=== PATIENT | female | born 2000 | race Caucasian/White ===

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

== ENCOUNTER 2018-02-02 14:30 | Outpatient (RCR) | payer OTHER, SELFPAY ==
--- NOTE | 2018-01-17 15:38 | HMH.PTOPEV ---
PT Outpatient Evaluation Rehab PT Outpatient Evaluation Start: 01/17/18 15:28 Freq: Status: Active Protocol: Document 01/17/18 15:28 SHERRISALVADOR (Rec: 01/17/18 15:37 LINDASUKUMAR [id number]) Electronically Signed By Yong Jung PT 01/17/18 15:28 Outpatient Therapy Subjective History Subjective History This is the initial Physical Therapy evaluation for Nathaly Plaza. Pt is a 17 y/o female referred to PT for c/o R side thoracic pain. Pt reports pain began on the . Pt reports she felt tightness in R side of spine that progressed into severe pain and muscle spasms which limited her ability to inspire . Pt reports severe pain with inspiration. PT reports pain has decreased but still has tightness and pain. Pt did report that she was at drill [employer] two days prior to muscle spasm Chief Complaint Pain Spasms Symptom Type Sharp Dull Symptoms Relieved By Rest/Positioning Symptoms Aggravated By Bending/Stooping Physical Activity Lifting Prior Functional Limitations None Current Functional Limitations Housework Recreation Activity Symptom Description Intermittent Level of pain today (0-10) 6 Pain scale - at its best (0-10) 0 Pain scale - at its worst (0-10) 10 Cervical Eval Palpation Cervical Muscles R Thoracic Paraspinals Lumbopelvic Eval Posture Thoracic Spine Posture Standing Position Neutral Palapation tenderness right thoracic spinal tenderness Yes lumbar spinal tenderness No paraspinal tenderness No buttock tenderness No Accessory Movement T-spine Vertebrae Accessory Movements Right P/A [place] that Elicit Symptoms T10 right Special Tests Anterior/Posterior Rib Compression Test Positive Right Rib Inspiration/Expiration Breathing Positive Test Forward Bending Test- Standing Positive Right Outpatient Therapy Assessment Impairments Problems/Impairmments Palpation Tenderness Impaired Range of Motion Impaired Lifting Im
== END 2018-02-02 14:31 | disposition home or self-care (01) ==
LOC: PT 14:30
PROVIDERS: Family Provider Nurse Practitioner Family; PCP Nurse Practitioner Family; Visit Provider Nurse Practitioner Family
DX: M62.830 Muscle spasm of back (principal)
CPT/HCPCS: 97010; 97014; 97110; 97140; 97163; G0283

== ENCOUNTER → 2018-02-02 15:56 | Outpatient (CLI) | payer OTHER, SELFPAY ==
--- NOTE | 2018-02-02 15:58 | XR_ITS ---
XR chest 2V HISTORY: ITS.REASON: pain with breathing and palpatations ORDERING PHYSICIAN: Trista Martinez PATIENT AGE: 17 years COMPARISON: None FINDINGS: The cardiomediastinal silhouette and pulmonary vascularity are within normal limits. The lungs are clear without infiltrates, suspicious nodules, or pleural effusions. No acute bony abnormalities. IMPRESSION: Negative chest, no acute finding
== END ==
PROVIDERS: PCP Nurse Practitioner Family; Visit Provider Nurse Practitioner Family
DX: R07.1 Chest pain on breathing (principal)
CPT/HCPCS: 71046

== ENCOUNTER → 2018-03-14 12:55 | Outpatient (CLI) | payer OTHER, SELFPAY ==
--- NOTE | 2018-03-14 12:56 | US_ITS ---
US transvaginal HISTORY: Pelvic cramping, dysfunctional uterine bleeding ITS.REASON: US T/V- Left Ovarian Cyst ORDERING PHYSICIAN: Ivone Martinez MD PATIENT AGE: 17 years Comparison: 08/21/2015 FINDINGS: The uterus is normal in size and shows normal echogenicity. The endometrial echo appears normal. The right ovary is normal size and appears normal. The left ovary is normal size and shows a dominant cyst measuring 2.3 x 1.7 x 1.9 cm. There is a [id number] amount of cul-de-sac fluid slightly more than physiologic. Ostomy there is been a recent partial rupture of the left ovarian cyst. Impression: Probable functional cyst left ovary, small to moderate amount of cul-de-sac fluid
== END ==
PROVIDERS: Family Provider Nurse Practitioner Family; PCP Nurse Practitioner Family; Visit Provider Obstetrics & Gynecology
DX: N83.202 Unspecified ovarian cyst, left side (principal)
CPT/HCPCS: 76830

== ENCOUNTER 2018-06-22 12:13 | Observation (INO) ==
[2018-06-22 13:49] LABS: Basophils % 0.1 % (0.1-2.0); Eosinophils % 0.2 % (0.1-12.0); Hematocrit 40.3 % (37.0-47.0); Hemoglobin 13.2 g/dL (12.2-16.2); Lymphocytes # 1.2 K/mm3 (0.7-4.5); Lymphocytes % 15.1 K/mm3 (10-50); Mean Corpuscular HGB Conc 32.8 g/dL (31.8-35.4); Mean Corpuscular Hemoglobin 29.3 pg (27.0-31.2); Mean Corpuscular Volume 89.3 fl (81-99); Mean Platelet Volume 6.6 fl (7.4-10.4); Monocytes # 0.2 K/mm3 (0.1-1.0); Neutrophils # 6.7 K/mm3 (1.8-7.8); Neutrophils % 82.5 % (37.0-80.0); Platelet Count 299 K/mm3 (142-424); Red Blood Count 4.52 M/mm3 (4.20-5.40); Red Cell Distribution Width 12.7 % (11.5-17.5); White Blood Count 8.1 K/mm3 (4.5-13.0)
[2018-06-22 14:00] LABS: Albumin Level 3.8 gm/dL (3.4-5.0); Albumin/Globulin Ratio 0.9 (1.1-1.8); Bilirubin,Total 0.3 mg/dL (0.2-1.0); Calcium 9.4 mg/dL (8.5-10.1); Globulin 4.1 gm/dl (1.3-3.2); Total Protein,Serum 7.9 gm/dL (6.4-8.2)
--- NOTE | 2018-06-22 15:24 | Pharmacy Consult Notes ---
[facility] Pharmacy VTE Monitoring - Patient Demographics Admission date: 06/22/18 Report Date: 06/22/18 Time: 15:24 Allergies/Adverse Reactions: Patient Allergies No Known Allergies Allergy (Verified 06/22/18 11:30) Height: 1.55 m Weight: 55.338 kg - VTE Risk Labs: VTE Related Lab Results Hgb 13.2 g/dL (12.2-16.2) 06/22/18 13:25 Hct 40.3 % (37.0-47.0) 06/22/18 13:25 Plt Count 299 K/mm3 (142-424) 06/22/18 13:25 BUN 13 mg/dL (7-18) 06/22/18 13:25 Creatinine 0.94 mg/dL (0.55-1.02) 06/22/18 13:25 Estimated Creat Clear 84 mL/min (0-300) 06/22/18 13:25 Was VTE Risk Assessment Performed: Yes VTE Score: 0 VTE Risk Level: Very Low Risk - Prophylaxis VTE Prophylaxis Ordered?: Yes Types of VTE Prophylaxis: TEDS Knee High Location of Applied Device: Bilateral Lower Extremeties - VTE Diagnosis Confirmed Treatment or plan recommended: Continue Current Treatment
[2018-06-23 07:14] LABS: Basophils % 0.3 % (0.1-2.0); Eosinophils % 0.5 % (0.1-12.0); Hematocrit 37.1 % (37.0-47.0); Hemoglobin 12.1 g/dL (12.2-16.2); Lymphocytes # 3.5 K/mm3 (0.7-4.5); Lymphocytes % 41.2 K/mm3 (10-50); Mean Corpuscular HGB Conc 32.7 g/dL (31.8-35.4); Mean Corpuscular Hemoglobin 29.5 pg (27.0-31.2); Mean Corpuscular Volume 90.3 fl (81-99); Monocytes # 0.5 K/mm3 (0.1-1.0); Monocytes % 5.6 % (1.7-9.3); Neutrophils # 4.4 K/mm3 (1.8-7.8); Neutrophils % 52.4 % (37.0-80.0); Platelet Count 289 K/mm3 (142-424); Red Blood Count 4.11 M/mm3 (4.20-5.40); Red Cell Distribution Width 12.7 % (11.5-17.5); White Blood Count 8.4 K/mm3 (4.5-13.0)
[2018-06-23 07:22] LABS: Anion Gap 10.8 mEq/L (5-15); Calcium 8.7 mg/dL (8.5-10.1); Potassium 3.8 mmoL/L (3.5-5.1)
--- NOTE | 2018-06-23 07:45 | H&P/Discharge Summary ---
General - General Admission date:: 06/22/18 Discharge date: 06/23/18 *Admission Date: 06/22/18 *Chief complaint: Nausea/vomiting *History of present illness: 17-year-old white female with recent history of staph epi urinary tract infection that was not treated, who presented to primary nurse practitioner's office with feelings of nausea, low blood pressure and generalized weakness and malaise. Found to have abdominal pain, and orthostatic changes on office vital signs, admitted to hospital for overnight observation for IV fluids and further diagnostic testing as needed and antibiotic therapy. [facility] History I have reviewed the patient's past medical history: Yes Medical History: Reports:: Anxiety Denies:: Cancer, Diabetes Mellitus Type 1, Diabetes Mellitus Type 2, MRSA, Seizures Laterality Cases: Bilateral: Tonsillectomy Other Surgeries: Yes: No Previous Surgery, Sinus Surgery, Other Amputation: No Fractures: No - *Social History Educational Level: Attended College Smoking Status: Never smoker Alcohol Intake: never Substance Use Type: denies use Occupational Status: employed Housing: house Household Members: family - Psychiatric History Expresses thoughts of harming self/others: None Suicide Plan Description: No Plan Pschychiatric History:: Reports:: Anxiety *Family Hx:: Cancer, Asthma, Hypertension, Hyperlipidemia Review of Systems - Review of Systems Review of systems:: pertinent systems reviewed and negative unless documented below - Constitutional Reports anorexia, Denies chills, Denies fever(s), Denies headache(s) - Eyes Denies blind spots, Denies blurry vision, Denies change in vision - ENT Denies abnormal hearing - *Cardiovascular Denies chest pain, Denies excessive sweating, Denies shortness of breath, Denies irregular heart rhythm - *Respiratory Denies change in phlegm color, Denies chest congestion, Denies cough - *Gastrointestinal Reports abdominal pain, Reports heartburn, Reports vomiting, Denies coffee ground vomit, Denies incontinent of stools, Denies vomiting blood, Denies bright, red blood in stools, Denies loose stools, Denies black, tarry stools - *Genitourinary Denies abnormal periods - *Musculoskeletal Denies abnormal walking, Denies joint pain - Integumentary/Breasts Denies acne - *Neurologic Denies abnormal walking, Denies abnormal hearing Exam Vital signs and Labs for Last 24 Hours: Temp Pulse Resp BP Pulse Ox 97.8 F 54 L 14 107/50 L 99 06/23/18 04:29 06/23/18 04:29 06/23/18 04:29 06/23/18 04:29 06/23/18 04:29 Laboratory Results - last 24 hr 06/22/18 13:25: WBC 8.1, RBC 4.52, Hgb 13.2, Hct 40.3, MCV 89.3, MCH 29.3, MCHC 32.8, RDW 12.7, Plt Count 299, MPV 6.6 L, Neut % (Auto) 82.5 H, Lymph % (Auto) 15.1, Leon % (Auto) 2.0, Eos % (Auto) 0.2, Baso % (Auto) 0.1, Neut # (Auto) 6.7, Lymph # (Auto) 1.2, Leon # (Auto) 0.2, Eos # (Auto) 0.0, Baso # (Auto) 0.0 06/22/18 13:25: Sodium 141, Potassium 4.0, Chloride 103, Carbon Dioxide 27, Anion Gap 15.0, BUN 13, Creatinine 0.94, Estimated Creat Clear 84, Estimated GFR 77, Est GFR ( Amer) 93, Glucose 91, Calcium 9.4, Total Bilirubin 0.3, AST 13 L, ALT 22, Alkaline Phosphatase 69, Total Protein 7.9, Albumin 3.8, Globulin 4.1 H, Albumin/Globulin Ratio 0.9 L 06/22/18 13:25: Serum HCG, Qual Negative 06/23/18 07:00: WBC 8.4, RBC 4.11 L, Hgb 12.1 L, Hct 37.1, MCV 90.3, MCH 29.5, MCHC 32.7, RDW 12.7, Plt Count 289, MPV 7.0 L, Neut % (Auto) 52.4, Lymph % (Auto) 41.2, Leon % (Auto) 5.6, Eos % (Auto) 0.5, Baso % (Auto) 0.3, Neut # (Auto) 4.4, Lymph # (Auto) 3.5, Leon # (Auto) 0.5, Eos # (Auto) 0.0, Baso # (Auto) 0.0 06/23/18 07:00: Sodium 141, Potassium 3.8, Chloride 107, Carbon Dioxide 27, Anion Gap 10.8, BUN 11, Creatinine 0.95, Estimated Creat Clear 83, Estimated GFR 76, Est GFR ( Amer) 92, Glucose 80, Calcium 8.7 I & O for Last 24 hours: Intake & Output 06/20/18 06/21/18 06/22/18 06/23/18 11:59 11:59 11:59 11:59 Intake Total 2495 / 2495 Output Total 1600 / 1600 Balance 895 / 895 Weight 122 lb Narrative: Patient is asleep, when awakened this morning she is alert. Mild nausea reported but otherwise feels better, has kept on clear liquids according to nursing documentation. Oropharynx clear. Lesions. No JVD. Lungs are clear in the anterior and posterior [place], heart rate regular without tachycardia or murmurs. Abdomen is soft, very minimal subjective tenderness in both lower quadrants but no rebound, guarding or masses. No CVA tenderness. No edema or clubbing. Normal skin turgor this morning. Hospital Course Hospital Course: Patient was admitted overnight. Blood cultures were obtained, negative at time of dictation. Urine culture reviewed from previous labs, showed staph epi. Sensitive to Levaquin. Therapy was started. Zofran was given overnight. This morning patient is keeping clear liquids down. Vital signs are normal. Patient can safely be discharged home. Discharged home with Levaquin and Zofran. Clear liquids advance to a low-fat diet. Follow-up with primary care nurse practitioner provider in the next 3 or 4 days. Results Labs on day of discharge: Labs from last 24 hours 06/23/18 06/23/18 06/22/18 07:00 07:00 13:25 WBC 8.4 RBC 4.11 L Hgb 12.1 L Hct 37.1 MCV 90.3 MCH 29.5 MCHC 32.7 RDW 12.7 Plt Count 289 MPV 7.0 L Neut % (Auto) 52.4 Lymph % (Auto) 41.2 Leon % (Auto) 5.6 Eos % (Auto) 0.5 Baso % (Auto) 0.3 Neut # (Auto) 4.4 Lymph # (Auto) 3.5 Leon # (Auto) 0.5 Eos # (Auto) 0.0 Baso # (Auto) 0.0 Sodium 141 Potassium 3.8 Chloride 107 Carbon Dioxide 27 Anion Gap 10.8 BUN 11 Creatinine 0.95 Estimated Creat Clear 83 Estimated GFR 76 Est GFR ( Amer) 92 Glucose 80 Calcium 8.7 Total Bilirubin AST ALT Alkaline Phosphatase Total Protein Albumin Globulin Albumin/Globulin Ratio Serum HCG, Qual Negative 06/22/18 06/22/18 13:25 13:25 WBC 8.1 RBC 4.52 Hgb 13.2 Hct 40.3 MCV 89.3 MCH 29.3 MCHC 32.8 RDW 12.7 Plt Count 299 MPV 6.6 L Neut % (Auto) 82.5 H Lymph % (Auto) 15.1 Leon % (Auto) 2.0 Eos % (Auto) 0.2 Baso % (Auto) 0.1 Neut # (Auto) 6.7 Lymph # (Auto) 1.2 Leon # (Auto) 0.2 Eos # (Auto) 0.0 Baso # (Auto) 0.0 Sodium 141 Potassium 4.0 Chloride 103 Carbon Dioxide 27 Anion Gap 15.0 BUN 13 Creatinine 0.94 Estimated Creat Clear 84 Estimated GFR 77 Est GFR ( Amer) 93 Glucose 91 Calcium 9.4 Total Bilirubin 0.3 AST 13 L ALT 22 Alkaline Phosphatase 69 Total Protein 7.9 Albumin 3.8 Globulin 4.1 H Albumin/Globulin Ratio 0.9 L Serum HCG, Qual DS: Diagnosis - Discharge Diagnosis (1) UTI (urinary tract infection) Status: Acute (2) Abdominal pain Status: Acute Discharge Medications - Medications for Discharge Home Medication List at Discharge: New levoFLOXacin [Levaquin 500mg tab] 500 mg PO DAILY #7 tab Continue Omeprazole [Omeprazole 20mg Capsule] 20 mg PO DAILY Norethindrone-E.estradiol-Iron [Lo Loestrin Fe 1-10 Tablet] 1 tab PO ONCE Sertraline HCl [Zoloft] 50 mg PO DAILY hydrOXYzine HCl [Hydroxyzine HCl] 25 mg PO BID PRN PRN Reason: Anxiety Changed Ondansetron HCl [Ondansetron 4mg Tablet] 4 mg PO QIDP PRN #24 tablet PRN Reason: Nausea Discontinued predniSONE [Deltasone 20mg tablet] 20 mg PO DAILY Amoxicillin [Amoxicillin 500mg Cap] 1 cap PO TID Ciprofloxacin HCl [Ciprofloxacin 500mg Tab] 500 mg PO BID
== END 2018-06-23 09:57 | disposition home or self-care (01) ==
LOC: 2ND
PROVIDERS: ADMIT Internal Medicine Adolescent Medicine; ATTEND Internal Medicine Adolescent Medicine
DX: N39.0 Urinary tract infection, site not specified

== ENCOUNTER 2018-06-26 20:09 | Observation (INO) ==
[2018-06-26 20:36] LABS: Microscopic, Urine URINE MICROSCOPIC (MICROSCOPIC)
[2018-06-26 20:49] LABS: Appearance,Urine CLEAR (Clear); Bilirubin,Urine Negative (Negative); Blood, Urine 1+ (Negative); Color,Urine YELLOW (Yellow); Glucose,Urine (UA) Negative (Negative); Ketones,Urine Negative (Negative); Leukocyte Esterase,Urine Negative (Negative); PH,Urine 7.5 (5.0-8.5); Protein,Urine Negative (Negative); Specific Gravity, Urine 1.015 (1.005-1.030); Urobilinogen,Urine 0.2 EU/dl (0.2)
[2018-06-26 20:51] LABS: Amorphous Sediment,Urine Trace /lpf
[2018-06-26 21:01] LABS: Basophils % 0.5 % (0.1-2.0); Eosinophils # 0.2 K/mm3 (0.0-0.4); Eosinophils % 2.1 % (0.1-12.0); Hematocrit 39.4 % (37.0-47.0); Hemoglobin 13.4 g/dL (12.2-16.2); Lymphocytes # 2.8 K/mm3 (0.7-4.5); Lymphocytes % 37.9 K/mm3 (10-50); Mean Corpuscular Hemoglobin 30.5 pg (27.0-31.2); Mean Corpuscular Volume 89.6 fl (81-99); Mean Platelet Volume 6.7 fl (7.4-10.4); Monocytes # 0.4 K/mm3 (0.1-1.0); Monocytes % 5.9 % (1.7-9.3); Neutrophils # 3.9 K/mm3 (1.8-7.8); Neutrophils % 53.6 % (37.0-80.0); Platelet Count 298 K/mm3 (142-424); Red Cell Distribution Width 12.8 % (11.5-17.5); White Blood Count 7.3 K/mm3 (4.5-13.0)
[2018-06-26 21:12] LABS: Albumin Level 3.9 gm/dL (3.4-5.0); Anion Gap 12.6 mEq/L (5-15); Bilirubin,Total 0.6 mg/dL (0.2-1.0); Calcium 9.4 mg/dL (8.5-10.1); Globulin 3.8 gm/dl (1.3-3.2); Potassium 3.6 mmoL/L (3.5-5.1); Total Protein,Serum 7.7 gm/dL (6.4-8.2)
--- NOTE | 2018-06-26 22:03 | Emergency Department Note ---
ED Disposition Clinical Impression: Weakness Fatigue Qualifiers: Fatigue type: unspecified Qualified Code(s): R53.83 - Other fatigue Disposition: Still a Patient Condition on Discharge: Fair Referrals: Trista Martinez APRN [Primary Care Provider] - - Critical Care Critical Care Time: No Attestation: On 06/26/18, the high probability of a clinically significant, sudden or life threatening deterioration of the following system(s) required my full and direct attention, intervention and personal management. The time I documented below is in addition to time spent performing reported procedures but includes the following listed in this critical care notation. Medical Decision Making - Deejay Inquiry Pt receiving controlled substance: No Vital Signs: 06/26/18 20:20 Temperature 98.8 F Temperature Source Oral Pulse Rate [Right] 80 Respiratory Rate 20 Blood Pressure [Right Arm] 124/78 Blood Pressure Mean [Right Arm] 93 02 Sat by Pulse Oximetry 100 Oxygen Delivery Method Room Air - Lab Data Lab Results 06/26/18 20:31: Urine Color Yellow, Urine Appearance Clear, Urine pH 7.5, Ur Specific [place] 1.015, Urine Protein Negative, Urine Glucose (UA) Negative, Ur ine Ketones Negative, Urine Blood 1+, Urine Nitrate Negative, Urine Bilirubin Negative, Urine Urobilinogen 0.2, Ur Leukocyte Esterase Negative, Urine RBC 5- 10, Urine WBC 3-5, Ur Squamous Epith Cells 5-10, Amorphous Sediment Trace 06/26/18 20:31: Urine HCG, Qual Negative 06/26/18 20:43: WBC 7.3, RBC 4.40, Hgb 13.4, Hct 39.4, MCV 89.6, MCH 30.5, MCHC 34.0, RDW 12.8, Plt Count 298, MPV 6.7 L, Neut % (Auto) 53.6, Lymph % (Auto) 37.9, King % (Auto) 5.9, Eos % (Auto) 2.1, Baso % (Auto) 0.5, Neut # (Auto) 3.9, Lymph # (Auto) 2.8, King # (Auto) 0.4, Eos # (Auto) 0.2, Baso # (Auto) 0.0 06/26/18 20:43: Sodium 142, Potassium 3.6, Chloride 105, Carbon Dioxide 28, Anion Gap 12.6, BUN 11, Creatinine 1.01, Estimated Creat Clear 68, Estimated GFR 71, Est GFR ( Amer) 85, Glucose 92, Calcium 9.4, Total Bilirubin 0.6, AST 15, ALT 21, Alkaline Phosphatase 72, Total Protein 7.7, Albumin 3.9, Globulin 3.8 H, Albumin/Globulin Ratio 1.0 L Result diagrams: 06/26/18 20:43 06/26/18 20:43 Orders (Tests/Meds): ED MEDICATIONS Discontinued Medications Generic Name Dose Route Start Last Admin Trade Name Freq PRN Reason Stop Dose Admin Sodium Chloride 1,000 mls @ 999 mls/hr 06/26/18 20:30 06/26/18 20:50 Sod Chlor 0.9% 1000ml Bag IV 06/26/18 21:30 999 mls/hr .Q1H1M RACHEL Administration Ketorolac Tromethamine 30 mg 06/26/18 20:30 06/26/18 20:50 Toradol 30mg/Ml Vial IV 06/26/18 20:31 30 mg ONCE ONE Administration Ondansetron HCl 4 mg 06/26/18 20:30 06/26/18 20:50 Zofran 4mg/2ml Vial IV 06/26/18 20:31 4 mg ONCE ONE Administration ORDERS Category Date Time Status EBV Acute Infection Antibodies Stat Lab 06/26/18 22:25 Ordered Upper Respiratory Panel, PCR Stat Lab 06/26/18 22:25 Ordered Urinalysis and Microscopic Stat Lab 06/26/18 20:31 Ordered - Physician Consults Physician Consulted: Jorge Hanson Time: 22:24 Reason -: Admission Comment/Response: Agrees to admit the patient to the hospital. We discussed the patient's clinical information, including history, exam, laboratory and ra diology results and ED course. Per hospital procedure, I will write temporary bridge inpatient orders on the patient. Specific orders requested by the admitting physician: IV fluids, upper respiratory panel, Paul-Ramirez virus IgG and IgM. General Adult HPI - General Chief complaint: Fever Stated complaint: Fever, Headache, Aching Time Seen by Provider: 06/26/18 22:03 Mode of Arrival: Ambulatory Limitations: No Limitations Description of Symptoms (Recalled from ER Triage Doc. by RN): Pt c/o fever, chil ls, N/V, and SANCHEZ. Pt was just d/c from this hospital on with a UTI and sent home with PO antibiotics. - History of Present Illness HPI narrative: States this is the th day of an illness. She says she has felt feverish, but does not take her temperature at home, does not have a thermometer. Has hot and sweaty episodes. Generalized malaise and weakness. Generalized body aches and headache. Slight rhinorrhea, but no sore throat or cough. She had diarrhea for couple days, but that resolved. No vomiting. No rash. Seen in this emergency department on 06/17/18. Seen in the primary care provider's office and admitted to this hospital on 06/22/18 through 06/23/18. Urine showed staph epidermidis, 20-30,000 colony count. Treated presumptively with Levaquin. States she is still taking this antibiotic, but is not getting any better. She says that she has a sense of doom, feels like she is going to . She says she does not even feel like she is in her own body. - Related Data Home Medications Medication Instructions Recorded Confirmed Norethindrone-E.estradiol-Iron [Lo 1 tab PO ONCE 06/22/18 06/22/18 Loestrin Fe 1-10 Tablet] Omeprazole [Omeprazole 20mg 20 mg PO DAILY 06/22/18 06/22/18 Capsule] Sertraline HCl [Zoloft] 50 mg PO DAILY 06/22/18 06/22/18 hydrOXYzine HCl [Hydroxyzine HCl] 25 mg PO BID PRN 06/22/18 06/22/18 Previous Rx's Medication Instructions Recorded Ondansetron HCl [Ondansetron 4mg 4 mg PO QIDP PRN #24 tablet 06/23/18 Tablet] levoFLOXacin [Levaquin 500mg 500 mg PO DAILY #7 tab 06/23/18 tab] Allergies Allergy/AdvReac Type Severity Reaction Status Date / Time No Known Allergies Allergy Verified 06/22/18 11:30 [facility] History I have reviewed the patient's past medical history: Yes Medical History: Reports:: Anxiety Denies:: Cancer, Diabetes Mellitus Type 1, Diabetes Mellitus Type 2, MRSA, Seizures Laterality Cases: Bilateral: Tonsillectomy Other Surgeries: Yes: No Previous Surgery, Sinus Surgery, Other Amputation: No Fractures: No Comment: EXPLORATORY ON STOMACH WHICH SHOWED IBS - Social History Smoking Status: Never smoker Alcohol Intake: never Substance Use Type: denies use Occupational Status: employed Housing: house Household Members: family - Psychiatric History Expresses thoughts of harming self/others: None Suicide Plan Description: No Plan Pschychiatric History:: Reports:: Anxiety Family Hx:: Cancer, Asthma, Hypertension, Hyperlipidemia ROS Obtained: Yes All systems reviewed & no additional complaints - Constitutional Constitutional: Reports excessive sweating, Reports fatigue, Reports fever(s) (Subjective), Reports malaise, Reports weakness - ENT Ears, Nose, Mouth, and Throat: Denies otalgia, Reports nasal discharge, Denies sore throat - Cardiovascular Cardiovascular: Denies chest pain - Respiratory Respiratory: No cough, No dyspnea - Gastrointestinal Gastrointestingal: Reports: diarrhea. Denies: abdominal pain, vomiting - Genitourinary Female Genitourinary: Denies dysuria, Denies urinary frequency - Neurologic Neurologic: Reports headache(s) Physical Exam - General General appearance: alert, in no apparent distress - Head Head exam: atraumatic, normocephalic, normal inspection - Eye Eye exam: Present: normal appearance, PERRL, EOMI - ENT ENT exam: Present: normal exam, normal oropharynx, mucous membranes moist, TM's normal bilaterally, normal external ear exam - Neck Neck exam: Present: normal inspection, full ROM, trachea midline. Absent: meningismus, lymphadenopathy - Chest Chest inspection: Present: normal inspection, symmetric chest wall rise. Absent: tenderness - Respiratory Respiratory exam: Present: normal lung sounds bilaterally. Absent: respiratory distress - Cardiovascular Cardiovascular exam: Present: regular rate, normal rhythm. Absent: JVD - Abdominal Exam Abdominal exam: Present: soft, normal bowel sounds. Absent: distention, tendern ess, guarding - Extremities Exam Extremities exam: Present: normal inspection, full ROM, normal capillary refill. Absent: calf tenderness - Back Exam Back exam: Present: normal inspection. Absent: tenderness, CVA tenderness (R), CVA tenderness (L) - Neurological Exam Neurological exam: Present: alert, oriented X3, CN II-XII intact. Absent: motor sensory deficit - Psychiatric Psychiatric exam: Present: normal affect, normal mood - Skin Skin exam: Present: warm, dry, intact, normal color. Absent: rash - Lymphatic Lymphatic Findings: no adenopathy
[2018-06-26 23:30] LABS: Coronavirus 229E Not Detected (NotDetected); Coronavirus NL63 Not Detected (NotDetected); Coronavirus OC43 Not Detected (NotDetected); Coronovirus HKU1,PCR Not Detected (NotDetected)
--- NOTE | 2018-06-27 07:21 | Pharmacy Consult Notes ---
[facility] Pharmacy VTE Monitoring - Patient Demographics Admission date: 06/26/18 Report Date: 06/27/18 Time: 07:21 Allergies/Adverse Reactions: Patient Allergies No Known Allergies Allergy (Verified 06/22/18 11:30) Height: 1.55 m Weight: 53.269 kg Patient Problems: Current Active Problems Weakness (Acute) Fatigue (Acute) - VTE Risk Labs: VTE Related Lab Results Hgb 13.4 g/dL (12.2-16.2) 06/26/18 20:43 Hct 39.4 % (37.0-47.0) 06/26/18 20:43 Plt Count 298 K/mm3 (142-424) 06/26/18 20:43 BUN 11 mg/dL (7-18) 06/26/18 20:43 Creatinine 1.01 mg/dL (0.55-1.02) 06/26/18 20:43 Estimated Creat Clear 68 mL/min (0-300) 06/26/18 20:43 Was VTE Risk Assessment Performed: Yes VTE Risk Level: Very Low Risk - Prophylaxis VTE Prophylaxis Ordered?: Yes Types of VTE Prophylaxis: TEDS Knee High Location of Applied Device: Bilateral Lower Extremeties - VTE Diagnosis Confirmed Treatment or plan recommended: Continue Current Treatment
[2018-06-27 11:20] LABS: Erythrocyte Sedimentation Rate 9 mm/hr (0-20)
--- NOTE | 2018-06-27 17:26 | H&P/Discharge Summary ---
General - General Admission date:: 06/26/18 Discharge date: 06/27/18 *Admission Date: 06/26/18 *Chief complaint: weakness *History of present illness: 17 yr old female presents to ed with c/o of weakness,nausea, body aches, fatigue, and chills for 14 days. Pt has been seen in ed at [facility] and [facility] ed x 2. Pt was admitted last week with similar c/o. Pt admitted for iv fluids, iv zofran, and testing. This am pt states she feels horrible and hurts all over, is able to walk to bath room without difficulty and was able to eat two chips before she became nauseous. [facility] History I have reviewed the patient's past medical history: Yes Medical History: Reports:: Anxiety Denies:: Cancer, Diabetes Mellitus Type 1, Diabetes Mellitus Type 2, MRSA, Seizures Laterality Cases: Bilateral: Tonsillectomy Other Surgeries: Yes: No Previous Surgery, Sinus Surgery, Other (ABD EXPLORATORY LAP) Amputation: No Fractures: No - *Social History Educational Level: Attended College Smoking Status: Never smoker Alcohol Intake: never Substance Use Type: denies use Occupational Status: employed Housing: house Household Members: family - Psychiatric History Expresses thoughts of harming self/others: None Suicide Plan Description: No Plan Pschychiatric History:: Reports:: Anxiety *Family Hx:: Cancer, Asthma, Hypertension, Hyperlipidemia Review of Systems - Review of Systems Review of systems:: pertinent systems reviewed and negative unless documented below - Constitutional Reports body ache(s), Reports chills, Reports fatigue, Reports lack of energy, Reports malaise, Reports weakness - Eyes Denies loss of vision - ENT Denies change in voice, Denies throat swelling - *Cardiovascular Denies chest pain with activity, Denies lightheadedness, Denies shortness of breath causing sudden awakening - *Respiratory Denies chest congestion - *Gastrointestinal Denies incontinent of stools, Denies vomiting - *Genitourinary Reports other, Denies abnormal vaginal bleeding - *Musculoskeletal Denies abnormal walking - Integumentary/Breasts Denies rash - *Neurologic Reports headache(s), Reports weakness, Denies unsteadiness, Denies localized weakness, Denies dizziness - Psychiatric Reports anxiety - Endocrine Denies excessive sweating - Hematologic/Lymphatic Denies enlarged lymph nodes - Allergic/Immunologic Denies lip swelling Exam Vital signs and Labs for Last 24 Hours: Temp Pulse Resp BP Pulse Ox 98.8 F 68 18 133/80 97 06/27/18 15:35 06/27/18 15:35 06/27/18 15:35 06/27/18 15:35 06/27/18 15:35 Laboratory Results - last 24 hr 06/26/18 20:31: Urine Color Yellow, Urine Appearance Clear, Urine pH 7.5, Ur Specific [place] 1.015, Urine Protein Negative, Urine Glucose (UA) Negative, Urine Ketones Negative, Urine Blood 1+, Urine Nitrate Negative, Urine Bilirubin Negative, Urine Urobilinogen 0.2, Ur Leukocyte Esterase Negative, Urine RBC 5- 10, Urine WBC 3-5, Ur Squamous Epith Cells 5-10, Amorphous Sediment Trace 06/26/18 20:31: Urine HCG, Qual Negative 06/26/18 20:43: WBC 7.3, RBC 4.40, Hgb 13.4, Hct 39.4, MCV 89.6, MCH 30.5, MCHC 34.0, RDW 12.8, Plt Count 298, MPV 6.7 L, Neut % (Auto) 53.6, Lymph % (Auto) 37.9, [place] % (Auto) 5.9, Eos % (Auto) 2.1, Baso % (Auto) 0.5, Neut # (Auto) 3.9, Lymph # (Auto) 2.8, [place] # (Auto) 0.4, Eos # (Auto) 0.2, Baso # (Auto) 0.0 06/26/18 20:43: Sodium 142, Potassium 3.6, Chloride 105, Carbon Dioxide 28, Anion Gap 12.6, BUN 11, Creatinine 1.01, Estimated Creat Clear 68, Estimated GFR 71, Est GFR ( Amer) 85, Glucose 92, Calcium 9.4, Total Bilirubin 0.6, AST 15, ALT 21, Alkaline Phosphatase 72, Total Protein 7.7, Albumin 3.9, Globulin 3.8 H, Albumin/Globulin Ratio 1.0 L 06/26/18 23:30: Chlamy pneumoniae PCR Not detected, Adenovirus (PCR) Not detected, B.parapertussis DNA PCR Not detected, Coronavirus OC43 (PCR) Not detected, Coronavirus HKU1 (PCR) Not detected, Coronavirus 229E (PCR) Not detected, Coronavirus NL63 (PCR) Not detected, Human Metapneumovir PCR Not detected, Influenza A (H1) PCR Not detected, Influ A (H1N1/09) PCR Not detected, Influenza A (H3) PCR Not detected, Influenza Type A (PCR) Not detected, Inf luenza Type B (PCR) Not detected, M. pneumoniae (PCR) Not detected, Parainfluenza 1 (PCR) Not detected, Parainfluenza 2 (PCR) Not detected, Parainfluenza 3 (PCR) Not detected, Parainfluenza 4 (PCR) Not detected, RSV (PCR) Not detected, Entero/Rhino (PCR) Not detected 06/27/18 10:10: ESR 9 06/27/18 10:10: C-Reactive Protein 0.2 06/27/18 10:10: Monoscreen Negative I & O for Last 24 hours: Intake & Output 06/25/18 06/26/18 06/27/18 06/28/18 11:59 11:59 11:59 11:59 Intake Total 828 / 828 Balance 828 / 828 Weight 117 lb 7 oz - Constitutional no acute distress - *Routine HEENT Exam Head: Present: normocephalic Eye: Present: PERRL ENT: Present: mucous membranes moist - *Routine Neck Exam Present: supple. Absent: lymphadenopathy - *Routine Respiratory Exam Present: CTA bilaterally - *Routine Cardiovascular Exam Present: RRR - *Routine Abdominal Exam Present: soft, normoactive bowel sounds, tenderness Comments: positive naranjo sign - *Routine Extremities Exam Absent: cyanosis, clubbing, edema - *Routine Skin Exam Present: warm. Absent: rash - *Routine Neurological Exam Present: alert, oriented X3, CN II-XII intact, moving all extremities, normal tone Hospital Course Hospital Course: gallbladder us: GALLBLADDER. No gallstone evident. Minimal sludge . Small 3 mm polyp near fundus. Upper normal gallbladder wall thickness But otherwise unremarkable RUQ ultrasound ct and and pelvis:IMPRESSION Appendix normal. No prominent acute findings abdomen. Minor observations: . Minimal fluid cul-de-sac most likely physiologic. The 2.8 cm left ovary is larger than right,. Suspect left ovary contains a 1.5 cm cyst Prominent increased stool sigmoid colon. Generous stool left colon. Possibly reflect minimal constipation Small 4 x 6 mm density at left lung base new since September 18, 2017 .. Doubt this is of significance in a 17-year-old. May reflect developing granuloma, minimal area scarring/atelectasis density,. Tiny focal inflammatory focus might also considered if respiratory symptoms. Iv fluids, testing, steroids-,labs, Results Labs on day of discharge: Labs from last 24 hours 06/27/18 06/27/18 06/27/18 10:10 10:10 10:10 WBC RBC Hgb Hct MCV MCH MCHC RDW Plt Count MPV Neut % (Auto) Lymph % (Auto) [place] % (Auto) Eos % (Auto) Baso % (Auto) Neut # (Auto) Lymph # (Auto) [place] # (Auto) Eos # (Auto) Baso # (Auto) ESR 9 Sodium Potassium Chloride Carbon Dioxide Anion Gap BUN Creatinine Estimated Creat Clear Estimated GFR Est GFR ( Amer) Glucose Calcium Total Bilirubin AST ALT Alkaline Phosphatase C-Reactive Protein 0.2 Total Protein Albumin Globulin Albumin/Globulin Ratio Urine Color Urine Appearance Urine pH Ur Specific [place] Urine Protein Urine Glucose (UA) Urine Ketones Urine Blood Urine Nitrate Urine Bilirubin Urine Urobilinogen Ur Leukocyte Esterase Urine RBC Urine WBC Ur Squamous Epith Cells Amorphous Sediment Urine HCG, Qual Chlamy pneumoniae PCR Adenovirus (PCR) B.parapertussis DNA PCR Coronavirus OC43 (PCR) Coronavirus HKU1 (PCR) Coronavirus 229E (PCR) Coronavirus NL63 (PCR) Monoscreen Negative Human Metapneumovir PCR Influenza A (H1) PCR Influ A (H1N1/09) PCR Influenza A (H3) PCR Influenza Type A (PCR) Influenza Type B (PCR) M. pneumoniae (PCR) Parainfluenza 1 (PCR) Parainfluenza 2 (PCR) Parainfluenza 3 (PCR) Parainfluenza 4 (PCR) RSV (PCR) Entero/Rhino (PCR) 06/26/18 06/26/18 06/26/18 23:30 20:43 20:43 WBC 7.3 RBC 4.40 Hgb 13.4 Hct 39.4 MCV 89.6 MCH 30.5 MCHC 34.0 RDW 12.8 Plt Count 298 MPV 6.7 L Neut % (Auto) 53.6 Lymph % (Auto) 37.9 [place] % (Auto) 5.9 Eos % (Auto) 2.1 Baso % (Auto) 0.5 Neut # (Auto) 3.9 Lymph # (Auto) 2.8 [place] # (Auto) 0.4 Eos # (Auto) 0.2 Baso # (Auto) 0.0 ESR Sodium 142 Potassium 3.6 Chloride 105 Carbon Dioxide 28 Anion Gap 12.6 BUN 11 Creatinine 1.01 Estimated Creat Clear 68 Estimated GFR 71 Est GFR ( Amer) 85 Glucose 92 Calcium 9.4 Total Bilirubin 0.6 AST 15 ALT 21 Alkaline Phosphatase 72 C-Reactive Protein Total Protein 7.7 Albumin 3.9 Globulin 3.8 H Albumin/Globulin Ratio 1.0 L Urine Color Urine Appearance Urine pH Ur Specific [place] Urine Protein Urine Glucose (UA) Urine Ketones Urine Blood Urine Nitrate Urine Bilirubin Urine Urobilinogen Ur Leukocyte Esterase Urine RBC Urine WBC Ur Squamous Epith Cells Amorphous Sediment Urine HCG, Qual Chlamy pneumoniae PCR Not detected Adenovirus (PCR) Not detected B.parapertussis DNA PCR Not detected Coronavirus OC43 (PCR) Not detected Coronavirus HKU1 (PCR) Not detected Coronavirus 229E (PCR) Not detected Coronavirus NL63 (PCR) Not detected Monoscreen Human Metapneumovir PCR Not detected Influenza A (H1) PCR Not detected Influ A (H1N1/09) PCR Not detected Influenza A (H3) PCR Not detected Influenza Type A (PCR) Not detected Influenza Type B (PCR) Not detected M. pneumoniae (PCR) Not detected Parainfluenza 1 (PCR) Not detected Parainfluenza 2 (PCR) Not detected Parainfluenza 3 (PCR) Not detected Parainfluenza 4 (PCR) Not detected RSV (PCR) Not detected Entero/Rhino (PCR) Not detected 06/26/18 06/26/18 20:31 20:31 WBC RBC Hgb Hct MCV MCH MCHC RDW Plt Count MPV Neut % (Auto) Lymph % (Auto) [place] % (Auto) Eos % (Auto) Baso % (Auto) Neut # (Auto) Lymph # (Auto) [place] # (Auto) Eos # (Auto) Baso # (Auto) ESR Sodium Potassium Chloride Carbon Dioxide Anion Gap BUN Creatinine Estimated Creat Clear Estimated GFR Est GFR ( Amer) Glucose Calcium Total Bilirubin AST ALT Alkaline Phosphatase C-Reactive Protein Total Protein Albumin Globulin Albumin/Globulin Ratio Urine Color Yellow Urine Appearance Clear Urine pH 7.5 Ur Specific [place] 1.015 Urine Protein Negative Urine Glucose (UA) Negative Urine Ketones Negative Urine Blood 1+ Urine Nitrate Negative Urine Bilirubin Negative Urine Urobilinogen 0.2 Ur Leukocyte Esterase Negative Urine RBC 5-10 Urine WBC 3-5 Ur Squamous Epith Cells 5-10 Amorphous Sediment Trace Urine HCG, Qual Negative Chlamy pneumoniae PCR Adenovirus (PCR) B.parapertussis DNA PCR Coronavirus OC43 (PCR) Coronavirus HKU1 (PCR) Coronavirus 229E (PCR) Coronavirus NL63 (PCR) Monoscreen Human Metapneumovir PCR Influenza A (H1) PCR Influ A (H1N1/09) PCR Influenza A (H3) PCR Influenza Type A (PCR) Influenza Type B (PCR) M. pneumoniae (PCR) Parainfluenza 1 (PCR) Parainfluenza 2 (PCR) Parainfluenza 3 (PCR) Parainfluenza 4 (PCR) RSV (PCR) Entero/Rhino (PCR) - Additional Comments abimael rounded earlier Discharge Medications - Medications for Discharge Home Medication List at Discharge: No Action Omeprazole [Omeprazole 20mg Capsule] 20 mg PO DAILY Norethindrone-E.estradiol-Iron [Lo Loestrin Fe 1-10 Tablet] 1 tab PO DAILY Ondansetron HCl [Ondansetron 4mg Tablet] 4 mg PO QIDP PRN #24 tablet PRN Reason: Nausea Sertraline HCl [Zoloft] 50 mg PO DAILY hydrOXYzine HCl [Hydroxyzine HCl] 25 mg PO BID PRN PRN Reason: Anxiety levoFLOXacin [Levaquin 500mg tab] 500 mg PO DAILY #7 tab Disposition Disposition: Home, Self-Care
[2018-06-28 07:16] LABS: Hepatitis B Core Antibody IgM Negative (Negative); Hepatitis B Surface Antigen Negative (Negative)
[2018-06-28 13:17] LABS: HIV Screen 4th Generation wRfx Non Reactive (Non Reactive); Hepatitis C Antibody <0.1 s/co ratio (0.0-0.9)
[2018-06-28 14:17] LABS: Epstein-Barr Virus Early Ag Ab 35.8 U/mL (0.0-8.9)
== END 2018-06-27 18:17 | disposition home or self-care (01) ==
LOC: ER 20:09 → 2ND 20:09
PROVIDERS: ADMIT Internal Medicine Adolescent Medicine; ATTEND Emergency Medicine
DX: R53.83 Other fatigue

== ENCOUNTER → 2018-07-13 10:13 | Outpatient (CLI) | payer OTHER, SELFPAY ==
--- NOTE | 2018-07-13 10:15 | NM_ITS ---
NM hepatobiliary wo pharm HISTORY: 88 and abdominal pain Quadrant tenderness, gallbladder polyp, abnormal ultrasound ITS.REASON: upper jonatan ORDERING PHYSICIAN: Trista Martinez PATIENT AGE: 17 years COMPARISON: None DOSE: 8.40 MCI TC Choletec Inj Into RT ANT Fatty Meal Ensure FINDINGS: Homogeneous activity is present within the hepatic parenchyma. Activity is present in the gallbladder by 10 minutes. Activity is present in the small bowel by mild limits. The gallbladder ejection fraction is calculated to be 86% The patient did not report pain or other symptoms during the fatty meal. IMPRESSION: Unremarkable hepatobiliary scan and gallbladder ejection fraction. No evidence of common or cystic duct obstruction with normal gallbladder ejection fraction
--- NOTE | 2018-07-13 10:59 | HMH.ITSHM ---
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 [] CONTROL RYAN HOFFMAN
== END ==
PROVIDERS: PCP Nurse Practitioner Family; Visit Provider Nurse Practitioner Family
DX: R11.2 Nausea with vomiting, unspecified (principal)
CPT/HCPCS: 78226; A9537

== ENCOUNTER → 2018-08-11 15:45 | Outpatient (CLI) | payer OTHER, SELFPAY ==
[2018-08-16 06:00] LABS: H. pylori Breath Test Negative (Negative)
== END ==
PROVIDERS: Visit Provider Nurse Practitioner Family
DX: R11.0 Nausea (principal)
CPT/HCPCS: 83013

== ENCOUNTER → 2018-08-11 15:54 | Outpatient (CLI) | payer OTHER, SELFPAY | PROVIDERS: Visit Provider Nurse Practitioner Family | DX: R11.0 Nausea (principal) | CPT/HCPCS: 87339 ==

== ENCOUNTER → 2018-09-02 19:42 | Outpatient (CLI) | payer OTHER, SELFPAY | PROVIDERS: Visit Provider Nurse Practitioner Family | DX: R31.9 Hematuria, unspecified (principal) | CPT/HCPCS: 87086 ==

== ENCOUNTER → 2018-12-16 13:58 | Outpatient (CLI) | payer OTHER, SELFPAY ==
--- NOTE | 2018-12-16 14:03 | XR_ITS ---
XR clavicle RT, XR shoulder RT 1V Ordering Physician: Alex Douglas MD Patient Age: 18 years: Female HISTORY: ITS.REASON: right clavicle pain TECHNIQUE: RIGHT CLAVICLE 2 view: AP and angled RIGHT SHOULDER. Single Axillary view HISTORY ITS.REASON: right clavicle pain right shoulder pain pain Patient states shoulder popped out a couple days ago. Implied dislocation COMPARISON: 12/13/2018 right shoulder 3 view RIGHT SHOULDER. Single Axillary view Normal glenohumeral relationships. RIGHT CLAVICLE 2 view: AP and angled of right clavicle show normal appearance of the clavicle. Also satisfactory appearance at the right AC joint as well as right sternoclavicular joint. Humeral head intact. Glenoid intact on the combination of views above. Apices the lungs are clear upper right ribs unremarkable Small rudimentary cervical ribs bilaterally at C7 measure less than 15 mm bilateral IMPRESSION......... Right shoulder intact. No fracture nor dislocation. Right clavicle intact , AC joint & glenohumeral joint intact
== END ==
PROVIDERS: PCP Nurse Practitioner Family; Visit Provider Orthopaedic Surgery
DX: M25.511 Pain in right shoulder (principal)
CPT/HCPCS: 73000; 73020

== ENCOUNTER → 2019-01-11 13:34 | Outpatient (CLI) | payer OTHER, SELFPAY ==
--- NOTE | 2019-01-11 13:36 | XR_ITS ---
XR clavicle RT HISTORY: Clavicle pain, prior injury ITS.REASON: zanca, serendipity, apical oblique ap views ORDERING PHYSICIAN: Alex Douglas MD PATIENT AGE: 18 years COMPARISON: 12/16/2018 FINDINGS: No fracture or dislocation is evident. There is a well-circumscribed defect within the inferior aspect of the clavicle medially measuring approximately 16 mm with a sclerotic margin. Etiology is indeterminate and CT of the sternoclavicular junction may be of further value. IMPRESSION: 1. Unremarkable distal clavicle. 2. Lucent lesion of the medial aspect of the right clavicle. Etiology indeterminate. Consider CT for further evaluation.
== END ==
PROVIDERS: PCP Nurse Practitioner Family; Visit Provider Orthopaedic Surgery
DX: M89.8X1 Other specified disorders of bone, shoulder (principal)
CPT/HCPCS: 73000

== ENCOUNTER → 2019-01-16 10:54 | Outpatient (CLI) | payer OTHER, SELFPAY ==
--- NOTE | 2019-01-16 10:55 | CT_ITS ---
CT chest wo con HISTORY: Evaluate defect within the medial aspect of the clavicle, not on the clavicle. Dislocated right shoulder, painful to touch ITS.REASON: evaluate medial end of right clavicle ORDERING PHYSICIAN: Alex Douglas MD PATIENT AGE: 18 years COMPARISON: 02/03/2018 Technique: Axial images obtained. Sagittal, and coronal reformatted images are also generated and reviewed. All CT scans at the facility use one or more dose reduction, viz: automated exposure control, ma/kV adjustment per patient size (including targeted exams where dose is matched to indication, i.e. head), or iterative reconstruction technique. FINDINGS: A BB is placed at the area of pain and tenderness. No masses or fluid collections evident deep to the placed BB. There is a well-circumscribed cortical defect involving the medial aspect of the right clavicle this measures approximately 12 mm. The status similar appearance on a chest CT of 02/03/2018 and is not significantly changed.. No overlying soft tissue abnormality evident at this region. No evidence of clavicle dislocation. No other bony abnormalities are evident. No mediastinal or hilar mass. Residual finding tissue is present within the anterior mediastinum. There is a 6 mm noncalcified nodule in the left lower lobe slightly smaller compared to the previous exam previously measuring 8 mm with some surrounding haziness which is no longer apparent on today's study. There are few scattered small nodes in the axilla. IMPRESSION: 1. No soft tissue mass apparent. 2. Well-circumscribed 12 mm cortical defect within the medial aspect of the right clavicle stable since 02/03/2018. This has a benign appearance. Would consider 6 month follow-up to confirm stability. 3. Noncalcified left lower lobe nodule which is slightly smaller.
== END ==
PROVIDERS: PCP Nurse Practitioner Family; Visit Provider Orthopaedic Surgery
DX: M25.511 Pain in right shoulder (principal)
CPT/HCPCS: 71250

== ENCOUNTER → 2019-07-21 16:19 | Outpatient (CLI) | payer OTHER, SELFPAY ==
--- NOTE | 2019-07-21 16:23 | XR_ITS ---
PROCEDURE: XR CHEST 2V CLINICAL HISTORY: chest congestion Cough and congestion COMPARISON: CXR2V XR chest 2V from 06/17/2018 CXR1VP XR chest portable from 10/30/2018 CXR2V XR chest 2V from 11/06/[address] chest wo con from 01/16/2019 FINDINGS: The cardiomediastinal silhouette and pulmonary vascularity are within normal limits. The lungs are clear without infiltrates, suspicious nodules, or pleural effusions. No acute bony abnormalities. IMPRESSION: No acute findings. Dictated by: Danial Padron MD 07/21/2019 16:41 Electronically signed by Danial Padron MD in [place] 07/21/2019 16:41
== END ==
PROVIDERS: PCP Nurse Practitioner Family; Visit Provider Nurse Practitioner Family
DX: R05 Cough (principal); R09.89 Other specified symptoms and signs involving the circulatory and respiratory systems
CPT/HCPCS: 71046

== ENCOUNTER 2020-02-13 17:37 | Emergency (ER) | payer OTHER, SELFPAY ==
[2020-02-13 17:37] VITALS: BP 110/65; PULSE 72; RESP 16; TEMP 37.3; O2SAT 98; BMI 23.6
--- NOTE | 2020-02-13 17:54 | HMH.EDGENADL ---
ED Disposition Clinical Impression: Syncope and collapse, Generalized weakness Disposition: Home, Self-Care Condition on Discharge: Good Instructions: DI for Syncope in Adults (Fainting) Additional Instructions: Holter monitor for 48 hours. Follow-up with primary care doctor in 2 to 3 days. Referrals: Trista Martinez APRN [Primary Care Provider] - - Critical Care Critical Care Time: No Attestation: On , the high probability of a clinically significant, sudden or life threatening deterioration of the following system(s) required my full and direct attention, intervention and personal management. The time I documented below is in addition to time spent performing reported procedures but includes the following listed in this critical care notation. Medical Decision Making - Medical Records Medical records reviewed: Yes: I reviewed the patient's medical records. - Deejay Inquiry Pt receiving controlled substance: No Vital Signs: 02/13/20 17:37 02/13/20 18:00 02/13/20 18:37 Temperature 99.1 F Temperature Source Oral Pulse Rate [Left Radial] 72 65 Pulse Rate [Orthostatic Lying] 77 Pulse Rate [Orthostatic Sitting] 80 Pulse Rate [Orthostatic Standing] 95 H Respiratory Rate 16 18 Blood Pressure [Orthostatic Lying Right Arm] 108/63 L Blood Pressure [Orthostatic Sitting] 111/66 Blood Pressure [Orthostatic Standing] 102/64 L Blood Pressure [Right Arm] 110/65 103/66 L Blood Pressure Mean [Right Arm] 80 78 Blood Pressure Position [Right Arm] Sitting 02 Sat by Pulse Oximetry 98 97 Oxygen Delivery Method Room Air Room Air 02/13/20 19:07 Temperature Temperature Source Pulse Rate [Left Radial] 74 Pulse Rate [Orthostatic Lying] Pulse Rate [Orthostatic Sitting] Pulse Rate [Orthostatic Standing] Respiratory Rate 18 Blood Pressure [Orthostatic Lying Right Arm] Blood Pressure [Orthostatic Sitting] Blood Pressure [Orthostatic Standing] Blood Pressure [Right Arm] 104/68 L Blood Pressure Mean [Right Arm] 80 Blood Pressure Position [Right Arm] 02 Sat by Pulse Oximetry 98 Oxygen Delivery Method Room Air - Lab Data Lab results reviewed: Yes: I reviewed the patient's lab results. Lab Results 02/13/20 17:55: WBC 12.8 H, RBC 4.27, Hgb 13.3, Hct 38.1, MCV 89.1, MCH 31.2, MCHC 35.0, RDW 13.0, Plt Count 350, MPV 7.5, Neut % (Auto) 68.5, Lymph % (Auto) 24.3, [place] % (Auto) 4.2, Eos % (Auto) 2.6, Baso % (Auto) 0.3, Neut # (Auto) 8.8 H, Lymph # (Auto) 3.1, [place] # (Auto) 0.5, Eos # (Auto) 0.3, Baso # (Auto) 0.0 02/13/20 17:55: Sodium 136, Potassium 4.2, Chloride 104, Carbon Dioxide 24, Anion Gap 12.2, BUN 11, Creatinine 0.80, Estimated Creat Clear 100, Estimated GFR 91, Est GFR ( Amer) 110, Glucose 88, Calcium 9.5, Total Bilirubin 0.4, AST 29, ALT 22, Alkaline Phosphatase 81, Total Protein 7.6, Albumin 4.4, Globulin 3.2, Albumin/Globulin Ratio 1.4 02/13/20 17:55: Urine Color Yellow, Urine Appearance Clear, Urine pH 7.0, Ur Specific [place] 1.025, Urine Protein Negative, Urine Glucose (UA) Negative, Urine Ketones Trace, Urine Blood Trace-l, Urine Nitrate Negative, Urine Bilirubin Negative, Urine Urobilinogen 0.2, Ur Leukocyte Esterase Trace, Urine WBC 3-5, Ur Squamous Epith Cells 5-10, Urine Bacteria Trace 02/13/20 17:55: Urine HCG, Qual Negative 02/13/20 17:55: Total Creatine Kinase 78, CK-MB (CK-2) 0.3, CK-MB (CK-2) Rel Index 0.4, Troponin I < 0.01 02/13/20 17:55: TSH 0.92, Free T4 Index 3.6 L, Thyroxine (T4) 14.4 H, T3 Uptake 25 02/13/20 17:55: Urine Opiates Screen Negative, Urine Methadone Screen Negative, Ur Barbituates Screen Negative, Ur Phencyclidine Scrn Negative, Ur Amphetamines Screen Negative, U Benzodiazepines Scrn Negative, Urine Cocaine Screen Negative, U Marijuana (THC) Screen Positive H 02/13/20 17:55: Monoscreen Negative Result diagrams: 02/13/20 17:55 02/13/20 17:55 Orders (Tests/Meds): ED MEDICATIONS Generic Name Dose Route Start Last Admin Trade Name Freq PRN Reason S
[2020-02-13 18:00] VITALS: BP 102/64; BP 108/63; BP 111/66; PULSE 77; PULSE 80; PULSE 95
--- NOTE | 2020-02-13 18:09 | ECG_ITS ---
APPROVED REPORT Exam: Resting ECG HR:64 bpm ECG Measurements Heart Rate 64 AXES IA 104 P 56 QRSd 84 QRS 86 QT 428 T 70 QTc 441 <Conclusion> Sinus rhythm with short IA Otherwise normal ECG Electronically signed by : Carlin Patel, 02/14/2020 17:09:02
[2020-02-13 18:10] LABS: Chloride 104 mmol/L (98-107)
[2020-02-13 18:11] LABS: Basophils % 0.3 % (0.1-2.0); Eosinophils # 0.3 K/mm3 (0.0-0.4); Eosinophils % 2.6 % (0.1-12.0); Hematocrit 38.1 % (37.0-47.0); Hemoglobin 13.3 g/dL (12.2-16.2); Lymphocytes # 3.1 K/mm3 (0.7-4.5); Lymphocytes % 24.3 % (10-50); Mean Corpuscular Hemoglobin 31.2 pg (27.0-31.2); Mean Corpuscular Volume 89.1 fl (81-99); Mean Platelet Volume 7.5 fl (7.4-10.4); Microscopic, Urine URINE MICROSCOPIC (MICROSCOPIC); Monocytes # 0.5 K/mm3 (0.1-1.0); Monocytes % 4.2 % (1.7-9.3); Neutrophils # 8.8 K/mm3 (1.8-7.8); Neutrophils % 68.5 % (37.0-80.0); Platelet Count 350 K/mm3 (142-424); Potassium 4.2 mmoL/L (3.5-5.1); Red Blood Count 4.27 M/mm3 (4.20-5.40); Sodium 136 mmol/L (136-145); White Blood Count 12.8 K/mm3 (4.8-10.8)
[2020-02-13 18:13] LABS: Alanine Aminotransferase 22 U/L (12-78); Alkaline Phosphatase 81 U/L (38-126); Aspartate Amino Transferase 29 U/L (14-36); Bilirubin,Total 0.4 mg/dl (0.2-1.3); Blood Urea Nitrogen 11 mg/dl (7-17); Creatinine Clearance Estimated 100 mL/min (50-200); Estimated Glomerular Filt Rate 91 ml/min (>60); GFR (African American) 110 ML/MIN (>60)
[2020-02-13 18:14] LABS: Albumin Level 4.4 g/dl (3.5-5.0); Albumin/Globulin Ratio 1.4 (1.1-1.8); Anion Gap 12.2 mEq/L (5-15); Calcium 9.5 mg/dl (8.4-10.2); Carbon Dioxide 24 mmol/L (22.0-30.0); Globulin 3.2 g/dL (1.3-3.2); Glucose 88 mg/dl (74-100); Total Protein,Serum 7.6 g/dl (6.3-8.2)
[2020-02-13 18:22] LABS: Creatine Kinase 78 U/L (30-135)
[2020-02-13 18:32] LABS: CKMB Relative Index 0.4 U/L (0-4.0); Creatine Kinase MB 0.3 ng/ml (0.0-2.03)
[2020-02-13 18:35] LABS: Appearance,Urine CLEAR (Clear); Bilirubin,Urine Negative (Negative); Blood, Urine TRACE-L (Negative); Color,Urine YELLOW (Yellow); Glucose,Urine (UA) Negative (Negative); Ketones,Urine TRACE (Negative); Leukocyte Esterase,Urine TRACE (Negative); Nitrate,Urine Negative (Negative); Protein,Urine Negative (Negative); Specific Gravity, Urine 1.025 (1.005-1.030); Urobilinogen,Urine 0.2 EU/dl (0.2)
[2020-02-13 18:37] VITALS: BP 103/66; PULSE 65; RESP 18; O2SAT 97
[2020-02-13 18:42] LABS: Monoscreen (Rapid) Negative (Negative); Urine Pregnancy, HCG Qual. Negative (Negative)
[2020-02-13 18:44] LABS: Troponin I < 0.01 ng/ml (0.00-0.034)
[2020-02-13 18:48] LABS: Barbiturates Screen,Urine Negative ng/ml (<200); Benzodiazepines Screen,Urine Negative ng/ml (<200)
[2020-02-13 18:49] LABS: Amphetamine/Metha Screen,Urine Negative ng/ml (<1000)
[2020-02-13 18:50] LABS: Cannabinoid Screen,Urine Positive ng/ml (<50); Cocaine Screen,Urine Negative ng/ml (<300)
[2020-02-13 18:51] LABS: Free Thyroxine Index 3.6 ug/dL (5.93-13.13); Methadone Screen,Urine Negative ng/ml (<300); Opiate Screen,Urine Negative ng/ml (<300); T4 (Thyroxine) 14.4 ug/dl (5.53-11.0); Triiodothryronine (T3) Uptake 25 % (23.5-40.5)
[2020-02-13 18:52] LABS: Phencyclidine Screen,Urine Negative ng/ml (<25)
[2020-02-13 18:54] LABS: Bacteria,Urine Trace /lpf
[2020-02-13 19:07] VITALS: BP 104/68; PULSE 74; RESP 18; O2SAT 98
[2020-02-13 19:09] LABS: Thyroid Stimulating Hormone 0.92 uIU/mL (0.465-4.68)
--- NOTE | 2020-02-13 19:20 | PC.NURSE ---
spoke with Will in respiratory to get a 48hr halter monitor placed on pt. Will stated that they didnt have any at the moment but they will hold one for her to pickle cutter in the morning when they have one returned. pt contact info given to resp. and pt also given resp. info to follow up in the morning.
[2020-02-13 19:28] VITALS: BP 114/69; PULSE 78; RESP 16; TEMP 37.2; O2SAT 98
== END 2020-02-13 19:30 | disposition home or self-care (01) ==
PROVIDERS: Emergency Provider Emergency Medicine; PCP Nurse Practitioner Family
DX: R55 Syncope and collapse (principal); R53.83 Other fatigue; F12.10 Cannabis abuse, uncomplicated; F41.9 Anxiety disorder, unspecified; Z79.899 Other long term (current) drug therapy
CPT/HCPCS: 80053; 80305; 81001; 81025; 82550; 82553; 84436; 84443; 84479; 84484; 85025; 86318; 93005; 96365; 99284

== ENCOUNTER → 2020-02-19 13:32 | Outpatient (CLI) | payer OTHER, SELFPAY | PROVIDERS: PCP Nurse Practitioner Family; Visit Provider Emergency Medicine | DX: R55 Syncope and collapse (principal); R51 Headache; R53.1 Weakness | CPT/HCPCS: 93225; 93226 ==

== ENCOUNTER → 2020-02-26 12:41 | Outpatient (CLI) | payer OTHER, SELFPAY ==
[2020-02-26 14:54] LABS: Coronavirus 19 IgG Antibody Negative (Negative); Coronavirus 19 IgM Antibody Negative (Negative)
== END ==
PROVIDERS: Visit Provider Nurse Practitioner Family
DX: Z03.818 Encounter for observation for suspected exposure to other biological agents ruled out (principal)
CPT/HCPCS: 36415; 86328

== ENCOUNTER 2020-03-07 19:31 | Emergency (ER) | payer OTHER, SELFPAY ==
--- NOTE | 2020-03-07 19:36 | XR_ITS ---
PROCEDURE: XR FOOT RT MIN 3V CLINICAL INDICATION: JUMPED OFF ROPE SWING Posttraumatic pain COMPARISON: FTL3 FOOT-LT-3 VIEWS from 03/01/2010 FTR3 FOOT-RT-3 VIEWS from 08/08/2012 FTR3 FOOT-RT-3 VIEWS from 02/09/2013 FINDINGS: No fracture or dislocation. No lytic or blastic change. There is normal mineralization. The joint spaces are well-preserved. No significant degenerative/arthritic changes. No erosive changes evident. Other findings:None. IMPRESSION: No acute findings. Dictated by: Danial Padron MD 03/08/2020 08:06 Electronically signed by Danial Padron MD in [place] 03/08/2020 08:06
--- NOTE | 2020-03-07 19:36 | XR_ITS ---
PROCEDURE: XR ANKLE RT MIN 3V CLINICAL INDICATION: JUMPED OFF ROPE SWING Posttraumatic pain COMPARISON: No exams were available for comparison FINDINGS: No fracture, dislocation, lytic change, or blastic change evident. No significant degenerative change IMPRESSION: No acute findings. Dictated by: Danial Padron MD 03/08/2020 08:05 Electronically signed by Danial Padron MD in [place] 03/08/2020 08:05
[2020-03-07 19:40] VITALS: BP 117/73; PULSE 73; RESP 20; TEMP 36.9; O2SAT 99; BMI 21.7
--- NOTE | 2020-03-07 20:10 | HMH.EDUTC ---
[facility] [place] Clinical Impression: Foot contusion Qualifiers: Encounter type: initial encounter Laterality: right Qualified Code(s): S90.31XA - Contusion of right foot, initial encounter Ankle sprain Qualifiers: Encounter type: initial encounter Involved ligament of ankle: unspecified ligament Laterality: right Qualified Code(s): S93.401A - Sprain of unspecified ligament of right ankle, initial encounter Disposition: Home, Self-Care Condition on Discharge: Good Instructions: DI for Ankle Sprain, DI for Foot Sprain Additional Instructions: Rest the extremity, apply ice for 15 minutes as tolerated three or four times per day, Elevate the extremity as tolerated while you are resting. Take ibuprofen for pain. I sent in a prescription to your pharmacy. Follow up with Dr. Mckinnon. I put in a referral but you need to call her office and schedule an appointment. Follow up with your regular doctor. GO TO THE ER FOR ANY WORSENING SYMPTOMS Prescriptions: Ibuprofen [Ibuprofen 400mg Tablet] 400 mg PO Q6HP PRN #30 tab PRN Reason: Moderate Pain Transmission Status: Received by [id number] Referrals: Trista Martinez APRN [Primary Care Provider] - Elo Mckinnon DPM [Staff Physician] - Time of Disposition: 20:30 Medical Decision Making - Medical Records Medical records reviewed: No: I reviewed the patient's medical records. - Deejay Inquiry Pt receiving controlled substance: No Vital Signs: 03/07/20 19:40 03/07/20 20:32 Temperature 98.4 F 98.4 F Temperature Source Oral Pulse Rate 73 Pulse Rate [Right Brachial] 73 Respiratory Rate 20 20 Blood Pressure 117/73 Blood Pressure [Right Arm] 117/73 Blood Pressure Mean [Right Arm] 87 Blood Pressure Source [Right Arm] Automatic Cuff Blood Pressure Position [Right Arm] Sitting 02 Sat by Pulse Oximetry 99 Oxygen Delivery Method Room Air Orders (Tests/Meds): ED MEDICATIONS Discontinued Medications Generic Name Dose Route Start Last Admin Trade Name Freq PRN Reason Stop Dose Admin Ibuprofen 400 mg 03/07/20 20:29 03/07/20 20:31 Motrin 400mg Tablet PO 03/07/20 20:30 400 mg ONCE ONE Administration ORDERS Category Date Time Status XR ankle RT min 3V Stat Exams 03/07/20 19:36 Taken XR foot RT min 3V Stat Exams 03/07/20 19:36 Taken - Radiology Data #1 Image(s): Foot/Toes Image Reviewed: Yes I reviewed the patient's radiology image Preliminary Findings: No Fracture Seen #2 Image(s): Ankle Image Reviewed: Yes I reviewed the patient's radiology image Preliminary Findings: No Fracture Seen [facility] [place]PI - General Stated complaint: ao [id number]@16 INJURED r FOOT Time Seen by Provider: 03/07/20 20:11 Mode of Arrival: Ambulatory Source of Information: Patient Limitations: No Limitations Description of Symptoms (Recalled from Triage Doc. by RN): PATIENT C/O PAIN AND SWELLING IN RIGHT FOOT AND ANKLE AFTER SHE INJURED IT BY JUMPING OFF OF A ROPE SWING INTO SHALLOW WATER HEENT Symptoms (Recalled from RN notes): No Resp Symptoms (Recalled from RN notes): No Skin Symptoms (Recalled from RN notes): No MS Symptoms (Recalled from RN notes): Yes Functional Status (Recalled from RN notes): WNL - History of Present Illness Provider Complaint: She swung off a rope and landed in shallow water. She states that she came down on her pointed right foot. She is having pain of the 2nd, 3rd, and 4th toe that radiates up her foot. She is also having right ankle pain that is worse with bearing weight and walking. - Related Data Previous Rx's Medication Instructions Recorded norethindrone 1 mg-ethinyl 1 tab PO DAILY #84 tab 03/14/19 estradiol 10 mcg (24)-iron 10 mcg(2) tablet Ibuprofen [Ibuprofen 600mg 600 mg PO Q6HP PRN #30 tab 07/03/19 Tablet] cephalexin 500 mg capsule 500 mg PO Q12H 10 Days #20 cap 11/17/19 fluticasone propionate 50 1 spray INTRANASAL QDAY #9.9 ml 11/17/19 mcg/actuation nasal spray,phylicia
[2020-03-07 20:32] VITALS: BP 117/73; PULSE 73; RESP 20; TEMP 36.9; O2SAT 99
== END 2020-03-07 20:37 | disposition home or self-care (01) ==
PROVIDERS: Emergency Provider Nurse Practitioner Family; PCP Nurse Practitioner Family
DX: S90.31XA Contusion of right foot, initial encounter (principal); S93.401A Sprain of unspecified ligament of right ankle, initial encounter; W17.89XA Other fall from one level to another, initial encounter; Y93.11 Activity, swimming; Y92.89 Other specified places as the place of occurrence of the external cause
CPT/HCPCS: 73610; 73630; 99201

== ENCOUNTER 2020-05-12 14:17 | Emergency (ER) | payer OTHER, SELFPAY ==
[2020-05-12 14:39] VITALS: BP 114/69; PULSE 88; RESP 20; TEMP 37.1; O2SAT 98; BMI 23.6
--- NOTE | 2020-05-12 14:45 | HMH.EDUTC ---
[facility] [place] Clinical Impression: Nausea Disposition: Home, Self-Care Condition on Discharge: Good Instructions: DI for Nausea -- Adult, DI for Headache, Preventing the Spread of Coronavirus Discharge Instructions Additional Instructions: ? Drink extra fluids with and between meals. If you have difficulty drinking, try very small amounts of water or suck on ice chips. ? Avoid fruit juices, as these do not replace minerals and can actually increase diarrhea. ? Children and adults can use sports drinks to replenish electrolytes. Younger children and infants should use products formulated for children, like oral rehydration solutions. ? Eat food in small amounts and let your stomach recover. ? Get lots of rest. You may feel tired or weak. ? No greasy or fried foods for the next 24-48 hours BRAT diet Bananas Rice Apples and [place] ? Make sure to drink plenty of liquids ? Return if needed ? Straight to ER if any life threatening symptoms ? Phenergan as prescribed ? Follow up with family doctor in the next 48-72 hours if no improvement or any worsening of symptoms You was tested for COVID19 and was given handout with instructions, make sure to call back to the [facility] in 48-72 hours to see if your test results are back and if they are negative You was given handout with instructions for self quarantine and self isolation make sure to follow instructions closely to help prevent the spread of COVID Prescriptions: Promethazine HCl [Phenergan 12.5mg tablet] 12.5 mg PO Q6H PRN #6 tab PRN Reason: Nausea Transmission Status: Received by [id number] Referrals: Trista Martinez APRN [Primary Care Provider] - As needed Time of Disposition: 15:21 Medical Decision Making - Deejay Inquiry Pt receiving controlled substance: No Deejay was queried for this patient: No Vital Signs: 05/12/20 14:39 Temperature 98.7 F Temperature Source Oral Pulse Rate [Right Brachial] 88 Respiratory Rate 20 Blood Pressure [Right Arm] 114/69 Blood Pressure Mean [Right Arm] 84 Blood Pressure Source [Right Arm] Automatic Cuff Blood Pressure Position [Right Arm] Sitting 02 Sat by Pulse Oximetry 98 Oxygen Delivery Method Room Air - Lab Data Lab results reviewed: Yes: I reviewed the patient's lab results. Lab Results 05/12/20 14:45: [facility] Clinic Negative 05/12/20 14:51: Urine Color Domenica, Urine Appearance Clear, Urine pH 5.5, Ur Specific [place] 1.020, Urine Protein Negative, Urine Glucose (UA) Negative, Urine Ketones Negative, Urine Blood 2+, Urine Nitrate Negative, Urine Bilirubin Negative, Urine Urobilinogen 0.2, Ur Leukocyte Esterase Trace 05/12/20 14:55: Influenza Type A Ag Negative, Influenza Type B Ag Negative Orders (Tests/Meds): ED MEDICATIONS Generic Name Dose Route Start Last Admin Trade Name Freq PRN Reason Stop Dose Admin Promethazine HCl 12.5 mg 05/12/20 15:06 05/12/20 15:14 Phenergan 12.5mg Tablet PO 06/11/20 15:05 12.5 mg Q4HP PRN Administration Nausea And Vomiting Discontinued Medications Generic Name Dose Route Start Last Admin Trade Name Freq PRN Reason Stop Dose Admin Ondansetron HCl 4 mg 05/12/20 15:00 05/12/20 15:16 Zofran 4mg Odt SL 05/12/20 15:01 Not Given ONCE ONE ORDERS Category Date Time Status Covid-19 Nasal PCR Sendout [facility] Routine Lab 05/12/20 14:47 Received Covid-19 Nasal PCR Sendout [facility] Stat Lab 05/12/20 14:35 Ordered [facility] [place] HPI - General Stated complaint: nausa,SANCHEZ Time Seen by Provider: 05/12/20 14:45 Mode of Arrival: Ambulatory Source of Information: Patient Limitations: No Limitations Description of Symptoms (Recalled from Triage Doc. by RN): PATIENT C/O HEADACHE, NAUSEA, AND INSOMINA X 3 DAYS HEENT Symptoms (Recalled from RN notes): Yes Resp Symptoms (Recalled from RN notes): No Skin Symptoms (Recalled from RN notes): No MS Symptoms (Recalled from RN notes): No Functional Status (Recalled from RN notes): WNL - History of Present Illness Pr
[2020-05-12 14:57] LABS: Apearance,Urine Clear (Clear); Color,Urine Amber (Yellow); PH,Urine 5.5 (5.0-8.5); Protein,Urine Negative (Negative)
[2020-05-12 14:58] LABS: Glucose,Urine (UA) Negative (Negative); Ketones,Urine Negative (Negative)
[2020-05-12 14:59] LABS: Bilirubin,Urine Negative (Negative); Blood, Urine 2+ (Negative); UTC Leukocyte Esterase,Urine Trace (Negative); UTC Nitrate,Urine Negative (Negative); Urobilinogen,Urine 0.2 EU/dl (0.2)
[2020-05-12 15:00] LABS: UTC Pregnancy Test, Urine Negative (Negative)
[2020-05-12 15:19] LABS: UTC Influenza A Antigen Negative (Negative); UTC Influenza B Antigen Negative (Negative)
[2020-05-12 15:25] LABS: UTC Strep Screen (Rapid) Negative (Negative)
[2020-05-12 15:30] VITALS: BP 114/69; PULSE 88; RESP 20; TEMP 37.1; O2SAT 98
[2020-05-14 16:10] LABS: Covid-19 Nasal PCR Sendout Lex Not Detected
== END 2020-05-12 15:32 | disposition home or self-care (01) ==
PROVIDERS: Emergency Provider Nurse Practitioner; PCP Nurse Practitioner Family
DX: R11.0 Nausea (principal); R51 Headache; G47.00 Insomnia, unspecified; F41.9 Anxiety disorder, unspecified; Z90.09 Acquired absence of other part of head and neck; Z03.818 Encounter for observation for suspected exposure to other biological agents ruled out
CPT/HCPCS: 81003; 81025; 87804; 87880; 99202; U0004

== ENCOUNTER → 2020-06-14 21:20 | Outpatient (CLI) | payer OTHER, SELFPAY ==
[2020-06-16 08:40] LABS: Covid-19 Nasal PCR Sendout UK Not Detected
== END ==
PROVIDERS: PCP Nurse Practitioner Family; Visit Provider Nurse Practitioner Family
DX: Z03.818 Encounter for observation for suspected exposure to other biological agents ruled out (principal)
CPT/HCPCS: U0003

== ENCOUNTER → 2020-10-08 12:14 | Outpatient (CLI) | payer OTHER, SELFPAY | PROVIDERS: PCP Nurse Practitioner Family; Visit Provider Nurse Practitioner Family | DX: Z20.822 Contact with and (suspected) exposure to COVID-19 (principal) | CPT/HCPCS: U0003 ==

== ENCOUNTER → 2020-12-19 15:29 | Outpatient (CLI) | payer OTHER, SELFPAY ==
--- NOTE | 2020-12-19 15:29 | US_ITS ---
PROCEDURE: US THYROID CLINICAL INDICATION: thyroid enlarged COMPARISON: No exams were available for comparison FINDINGS: There is homogeneous thyroid echogenicity with no nodules demonstrated. The right lobe is 3.8 x 1 x 1.4 cm and the left lobe is 3.1 x 0.8 x 1.3 cm. The isthmus is unremarkable. IMPRESSION: Normal thyroid ultrasound Dictated by: Danial Padron MD 12/19/2020 16:49 Danial Padron MD in [place] 12/19/2020 16:49
== END ==
PROVIDERS: PCP Nurse Practitioner Family; Visit Provider Nurse Practitioner Family
DX: E04.9 Nontoxic goiter, unspecified (principal)
CPT/HCPCS: 76536

== ENCOUNTER → 2021-01-30 12:43 | Outpatient (CLI) | payer OTHER, SELFPAY ==
[2021-01-30 12:45] LABS: Microscopic, Urine URINE MICROSCOPIC (MICROSCOPIC)
[2021-01-30 13:42] LABS: Appearance,Urine CLEAR (Clear); Bilirubin,Urine Negative (Negative); Blood, Urine 1+ (Negative); Color,Urine YELLOW (Yellow); Glucose,Urine (UA) Negative (Negative); Ketones,Urine Negative (Negative); Leukocyte Esterase,Urine Negative (Negative); Nitrate,Urine Negative (Negative); Protein,Urine Negative (Negative); Urobilinogen,Urine 0.2 EU/dl (0.2)
[2021-01-30 14:20] LABS: Bacteria,Urine 2+ /lpf; Mucus,Urine 3+ /lpf
[2021-01-31 19:57] LABS: Neisseria gonorrhoeae, NAA Negative (Negative)
== END ==
PROVIDERS: Visit Provider Nurse Practitioner Family
DX: Z20.2 Contact with and (suspected) exposure to infections with a predominantly sexual mode of transmission (principal)
CPT/HCPCS: 81001; 87086; 87491; 87591

== ENCOUNTER 2021-03-03 13:17 | Emergency (ER) | payer OTHER, SELFPAY ==
[2021-03-03 13:20] VITALS: BP 121/77; PULSE 73; RESP 19; TEMP 36.8; O2SAT 99; BMI 20.9
--- NOTE | 2021-03-03 14:19 | HMH.EDUTC ---
[facility] [place] Clinical Impression: Sinusitis Qualifiers: Sinusitis location: unspecified location Chronicity: unspecified Qualified Code(s): J32.9 - Chronic sinusitis, unspecified Disposition: Home, Self-Care Condition on Discharge: Good Instructions: Sinusitis, DI for Sinusitis Additional Instructions: *Monitor Temp, Over the counter Motrin or Tylenol as directed/as needed Tylenol every 4 hours and Motrin every 6 hours (as long as your family doctor has told you that you can take it) for fever or pain. and straight to ER if unable to lower temp less than 101.0 after medication given *Warm salt water gargles may help to soothe the throat *Throat Lozenges *Warm fluids like tea with honey may help to soothe the throat *Sleep elevated *Humidifier/Vaporizer You were tested for today for COVID19 your test result should be back in the next 24-48 hours, you may call to the [facility] to see if your test results are back in the next 48 hours [phone] [facility] hours are 9am-9pm You was given a handout with instructions for Self Quarantine and Self isolation for while you wait on test results and what to do if they are positive If you are positive the Health Dept will be contacting you also Follow up IMMEDIATELY for new or worsening symptoms or no Noticeable improvement over the next 48-72 hours. 911 for difficulty breathing or swallowing Prescriptions: methylPREDNISolone [Medrol 4mg tab] 4 mg PO DIRECTED #21 tab Transmission Status: Pending to [email or web address] Azithromycin [Z-Lyndon 250mg Tab] 250 mg PO DIRECTED #6 tab Transmission Status: [facility] Referrals: Trista Martinez APRN [Primary Care Provider] - As needed Forms: Work/School Release Time of Disposition: 14:26 Medical Decision Making - Deejay Inquiry Pt receiving controlled substance: No Deejay was queried for this patient: No Vital Signs: 03/03/21 13:20 Temperature 98.3 F Temperature Source Oral Pulse Rate [Right Brachial] 73 Respiratory Rate 19 Blood Pressure [Right Arm] 121/77 Blood Pressure Mean [Right Arm] 91 Blood Pressure Source [Right Arm] Automatic Cuff Blood Pressure Position [Right Arm] Sitting 02 Sat by Pulse Oximetry 99 Oxygen Delivery Method Room Air Orders (Tests/Meds): ORDERS Category Date Time Status Covid-19 Nasal PCR ([facility]) Routine Lab 03/03/21 13:30 Received [facility] [place] HPI - General Stated complaint: sinus congestion, no taste Time Seen by Provider: 03/03/21 14:19 Mode of Arrival: Ambulatory Source of Information: Patient Limitations: No Limitations Description of Symptoms (Recalled from Triage Doc. by RN): PATIENT C/O LOSS OF TASTE AND SMELL, REQUESTING COVID TEST HEENT Symptoms (Recalled from RN notes): Yes Resp Symptoms (Recalled from RN notes): No Skin Symptoms (Recalled from RN notes): No MS Symptoms (Recalled from RN notes): No Functional Status (Recalled from RN notes): WNL - History of Present Illness Provider Complaint: Patient states that she has been having sinus pain and pressure States that her throat has been scratchy and she has been having body aches and chills along with headache States that she hasnt been exposed to anyone with COVID that she is aware of State that she thinks she may have a sinus infection but wanted to get tested for COVID due to she is unable to taste or smell anything - Related Data Home Medications Medication Instructions Recorded Confirmed norethindrone-e.estradioL-iron 1 tab PO DAILY 03/03/21 03/03/21 [Eectfi-Nd-Ri 1-0.02(21)-75 Tab] Previous Rx's Medication Instructions Recorded hydroxyzine pamoate 25 mg capsule 25 mg PO QID PRN #120 cap 10/31/20 fluoxetine 40 mg capsule 80 mg PO DAILY #180 cap 01/02/21 Azithromycin [Z-Lyndon 250mg Tab] 250 mg PO DIRECTED #6 tab 03/03/21 methylPREDNISolone [Medrol 4mg 4 mg PO DIRECTED #21 tab 03/03/21 tab] Allergies Allergy/AdvReac Type Severity Reaction Status Date / Time No Known
[2021-03-03 14:26] VITALS: BP 121/77; PULSE 73; RESP 19; TEMP 36.8; O2SAT 99
--- NOTE | 2021-03-04 09:32 | PC.NURSE ---
ATTEMPTED TO CALL PATIENT ABOUT POSITIVE COVID TEST. NO ANSWER. VOICE MAIL LEFT FOR PATIENT TO RETURN PHONE CALL. WILL TRY CALLING AGAIN
--- NOTE | 2021-03-04 11:03 | PC.NURSE ---
PT NOTIFIED OF POSITIVE COVID TEST RESULT
== END 2021-03-03 14:30 | disposition home or self-care (01) ==
PROVIDERS: Emergency Provider Nurse Practitioner; PCP Nurse Practitioner Family
DX: U07.1 COVID-19 (principal); J32.9 Chronic sinusitis, unspecified; F41.9 Anxiety disorder, unspecified; Z79.899 Other long term (current) drug therapy
CPT/HCPCS: 99202; G0463; U0003

== ENCOUNTER 2021-03-24 15:25 | Emergency (ER) | payer OTHER, SELFPAY ==
[2021-03-24 15:27] VITALS: BP 118/70; PULSE 83; RESP 19; TEMP 36.8; O2SAT 97; BMI 24.5
--- NOTE | 2021-03-24 16:33 | XR_ITS ---
PROCEDURE: XR CHEST 2V CLINICAL HISTORY: cough, chest tightness, fever COMPARISON: CR CXR1VP XR chest portable from 10/30/2018 CR CXR2V XR chest 2V from 11/06/[address] chest wo con from 01/16/2019 CR XR CHEST 2V from 07/21/2019 FINDINGS: The cardiomediastinal silhouette and pulmonary vascularity are within normal limits. The lungs are clear without infiltrates, suspicious nodules, or pleural effusions. There is mild lower thoracic curvature convex left IMPRESSION: No acute findings. Dictated by: Danial Padron MD 03/24/2021 17:10 Danial Padron MD in [place] 03/24/2021 17:10
--- NOTE | 2021-03-24 16:34 | HMH.EDUTC ---
[facility] [place] Clinical Impression: Viral syndrome Pharyngitis Qualifiers: Pharyngitis/tonsillitis etiology: unspecified etiology Qualified Code(s): J02.9 - Acute pharyngitis, unspecified Disposition: Home, Self-Care Condition on Discharge: Good Instructions: DI for Pharyngitis/Tonsillopharyngitis -- Adult, DI for Viral Syndrome Additional Instructions: Drink plenty of fluids. Take tylenol or ibuprofen for pain or fever. Take the medications as directed. Follow up with your regular doctor. GO TO THE ER FOR ANY WORSENING SYMPTOMS The promethazine (phenergran) is for nausea. It will make you drowsy after you take it so don't drive or operate heavy machinery. Prescriptions: Brompheniramine/Pseudoephed/Dm [Bromfed Dm Cough Syrup] 5 ml PO Q6HP PRN #240 syrup PRN Reason: Cough Transmission Status: Received by [facility] Promethazine HCl [Phenergan 25mg tab] 25 mg PO Q6H PRN #12 tab PRN Reason: Nausea And Vomiting Transmission Status: Received by [facility] Azithromycin [Z-Lyndon 250mg Tab*] 250 mg PO UD DOSE PK #6 tab Transmission Status: Received by [facility] Referrals: Trista Martinez APRN [Primary Care Provider] - Time of Disposition: 17:44 Medical Decision Making - Medical Records Medical records reviewed: No: I reviewed the patient's medical records. - Deejay Inquiry Pt receiving controlled substance: No Vital Signs: 03/24/21 15:27 03/24/21 17:59 Temperature 98.2 F 98.2 F Temperature Source Oral Oral Pulse Rate 83 Pulse Rate [Left Radial] 83 Respiratory Rate 19 19 Blood Pressure 118/70 Blood Pressure [Right Arm] 118/70 Blood Pressure Mean [Right Arm] 86 Blood Pressure Source Automatic Cuff Blood Pressure Source [Right Arm] Automatic Cuff Blood Pressure Position Sitting Blood Pressure Position [Right Arm] Sitting 02 Sat by Pulse Oximetry 97 Oxygen Delivery Method Room Air Room Air - Lab Data Lab Results 03/24/21 16:30: Strep Scn Rapid Clinic Negative 03/24/21 17:24: Chlamy pneumoniae PCR Not detected, Adenovirus (PCR) Not detected, B. pertussis DNA (PCR) Not detected, Coronavirus OC43 (PCR) Not detected, Coronavirus HKU1 (PCR) Not detected, Coronavirus 229E (PCR) Not detected, SARS-CoV-2 (PCR) Not detected, Coronavirus NL63 (PCR) Not detected, Human Metapneumovir PCR Not detected, Influenza A (H1) PCR Not detected, Influ A (H1N1/09) PCR Not detected, Influenza A (H3) PCR Not detected, Influenza Type A (PCR) Not detected, Influenza Type B (PCR) Not detected, M. pneumoniae (PCR) Not detected, Parainfluenza 1 (PCR) Not detected, Parainfluenza 2 (PCR) Not detected, Parainfluenza 3 (PCR) Not detected, Parainfluenza 4 (PCR) Not detected, RSV (PCR) Not detected, Entero/Rhino (PCR) Not detected Orders (Tests/Meds): ORDERS Category Date Time Status Strep Screen Confirmation Stat Micro 03/24/21 16:30 Received [facility] [place] - General Stated complaint: cough,SOB,SANCHEZ,Diarrhea.Body Pains Abd Pain Time Seen by Provider: 03/24/21 15:55 Mode of Arrival: Ambulatory Source of Information: Patient Limitations: No Limitations Description of Symptoms (Recalled from Triage Doc. by RN): c/o diarrhea, cough, sneeze, body aches, no taste other than salty foods since Wednesday. Tested postive for covid on February 27 HEENT Symptoms (Recalled from RN notes): No Resp Symptoms (Recalled from RN notes): Yes (cough, sneeze) Skin Symptoms (Recalled from RN notes): No MS Symptoms (Recalled from RN notes): No Functional Status (Recalled from RN notes): wnl - History of Present Illness Provider Complaint: She states that for the past 4 days she has been having covid like symptoms. She has had body ache, fever, nausea, diarrhea, and decreased sense of smell and taste. She had covid-19 around February 27. She states that she didn't get very sick with it then and she has been completely better until her most recent symptoms. - Related Data Previous Rx's Medicat
[2021-03-24 17:59] VITALS: BP 118/70; PULSE 83; RESP 19; TEMP 36.8; O2SAT 97
[2021-03-24 18:07] LABS: Adenovirus,PCR Not Detected (NotDetected); Bordetella Pertussis Not Detected (NotDetected); Chlamydophila Pneumoniae, PCR Not Detected (NotDetected); Coronavirus 19, PCR Not Detected (NotDetected); Coronavirus 229E Not Detected (NotDetected); Coronavirus NL63 Not Detected (NotDetected); Coronavirus OC43 Not Detected (NotDetected); Coronovirus HKU1,PCR Not Detected (NotDetected); Human Metapneumovirus Not Detected (NotDetected); Influenza A, PCR Not Detected (NotDetected); Influenza AH1, 2009 Not Detected (NotDetected); Influenza AH1, PCR Not Detected (NotDetected); Influenza AH3,PCR Not Detected (NotDetected); Influenza B, PCR Not Detected (NotDetected); Mycoplasma Pneumoniae, PCR Not Detected (NotDetected); Parainfluenza 1, PCR Not Detected (NotDetected); Parainfluenza 2, PCR Not Detected (NotDetected); Parainfluenza 3, PCR Not Detected (NotDetected); Parainfluenza 4, PCR Not Detected (NotDetected); Respiratory Syncytial Virus Not Detected (NotDetected); Rhinovirus/Enterovirus Not Detected (NotDetected)
[2021-03-25 11:27] LABS: UTC Strep Screen (Rapid) Negative (Negative)
== END 2021-03-24 18:00 | disposition home or self-care (01) ==
PROVIDERS: Emergency Provider Nurse Practitioner Family; PCP Nurse Practitioner Family
DX: B34.9 Viral infection, unspecified (principal); J02.9 Acute pharyngitis, unspecified; Z86.16 Personal history of COVID-19; F41.9 Anxiety disorder, unspecified; Z79.899 Other long term (current) drug therapy
CPT/HCPCS: 71046; 87581; 87633; 87798; 87880; 99202; G0463

== ENCOUNTER 2021-05-04 18:11 | Emergency (ER) | payer OTHER, SELFPAY ==
--- NOTE | 2021-05-04 18:16 | XR_ITS ---
PROCEDURE INFORMATION: Exam: XR Chest Exam date and time: 05/04/2021 6:16 PM Age: 20 years old Clinical indication: Cough; Additional info: Cough, HX of pneumonia x 3 weeks TECHNIQUE: Imaging protocol: XR of the chest. Views: 2 views. COMPARISON: CR XR CHEST 2V 03/24/2021 4:49 PM FINDINGS: Lungs: Unremarkable. No consolidation. Pleural spaces: Unremarkable. No pleural effusion. No pneumothorax. Heart/Mediastinum: Unremarkable. No cardiomegaly. Bones/joints: Unremarkable. IMPRESSION: No acute findings.
[2021-05-04 18:21] VITALS: BP 124/74; PULSE 98; RESP 19; TEMP 36.7; O2SAT 98; BMI 20.9
--- NOTE | 2021-05-04 18:33 | HMH.EDUTC ---
[facility] [place] Dis[place] Clinical Impression: Bronchitis Disposition: Home, Self-Care Condition on Discharge: Good Instructions: Acute Bronchitis Additional Instructions: Start antibiotic today. Be sure to complete entire prescription even if feeling better Tylenol and ibuprofen as needed for pain or fever Humidifier/vaporizer/hot steamy shower Follow-up with primary care this week. Follow-up immediately in the ER of the [facility] for new or worsening symptoms or no noticeable improvement over the next 48-72 hours. Stop smoking Inhaler every 4-6 hours as needed. Should help open airways improved cough, wheezing, shortness of breath Start steroids today. Helps with inflammation therefore coughing and wheezing. Follow directions on package. Prescriptions: Amoxicillin [Amoxicillin 500mg Tab] 500 mg PO BID 10 Days #20 tab Transmission Status: Pending to [facility] predniSONE [Prednisone 20mg Tab] 20 mg PO BID #10 tab Transmission Status: Pending to [facility] Albuterol Sulfate [Proventil Hfa] 6.7 gm IH Q4-6H PRN 14 Days #1 each PRN Reason: Wheezing Transmission Status: Pending to [facility] Referrals: Trista Martinez APRN [Primary Care Provider] - Time of Disposition: 18:41 Medical Decision Making - Deejay Inquiry Pt receiving controlled substance: No Vital Signs: 05/04/21 18:21 Temperature 98.1 F Temperature Source Oral Pulse Rate [Right Brachial] 98 H Respiratory Rate 19 Blood Pressure [Right Arm] 124/74 Blood Pressure Mean [Right Arm] 90 Blood Pressure Source [Right Arm] Automatic Cuff Blood Pressure Position [Right Arm] Sitting 02 Sat by Pulse Oximetry 98 Orders (Tests/Meds): ORDERS Category Date Time Status CXR 2 view (NOT portable) [XR chest 2V] Stat Exams 05/04/21 18:16 Taken [facility] [place] HPI - General Chief complaint: Urgent [facility] Stated complaint: follow to pneumonia Time Seen by Provider: 05/04/21 18:34 Mode of Arrival: Ambulatory Source of Information: Patient Limitations: No Limitations Description of Symptoms (Recalled from Triage Doc. by RN): PT'S WAS D/O WITH PNEUMONIA 3 WEEKS AGO AND ISN'T FEELING ANY BETTER HEENT Symptoms (Recalled from RN notes): No Resp Symptoms (Recalled from RN notes): Yes Skin Symptoms (Recalled from RN notes): No MS Symptoms (Recalled from RN notes): No Functional Status (Recalled from RN notes): WNL - History of Present Illness Provider Complaint: 20 yr old female presents for pneumonia follow up. pt states she was dx 3 weeks ago with pneumonia and does not feel any better. still waking up at night with fever and coughing up thick sticky sputum - Related Data Previous Rx's Medication Instructions Recorded norethindrone 1 mg-ethinyl 1 tab PO DAILY #84 tab 03/24/21 estradiol 10 mcg (24)-iron 10 mcg(2) tablet atomoxetine 40 mg capsule 40 mg PO DAILY #30 cap 04/03/21 fluoxetine 40 mg capsule 80 mg PO DAILY #180 cap 04/03/21 hydroxyzine pamoate 25 mg capsule 25 mg PO QID PRN #120 cap 04/03/21 levofloxacin 500 mg tablet 500 mg PO DAILY 5 Days #5 tab 04/18/21 Albuterol Sulfate [Proventil Hfa] 6.7 gm IH Q4-6H PRN 14 Days #1 each 05/04/21 Amoxicillin [Amoxicillin 500mg Tab] 500 mg PO BID 10 Days #20 tab 05/04/21 predniSONE [Prednisone 20mg 20 mg PO BID #10 tab 05/04/21 Tab] Allergies Allergy/AdvReac Type Severity Reaction Status Date / Time No Known Allergies Allergy Verified 04/18/21 13:16 - Worker's Comp Is this a Worker's Comp case?: No [facility] History - Hepatitis A Screen Drug use history?: No High risk sexual behaviors?: No History of sexually transmitted infection?: No Currently employed?: No Childcare worker?: No Do you have indoor plumbing?: Yes Do you have electricity?: Yes Attestation statement:: This patient has been screened for Hepatitis A risk factors. I have reviewed the patient's past medical history: Yes Medical History: Reports:: Anxiety Denies:: Cancer, Diabetes Sirisha
[2021-05-04 18:34] VITALS: BP 124/74; PULSE 98; RESP 19; TEMP 36.7; O2SAT 98
== END 2021-05-04 18:47 | disposition home or self-care (01) ==
PROVIDERS: Emergency Provider Nurse Practitioner Family; PCP Nurse Practitioner Family
DX: J20.9 Acute bronchitis, unspecified (principal); F41.8 Other specified anxiety disorders
CPT/HCPCS: 71046; 99202; G0463

== ENCOUNTER 2021-06-16 16:57 | Emergency (ER) | payer OTHER, SELFPAY ==
[2021-06-16 16:57] VITALS: BP 124/80; PULSE 95; RESP 18; TEMP 36.8; O2SAT 98; BMI 22.6
--- NOTE | 2021-06-16 17:20 | XR_ITS ---
PROCEDURE INFORMATION: Exam: XR Right Hand Exam date and time: 06/16/2021 5:20 PM Age: 20 years old Clinical indication: Injury or trauma; Other: Punched a wall. ; Blunt trauma (contusions or hematomas); Injury details: Punched a wall, right hand pain. TECHNIQUE: Imaging protocol: XR Right hand. Views: 3 or more views. Total images: 3 COMPARISON: No relevant prior studies available. FINDINGS: Bones/joints: No fractures. No blastic or lytic lesions. No articular erosive changes. Soft tissues: No periostitis or osteolysis. No gross soft tissue abnormalities. No radiopaque foreign bodies. Other findings: Carpal relationships are normal. Distal radioulnar alignment is normal. IMPRESSION: No acute findings.
--- NOTE | 2021-06-16 17:21 | HMH.EDGENADL ---
ED Disposition Clinical Impression: Hand injury Qualifiers: Encounter type: initial encounter Laterality: right Qualified Code(s): S69.91XA - Unspecified injury of right wrist, hand and finger(s), initial encounter Disposition: Home, Self-Care Condition on Discharge: Good Additional Instructions: Up with your primary care physician in 3 to 5 days. If you are having continued pain recommend a repeat x-ray. Take acetaminophen and Motrin for pain. Referrals: Trista Martinez APRN [Primary Care Provider] - - Critical Care Critical Care Time: No Attestation: On 06/16/21, the high probability of a clinically significant, sudden or life threatening deterioration of the following system(s) required my full and direct attention, intervention and personal management. The time I documented below is in addition to time spent performing reported procedures but includes the following listed in this critical care notation. Medical Decision Making - Deejay Inquiry Pt receiving controlled substance: No Vital Signs: 06/16/21 16:57 06/16/21 20:22 Temperature 98.3 F 97.9 F Temperature Source Oral Oral Pulse Rate 78 Pulse Rate [Left Radial] 95 H Respiratory Rate 18 18 Blood Pressure 118/75 Blood Pressure [Left Arm] 124/80 Blood Pressure Mean [Left Arm] 94 Blood Pressure Source Automatic Cuff Blood Pressure Source [Left Arm] Automatic Cuff Blood Pressure Position Sitting Blood Pressure Position [Left Arm] Sitting 02 Sat by Pulse Oximetry 98 Oxygen Delivery Method Room Air Room Air Orders (Tests/Meds): ED MEDICATIONS Discontinued Medications Generic Name Dose Route Start Last Admin Trade Name Freq PRN Reason Stop Dose Admin Acetaminophen 650 mg 06/16/21 17:20 06/16/21 17:26 Acetaminophen 325mg Tab PO 06/16/21 17:21 650 mg ONCE ONE Administration Medical Decision Narrative: Patient is a 20-year-old female presenting to the emergency department with chief complaint of right anglican pain, right jaw pain and right hand pain after an acute episode of agitation where she punched a wall and punched her left forehead. Differential diagnosis in this patient includes metacarpal fracture, mandibular fracture, mandibular dislocation, concussion among others. Patient was low risk Reynolds CT criteria for any intracranial bleeding. Patient denied suicidal, homicidal intention as well as desire to harm herself, but rather stated that she had an acute agitated episode she has follow-up with a psychiatric nurse practitioner scheduled as they reached out to make contact after this event. On physical exam was able to break a tongue depressor at the patient's teeth, given this have suspicion for an acute jaw fracture, dislocation. X-ray was completed of the patient's right hand, patient was given acetaminophen for pain as well as ice for pain, XR showed no acute fracture, patient had range of motion intact sensation intact, given this patient was discharged in stable condition. General Adult HPI - General Chief complaint: PAIN Stated complaint: r hand injury, right head Time Seen by Provider: 06/16/21 17:05 Mode of Arrival: Ambulatory Limitations: No Limitations Description of Symptoms (Recalled from ER Triage Doc. by RN): Pt c/o rt wrist/hand and rt anglican pain after hitting herself in the head yesterday. Pt states that she just wants to ensure that she did not injure her head or hand/wrist. - History of Present Illness HPI narrative: Patient is a 20-year-old female who is presenting to the emergency department chief complaint of right hand pain, right anglican pain. Patient states that she has a past medical history of PTSD, and depression and had an episode got very upset and began hitting her right anglican with her right hand. She denies any loss of consciousness, any blood thinner use, has since been able to get in touch with the psychiatric nurse Ivone and will have follow-up. Denies any suicidal ideation, homic
[2021-06-16 20:22] VITALS: BP 118/75; PULSE 78; RESP 18; TEMP 36.6; O2SAT 99
== END 2021-06-16 20:26 | disposition home or self-care (01) ==
PROVIDERS: Emergency Provider Emergency Medicine; PCP Nurse Practitioner Family
DX: S69.91XA Unspecified injury of right wrist, hand and finger(s), initial encounter (principal); X83.8XXA Intentional self-harm by other specified means, initial encounter; R68.84 Jaw pain; R51.9 Headache, unspecified
CPT/HCPCS: 73130; 99282

== ENCOUNTER → 2021-07-02 17:29 | Outpatient (CLI) | payer OTHER, SELFPAY | PROVIDERS: Visit Provider Nurse Practitioner Family | DX: Z20.822 Contact with and (suspected) exposure to COVID-19 (principal); J02.9 Acute pharyngitis, unspecified | CPT/HCPCS: C9803; U0003; U0005 ==

== ENCOUNTER → 2023-05-25 11:46 | Outpatient (CLI) | payer OTHER, SELFPAY ==
--- NOTE | 2023-05-25 11:50 | US_ITS ---
PROCEDURE: US TRANSVAGINAL CLINICAL INDICATION: pelvic pain and abnormal uterine bleeding COMPARISON: No exams were available for comparison FINDINGS: Transvaginal and transabdominal sonographic images of the pelvis were obtained. UTERUS: 6.4 cm x 3.8 cmx 2.8 cm with a combined endometrial thickness of 4.5mm. Initially the uterus was retroverted and then switched to anteverted. There is debris within the cervix possibly consistent with blood clots. LEFT OVARY: 9.3 cmx6.1 cmx5.2 cm with a volume of . The left ovary is enlarged with a cyst. It measures 9.6 cm x 7.9 cm x 6.6 cm. On the wall of the cyst there is a multi-cystic structure that measures 5.7 cm x 4.1 cm. This multi-cystic structure has excrescences on some of the PACS views. No solid components. RIGHT OVARY: 3cmx [id number] with a volume of 4.9ml. There are multiple small follicles. The largest follicle measures 7.6 mm. Both ovaries are seen. Doppler flow to both ovaries are seen. There is trace fluid in the cul-de-sac. IMPRESSION: 1. Uterus initially retroverted then switched to anteverted. Normal in shape and size. 2. There is debris within the cervix possibly consistent with blood clot. 3. The right ovary has a polycystic appearance with multiple small follicles. 4. The left ovary is markedly enlarged with a 9.7 centimeter cyst. On the wall of this cyst there is a multi cystic area measuring 5.7 cm x 4.1 cm. 5. The left ovarian cyst is simple in appearance but the multi-cystic mass on the wall of this cyst is concerning for malignancy. 6. There is trace fluid in the cul-de-sac. Dictated by: Pipe Gonzalez MD 05/26/2023 15:50 Pipe Gonzalez MD in OV 05/26/2023 15:50
[2023-05-25 12:18] LABS: Basophils # 0.1 K/mm3 (0-0.2); Basophils % 0.6 % (0.1-2.0); Eosinophils # 0.1 K/mm3 (0.0-0.4); Eosinophils % 1.6 % (0.1-12.0); Hematocrit 45.2 % (37.0-47.0); Hemoglobin 14.5 g/dL (12.2-16.2); Lymphocytes # 2.9 K/mm3 (0.7-4.5); Lymphocytes % 32.9 % (10-50); Mean Corpuscular Hemoglobin 30.2 pg (27.0-31.2); Mean Corpuscular Volume 94.1 fl (81-99); Mean Platelet Volume 7.8 fl (7.4-10.4); Monocytes # 0.4 K/mm3 (0.1-1.0); Monocytes % 4.8 % (1.7-9.3); Neutrophils # 5.2 K/mm3 (1.8-7.8); Neutrophils % 60.1 % (37.0-80.0); Platelet Count 263 K/mm3 (142-424); Red Cell Distribution Width 12.5 % (11.5-17.5); White Blood Count 8.7 K/mm3 (4.8-10.8)
[2023-05-25 15:33] LABS: Lactate Dehydrogenase 141 U/L (313-618)
[2023-05-25 16:13] LABS: HCG,Quantitative < 2 mIU/ml (0-5.42)
[2023-05-27 08:35] LABS: AFP, Tumor Marker <1.8 ng/mL (0.0-4.7); Cancer Antigen (CA) 125 10.2 U/mL (0.0-38.1)
[2023-05-28 17:40] LABS: Inhibin B 69.4 pg/mL (.)
== END ==
PROVIDERS: PCP Nurse Practitioner Family; Visit Provider Obstetrics & Gynecology
DX: N93.9 Abnormal uterine and vaginal bleeding, unspecified (principal); R10.2 Pelvic and perineal pain; N83.8 Other noninflammatory disorders of ovary, fallopian tube and broad ligament
CPT/HCPCS: 36415; 76830; 82105; 83615; 84702; 85025; 86316; 87086

== ENCOUNTER 2023-05-29 21:43 | Observation (INO) | payer OTHER, SELFPAY ==
[2023-05-29 21:44] VITALS: BP 131/91; PULSE 86; RESP 18; TEMP 36.7; O2SAT 99; BMI 24.5
--- NOTE | 2023-05-29 22:19 | HMH.EDGENADL ---
Discharge Plan Disposition Patient Disposition: Home, Self-Care Chief Complaint: Abdominal Pain Prescriptions Prescriptions: No Action Lo Loestrin Fe 1 mg-10 mcg (24)/10 mcg (2) tablet 1 tab PO DAILY 90 Days Qty: 90 4RF bupropion HCl [Wellbutrin XL] 150 mg tablet extended release 24 hr 150 mg PO DAILY Qty: 30 1RF buspirone 10 mg tablet 20 mg PO BID Qty: 120 1RF Vraylar 3 mg capsule 3 mg PO DAILY Qty: 30 1RF trazodone 50 mg tablet 50 mg PO QHS PRN (Reason: sleep) Qty: 30 1RF ibuprofen 800 mg tablet 800 mg PO Q8H Qty: 90 2RF oxycodone 5 mg tablet 5 mg PO BID PRN (Reason: pain) Qty: 7 0RF albuterol sulfate 6.7 GM HFA aerosol inhaler 6.7 gm IH Q4-6H PRN (Reason: Wheezing) 14 Days Qty: 1 0RF Referrals Follow up/Referrals: Trista Martinez APRN [Primary Care Provider] - See instructions Clinical Impressions Clinical Impression: Hemoperitoneum, Ovarian cyst rupture Instructions Patient Instructions: DI for Acute Abdominal Pain Discharge ED Provider: Yfn Ivy General Adult HPI General Chief complaint: Abdominal Pain Stated complaint: low abd pain Time Seen by Provider: 05/29/23 21:44 Mode of Arrival: Ambulatory Source of Information: Patient Limitations: No Limitations Description of Symptoms (Recalled from ER Triage Doc. by RN): Pt was seen on Wednesday at OBGYN and dx with a ruptured ovarian cyst and a new ovarian cyst on left side. pt is here tonight for LLQ pain. office gave motrin and oxycodone scripts and patient states that is not cutting it. History of Present Illness HPI narrative: 22-year-old female with history of left-sided ovarian cysts diagnosed with ruptured ovarian cyst on 05/25 presenting with continued pain. Patient states that she was seen on 05/[address] Betts, labs unremarkable, patient received pelvic ultrasound demonstrating likely ruptured left ovarian cyst. Was sent home with Motrin and oxycodone. Patient states that pain has been constant, if not crescendo in nature. Character of the pain is the same. It is burning/stabbing/cramping, left lower quadrant, primarily, does not radiate, associated with decreased p.o. intake, severe abdominal tenderness, nausea without vomiting. Patient denies abnormal vaginal discharge or bleeding, dysuria hematuria, constipation or diarrhea, fevers or chills. Mother bedside states that patient has been unable to tolerate any p.o. intake over the last 2 and half to 3 days secondary to pain. Related Data Previous Rx's Medication Instructions Recorded albuterol sulfate 90 mcg/actuation 6.7 gm inhalation Q4-6H PRN 05/04/21 aerosol inhaler Wheezing 14 days #1 ea norethindrone 1 mg-ethinyl 1 tab PO DAILY 3 months #90 tabs 08/11/22 estradiol 10 mcg (24)-iron 10 mcg(2) tablet (Lo Loestrin Fe) bupropion HCl 150 mg 24 hr tablet, 150 mg PO DAILY #30 tabs 04/26/23 extended release (Wellbutrin XL) buspirone 10 mg tablet 20 mg PO BID #120 tabs 04/26/23 cariprazine 3 mg capsule (Vraylar) 3 mg PO DAILY #30 caps 04/26/23 trazodone 50 mg tablet 50 mg PO QHS PRN sleep #30 tabs 04/26/23 ibuprofen 800 mg tablet 800 mg PO Q8H #90 tabs 05/25/23 oxycodone 5 mg tablet 5 mg PO BID PRN pain #7 tabs 05/26/23 Allergies Allergy/AdvReac Type Severity Reaction Status Date / Time No Known Allergies Allergy Verified 05/25/23 10:51 [facility] Disclaimer: The information contained in this section may have been updated after the patient was seen, as this information can be updated by other users. Medical History (Updated 05/29/23 @ 22:47 by Yfn Ivy MD) Bipolar II disorder Generalized anxiety disorder Insomnia Surgical History (Updated 05/25/23 @ 10:51 by CLARIBEL Yates) History of colposcopy Family History Other No significant family history Social History Smoking Status: Never smoker
[2023-05-29 22:22] LABS: Basophils # 0.1 K/mm3 (0-0.2); Basophils % 0.8 % (0.1-2.0); Eosinophils # 0.2 K/mm3 (0.0-0.4); Eosinophils % 1.7 % (0.1-12.0); Hemoglobin 13.6 g/dL (12.2-16.2); Lymphocytes # 3.7 K/mm3 (0.7-4.5); Lymphocytes % 35.2 % (10-50); Mean Corpuscular HGB Conc 33.2 g/dL (31.8-35.4); Mean Corpuscular Hemoglobin 30.9 pg (27.0-31.2); Mean Corpuscular Volume 93.2 fl (81-99); Mean Platelet Volume 7.9 fl (7.4-10.4); Monocytes # 0.6 K/mm3 (0.1-1.0); Monocytes % 5.3 % (1.7-9.3); Neutrophils # 5.9 K/mm3 (1.8-7.8); Platelet Count 285 K/mm3 (142-424); Red Cell Distribution Width 12.7 % (11.5-17.5); White Blood Count 10.4 K/mm3 (4.8-10.8)
[2023-05-29 22:32] LABS: Chloride 107 mmol/L (98-107); Potassium 4.2 mmoL/L (3.5-5.1); Sodium 141 mmol/L (136-145)
[2023-05-29 22:34] LABS: Blood Urea Nitrogen 11 mg/dl (7-17); Creatinine Clearance Estimated 90 mL/min (50-200); Estimated Glomerular Filt Rate 77 ml/min (>60); GFR (African American) 93 ML/MIN (>60)
[2023-05-29 22:35] LABS: Alanine Aminotransferase 28 U/L (12-78); Albumin Level 4.3 g/dl (3.5-5.0); Albumin/Globulin Ratio 1.5 (1.1-1.8); Alkaline Phosphatase 44 U/L (38-126); Anion Gap 12.2 mEq/L (5-15); Aspartate Amino Transferase 34 U/L (14-36); Bilirubin,Total 0.6 mg/dl (0.2-1.3); Calcium 9.5 mg/dl (8.4-10.2); Carbon Dioxide 26 mmol/L (22.0-30.0); Globulin 2.8 g/dL (1.3-3.2); Glucose 111 mg/dl (74-100); Total Protein,Serum 7.1 g/dl (6.3-8.2)
--- NOTE | 2023-05-29 22:39 | PC.NURSE ---
on phone with dr ramírez
--- NOTE | 2023-05-29 22:44 | PC.NURSE ---
notified [facility] of admission
--- NOTE | 2023-05-29 22:45 | PC.NURSE ---
OBSERVATION ADMISSION TO 279 WITH INTRACTABLE PAIN, OVARIAN CYST TO SERVICE OF DR. CROWELL.
[2023-05-29 22:52] LABS: HCG,Quantitative < 2 mIU/ml (0-5.42)
--- NOTE | 2023-05-29 22:55 | PC.NURSE ---
report received from Derrick FERRERA RN
--- NOTE | 2023-05-29 22:55 | PC.NURSE ---
Called report to Daina CONNER on OB, all questions answered
[2023-05-29 22:56] VITALS: BP 113/74; PULSE 75; RESP 18; TEMP 36.7; O2SAT 99
--- NOTE | 2023-05-29 23:04 | PC.NURSE ---
Dr Gonzalez was called at this time and orders verified with , made aware patient is still having some pain which she rates a 6/10 on pain scale but pt states that it is manageable at this time, new orders received for dilaudid 1mg ivp q4h prn for severe pain, dilaudid 0.5mg ivp q2h prn for breakthru pain, toradol 30mg ivp q6h scheduled start at 0400, tylenol 650mg po q6h scheduled start at 0400, Lr at 50ml/hr and pt may have regular diet, phone order repeated and verified at this time
[2023-05-29 23:34] VITALS: BP 112/71; PULSE 69; RESP 18; TEMP 36.8; O2SAT 97; BMI 24.7
[2023-05-29 23:42] LABS: Microscopic, Urine URINE MICROSCOPIC (MICROSCOPIC)
[2023-05-29 23:43] LABS: Appearance,Urine CLEAR (Clear); Bilirubin,Urine Negative (Negative); Blood, Urine 1+ (Negative); Color,Urine YELLOW (Yellow); Glucose,Urine (UA) Negative (Negative); Ketones,Urine TRACE (Negative); Leukocyte Esterase,Urine Negative (Negative); Nitrate,Urine Negative (Negative); PH,Urine 6.5 (5.0-8.5); Protein,Urine Negative (Negative); Specific Gravity, Urine 1.015 (1.005-1.030); Urobilinogen,Urine 0.2 EU/dl (0.2)
[2023-05-29 23:57] LABS: Bacteria,Urine 1+ /lpf
[2023-05-30 04:56] VITALS: BP 106/73; PULSE 66; RESP 17; TEMP 36.8; O2SAT 98
--- NOTE | 2023-05-30 04:58 | PC.NURSE ---
pt has rested well since arrival to unit, no change from previous assessment, LLQ tenderness continues, pt states pain remains a 6/10 on pain scale, pt request only toradol and tylenol for pain management at this time, pt denies any vaginal bleeding, call light within reach, no needs at this time
--- NOTE | 2023-05-30 07:08 | PC.NURSE ---
report given to Jaquelin Soto RN
--- NOTE | 2023-05-30 08:27 | PC.NURSE ---
Pt given scheduled Miralax. Reports discomfort on left lower quad, johnathan need for any pain medication at this time. Pt's mother at bs attentive to her needs. VS stable. Lungs clear. (+) BS x4 quads. No edema. Abdomen painful and tender to touch on left side. Reports voiding well.
[2023-05-30 08:31] VITALS: O2SAT 100
[2023-05-30 08:34] VITALS: BP 121/75; PULSE 70; RESP 18; TEMP 36.9; O2SAT 100
--- NOTE | 2023-05-30 08:43 | HMH.PHAINT1 ---
Pharmacy Intervention Comments: MEDICATION RECONCILIATION COMPLETED ON PATIENT USING EXTERNAL FILL HISTORY FROM PHARMACY. -DIONE INGRAM, MELLOD
--- NOTE | 2023-05-30 09:04 | EXP.HP ---
History of Present Illness *Admission Date: 05/29/23 *Reason for visit:: Severe left lower quadrant pain. Ovarian cyst *History of present illness: 22-year-old G0, P0 female with history of left-sided ovarian cysts diagnosed with ruptured ovarian cyst on 05/25 presenting with continued pain. Patient states that she was seen on 05/[address] Betts, labs unremarkable, patient received pelvic ultrasound demonstrating a 10 cm left ovarian cyst. Was sent home with Motrin and oxycodone. Patient states that pain has been constant, if not crescendo in nature. Character of the pain is the same. It is burning/stabbing/cramping, left lower quadrant, primarily, does not radiate, associated with decreased p.o. intake, severe abdominal tenderness, nausea without vomiting. Patient denies abnormal vaginal discharge or bleeding, dysuria hematuria, constipation or diarrhea, fevers or chills. Mother bedside states that patient has been unable to tolerate any p.o. intake over the last 2 and half to 3 days secondary to pain. test is negative. Blood counts have been stable. She is afebrile. She has no white count. Ultrasound shows a 10 cm left ovarian cyst with multicystic areas on the wall of the cyst. There were what appeared to be excrescences as well on this cyst wall mass. It is multicystic. There was good flow to the ovary when she had her ultrasound. There was just trace fluid in the cul-de-sac. She continues to have constant achy pain on the left. [facility] Disclaimer: The information contained in this section may have been updated after the patient was seen, as this information can be updated by other users. Medical History Bipolar II disorder Generalized anxiety disorder Insomnia Surgical History History of colposcopy History of tonsillectomy Family History No significant family history Social History Smoking Status: Never smoker second hand exposure: Yes alcohol intake: never substance use type: marijuana current occupational status: employed Travel in the last 8 weeks: None household members: family housing: house lives independently: No marital status: single number of children: 0 education level: college service: No group home: No current occupation: [employer] current occupational exposures/hazards: No Review of Systems Review of Systems Review of systems:: pertinent systems reviewed and negative unless documented below Meds Home Medications and Allergies Home Medications Medication Instructions Recorded Confirmed Type norethindrone 1 mg-ethinyl 1 tab PO DAILY 3 months #90 tabs 08/11/22 05/30/23 Rx estradiol 10 mcg (24)-iron 10 mcg(2) tablet (Lo Loestrin Fe) bupropion HCl 150 mg 24 hr tablet, 150 mg PO DAILY #30 tabs 04/26/23 05/30/23 Rx extended release (Wellbutrin XL) buspirone 10 mg tablet 20 mg PO BID #120 tabs 04/26/23 05/30/23 Rx cariprazine 3 mg capsule (Vraylar) 3 mg PO DAILY #30 caps 04/26/23 05/30/23 Rx trazodone 50 mg tablet 50 mg PO QHS PRN sleep #30 tabs 04/26/23 05/30/23 Rx ibuprofen 800 mg tablet 800 mg PO Q8H #90 tabs 05/25/23 05/30/23 Rx oxycodone 5 mg tablet 5 mg PO BID PRN pain #7 tabs 05/26/23 05/30/23 Rx albuterol sulfate 90 mcg/actuation 1 puff inhalation Q4HP PRN 05/30/23 05/30/23 History aerosol inhaler (Ventolin HFA) Shortness Of Breath New Prescriptions to Start Prescriptions: Allergies Allergy/AdvReac Type Severity Reaction Status Date / Time No Known Allergies Allergy Verified 05/25/23 10:51 Exam Data for Last 24 hours Vital signs and Labs for Last 24 Hours: Temp Pulse Resp BP Pulse Ox O2 Del Method 98.5 F 70 18 121/75 100 Room Air 05/30/23 08:34 05/30/23 08:34 05/30/23
--- NOTE | 2023-05-30 14:00 | PC.NURSE ---
here to see pt and discuss POC.
[2023-05-30 16:21] VITALS: BP 117/78; PULSE 61; RESP 19; TEMP 36.4; O2SAT 100
[2023-05-30 16:22] VITALS: O2SAT 100
[2023-05-30 20:08] VITALS: BP 115/69; PULSE 69; RESP 17; TEMP 37.1; O2SAT 97
--- NOTE | 2023-05-30 20:12 | PC.NURSE ---
pt up to shower at this time, no needs voiced
[2023-05-31 04:04] VITALS: BP 125/69; PULSE 72; RESP 16; TEMP 36.9
--- NOTE | 2023-05-31 04:05 | PC.NURSE ---
pt has rested well throughout shift, medicated with scheduled pain regimen and one prn dose and pt states no pain at this time and states she was able to rest well, tenderness to LLQ continues with palpation, pt ambulating in room without difficulty, call light within reach
[2023-05-31 08:15] VITALS: O2SAT 98
[2023-05-31 08:20] VITALS: BP 108/71; PULSE 70; RESP 18; TEMP 36.9; O2SAT 98
--- NOTE | 2023-05-31 09:57 | EXP.DC.SUM ---
General Admission date:: 05/29/23 Discharge date: 07/01/23 HPI HPI HPI: 22-year-old G0, P0 female with history of left-sided ovarian cysts diagnosed with ruptured ovarian cyst on 05/25 presenting with continued pain. Patient states that she was seen on 05/[address] Betts, labs unremarkable, patient received pelvic ultrasound demonstrating a 10 cm left ovarian cyst. Was sent home with Motrin and oxycodone. Patient states that pain has been constant, if not crescendo in nature. Character of the pain is the same. It is burning/stabbing/cramping, left lower quadrant, primarily, does not radiate, associated with decreased p.o. intake, severe abdominal tenderness, nausea without vomiting. Patient denies abnormal vaginal discharge or bleeding, dysuria hematuria, constipation or diarrhea, fevers or chills. Mother bedside states that patient has been unable to tolerate any p.o. intake over the last 2 and half to 3 days secondary to pain. test is negative. Blood counts have been stable. She is afebrile. She has no white count. Ultrasound shows a 10 cm left ovarian cyst with multicystic areas on the wall of the cyst. There were what appeared to be excrescences as well on this cyst wall mass. It is multicystic. There was good flow to the ovary when she had her ultrasound. There was just trace fluid in the cul-de-sac. She continues to have constant achy pain on the left. Hospital Course Hospital Course Hospital Course: She was admitted for pain relief and we have able to control her pain reasonably well with Percocets and Toradol. We have scheduled her for surgery for tomorrow. As result of that we are going to discharge her home to follow-up with us tomorrow morning. Exam Data for Last 24 hours Vital signs and Labs for Last 24 Hours: Temp Pulse Resp BP Pulse Ox O2 Del Method 98.5 F 70 18 108/71 L 98 Room Air 05/31/23 08:20 05/31/23 08:20 05/31/23 08:20 05/31/23 08:20 05/31/23 08:20 05/31/23 08:20 I & O for Last 24 hours: Intake & Output 05/28/23 05/29/23 05/30/23 05/31/23 11:59 11:59 11:59 11:59 Intake Total 600 / 600 Output Total 0 / 0 0 / 0 Balance 0 / 0 600 / 600 Weight 131 lb Constitutional Constitutional: no acute distress *Routine HEENT Exam Head: Present normocephalic *Routine Respiratory Exam Respiratory: Present normal respiratory effort; Absent accessory muscle use DS: Diagnosis Discharge Diagnosis (1) Abdominal pain: Status: Acute Code(s): R10.9 - Unspecified abdominal pain Qualifiers: Abdominal location: lower abdomen, unspecified Qualified Code(s): R10.30 - Lower abdominal pain, unspecified (2) Left lower quadrant pain: Status: Acute Code(s): R10.32 - Left lower quadrant pain (3) Left ovarian cyst: Status: Acute Code(s): N83.202 - Unspecified ovarian cyst, left side (4) Pain in female pelvis: Status: Acute Code(s): R10.2 - Pelvic and perineal pain Meds Home Medications and Allergies Home Medications Medication Instructions Recorded Confirmed Type norethindrone 1 mg-ethinyl 1 tab PO DAILY 3 months #90 tabs 08/11/22 05/30/23 Rx estradiol 10 mcg (24)-iron 10 mcg(2) tablet (Lo Loestrin Fe) bupropion HCl 150 mg 24 hr tablet, 150 mg PO DAILY #30 tabs 04/26/23 05/30/23 Rx extended release (Wellbutrin XL) buspirone 10 mg tablet 20 mg PO BID #120 tabs 04/26/23 05/30/23 Rx cariprazine 3 mg capsule (Vraylar) 3 mg PO DAILY #30 caps 04/26/23 05/30/23 Rx trazodone 50 mg tablet 50 mg PO QHS PRN sleep #30 tabs 04/26/23 05/30/23 Rx oxycodone 5 mg tablet 5 mg PO BID PRN pain #7 tabs 05/26/23 05/30/23 Rx albuterol sulfate 90 mcg/actuation 1 puff inhalation Q4HP PRN 05/30/23 05/30/23 History aerosol inhaler (Ventolin HFA) Shortness Of Breath ketorolac 10 mg tablet 10 mg PO Q6H #20 tabs 05/31/23 Rx oxycodone-acetaminophen 5 mg-325 1 tab PO Q6H PRN pain #20 tabs 05/31/23 Rx mg tablet Ne
--- NOTE | 2023-05-31 10:00 | PC.NURSE ---
Dr. Gonzalez in room.
--- NOTE | 2023-05-31 10:07 | SW/DCPLANNER ---
I received a consult on this patient regarding: health questionnaire and THC use weekly. OB staff (Ramírez) will provide patient with [facility] Resource List and call me if patient has any further needs/questions.
--- NOTE | 2023-05-31 11:35 | PC.NURSE ---
Discharge education provided, questions encouraged and answered. Pt. v/u.
--- NOTE | 2023-05-31 11:45 | PC.NURSE ---
Pt. left unit via wheelchair, accompanied by family member and staff x1.
[2023-06-01 04:31] LABS: AFP, Tumor Marker <1.8 ng/mL (0.0-4.7)
== END 2023-05-31 11:45 | disposition home or self-care (01) ==
LOC: ER 22:02 → OB 22:47
PROVIDERS: Admitting Provider Nurse Practitioner Obstetrics & Gynecology; Emergency Provider Emergency Medicine; PCP Nurse Practitioner Family; Visit Provider Nurse Practitioner Obstetrics & Gynecology
DX: N83.202 Unspecified ovarian cyst, left side (principal); R10.32 Left lower quadrant pain; R10.2 Pelvic and perineal pain; F31.9 Bipolar disorder, unspecified; G47.00 Insomnia, unspecified
CPT/HCPCS: 80053; 81001; 82105; 84702; 85025; 99285; G0378; J0131; J2405

== ENCOUNTER 2023-06-01 06:02 | Day surgery (SDC) | payer OTHER, SELFPAY ==
[2023-06-01] VITALS (13 sets, daily range): BP systolic 110–130; BP diastolic 54–77; PULSE 71–108; RESP 13–18; TEMP 36.3–43; O2SAT 93–99; BMI 24.5
--- NOTE | 2023-06-01 07:02 | EXP.ANES.CKL ---
[facility] Disclaimer: The information contained in this section may have been updated after the patient was seen, as this information can be updated by other users. Medical History Bipolar II disorder Generalized anxiety disorder Insomnia Surgical History History of colposcopy History of tonsillectomy Family History Other No significant family history Social History Smoking Status: Never smoker second hand exposure: Yes alcohol intake: never substance use type: marijuana current occupational status: employed Travel in the last 8 weeks: None household members: family housing: house lives independently: No marital status: single number of children: 0 education level: college service: No assisted: No current occupation: [employer] current occupational exposures/hazards: No [facility] Anesthesia Checklist Patient Identification Patient Identification: Arm Band and Verbal (Name & ) Structural Data Admitted From: Inpatient Planned Operative Procedure/s: Laparoscopic ovarian cystectomy Consent for Planned Operative Procedure(s) Verified: Yes NPO Status Verified Time NPO: 00:00 Chart Verification Results Verified: CBC, BMP and HCG Additional verifications Anesthesia Reactions: No Hx Blood Transfusions: No Blood Transfusion Reaction: No Airway Assessment Mallampati Score:: Class I C-Spine Mobility Assessed: Yes TMJ Mobility Assessed: Yes Dentition: Good Dentition Neurological Assessment Level of Consciousness: Awake Hx Seizures: No Numbness or tingling in extremities: No Anesthesia Plan Anesthesia Risk discussed: Yes Anesthesia Plan: Verified ASA Class: I Anesthesia Type: General
--- NOTE | 2023-06-01 09:40 | P.PNANES_ITS ---
[facility] Anesthesia Record Part I Anesthesia Record I Intake, IV Amount: 1,300 Hydration: Adequate Estimated blood loss (mL): 10 Urine output (mL): 0 Blood Products used (#): none Blood Pressure: 129/58 SaO2: 93 Pulse Rate: 106 Airway Patency: Patent Respiratory Rate: 16 Temperature: 98.6 F Patient is:: Drowsy and Stable Stable to PACU at:: 09:35
--- NOTE | 2023-06-01 09:45 | EXP.OP.NOTE ---
Date of procedure: 06/01/23 Pre-op Diagnosis:: 1. 10 cm complex left ovarian cyst 2. Pelvic pain Post-op Diagnosis:: 1. 10 cm complex left ovarian cyst 2. Pelvic pain Procedure performed:: Left ovarian cystectomy Surgeon:: Sera Betts DO Sports Coordinator(s):: Pipe Gonzalez MD PROGRAM SUPPORT ASSISTANT:: Bienvenido Lind Anesthesia: GETA Estimated blood loss (mL): 25 Operative findings:: 1. Bimanual examination revealed an anteverted 6-week size uterus with a left adnexal mass palpated that was detected to be mobile. 2. Left ovarian cyst, appearing complex in nature with solid and cystic components. The fallopian tube is stretched out over the ovary and cyst. 3. Normal appearing right ovary. Normal-appearing uterus and liver. Operative note:: The patient is a 22-year-old G0 presenting with a diagnosis of complex left adnexal mass measuring about 10cm. The mass had been causing pain for approximately one week. All risks and benefits of laparoscopic ovarian cystectomy had been discussed with the patient in clinic. I personally reviewed the risk of possible oophorectomy and salpingectomy. I discussed the risk of bleeding, infection, and injury to the surrounding structures to include but not limited to the bowel, bladder, ureters, and neurovascular bundles. All her questions were answered. The patient was taken to the operating room in stable condition. General anesthesia was administered without difficulty for laparoscopic ovarian cystectomy. Abdomen and vagina were then prepped and draped in the usual sterile fashion and placed in the dorsal lithotomy position. A preoperative bimanual examination revealed findings as above. Right angle retractor and a Rosa retractor were used to visualize the cervix, single-tooth tenaculum applied to anterior lip cervix, and a acorn uterine manipulator placed. An in an out catheter was used to drain the bladder, draining approximately 300 mL. Attention was then turned to the abdomen where a total of 20mL of 1% lidocaine was used to inject the abdominal incisions. An 11mm incision was made infraumbilically, under direct visualization the trocar was inserted. Gas was turned on, and an opening pressure of 9 mmHg was noted. The abdomen was insufflated using approximately 4 liters of CO2 gas. No evidence of injury to the bowel, omentum or surrounding structures appreciated. Two addition 5mm trocars were placed in the left and right lower quadrants under direct laparoscopic visualization. Examination of the pelvis revealed findings as above. At this time, the bilateral ovaries were elevated out of the pelvis and attention was turn to the left ovarian cyst. Images were obtained. A needle aspirator was introduced and used to puncture the cystic area of the left ovary and suction the fluid off. This fluid was sent for cytology evaluation. There was some additional spillage of the cyst contents from the puncture area. An approximately 1cm incision was made along the ovary using the harmonic. At this point, it was dissected initially using blunt dissection and countertraction. This was carefully completed throughout the circumference of the cyst wall. The ovarian bed was then irrigated and dried. There was slight oozing noted near the edge of the ovary, obtained hemostasis using electrocautery. There was a solid component to the ovarian cyst that was pedunculated and transected from the normal ovarian tissue using the Harmonic. The fallopian tube was carefully dissected free and left in situ. The ovarian cyst wall was removed through the 11mm port easily and the solid component of the cyst wall was placed in an endocatch bag and removed. The pelvis was copiously irrigated and suctioned dry. Hemostasis was noted. Janna powder was applied prophylactically. At this time, all instruments were removed under visualization. The 10 mm umbilical incision was closed using a figure of eight 0-Vicryl stitch. The 4 laparoscopic incisions were closed using inter
--- NOTE | 2023-06-01 11:04 | PC.NURSE ---
attempted to decrease pain with repositioning pt to her right side and placed warm compress against abd. stated that felt better however still has pain at 8/10. Explained about gas pressure and radiating to right shoulder. Will proceed with medication management
--- NOTE | 2023-06-02 10:49 | EXP.ANES.II ---
[facility] Anesthesia Record Part II Anesthesia Record Part II Discharge Time: 10:37 Destination: Surgical Day Care (OP Surgery) PACU nurse assessment reviewed?: Yes Patient Condition:: Good Anesthesia Complications:: None Swallowing reflex intact?: Yes Airway Patency: Patent Cyanosis?: No Blood Pressure: 117/73 SaO2: 94 Respiratory Rate: 16 Pulse Rate: 88 Temperature: 98.6 F Mental Status: Alert & Oriented Pain level:: 6 Nausea and/or vomitting:: None Intake, IV Amount: 0 Hydration: Adequate
[2023-06-02 10:50] VITALS: BP 117/73; PULSE 88; RESP 16; TEMP 37; O2SAT 94
== END 2023-06-01 11:20 | disposition home or self-care (01) ==
PROVIDERS: PCP Nurse Practitioner Family; Visit Provider Obstetrics & Gynecology
PROC: 0TTB4ZZ Resection of Bladder, Percutaneous Endoscopic Approach (ICD-10-PCS; CPT 51999; principal; 2023-06-01 07:30)
DX: D27.1 Benign neoplasm of left ovary (principal); R10.2 Pelvic and perineal pain
CPT/HCPCS: 58662; J2405

== ENCOUNTER 2023-10-08 08:01 | Outpatient (CLI) | payer OTHER, SELFPAY ==
--- NOTE | 2023-10-08 08:02 | US_ITS ---
PROCEDURE: US TRANSVAGINAL CLINICAL INDICATION: ovarian cyst, and pelvic pain COMPARISON: US US TRANSVAGINAL from 05/25/2023 FINDINGS: Transvaginal sonographic images of the pelvis were obtained. UTERUS: 6.5 cm x 3.6 cmx 2.2cm anteverted with a combined endometrial thickness of 1.8mm. LEFT OVARY: 3.0cmx1.7 cmx1.9cm with a volume of 5ml. There are multiple small follicles in the left ovary. The largest measures 1.5 cm. The 8 cm septated cyst seen in April 2023 has completely resolved. RIGHT OVARY: 3.0cmx 2.5 cmx1.7 cm with a volume of 6.8ml. There are multiple small follicles within the right ovary. The largest measures 1.4 cm. Both ovaries are seen and appear normal. Doppler flow to both ovaries are seen. There is no fluid in the cul-de-sac. IMPRESSION: 1. Anteverted uterus normal in shape and size. The endometrium is thin. 2. Both ovaries are seen and appear normal. There are multiple small follicles on each ovary. 3. The previously described 8 cm septated cyst on the left ovary has resolved. 4. No fluid in the cul-de-sac. Dictated by: Pipe Gonzalez MD 10/09/2023 09:36 Pipe Gonzalez MD in [place] 10/09/2023 09:36
--- NOTE | 2023-10-08 08:02 | US_ITS ---
FINAL REPORT CLINICAL HISTORY: llq pain COMPARISON: None FINDINGS: Sonographic images of the abdomen were obtained. The liver has an unremarkable appearance with normal echogenicity. The gallbladder has an unremarkable appearance without evidence of gallstones. There is no evidence of biliary ductal dilatation. The common hepatic duct measures 2 mm, which is within normal limits. Limited images of the pancreas are unremarkable. The spleen size is normal. The right kidney measures 9.7 in length. The left kidney measures 9 in length. There is normal renal echogenicity. There is no evidence of hydronephrosis. The aorta has an unremarkable appearance. Limited images of the inferior vena cava are unremarkable. IMPRESSION: Unremarkable abdominal ultrasound with no acute abnormality identified. Reviewed, Interpreted and Dictated by Carlos Smalls III, MD Transcribed by Taya Diop Authenticated and [facility]
== END 2023-10-08 23:59 ==
LOC: RAD 08:02
PROVIDERS: PCP Nurse Practitioner Family; Visit Provider Obstetrics & Gynecology
DX: N83.202 Unspecified ovarian cyst, left side (principal); R10.31 Right lower quadrant pain
CPT/HCPCS: 76700; 76830

== ENCOUNTER 2024-04-13 15:18 | Outpatient (CLI) | payer OTHER, SELFPAY ==
--- NOTE | 2024-04-13 15:19 | US_ITS ---
PROCEDURE: US TRANSVAGINAL CLINICAL INDICATION: pelvic pain, amenorrhea, Left adnexal tenderness COMPARISON: US US TRANSVAGINAL from 05/25/2023 US US TRANSVAGINAL from 10/08/2023 FINDINGS: Transvaginal sonographic images of the pelvis were obtained. UTERUS: 6.8 cm x 3.3cmx 2.5 cm anteverted with a combined endometrial thickness of 2.8mm. There is a small amount of fluid in the cervical canal. LEFT OVARY: 2.2cmx3.1cmx3.1cm with a volume of 10.6ml. There is a follicle in left ovary measuring 2.7 cm x 1.7 cm x 1.9 cm. RIGHT OVARY: 3.2cmx 2.5cmx2.2cm with a volume of 9ml. There is a follicle measuring 1.8 cm x 1.7 cm x 1.5 cm There are several smaller peripheral follicles. Both ovaries are seen and appear normal. Doppler flow to both ovaries are seen. There is no fluid in the cul-de-sac. IMPRESSION: 1. Anteverted uterus normal in shape and size. The endometrium is thin. 2. Within the cervical canal there is fluid, possibly mucus. 3. Both left and right ovaries appear normal. The left ovary has a 2.7 cm follicle and the right ovary has a 1.8 cm follicle. There are multiple small peripheral follicles in each ovary. 4. No fluid in the cul-de-sac. Dictated by: Pipe Gonzalez MD 04/14/2024 09:51 Pipe Gonzalez MD in [place] 04/14/2024 09:51
== END 2024-04-13 23:59 | disposition home or self-care (01) ==
LOC: RAD 15:19
PROVIDERS: PCP Nurse Practitioner Family; Visit Provider Obstetrics & Gynecology
DX: R10.2 Pelvic and perineal pain (principal); N91.2 Amenorrhea, unspecified
CPT/HCPCS: 76830

== ENCOUNTER 2024-05-11 07:44 | Outpatient (CLI) | payer OTHER, SELFPAY ==
--- NOTE | 2024-05-11 07:44 | CT_ITS ---
FINAL REPORT TECHNIQUE: Axial CT images of the abdomen and pelvis were obtained before and after the administration of IV contrast. This study was performed with techniques to keep radiation doses as low as reasonably achievable (ALARA). Individualized dose reduction techniques using automated exposure control or adjustment of mA and/or kV according to the patient's size were employed. CLINICAL HISTORY: PELVIC PAIN AND LOWER LEFT QUAD PAIN COMPARISON: None FINDINGS: Abdomen: The lung bases are clear. The heart is normal in size. The liver has an unremarkable appearance, without evidence of mass or biliary duct dilatation. . The spleen is unremarkable. No adrenal masses present. The pancreas has an unremarkable appearance. The kidneys enhance normally. The aorta is normal in caliber. There is no free fluid or adenopathy. No mass or abnormal fluid collection is seen. Precontrast images demonstrate no evidence of nephrolithiasis. Pelvis: The appendix is not well visualized. The urinary bladder is unremarkable. There are multiple right lower quadrant mesenteric nodes noted, likely reactive. There is mild wall thickening of the colon at the level of the splenic flexure, that may represent mild colitis. There is a 23 mm left ovarian cyst, physiologic or reactive. A small umbilical hernia containing fat is present. There is no evidence of bowel obstruction. IMPRESSION: Mild wall thickening of the colon at the level of the splenic flexure, that may represent mild colitis. 23 mm left ovarian cyst, physiologic or reactive. Multiple right lower quadrant mesenteric lymph nodes, likely reactive. Reviewed, Interpreted and Dictated by Carlos Smalls III, MD Transcribed by Taya Diop [facility]
[2024-05-11] MEDS: IOPAMIDOL-370 (76%);100ML BOTTLE 75 ML IV (08:14)
[2024-05-11] MEDS: SODIUM CHLORIDE 0.9% 10ML SYR (RAD ONLY) 10 ML IV (08:14)
== END 2024-05-11 23:59 | disposition home or self-care (01) ==
LOC: RAD 07:44
PROVIDERS: PCP Nurse Practitioner Family; Visit Provider Obstetrics & Gynecology
DX: R10.32 Left lower quadrant pain (principal); R10.2 Pelvic and perineal pain
CPT/HCPCS: 74178; Q9967

== ENCOUNTER 2024-11-23 12:55 | Outpatient (CLI) | payer OTHER, SELFPAY ==
[2024-11-23 14:01] LABS: Free T4 (Free Thyroxine) 1.19 ng/dl (0.78-2.19)
[2024-11-23 14:15] LABS: Thyroid Stimulating Hormone 0.74 uIU/mL (0.465-4.68)
[2024-11-24 03:36] LABS: Thyroid Peroxidase Antibodies 18 IU/mL (0-34); Triiodothyronine (T3) Free 3.2 pg/mL (2.0-4.4)
== END 2024-11-23 23:59 | disposition home or self-care (01) ==
LOC: LAB 12:56
PROVIDERS: PCP Nurse Practitioner Family
DX: R79.89 Other specified abnormal findings of blood chemistry (principal)
CPT/HCPCS: 36415; 84439; 84443; 84481; 86376

== ENCOUNTER 2025-03-03 14:09 | Emergency (ER) | payer OTHER, SELFPAY ==
--- OUTSIDE RECORDS SUMMARY | 2025-03-03 14:15 | XMS_ITS | Continuity of Care Document ---
Author Organization [facility] Address [address] [place] [address] Care Team Providers Care [employer] Supervisor Name Role Phone MARILU MARTINEZ Primary Care Provider Assessment No assessment recorded. Plan of Treatment Reminders Order Date Submit Date Provider Last Modified By Organization Details Last Modified Time Details Appointments None recorded. Lab culture, urine 2024 025 [facility], [address], [facility], [place], [address], 14:07:35 urinalysis, dipstick 2024 025 [facility], [address] [place] [address], [phone], 18:37:00 Referral None recorded. Procedures None recorded. Surgeries None recorded. Imaging None recorded. Medication Orders cephalexin 500 mg capsule 2024 025 [facility], [address], [address], 13:53:10 Patient TargetsNo targets recorded. Patient InstructionsNo instructions recorded. Reason for Referral None Reported. Results Created Date Observation Date Name Description Value Unit Range Abnormal Flag Note LastModifiedBy Organization Detail LastModifiedTime 02/14/2002/13/2025 urina lysis , dipst ick Leukocytes Small Not Available [address], [address], 02/13/2025 18:33:49 02/14/20 25 02/13/2025 urina lysis , dipst ick Nitrite positi ve Not Available [address], [address], 02/13/2025 18:33:49 02/14/20 25 02/13/2025 urina lysis , dipst ick Urobilinogen .2 Not Available [facility] [address], [address], 02/13/2025 18:33:49 02/14/20 25 02/13/2025 urina lysis , dipst ick Protein 30 Not Available [address], [address], 02/13/2025 18:33:49 02/14/20 25 02/13/2025 urina lysis , dipst ick pH 6.0 Not Available [address], [address], 02/13/2025 18:33:49 02/14/20 25 02/13/2025 urina lysis , dipst ick Blood Large Not Available [address], [address], 02/13/2025 18:33:49 02/14/20 25 02/13/2025 urina lysis , dipst ick Specific Guild 1.030 Not Available [address], [address], 02/13/2025 18:33:49 02/14/20 25 02/13/2025 urina lysis , dipst ick Ketone Negati ve Not Available [address], [address], 02/13/2025 18:33:49 02/14/20 25 02/13/2025 urina lysis , dipst ick Bilirubin Negati ve Not Available [address], [address], 02/13/2025 18:33:49 02/14/20 25 02/13/2025 urina lysis , dipst ick Glucose Negati ve Not Available [address], [address], 02/13/2025 18:33:49 02/14/20 25 02/13/2025 urina lysis , dipst ick Appearance Clear Not Available [address], [address], 02/13/2025 18:33:49 02/14/20 25 02/13/2025 urina lysis , dipst ick Color Dark Yellow Not Available [address], [address], 02/13/2025 18:33:49 Result Notes None recorded. Problems Name Problem SNOMED Code Status Onset Date Resolution Date Notes Provider Name and Address Organization Details Recorded Time Anxiety 65047951 Active 023 Mahi Alcantaras null, [place] - [facility] 14:23:20 Depressive disorder 80319006 Active 023 Mahi Quintons null, [place] - [facility] 3 14:23:26 Problem Notes None recorded. Procedures Surgical History Date Name Laterality Status Provider Name and Address Organization Details Recorded Time 04/05/2020 Date of Last Pap Smear completed Ramona Langston [place] - [facility] 04/23/2022 14:06:58 Imaging Results None recorded. Procedure Notes None recorded. Medical Equipment None Reported. Allergies No known drug allergies Medications Name Sig Start Date Stop Date Status Note LastModified by Organization Details LastModified Time fluoxetine 40 mg capsule TAKE 2 CAPSULES BY MOUTH ONCE DAILY FOR DEPRESSIO N 04/23 completed Not Available Not Available Not Available amoxicillin 500 mg capsule TAKE 1 CAPSULE BY MOUTH THREE TIMES DAILY 04/03 completed Not Available Not Available Not Available doxycycline hyclate 100 mg capsule Take 1 capsule twice a day by oral route for 7 days. 11/30 completed Not Available Not Available Not Available trazodone 50 mg tablet TAKE 1 TABLET BY MOUTH EVERY DAY AT BEDTIME NEEDED FOR SLEEP active Not Available Not Available No t Available azithromyci n 250 mg tablet TAKE 2 TABLETS (500 MG) BY ORAL ROUTE ONCE DAILY FOR 1 DAY THEN 1 TABLET (250 MG) BY ORAL ROUTE ONCE DAILY FOR 4 DAYS 09/20 completed Not Available Not Available Not Available ibuprofen 800 mg tablet TAKE 1 TABLET BY MOUTH EVERY 8 HOURS 09/20 completed Not Available Not Available Not Available Lidocaine Viscous 2 % mucosal solution APPLY SOLUTION TO SORES IN MOUTH EVERY 4 HOURS NEEDED FOR PAIN 04/23 completed Not Available Not Available Not Available prazosin 1 mg capsule TAKE 1 CAPSULE BY MOUTH ONCE DAILY 04/03 completed Not Available Not Available Not Available metronidazo le 0.75 % (37.5 mg/5 gram) vaginal gel INSERT 1 APPLICATO RFUL VAGINALLY ONCE DAILY AT BEDTIME FOR 5 DAYS 04/23 completed Not Available Not Available Not Available Aplisol 5 tub. unit/0.1 mL intradermal injection solution Inject 0.1 mL by intraderm al route. 04/03 completed Not Available Not Available Not Available prednisone 20 mg tablet TAKE 1 TABLET BY MOUTH TWICE DAILY FOR 5 DAYS 12/10 completed Not Available Not Available Not Available ketorolac 10 mg tablet TAKE 1 TABLET BY MOUTH EVERY 6 HOURS 09/20 completed Not Available Not Available Not Available oxycodone-a cetaminophe n 5 mg-325 mg tablet TAKE 1 TABLET BY MOUTH EVERY 6 HOURS NEEDED FOR PAIN 09/20 completed Not Available Not Available Not Available cephalexin 500 mg capsule TAKE 1 CAPSULE BY MOUTH TWICE DAILY FOR 7 DAYS 02/23 completed Not Available Not Available Not Available buspirone 10 mg tablet TAKE 2 TABLETS BY MOUTH TWICE DAILY FOR ANXIETY active Not Available Not Available No t Available simethicone 125 mg chewable tablet TAKE ONE TABLET BY MOUTH EVERY DAY 09/20 completed Not Available Not Available Not Available levofloxaci n 500 mg tablet TAKE 1 TABLET BY MOUTH EVERY 24 HOURS FOR 5 DAYS active Not Available Not Available No t Available loratadine 10 mg tablet Take 1 tablet every day by oral route for 30 days. 09/20 completed Not Available Not Available Not Available Ventolin HFA 90 mcg/actuati on aerosol inhaler INHALE 1 PUFF BY MOUTH EVERY 4 TO 6 HOURS NEEDED FOR WHEEZING OR SHORTNESS OF BREATH 2022 active Not Available Not Available Not Avai lable oxycodone 5 mg tablet TAKE ONE TABLET BY MOUTH EVERY 8 HOURS NEEDED FOR PAIN MAY CAUSE DROWSINES S 09/20 completed Not Available Not Available Not Available hydroxyzine pamoate 25 mg capsule TAKE 1 CAPSULE BY MOUTH 4 TIMES DAILY NEEDED FOR INCREASED ANXIETY 04/23 completed Not Available Not Available Not Available atomoxetine 40 mg capsule TAKE 1 CAPSULE BY MOUTH ONCE DAILY 04/23 completed Not Available Not Available Not Available aripiprazol e 5 mg tablet TAKE 1 TABLET BY MOUTH EVERY DAY AT BEDTIME 04/23 completed Not Available Not Available Not Available bupropion HCl XL 300 mg 24 hr tablet, extended release TAKE 1 TABLET BY MOUTH ONCE DAILY 02/13 completed Not Available Not Available Not Available bupropion HCl XL 150 mg 24 hr tablet, extended release TAKE 1 TABLET BY MOUTH ONCE DAILY FOR ANXIETY 02/13 completed Not Available Not Available Not Available chlorhexidi ne gluconate 0.12 % mouthwash FOLLOW LABEL INSTRUCTI ONS 04/23 completed Not Available Not Available Not Available Symbicort 160 mcg-4.5 mcg/actuati on HFA aerosol inhaler INHALE 1 PUFF BY MOUTH TWICE DAILY active Not Available Not Available No t Available desvenlafax ine succinate ER 50 mg tablet,exte nded release 24 hr TAKE 1 TABLET BY MOUTH ONCE DAILY 02/13 completed Not Available Not Available Not Available desvenlafax ine succinate ER 100 mg tablet,exte nded release 24 hr TAKE 1 TABLET BY MOUTH ONCE DAILY active Not Available Not Available No t Available Lo Loestrin Fe 1 mg-10 mcg (24)/10 mcg (2) tablet TAKE 1 TABLET BY MOUTH ONCE DAILY active Not Available Not Available No t Available Vraylar 1.5 mg capsule TAKE 1 CAPSULE BY MOUTH ONCE DAILY 09/20 completed Not Available Not Available Not Available Vraylar 3 mg capsule TAKE 1 CAPSULE BY MOUTH ONCE DAILY FOR BI POLAR active Not Available Not Available No t Available Vitals Date Recorded Body height Body mass index (BMI) Body weight Heart rate Oxygen saturation Oxygen saturation in Arterial blood by Pulse oximetry Respiratory rate Systolic And Diastolic Provider Name and Address Organization Details Last Updated DateTime 5 154.94 cm 26.9 kg/m2 78174.8 2 g 98 /min 99 % 99 % 18 /min 110/60 mm[Hg] Ramona Ivis [place] - [facility] 5 18:31:11 Social History Question Answer Notes LastModified by Organizat ion Details LastModified Time Tobacco Smoking Status Never Smoker Armona Ivis null, [place] - [facility] 04/23/2022 14:08:19 Do You Have An Advance Directive? No Information not available 04/23/2022 Are You Blind Or Do You Have Difficulty Seeing? No Information not available 04/23/2022 What Is Your Level Of Caffeine Consumption? Occasional Information not available 11/30/2022 In The 14 Days Before Symptom Onset, Have You Had Close Contact With A Laboratory-confir med COVID-19 While That Case Was Ill? No Information not available 04/23/2022 In The 14 Days Before Symptom Onset, Have You Had Close Contact With A Person Who Is Under Investigation For COVID-19 While That Person Was Ill? No Information not available 04/23/2022 Have You Been To An Area Known To Be High Risk For COVID-19? No Information not available 04/23/2022 Are You Deaf Or Do You Have Serious Difficulty Hearing? No Information not available 04/23/2022 What Type Of Diet Are You Following? REGULAR Information not available 04/23/2022 Have You Processed Blood Or Body Fluids From An Ebola Virus Disease Patient Without Appropriate PPE? No Information not available 04/23/2022 Do You Reside In Or Have You Traveled To An Area Where Ebola Virus Transmission Is Active? No Information not available 04/23/2022 What Is The Highest Grade Or Level Of School You Have Completed Or The Highest Degree You Have Received? [id number] Information not available 04/23/2022 Have There Been Any Changes To Your Family Or Social Situation? No Information no t available 04/23/2022 What Is The Fluoride Status Of Your Home? Fluoridated Information not available 04/23/2022 Have You Recently Or Are You Planning To Travel To An Area With Zika Virus? No Information not available 04/23/2022 Do You Have A Medical Power Of Surgery Scheduling Coordinator? No Information not available 04/23/2022 What Was The Date Of Your Most Recent Tobacco Screening? 02/13/2025 Information not available 02/13/2025 How Many Children Do You Have? -1 Information not available 04/23/2022 Do You Use Protection During Sex? Always Information not available 04/23/2022 Do You Use Protection Against STDs? Usually Information not available 04/23/2022 What Is Your Relationship Status? Single Information not available 04/23/2022 Are You Sexually Active? Yes Information not available 04/23/2022 Do You Have Smoke And Carbon Monoxide Detectors In Your Home? Yes Information not available 04/23/2022 Are You Passively Exposed To Smoke? Yes Information no t available 04/23/2022 Has Tobacco Cessation Counseling Been Provided? No Information not available 11/30/2022 Do You Have Difficulty Walking Or Climbing Stairs? No Information not available 04/23/2022 What Contraceptive Method Was Reported At Start Of This Visit? Combined Oral Contraceptive Pills Information not available 04/23/2022 Do You Want To Talk About Contraception Or Prevention During Your Visit Today? No - I Am Already Using Contraception Information not available 04/23/2022 Do You Have Any Future Plans To Get ? No, I Don't Want To Become Information not available 04/23/2022 Which Type Of Protection Is Used? Condoms Information not available 04/23/2022 Sex: Female Functional Status Question Answer Note LastModified by Organizat ion Details LastModified Time How many times per week do you consume alcohol? 1-2 times per week Information not available 11/30/2022 Are you currently employed? Yes Information not available 04/23/2022 Do you have transportation difficulties? No Information not available 04/23/2022 Are you able to care for yourself? Yes Information n ot available 04/23/2022 Do you have difficulty dressing or bathing? No Information not available 04/23/2022 What is your exercise level? Moderate Information not available 04/23/2022 Do you use any illicit or recreational drugs? No Information not available 11/30/2022 Do you or have you ever used any other forms of tobacco or nicotine? No Information not available 11/30/2022 What is your level of alcohol consumption? Occasional Information not available 04/23/2022 What is your status? Not Information no t available 04/23/2022 Are you able to walk? YESWOREST Information not available 04/23/2022 Do you have difficulty doing errands alone? 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 [id number] Information not available 04/23/2022 Do you have difficulty concentrating, remembering or making decisions? No Information no t available 04/23/2022 Family History Relationship Description Onset Age of this Age Resolved Age Notes LastModified by Organization Details LastModified Time Father Hypertensive disorder [email or web address] Not available 2021 14:07:42 Medical History Condition Response Pancreatitis N Coronary Artery Disease N Other N Gout N Atrial Fibrillation N congenital heart disease N Blood Diseases N Kidney Stones N Hyperthyroidism N Blood Transfusion N Rheumatoid arthritis N Erectile Dysfunction N amputation N Colonoscopy N Skin Lesions N COPD N Depression N Pneumonia N Incontinence N Murmur N Edema N Alzheimer's Disease N Migraine Headaches N Tobacco Abuse N Anxiety Disorder N Hemorrhoids N Muscle, Joint, or Bone Problems N Obesity N Vision or Eye Problems N Arthritis N Restless Leg Syndrome N Polyps N Infertility N Mental Disorder N Carpal Tunnel N Acid Reflux (GERD) N Cancer N Varicosities N Stroke N Tendonitis N Crohn's Disease N Hypercholesterolemia N Skin Cancer N Headaches N Fibromyalgia N Anal Fissure N Irritable Bowel Syndrome N Kidney Disease N Heart Problems N Ear or Hearing Problems N Hospitalizations N Gallstones N Kidney or Bladder Problems N Goiter N Acne N Skin Problems N Eating Disorder N Rapp's Esophagus N Hypertriglyceridemia N MRSA exposure N Constipation N Embolism N Vitamin B12 Deficiency N Deviated Septum N Tuberculosis N AIDS/HIV N Myocardial Infarction N Asthma N Mitral Valve Disorders N Vertigo N Hepatitis N Thyroid Cancer N Neuropathy N Pulmonary Embolism N History of DVT N Herniated Disc N Chronic Ear Infections N Chicken Pox N Autism Spectrum Disorder (ASD) N Von Willebrands Disease N Thrombophilias N Breast Cancer N Hernia N Plantar Fasciitis N Hospital Admission Other Than N Lung Disease N Hypothyroidism N Defects or Inherited Disease N Developmental or Behavioral Disorders N Breast Problem N Difficulty Swallowing N Ovarian Cyst N Anesthesia Complications N Testosterone Deficiency N Meniere's disease N Head Injury/Concussion N Interstitial Cystitis N Congenital Anomalies N Hypoglycemia N Blood clot N Vitamin D Deficiency N Cellulitis N Endometriosis N Fracture N Bladder or Kidney Problems N Colorectal Cancer N Liver Disease N Panic Disorder N Schizophrenia N Concussion N Spina Bifida N Allergies/Hayfever N Osteoarthritis N Parkinson's Disease N Disc Protrusion N STI N Esophagitis N Angina N Thyroid Problems N GI Problems N ADD/ADHD N Anemia N Multiple Sclerosis N Abnormal PAP N Lumbago N Mental Illness N Psychiatric Illness N Diabetes N Ovarian Cancer N Bedwetting N Degenerative Disc Disease N Seizures/Epilepsy N Congestive Heart Failure (CHF) N Hyperlipidemia N Syncope N Insomnia N Eczema N Abuse/Domestic Violence N Attention Deficient Disorder N Diverticulitis N Dementia N Ulcerative colitis N Cerebrovascular Disease N Depression N Guillain-[place] N Sleep Apnea N Aneurysm N Bronchitis N Heart Disease N Suicidal Ideation N Pre-Eclampsia N Hypertension N Osteoporosis N Gynecological History Statement/Question Response Menses Monthly Y Abnormal Pap N Date of Last Pap Smear 04/05/2020 LMP Approximate Date of LMP 01/22/2025 Obstetrics History GPAL:G 0 P 0 0 0 0 Immunizations Vaccine Type Date Status Note Provider Nam e and Address Organization Details Recorded Time Hib-Hep B 0 completed Mahi Stears null, [place] - [facility] 11/30/2022 14:22:42 Hib-Hep B 9 completed Mahi Stears null, [place] - [facility] 11/30/2022 14:22:42 HPV9 7 completed Mahi Stears null, [place] - [facility] 11/30/2022 14:22:42 HPV9 6 completed Mahi Stears null, [place] - [facility] 11/30/2022 14:22:42 HPV9 6 completed Mahi Stears null, [facility] 11/30/2022 14:22:42 IPV 0 completed Mahi Stears null, [place] - [facility] 11/30/2022 14:22:42 IPV 9 completed Mahi Stears null, [facility] 11/30/2022 14:22:42 IPV 3 completed Mahi Stears null, [facility] 11/30/2022 14:22:42 IPV 9 completed Mahi Stears null, [facility] 11/30/2022 14:22:42 MMR 0 completed Mahi Stears null, [facility] 11/30/2022 14:22:42 MMR 3 completed Mahi Stears null, [facility] 11/30/2022 14:22:42 Tdap 0 completed Mahi Stears null, [facility] 11/30/2022 14:22:42 varicella 0 completed Mahi Stears null, [facility] 11/30/2022 14:22:42 Influenza, split virus, trivalent, PF 8 completed Mahi Stears null, [facility] 11/30/2022 14:22:42 Hep B, adolescent or pediatric 9 completed Mahi Stears null, [facility] 11/30/2022 14:22:42 Hep A, ped/adol, 2 dose 7 completed Mahi Stears null, [facility] 11/30/2022 14:22:42 Hep A, ped/adol, 2 dose 6 completed Mahi Stears null, [facility] 11/30/2022 14:22:42 Hib (PRP-OMP) 9 completed Mahi Stears null, [place] - [facility] 11/30/2022 14:22:42 meningococcal MCV4P 6 completed Mahi Stears null, [place] - [facility] 11/30/2022 14:22:42 DTaP, unspecified formulation 0 completed Mahi Stears [place], [place] - [facility] 11/30/2022 14:22:42 DTaP, unspecified formulation 9 completed Mahi Stears [place] [facility] 11/30/2022 14:22:42 DTaP, unspecified formulation 3 completed Mahi Stears [place], [place] [facility] 11/30/2022 14:22:42 DTaP, unspecified formulation 9 completed Mahi Stears [place] [facility] 11/30/2022 14:22:42 DTaP, unspecified formulation 9 completed Mahi Stears [place] [facility] 11/30/2022 14:22:42 meningococcal MCV4, unspecified formulation 0 completed Mahi Stears [place], [place] [facility] 11/30/2022 14:22:42 Influenza, split virus, quadrivalent, PF 0 completed Mahi Stears null, [place] - [facility] 11/30/2022 14:22:42 Past Encounters Encounter ID Performer Location Encounter Start Date Encounter Closed Date Diagnosis/Indication Diagnosis SNOMED-CT Code Diagnosis ICD10 Code Diagnosis Note [id number] Marilu Martinez APRN [address] [address] 02/13/2025 18:14:12 02/13/2025 18:34:46 Acute urinary tract infection 609729388 N39.0 Patient presents with symptoms of UTI. Results of dipstick were positive for UTI. Advised to drink clear fluids, reduce sexual activity, Tylenol for pain and take prescribed medication s as instructed . wear cotton under wear urinate after intercours e Patient encouraged to follow up within 1 week if not improving. Health Concerns Section Related Observation LastModified by Organization Detai ls LastModified Time None Recorded Concern Status LastModified by Organization Details LastModified Time None Recorded Payers Encounter Date Sequence Insurance Name Policy Number Policy Bolanos Covered Member ID Bolanos Member ID Guarantor Name 02/13/2025 1 [employer] [facility] (MEDICAID HMO) Nathaly Plaza [id number] Nathaly Plaza Notes Date Note Type Note Provider Name and Address Organization Details Recorded Time 02/13/2025 text/html 24 yr old female presents with a possible uti, burning,freq,urge ncy and discomfort started yesterday. Marilu Martinez, [employer] [address], [place], [address], [place] - [facility] 02/13/2025 18:34:35 OBGyn Episode No OBEpisode recorded.
--- OUTSIDE RECORDS SUMMARY | 2025-03-03 14:15 | XMS_ITS | Clinical Summary ---
Author Organization Healthcare Address [address] [place] [address] Care Team Providers Care Chief Station Engineer Name Role Phone Trista Martinez QUILTING MACHINE HELPER Primary Care Provider [phone] Social History Tobacco Use Types Packs/Day Years Used Date Smoking Tobacco: Never Comments Unknown Sex and Gender Information Value Date Recorded Sex Assigned at Not on file Legal Sex Female 8:32 PM EDT Gender Identity Not on file Sexual Orientation Not on file Last Filed Vital Signs Vital Sign Reading Time Taken Comments Blood Pressure 132/96 09/08/2018 11:31 AM EST Pulse 71 09/08/2018 11:31 AM EST Temperature 36.8 C (98.3 F) 09/08/2018 11:31 AM EST Respiratory Rate 16 09/08/2018 11:31 AM EST Oxygen Saturation - - Inhaled Oxygen Concentration - - Weight 56 kg (123 lb 7 oz) 09/08/2018 11:[address] Height 154.9 cm (5' 1 ) 09/08/2018 11:31 AM EST Body Mass Index 23.32 09/08/2018 11:31 AM EST Plan of Treatment Not on file Care Teams Chief Station Engineer Relationship Specialty Start Date End Date Trista Martinez APRN [address] [place] [address] PCP - General 01/10/21
--- OUTSIDE RECORDS SUMMARY | 2025-03-03 14:15 | XMS_ITS | Data Portability ---
Author Organization [facility] Address [address] [place] [address] Care Team Providers Care Awning Maker And Installer Name Role Phone MARILU MARTINEZ Primary Care Provider [phone] Assessment No assessment recorded. Plan of Treatment Reminders Order Date Submit Date Provider Last Modified By Organization Details Last Modified Time Details Appointments None recorded. Lab urinalysis, dipstick 2024 025 [facility], [address] [place] [address], [id number], 14:18:12 culture, urine 2024 025 [place] [facility], [address], [address], [place], [address], 5 04:06:16 culture, urine 2024 025 [place] [facility], [address], [address], [place], [address], 5 14:07:35 urinalysis, dipstick 2024 025 [facility], [address] [place] [address], [address], 5 18:37:00 urinalysis, dipstick 2023 024 [facility], [address] [place] [address], [address], 4 16:09:02 culture, urine 2023 024 [place] [facility], [address], [place], [address], 4 00:06:17 PPD (purified protein derivative) , skin test 2023 024 [place] [facility], [address] [place], [address], 4 09:16:[address] referral - change in color and shape of mole, medium priority 2024 025 [place] [address] Carmen Leger MD, [address] [facility], [address], [place], [address], 5 14:35:37 Procedures None recorded. Surgeries None recorded. Imaging None recorded. Medication Orders levofloxaci n 500 mg tablet 2024 025 [facility], [address] [place], [address], 5 14:21:12 cephalexin 500 mg capsule 2024 025 [facility], [address] [place] [address], [address], 5 13:53:10 cephalexin 500 mg capsule 2023 025 [facility], [address] [place] [address], [address], 5 13:45:45 Aplisol 5 tub. unit/0.1 mL intradermal injection solution 2023 024 [facility], [address] [place], [address], 4 15:42:57 Aplisol 5 tub. unit/0.1 mL intradermal injection solution 2023 024 [facility] Not available 15:42:57 Patient TargetsNo targets recorded. Patient InstructionsNo instructions recorded. Reason for Referral Clinical Trials Systems Administrator Referral for P igmented skin lesion change in color and shape of mole, medium priority Referring Physician: Marilu Martinez, Family Medicine, Encounter Date: 02/23/2025 Results Created Date Observation Date Name Description Value Unit Range Abnormal Flag Note LastModifiedBy Organization Detail LastModifiedTime 10/11/19 24 10/11/2023 PPD (dc fied prote in deriv ative ), skin test TB negati ve Not Available [address], [address], 10/07/2023 13:50:58 10/11/19 24 10/11/2023 PPD (dc fied prote in deriv ative ), skin test mm of induration 0 Not Available [facility] [address], [address], 10/07/2023 13:50:58 04/03/20 24 04/04/2024 URINE CULTU RE, ROUTI NE urine culture, routine Final report Not Available [facility] ([facility]) [address] [facility], [place], [address], 04/05/2024 00:06:16 04/03/20 24 04/04/2024 URINE CULTU RE, ROUTI NE result 1 No growth Not Available [facility] ([facility]) [address] [facility], [place], [address], 04/05/2024 00:06:16 04/03/20 24 04/03/2024 urina lysis , dipst ick Leukocytes Trace Not Available [address], [address], 04/03/2024 15:51:18 04/03/20 24 04/03/2024 urina lysis , dipst ick Nitrite negati ve Not Available [address], [address], 04/03/2024 15:51:18 04/03/20 24 04/03/2024 urina lysis , dipst ick Urobilinogen .2 Not Available [facility] [address], [address], 04/03/2024 15:51:18 04/03/20 24 04/03/2024 urina lysis , dipst ick Protein Trace Not Available [address], [address], 04/03/2024 15:51:18 04/03/20 24 04/03/2024 urina lysis , dipst ick pH 6.0 Not Available [address], [address], 04/03/2024 15:51:18 04/03/20 24 04/03/2024 urina lysis , dipst ick Blood Modera te Not Available [address], [address], 04/03/2024 15:51:18 04/03/20 24 04/03/2024 urina lysis , dipst ick Specific [place] 1.030 Not Available [address], [address], 04/03/2024 15:51:18 04/03/20 24 04/03/2024 urina lysis , dipst ick Ketone Negati ve Not Available [address], [address], 04/03/2024 15:51:18 04/03/20 24 04/03/2024 urina lysis , dipst ick Bilirubin Negati ve Not Available [address], [address], 04/03/2024 15:51:18 04/03/20 24 04/03/2024 urina lysis , dipst ick Glucose Negati ve Not Available [address], [address], 04/03/2024 15:51:18 04/03/20 24 04/03/2024 urina lysis , dipst ick Appearance Cloudy Not Available [address], [address], 04/03/2024 15:51:18 04/03/20 24 04/03/2024 urina lysis , dipst ick Color [place] Not Available [address], [address], 04/03/2024 15:51:18 02/14/20 25 02/17/2025 URINE CULTU RE, NAZANIN NE urine culture, routine Final report abnormal Not Available [facility] ([facility]) [address] [facility], [place], [address], 02/17/2025 14:07:35 02/14/20 25 02/17/2025 URINE CULTU RE, ROUTI NE result 1 Escher ichia coli abnormal Cefaz tierney with an ARBEN <=16 predi cts susce ptibi lity to the oral agent s cefac meka, cefdi breana, cefpo doxim e, cefpr ozil, cefur oxime , cepha lexin , and lorac arbef when used for thera py of uncom plica mihir urina ry tract infec tions due to E. coli, Klebs iella pneum oniae , and Prote us mirab ilis. Great er than 100,0 00 colon y formi ng units per mL Not Available [facility] ([facility]) [address] [facility], [place], [address], 02/17/2025 14:07:35 02/14/2002/17/2025 URINE CULTU RE, ROUTI NE antimicrobia l susceptibili ty Commen t S = Susce ptibl e; I = Inter media te; R = Resis tant P = Posit rick; N = Negat rick MICS are expre ssed in micro grams per mL Antib iotic RSLT# 1 RSLT# 2 RSLT# 3 RSLT# 4 Amoxi cilli n/Cla vulan ic Acid S Ampic illin I Cefaz tierney S Cefep terry S Cefox itin S Cefpo doxim e S Ceftr iaxon e S Cipro floxa ramy S Ertap enem S Genta micin S Levof loxac in S Merop enem S Nitro furan toin S Piper acill in/Ta zobac higginbotham S Tetra cycli ne S Tobra mycin S Trime thopr im/Mendoza lfa S Not Available [facility] ([facility]) [address] [facility], [place], [address], 02/17/2025 14:07:35 02/14/20 25 02/14/2025 PLEAS E NOTE please note Commen t The date and/o r time of colle ction was not indic ated on the requi sitio n as requi red by state and nat al law. The date of recei pt of the speci men was used as the colle ction date if not suppl ied. Not Available [facility] ([facility]) [address] [facility], [place], [address], 02/17/2025 14:07:36 02/14/20 25 02/13/2025 urina lysis , dipst ick Leukocytes Small Not Available [address], [address], 02/13/2025 18:33:49 02/14/20 25 02/13/2025 urina lysis , dipst ick Nitrite positi ve Not Available [address], [address], 02/13/2025 18:33:49 02/14/20 25 02/13/2025 urina lysis , dipst ick Urobilinogen .2 Not Available [facility] [address], [address], 02/13/2025 18:33:49 02/14/20 25 02/13/2025 urina lysis , dipst ick Protein 30 Not Available [address], [address], 02/13/2025 18:33:49 02/14/20 25 02/13/2025 urina lysis , dipst ick pH 6.0 Not Available [address], [address], 02/13/2025 18:33:49 02/14/20 25 02/13/2025 urina lysis , dipst ick Blood Large Not Available [address], [address], 02/13/2025 18:33:49 02/14/20 25 02/13/2025 urina lysis , dipst ick Specific [place] 1.030 Not Available [address], [address], 02/13/2025 18:33:49 02/14/20 25 02/13/2025 urina lysis , dipst ick Ketone Negati ve Not Available [address], [address], 02/13/2025 18:33:49 02/14/20 25 02/13/2025 urina lysis , dipst ick Bilirubin Negati ve Not Available [address], [address], 02/13/2025 18:33:49 02/14/20 25 02/13/2025 urina lysis , dipst ick Glucose Negati ve Not Available [address], [address], 02/13/2025 18:33:49 02/14/20 25 02/13/2025 urina lysis , dipst ick Appearance Clear Not Available [address], [address], 02/13/2025 18:33:49 02/14/20 25 02/13/2025 urina lysis , dipst ick Color Dark Yellow Not Available [address], [address], 02/13/2025 18:33:49 02/24/20 25 02/25/2025 URINE CULTU RENAZANIN NE urine culture, routine Final report Not Available [facility] ([facility]) [address] [place], [address], 02/25/2025 04:06:16 02/24/20 25 02/25/2025 URINE CULTU RENAZANIN NE result 1 No growth Not Available [facility] ([facility]) [address] [facility], [place], [address], 02/25/2025 04:06:16 02/24/20 25 02/23/2025 urina lysis , dipst ick Leukocytes Negati ve Not Available [address], [address], 02/23/2025 13:47:01 02/24/20 25 02/23/2025 urina lysis , dipst ick Nitrite negati ve Not Available [address], [address], 02/23/2025 13:47:01 02/24/20 25 02/23/2025 urina lysis , dipst ick Urobilinogen .2 Not Available [facility] [address], [address], 02/23/2025 13:47:01 02/24/20 25 02/23/2025 urina lysis , dipst ick Protein Negati ve Not Available [address], [address], 02/23/2025 13:47:01 02/24/20 25 02/23/2025 urina lysis , dipst ick pH 5.5 Not Available [address], [address], 02/23/2025 13:47:01 02/24/2002/23/2025 urina lysis , dipst ick Blood Modera te Not Available [address], [address], 02/23/2025 13:47:01 02/24/2002/23/2025 urina lysis , dipst ick Specific [place] 1.020 Not Available [address], [address], 02/23/2025 13:47:01 02/24/2002/23/2025 urina lysis , dipst ick Ketone Negati ve Not Available [address], [address], 02/23/2025 13:47:01 02/24/20 25 02/23/2025 urina lysis , dipst ick Bilirubin Negati ve Not Available [address], [address], 02/23/2025 13:47:01 02/24/20 25 02/23/2025 urina lysis , dipst ick Glucose Negati ve Not Available [address], [address], 02/23/2025 13:47:01 02/24/20 25 02/23/2025 urina lysis , dipst ick Appearance Clear Not Available [address], [address], 02/23/2025 13:47:01 02/24/20 25 02/23/2025 urina lysis , dipst ick Color Yellow Not Available [address], [address], 02/23/2025 13:47:01 10/08/19 24 10/08/2023 US, abdom en, compl ete No observ ation record ed. [address], [place], [address], 10/08/2023 11:47:54 10/09/19 24 10/08/2023 US, trans vagin al No observ ation record ed. [place] [address], [place], [address], 10/11/2023 09:20:25 05/11/20 24 05/11/2024 CT, angio gram, abdom en + pelvi s, w/wo contr ast No observ ation record ed. [place] [address], [place], [address], 05/11/2024 09:30:20 Result Notes None recorded. Problems Name Problem SNOMED Code Status Onset Date Resolution Date Notes Provider Name and Address Organization Details Recorded Time Anxiety 59983133 Active 023 Mahi Gary null, [place] - [facility] 3 14:23:20 Depressive disorder 19771564 Active 023 Mahi Gary null, [place] - [facility] 3 14:23:26 Problem Notes None recorded. Procedures Surgical History Date Name Laterality Status Provider Name and Address Organization Details Recorded Time 04/05/2020 Date of Last Pap Smear completed Ramona Langston [place] - [facility] 04/23/2022 14:06:58 Imaging Results None recorded. Procedure [...] height Body mass index (BMI) Body weight Body temperature Heart rate Oxygen saturation Oxygen saturation in Arterial blood by Pulse oximetry Respiratory rate Systolic And Diastolic Provider Name and Address Organization Details Last Updated DateTime 4 154.94 cm 25.3 kg/m2 11575.0 8 g 98.7 [degF] 91 /min 98 % 98 % 18 /min 110/60 mm[Hg] Ramona Langston [place] - [facility] 4 13:41:29 Date Recorded Body height Provider Name an d Address Organization Details Last Updated DateTime 10/07/2023 154.94 cm Ramona Langston [place] - [facility] 0 10/07/2023 13:51:03 Date Recorded Body height Body mass index (BMI) Body weight Heart rate Oxygen saturation Oxygen saturation in Arterial blood by Pulse oximetry Respiratory rate Systolic And Diastolic Provider Name and Address Organization Details Last Updated DateTime 5 154.94 cm 26.9 kg/m2 70856.8 2 g 98 /min 99 % 99 % 18 /min 110/60 mm[Hg] Ramona Langston [place] - [facility] 5 18:31:11 Date Recorded Body height Provider Name an d Address Organization Details Last Updated DateTime 02/23/2025 154.94 cm Ramnoa Langston [place] - [facility] 0 02/23/2025 13:38:42 Date Recorded Body height Body mass index (BMI) Body weight Heart rate Oxygen saturation Oxygen saturation in Arterial blood by Pulse oximetry Respiratory rate Body temperature Systolic And Diastolic Provider Name and Address Organization Details Last Updated DateTime 4 154.94 cm 26.6 kg/m2 32820.5 2 g 90 /min 98 % 98 % 18 /min 98.3 [degF] 122/72 mm[Hg] Mahi Gary [place] - [facility] 4 15:48:35 Social History Question Answer Notes LastModified by Organizat ion Details LastModified Time Tobacco Smoking Status Never Smoker Ramona [place] null, [place] - [facility] 04/23/2022 14:08:19 Do [...] Or The Highest Degree You Have Received? [id number] Information not available 04/23/2022 Have There Been Any Changes To Your Family Or Social Situation? No Information no t available 04/23/2022 What Is The Fluoride Status Of Your Home? Fluoridated Information not available 04/23/2022 Have You Recently Or Are You Planning To Travel To An Area With Zika Virus? No Information not available 04/23/2022 Do You Have A Medical Power Of Firefighting Equipment Specialist? 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 [id number] Information not available 04/23/2022 Do you have difficulty concentrating, remembering or making decisions? No Information no t available 04/23/2022 Family History Relationship Description Onset Age of this Age Resolved Age Notes LastModified by Organization Details LastModified Time Father Hypertensive disorder cbuckler Not available 2021 14:07:42 Medical History Condition Response Pancreatitis N Coronary Artery Disease N Gout N Other N Atrial Fibrillation N congenital heart disease N Kidney Stones N Blood Diseases N Hyperthyroidism N Blood Transfusion N Rheumatoid [...] colitis N Cerebrovascular Disease N Depression N Guillain-[place] N Sleep Apnea N Aneurysm N Bronchitis [...] 14:22:42 HPV9 7 completed Mahi Stears null, [place] - [facility] 11/30/2022 14:22:42 HPV9 6 completed Mahi Ste[place] - [facility] 11/30/2022 14:22:42 HPV9 6 completed Mahi Ste[place] [facility] 11/30/2022 14:22:42 IPV 0 completed Mahi Ste[place] [facility] 11/30/2022 14:22:42 IPV 9 completed Mahi Ste[place] [facility] 11/30/2022 14:22:42 IPV 3 completed Mahi Stears [place] - [facility] 11/30/2022 14:22:42 IPV 9 completed Mahi Stears [place] [facility] 11/30/2022 14:22:42 MMR 0 completed Mahi Stears null, [facility] 11/30/2022 14:22:42 MMR 3 completed Mahi Stears [place] - [facility] 11/30/2022 14:22:42 Tdap 0 completed Mahi Stears [place] - [facility] 11/30/2022 14:22:42 varicella 0 completed Mahi Stears [place] [facility] 11/30/2022 14:22:42 Influenza, split virus, trivalent, PF 8 completed Mahi Stears [place] - [facility] 11/30/2022 14:22:42 Hep B, adolescent or pediatric 9 completed Mahi Stears [place] [facility] 11/30/2022 14:22:42 Hep A, ped/adol, 2 dose 7 completed Mahi Stears null, [facility] 11/30/2022 14:22:42 Hep A, ped/adol, 2 dose 6 completed Mahi Stears null, [place] - [facility] 11/30/2022 14:22:42 Hib (PRP-OMP) 9 completed Mahi Stears null, [place] - [facility] 11/30/2022 14:22:42 meningococcal MCV4P 6 completed Mahi Stears null, [place] [facility] 11/30/2022 14:22:42 DTaP, unspecified formulation 0 completed Mahi Stears null[place] - [facility] 11/30/2022 14:22:42 DTaP, unspecified formulation 9 completed Mahi Stears [place] [facility] 11/30/2022 14:22:42 DTaP, unspecified formulation 3 completed Mahi Stears [place] [facility] 11/30/2022 14:22:42 DTaP, unspecified formulation 9 completed Mahi Stears [place] [facility] 11/30/2022 14:22:42 DTaP, unspecified formulation 9 completed Mahi Ste[place] [facility] 11/30/2022 14:22:42 meningococcal MCV4, unspecified formulation 0 completed Mahi Stears [place] [facility] 11/30/2022 14:22:42 Influenza, split virus, quadrivalent, PF 0 completed Mahi Stears null[place] [facility] 11/30/2022 14:22:42 Past Encounters Encounter ID Performer Location Encounter Start Date Encounter Closed Date Diagnosis/Indication Diagnosis SNOMED-CT Code Diagnosis ICD10 Code Diagnosis Note [id number] Marilu Martinez APRN [address] [address] 04/23/2022 13:46:31 04/23/2022 15:43:23 Venereal disease screening 711629793 Z11.3 [id number] Marilu Martinez APRN [address] [address] 11/30/2022 14:10:18 11/30/2022 15:12:04 Acute bronchitis 57106052 J20.9 [id number] Marilu Martinez APRN [address] [address] 12/10/2022 13:15:42 12/10/2022 14:23:59 Acute bronchitis 04770174 J20.9 Allergic rhinitis 705721 04 J30.9 [id number] Marilu Martinez[address] [place] [address] [address] 09/20/2023 13:30:04 09/20/2023 14:00:55 Tuberculosis screening 564747235 Z11.1 [id number] Marilu Martinez[address] [place] [address] [address] 10/07/2023 13:35:28 10/07/2023 14:38:25 Tuberculosis screening 126169167 Z11.1 [id number] [facility] [address] 04/03/2024 15:36:36 04/03/2024 16:07:26 Abdominal pain 73537044 R10.9 if symptoms worsen go to ed for eval Acute urin krupa tract infection 104390581 N39.0 Patient presents with symptoms of UTI. Results of dipstick were positive for UTI. Advised to drink clear fluids, reduce sexual activity, Tylenol for pain and take prescribed medication s as instructed . wear cotton under wear urinate after intercours e Patient encouraged to follow up within 1 week if not improving. [id number] [facility] [address] 02/13/2025 18:14:12 02/13/2025 18:34:46 Acute urinary tract infection 546967095 N39.0 Patient presents with symptoms of UTI. Results of dipstick were positive for UTI. Advised to drink clear fluids, reduce sexual activity, Tylenol for pain and take prescribed medication s as instructed . wear cotton under wear urinate after intercours e Patient encouraged to follow up within 1 week if not improving. [id number] [facility] [address] 02/23/2025 13:36:29 02/23/2025 14:26:18 Acute urinary tract infection 482380529 N39.0 Patient presents with symptoms of UTI.increa se fluidscran mijares juicewipe front to backvoid after intercours [place] not hold urineantib iotics as orderedcot ton underwearP atient encouraged to follow up within 1 week if not improving. Pigmented skin lesion 20 8980045 D22.9 derm referral Acute bronchitis 1741962 2 J20.9 antibiotic s and inhaler as needed Health Concerns Section Related Observation LastModified by Organization Detai ls LastModified Time None Recorded Concern Status LastModified by Organization Details LastModified Time None Recorded Advance Directives Directive N: Payers Insurance Date Sequence Insurance Name Policy Number Policy Bolanos Covered Member ID Bolanos Member ID Guarantor Name 02/13/2025 [place] [facility] [place] (MEDICAID) Nathaly Plaza [id number] Nathaly Plaza 02/22/2025 1 [facility] (MEDICAID [facility] Nathaly Plaza [id number] Nathaly Plaza Notes Date Note Type Note Provider Name and Address Organization Details Recorded Time 09/20/2023 text/html 22 yr old female presents for a TB skin test for [facility]. Marilu Martinez, SCAFFOLDER [address], [place], [address], [place] - [facility] 09/20/2023 14:02:31 10/07/2023 text/html 22 yr old female presents for her 2 step tb skin test. Ramona Langston [facility], [place] - [facility] 10/07/2023 14:51:12 04/03/2024 text/html Abdominal PainReported bypatient.Location :LLQ; LUQ; RLQ; RUQ; radiating Quality:cramping;a tonya Severity:pain level 7/10 Duration:constant; started: (1 week ago) Onset/Timing:sudde n Context:history of kidney stones; IBS (in high school) Modifying Factors:nothing gives relief Associated Symptoms:no fever; no chills; no blood in the urine; no heartburn; no shortness of breath; no nausea; no vomiting; normal appetite; no weight gain; no weight loss;diarrhea Other:denies possible ; uses control 23 year old female who presents to the office today with concerns ofabdominal pain x 1 week, with soft diarrhea Marilu Martinez APRN [address], [place], [address], [place] - [facility] 04/03/2024 16:09:53 02/13/2025 text/html 24 yr old female presents with a possible uti, burning,freq,urgen cy and discomfort started yesterday. Marilu Martinez APRN [address], [place], [address], [place] - [facility] 02/13/2025 18:34:35 02/23/2025 text/html 24 yr old female presents to follow up on uti- still feels like she may have it. She also feels like she may have bronchitis, cough and chest congestion.also has a mole to left shoulder that has gotten bigger and looks like it is changing Marilu Martinez APRN [address], [place], [address], [place] - [facility] 02/23/2025 14:22:00 OBGyn Episode No OBEpisode recorded.
--- OUTSIDE RECORDS SUMMARY | 2025-03-03 14:15 | XMS_ITS | Continuity of Care Document ---
[facility] Address [address] [place] [address] Care Team Providers Care Four Slide Operator Name Role Phone MARILU MARTINEZ Primary Care Provider Assessment No assessment recorded. Plan of Treatment Reminders Order Date Submit Date Provider Last Modified By Organization Details Last Modified Time Details Appointments None recorded. Lab urinalysis, dipstick 2024 025 [facility], [address] [place] [address], [id number], 5 14:18:12 culture, urine 2024 025 [place] [facility], [address], [facility], [place], [address], 5 04:06:[address] referral - change in color and shape of mole, medium priority 2024 025 [email or web address] Carmen Leger MD, [address] [facility], [address], [place], [address], 5 14:35:37 Procedures None recorded. Surgeries None recorded. Imaging None recorded. Medication Orders levofloxaci n 500 mg tablet 2024 025 [facility], [address] [place], [address], 5 14:21:12 Patient TargetsNo targets recorded. Patient InstructionsNo instructions recorded. 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 Referral for P igmented skin lesion change in color and shape of mole, medium priority Referring Physician: Marilu Martinez, Family Medicine, Encounter Date: 02/23/2025 Results Created Date Observation Date Name Description Value Unit Range Abnormal Flag Note LastModifiedBy Organization Detail LastModifiedTime 02/24/2002/23/2025 urina lysis , dipst ick Leukocytes Negati ve Not Available [address], [address], 02/23/2025 13:47:01 02/24/20 25 02/23/2025 urina lysis , dipst ick Nitrite negati ve Not Available [address], [address], 02/23/2025 13:47:01 02/24/20 25 02/23/2025 urina lysis , dipst ick Urobilinogen .2 Not Available [facility] [address], [address], 02/23/2025 13:47:01 02/24/20 25 02/23/2025 urina lysis , dipst ick Protein Negati ve Not Available [address], [address], 02/23/2025 13:47:01 02/24/20 25 02/23/2025 urina lysis , dipst ick pH 5.5 Not Available [address], [address], 02/23/2025 13:47:01 02/24/20 25 02/23/2025 urina lysis , dipst ick Blood Modera te Not Available [address], [address], 02/23/2025 13:47:01 02/24/20 25 02/23/2025 urina lysis , dipst ick Specific [place] 1.020 Not Available [address], [address], 02/23/2025 13:47:01 02/24/20 25 02/23/2025 urina lysis , dipst ick Ketone Negati ve Not Available [address], [address], 02/23/2025 13:47:01 02/24/20 25 02/23/2025 urina lysis , dipst ick Bilirubin Negati ve Not Available [address], [address], 02/23/2025 13:47:01 02/24/20 25 02/23/2025 urina lysis , dipst ick Glucose Negati ve Not Available [address], [address], 02/23/2025 13:47:01 02/24/20 25 02/23/2025 urina lysis , dipst ick Appearance Clear Not Available [address], [address], 02/23/2025 13:47:01 02/24/20 25 02/23/2025 urina lysis , dipst ick Color Yellow Not Available [address], [address], 02/23/2025 13:47:01 Result Notes None recorded. Problems Name Problem SNOMED Code Status Onset Date Resolution Date Notes Provider Name and Address Organization Details Recorded Time Anxiety 25436787 Active 023 [facility] - [facility] 14:23:20 Depressive disorder [id number] Active 023 Mahi Abdirahman null, [place] - [facility] 14:23:26 Problem Notes None recorded. Procedures Surgical History Date Name Laterality Status Provider Name and Address Organization Details Recorded Time 04/05/2020 Date of Last Pap Smear completed Ramona Langston [place] - [facility] 04/23/2022 14:06:58 Imaging Results None [...] t Available Vitals Date Recorded Body height Provider Name an d Address Organization Details Last Updated DateTime 02/23/2025 154.94 cm Ramona Langston [place] - [facility] 0 02/23/2025 13:38:42 Social History Question Answer Notes LastModified by [...] Or The Highest Degree You Have Received? [id number] Information not available 04/23/2022 Have There Been Any Changes To Your Family Or Social Situation? No Information no t available 04/23/2022 What Is The Fluoride Status Of Your Home? Fluoridated Information not available 04/23/2022 Have You Recently Or Are You Planning To Travel To An Area With Zika Virus? No Information not available 04/23/2022 Do You Have A Medical Power Of Director Government? 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 [id number] Information not available 04/23/2022 Do you have [...] Stones N Blood Diseases N Hyperthyroidism N Rheumatoid arthritis N Blood Transfusion N Erectile Dysfunction N amputation N Colonoscopy N Skin Lesions N Depression N COPD N Pneumonia N Incontinence N Murmur N Edema N Alzheimer's Disease N Migraine Headaches N Tobacco Abuse N Anxiety Disorder N Muscle, Joint, or Bone Problems N Hemorrhoids N Obesity N Vision or Eye Problems N Restless Leg Syndrome N Arthritis N Polyps N Infertility N Mental Disorder N Carpal Tunnel N Acid Reflux (GERD) N Cancer N Varicosities N Stroke N Tendonitis N Crohn's Disease N Hypercholesterolemia N Skin Cancer N Headaches N Fibromyalgia N Irritable Bowel Syndrome N Anal Fissure N Kidney Disease N Heart Problems N [...] Than N Lung Disease N Hypothyroidism N Developmental or Behavioral Disorders N Defects or Inherited Disease N Breast Problem N Difficulty Swallowing N Ovarian Cyst N Anesthesia Complications N Testosterone Deficiency N Meniere's disease N Head Injury/Concussion N Interstitial Cystitis N Congenital Anomalies N Hypoglycemia N Blood clot N Vitamin D Deficiency N Cellulitis N Endometriosis N Fracture N Bladder or Kidney Problems N Colorectal Cancer N Liver Disease N Schizophrenia N Panic Disorder N Concussion N Spina Bifida N Allergies/Hayfever N Osteoarthritis N Parkinson's Disease N Disc Protrusion N STI N Esophagitis N Angina N Thyroid Problems N GI Problems N ADD/ADHD N Anemia N Multiple Sclerosis N Abnormal PAP N Lumbago N Mental Illness N Psychiatric Illness N Ovarian Cancer N Diabetes N Bedwetting N Degenerative Disc Disease N Seizures/Epilepsy N Congestive Heart Failure (CHF) N Syncope N Insomnia N Hyperlipidemia N Eczema N Diverticulitis N Dementia N Attention Deficient Disorder N Abuse/Domestic Violence N Ulcerative colitis N Cerebrovascular Disease N Depression N Guillain-[place] N Sleep Apnea N Aneurysm N Heart Disease N Bronchitis N Suicidal Ideation N Pre-Eclampsia N Hypertension N Osteoporosis N Gynecological History Statement/Question Response Menses Monthly Y Abnormal Pap N Date of Last Pap Smear 04/05/2020 LMP Approximate Date of LMP 01/22/2025 Obstetrics History GPAL:G 0 P 0 0 0 0 Immunizations Vaccine Type Date Status Note Provider Nam e and Address Organization Details Recorded Time Hib-Hep B 0 completed Mahi Stears null, [place] - [facility] 11/30/2022 14:22:42 Hib-Hep B 9 completed Mah[place] [facility] 11/30/2022 14:22:42 HPV9 7 completed [place] - [facility] 11/30/2022 14:22:42 HPV9 6 completed Mahi Stears null, [facility] 11/30/2022 14:22:42 HPV9 6 completed Mahi Stears null, [facility] 11/30/2022 14:22:42 IPV 0 completed Mahi Stears null, [facility] 11/30/2022 14:22:42 IPV 9 completed Mahi Stears null, [facility] 11/30/2022 14:22:42 IPV 3 completed Mahi Stears null, [facility] 11/30/2022 14:22:42 IPV 9 completed Mahi Stears null, [facility] 11/30/2022 14:22:42 MMR 0 completed Mahi Stears null, [facility] 11/30/2022 14:22:42 MMR 3 completed Mahi Stears null, [facility] 11/30/2022 14:22:42 Tdap 0 completed Mahi Stears null, [facility] 11/30/2022 14:22:42 varicella 0 completed Mahi Stears null, [facility] 11/30/2022 14:22:42 Influenza, split virus, trivalent, PF 8 completed Mahi Stears null, [facility] 11/30/2022 14:22:42 Hep B, adolescent or pediatric 9 completed Mahi Stears null, [facility] 11/30/2022 14:22:42 Hep A, ped/adol, 2 dose 7 completed Mahi Stears null, [place] - [facility] 11/30/2022 14:22:42 Hep A, ped/adol, 2 dose 6 completed Mahi Stears null, [place] - [facility] 11/30/2022 14:22:42 Hib (PRP-OMP) 9 completed Mahi Stears null, [place] - [facility] 11/30/2022 14:22:42 meningococcal MCV4P 6 completed Mahi Stears null, [place] - [facility] 11/30/2022 14:22:42 DTaP, unspecified formulation 0 completed Mahi Stears null, [place] - [facility] 11/30/2022 14:22:42 DTaP, unspecified formulation 9 completed Mahi Ste[place] [facility] 11/30/2022 14:22:42 DTaP, unspecified formulation 3 completed Mahi Stears null, [place] - [facility] 11/30/2022 14:22:42 DTaP, unspecified formulation 9 completed Mahi Stears null, [place] - [facility] 11/30/2022 14:22:42 DTaP, unspecified formulation 9 completed Mahi Stears null, [place] - [facility] 11/30/2022 14:22:42 meningococcal MCV4, unspecified formulation 0 completed Mahi [place] [facility] 11/30/2022 14:22:42 Influenza, split virus, quadrivalent, PF 0 completed Mahi Stears null, [place] - [facility] 11/30/2022 14:22:42 Past Encounters Encounter ID Performer Location Encounter Start Date Encounter Closed Date Diagnosis/Indication Diagnosis SNOMED-CT Code Diagnosis ICD10 Code Diagnosis Note [id number] Marilu Martinez APRN [address] [address] 02/13/2025 18:14:12 02/13/2025 18:34:46 Acute urinary tract infection 348888126 N39.0 Patient presents with symptoms of UTI. Results of dipstick were positive for UTI. Advised to drink clear fluids, reduce sexual activity, Tylenol for pain and take prescribed medication s as instructed . wear cotton under wear urinate after intercours e Patient encouraged to follow up within 1 week if not improving. [id number] Marilu Martinez APRN [facility] [address] [place] [address] 02/23/2025 13:36:29 02/23/2025 14:26:18 Acute urinary tract infection 015636601 N39.0 Patient presents with symptoms of UTI.increa se fluidscran mijares juicewipe front to backvoid after intercours [place] not hold urineantib iotics as orderedcot ton underwearP atient encouraged to follow up within 1 week if not improving. Pigmented skin lesion 20 [id number] D22.9 derm referral Acute bronchitis 0568170 2 J20.9 antibiotic s and inhaler as needed Health Concerns Section Related Observation LastModified by Organization Detai ls LastModified Time None Recorded Concern Status LastModified by Organization Details LastModified Time None Recorded Payers Encounter Date Sequence Insurance Name Policy Number Policy Bolanos Covered Member ID Bolanos Member ID Guarantor Name 02/23/2025 1 [employer] [facility] (MEDICAID HMO) Nathaly Plaza [id number] Nathaly Plaza Notes Date Note Type Note Provider Name and Address Organization Details Recorded Time 02/23/2025 text/html 24 yr old female presents to follow up on uti- still feels like she may have it. She also feels like she may have bronchitis, cough and chest congestion.also has a mole to left shoulder that has gotten bigger and looks like it is changing Marilu Martinez APRN [address], [place], [address], [place] - [facility] 02/23/2025 14:22:00 OBGyn Episode No OBEpisode recorded.
--- NOTE | 2025-03-03 14:19 | XR_ITS ---
PROCEDURE INFORMATION: Exam: XR Chest Exam date and time: 03/03/2025 3:21 PM Age: 24 years old Clinical indication: Pain; Cough and shortness of breath; Chest pressure; Additional info: Cough 3 weeks TECHNIQUE: Imaging protocol: Radiologic exam of the chest. Views: 2 views. COMPARISON: CR XR CHEST 2V 05/04/2021 6:14 PM FINDINGS: Lungs: Unremarkable. No consolidation. Pleural spaces: Unremarkable. No pleural effusion. No pneumothorax. Heart/Mediastinum: Unremarkable. No cardiomegaly. Bones/joints: Unremarkable. IMPRESSION: Stable chest x-ray with no acute disease.
[2025-03-03 14:21] VITALS: BP 121/77; PULSE 97; RESP 18; TEMP 37.2; O2SAT 100; BMI 26.4
--- NOTE | 2025-03-03 14:22 | ED_ITS ---
Discharge Plan Disposition Patient Disposition: Home, Self-Care Prescriptions Prescriptions: No Action Vraylar 3 mg capsule 3 mg PO DAILY Qty: 90 1RF buspirone 10 mg tablet 20 mg PO BID 90 Days Qty: 360 0RF trazodone 50 mg tablet See Rx Instructions .ROUTE .COMPLEX Qty: 90 2RF Dose Instruction: TAKE 1 TABLET BY MOUTH EVERY DAY AT BEDTIME NEEDED FOR SLEEP Rx Instructions: TAKE 1 TABLET BY MOUTH EVERY DAY AT BEDTIME NEEDED FOR SLEEP desvenlafaxine succinate 100 mg tablet extended release 24 hr 100 mg PO DAILY Qty: 30 2RF Lo Loestrin Fe 1 mg-10 mcg (24)/10 mcg (2) tablet 1 tab PO DAILY Qty: 28 4RF albuterol sulfate [Ventolin HFA] 90 mcg/actuation HFA aerosol inhaler 1 puff INHALATION Q4HP PRN (Reason: Shortness Of Breath) Patient Comments: INHALE 1 PUFF BY MOUTH EVERY 4 TO 6 HOURS NEEDED FOR WHEEZING OR SHORTNESS OF BREATH Referrals Follow up/Referrals: Trista Martinez APRN [Primary Care Provider, Medical] - See instructions Activity Restrictions/Add. Instructions Additional Instructions/Restrictions: Increase fluids and rest. Take [id number] allergy meds. The steroid that we gave you here in the ER will be in your system for a few days. This should help with symptoms. If any further problems or concerns please return to the ED or follow-up with your PCP. Clinical Impressions Clinical Impression: Acute viral laryngitis, Cough Instructions Patient Instructions: Cough, DI for Laryngitis Print Language Print Language: [place] Discharge ED Provider: Jose Hancock HPI <Shruti Post (ED)ALEJANDRINA - Last Filed: 03/03/25 15:52> General Chief Complaint: Weakness Stated Complaint: cough, fever, body hurts all over, headache Time Seen by Provider: 03/03/25 14:16 History of Present Illness HPI narrative: 24-year-old female presents to the ED today for complaint of 3 weeks of coughing. She was diagnosed with pneumonia at her PCP office and has been given 2 rounds of antibiotics. She is unsure of what they are called. She has been coughing quite a bit but no productive sputum. She says she felt warm yesterday but no true temp because she did not use a thermometer. She has no nausea, no vomiting. She has had bodyaches and fatigue. She says she just feels terrible. She says she was going to go back on Wednesday but she just felt bad and wants to feel better. Related Data Home Medications ?Medication ?Instructions ?Recorded ?Confirmed albuterol sulfate 90 mcg/actuation 1 puff inhalation Q 4HP PRN 05/30/23 01/17/25 aerosol inhaler (Ventolin HFA) Shortness Of Breath Previous Rx's ?Medication ?Instructions ?Recorded cariprazine 3 mg capsule (Vraylar) 3 mg PO DAILY bi po lar #90 caps 09/11/24 buspirone 10 mg tablet 20 mg (2 x 10 mg) PO BID Anx iety 11/22/24 90 days #360 tabs trazodone 50 mg tablet See Rx Instructions .Route 0 11/22/24 .COMPLEX #90 tabs norethindrone 1 mg-ethinyl 1 tab PO DAILY #28 tabs estradiol 10 mcg (24)-iron 10 mcg(2) tablet (Lo Loestrin Fe) desvenlafaxine succinate 100 mg 100 mg PO DAILY #30 ta bs 12/20/24 tablet,extended release 24 hr Allergies Allergy/AdvReac Type Severity Reaction Status Date / Time No Known Allergies Allergy Verified 01/17/25 15:29 <Jose Hancock DO - Last Filed: 03/03/25 16:32> History of Present Illness HPI narrative: 24-year-old female presents to the ED today for complaint of 3 weeks of coughing. She was diagnosed with pneumonia at her PCP office and has been given 2 rounds of antibiotics. She is unsure of what they are called. She has been coughing quite a bit but no productive sputum. She says she felt warm yesterday but no true temp because she did not use a thermometer. She has no nausea, no vomiting. She has had bodyaches and fatigue. She says she just feels terrible. She says she was going to go back on Wednesday but she just felt bad and wants to feel better. Patient has not had any lower extremity erythema or edema. No hemoptysis. She has not had any car trouble greater than 6 hours. No history of cancer or hypercoagulable disease. She has not had persistent tachycardia. No pleuritic chest pain. [facility] <Shruti Post (ED), NIGHT SUPERVISOR - Last Filed: 03/03/25 15:52> [facility] Disclaimer: The information contained in this section may have been updated after the patient was seen, as this information can be updated by other users. Medical History Nightmares associated with chronic post-traumatic stress disorder Hemoperitoneum LGSIL on Pap smear of cervix Generalized anxiety disorder Insomnia Bipolar II disorder Fatigue Tingling in extremities Surgical History Hx of removal of cyst History of tonsillectomy History of colposcopy Family History Other No significant family history Social History Smoking Status: Never smoker second hand exposure: Yes alcohol intake: never substance use type: marijuana current occupational status: employed Travel in the last 8 weeks?: None household members: family housing: house lives independently: No marital status: single number of children: 0 education level: college service: No retirement: No current occupation: [employer] current occupational exposures/hazards: No Have you lived/traveled outside [place] in past 30 days?: No Contact w/someone who lives/traveled outside US past 30 days?: No Exposure to someone with infectious disease in past 14 days?: No Do you have a fever (greater than 100.4 F or 38 C)?: No Have you tested positive for COVID-19?: No Exposed to someone with COVID-19 in past 14 days?: No Do you have a sore throat?: No Do you have a cough?: No Do you have any weakness?: No Do you have any diarrhea?: No Are you experiencing any unusual bleeding?: No Do you have any muscle aches/pain?: No Do you have any abdominal pain?: No Are you experiencing loss of taste or smell?: No Other Medical History Have you received the Flu Vaccine for this season: No Have you received the Pneumonia Vaccine: No <Shruti Post (ED), NIGHT SUPERVISOR - Last Filed: 03/03/25 15:52> ROS Obtained: Yes Systems reviewed as appropriate & no additional complaints except as documented Constitutional Constitutional: Reports as per HPI Physical Exam <Shruti Post (ED), NIGHT SUPERVISOR - Last Filed: 03/03/25 15:52> General General appearance: alert Head Head exam: atraumatic and normocephalic Eye Eye exam: Present normal appearance, PERRL and EOMI ENT ENT exam: Present normal oropharynx and mucous membranes moist Neck Neck exam: Present normal inspection, full ROM and trachea midline Respiratory Respiratory exam: Present other (Rhonchi throughout) Cardiovascular Cardiovascular exam: Present regular rate, normal rhythm, normal heart sounds, +S1 and +S2 Abdominal Exam Abdominal exam: Present soft and normal bowel sounds Extremities Exam Extremities exam: Present normal inspection, full ROM and normal capillary refill Neurological Exam Neurological exam: Present alert, oriented X3 and normal gait Skin Skin exam: Present warm, dry and intact HEART Score <Jose Hancock DO - Last Filed: 03/03/25 16:32> HEART Score HEART Score assessment performed?: No Critical Care <Jose Hancock DO - Last Filed: 03/03/25 16:32> Critical Care Time Critical Care Time: No Medical Decision Making <Shruti Post (ED), NIGHT SUPERVISOR - Last Filed: 03/03/25 15:52> Deejay Inquiry Pt receiving controlled substance: No Deejay was queried for this patient: No Vital Signs Vital Signs: 03/03/25 14:21 03/03/25 16:03 Temperature 98.9 F 98.4 F Temperature Source Oral Pulse Rate 73 Pulse Rate [Right] 97 H Respiratory Rate 18 16 Blood Pressure 122/76 Blood Pressure [Right Arm] 121/77 Blood Pressure Mean [Right Arm] 91 02 Sat by Pulse Oximetry 100 Oxygen Delivery Method Room Air Room Air Lab Data Labs: Lab Results 03/03/25 14:19: Chlamy pneumoniae PCR Not detected, Adenovirus (PCR) Not detected, B. pertussis DNA (PCR) Not detected, Coronavirus OC43 (PCR) Not detected, Coronavirus HKU1 (PCR) Not detected, Coronavirus 229E (PCR) Not detected, SARS-CoV-2 (PCR) Not detected, Coronavirus NL63 (PCR) Not detected, Human Metapneumovir PCR Not detected, Influenza A (H1) PCR Not detected, Influ A (H1N1/09) PCR Not detected, Influenza A (H3) PCR Not detected, Influenza Type A (PCR) Not detected, Influenza Type B (PCR) Not detected, M. pneumoniae (PCR) Not detected, Parainfluenza 1 (PCR) Not detected, Parainfluenza 2 (PCR) Not detected, Parainfluenza 3 (PCR) Not detected, Parainfluenza 4 (PCR) Not detected, RSV (PCR) Not detected, Entero/Rhino (PCR) Not detected 03/03/25 14:29: Urine HCG, Qual Negative 03/03/25 14:40: WBC 7.6, RBC 4.50, Hgb 14.1, Hct 40.9, MCV 90.9, MCH 31.3 H, MCHC 34.5, RDW 12.0, Plt Count 244, MPV 9.8, Neut % (Auto) 64.8, Lymph % (Auto) 28.4, Casey % (Auto) 6.2, Eos % (Auto) 0.0 L, Baso % (Auto) 0.1, Neut # (Auto) 4.9, Lymph # (Auto) 2.2, Casey # (Auto) 0.5, Eos # (Auto) 0.0, Baso # (Auto) 0.0, Sodium 137, Potassium 3.9, Chloride 101, Carbon Dioxide 27, Anion Gap 12.9, BUN 10, Creatinine 0.80, Estimated Creat Clear 107, Estimated GFR 87, Est GFR ( Amer) 105, Glucose 124 H, Calcium 9.9, Magnesium 1.8, Total Bilirubin 0.7, AST 34, ALT 26, Alkaline Phosphatase 58, Total Protein 7.2, Albumin 4.5, Globulin 2.7, Albumin/Globulin Ratio 1.7, Monoscreen Negative 03/03/25 14:40 03/03/25 14:40 Response Orders (Tests/Meds): ED MEDICATIONS Discontinued Medications Generic Name Dose Route Start Last Admin Trade Name Freq PRN Reason Stop Dose Admin Dexamethasone Sodium Phosphate 8 mg 03/03/25 14:20 03/03/25 14:55 Dexamethasone 4mg/Ml 1ml Vial IV 03/03/25 14:21 8 mg ONCE ONE Administration Sodium Chloride 1,000 mls @ 999 mls/hr 03/03/25 14:20 03/03/25 14:56 Sod Chlor 0.9% 1000ml Bag IV 03/03/25 15:20 999 mls/hr .Q1H1M ONE Administration Ketorolac Tromethamine 30 mg 03/03/25 14:22 03/03/25 14:56 Ketorolac 30mg/Ml Vial IV 03/03/25 14:23 30 mg ONCE ONE Administration ORDERS Category Date Time Status Chest XR 2 view (NOT portable) [XR chest 2V] Stat Exams 03/03/25 14:19 Taken CBC [Complete Blood Count Auto Diff] Stat Lab 03/03/25 14:40 Completed Comprehensive Metabolic Panel Stat Lab 03/03/25 14:40 Completed Full Resp Panel w/COVID ([facility]) Routine Lab 03/03/25 14:19 Completed Magnesium Stat Lab 03/03/25 14:40 Completed Monoscreen (Rapid) Stat Lab 03/03/25 14:40 Completed Urine , HCG Qual. Stat Lab 03/03/25 14:29 Completed MDM Narrative Medical Decision Narrative: patient is a 24-year-old female presenting to the emergency department for evaluation of cough that has been going on for 3 weeks. She has had 2 rounds of antibiotics from her PCP. She says she is still coughing and having no sputum but felt warm.. Patient is hemodynamically stable and nontoxic-appearing upon arrival, afebrile. Differential diagnosis includes pneumonia, viral illness, COVID, flu, mono among others. Workup will be conducted with hematologic labs, specific imaging. Initial inventions include crystalloid bolus. Initial workup reviewed by me hematologic labs are remarkable for nothing acute. Imaging informally interpreted by me and remarkable for nothing acute. Formal imaging has not reported yet. Please see radiology report when it reports and final chart. Patient is safe for discharge home. Dr. Hancock did see patient as well. <Jose Hancock, - Last Filed: 03/03/25 16:32> Vital Signs Vital Signs: 03/03/25 14:21 03/03/25 16:03 Temperature 98.9 F 98.4 F Temperature Source Oral Pulse Rate 73 Pulse Rate [Right] 97 H Respiratory Rate 18 16 Blood Pressure 122/76 Blood Pressure [Right Arm] 121/77 Blood Pressure Mean [Right Arm] 91 02 Sat by Pulse Oximetry 100 Oxygen Delivery Method Room Air Room Air Lab Data Labs: Lab Results 03/03/25 14:19: Chlamy pneumoniae PCR Not detected, Adenovirus (PCR) Not detected, B. pertussis DNA (PCR) Not detected, Coronavirus OC43 (PCR) Not detected, Coronavirus HKU1 (PCR) Not detected, Coronavirus 229E (PCR) Not detected, SARS-CoV-2 (PCR) Not detected, Coronavirus NL63 (PCR) Not detected, Human Metapneumovir PCR Not detected, Influenza A (H1) PCR Not detected, Influ A (H1N1/09) PCR Not detected, Influenza A (H3) PCR Not detected, Influenza Type A (PCR) Not detected, Influenza Type B (PCR) Not detected, M. pneumoniae (PCR) Not detected, Parainfluenza 1 (PCR) Not detected, Parainfluenza 2 (PCR) Not detected, Parainfluenza 3 (PCR) Not detected, Parainfluenza 4 (PCR) Not detected, RSV (PCR) Not detected, Entero/Rhino (PCR) Not detected 03/03/25 14:29: Urine HCG, Qual Negative 03/03/25 14:40: WBC 7.6, RBC 4.50, Hgb 14.1, Hct 40.9, MCV 90.9, MCH 31.3 H, MCHC 34.5, RDW 12.0, Plt Count 244, MPV 9.8, Neut % (Auto) 64.8, Lymph % (Auto) 28.4, Casey % (Auto) 6.2, Eos % (Auto) 0.0 L, Baso % (Auto) 0.1, Neut # (Auto) 4.9, Lymph # (Auto) 2.2, Casey # (Auto) 0.5, Eos # (Auto) 0.0, Baso # (Auto) 0.0, Sodium 137, Potassium 3.9, Chloride 101, Carbon Dioxide 27, Anion Gap 12.9, BUN 10, Creatinine 0.80, Estimated Creat Clear 107, Estimated GFR 87, Est GFR ( Amer) 105, Glucose 124 H, Calcium 9.9, Magnesium 1.8, Total Bilirubin 0.7, AST 34, ALT 26, Alkaline Phosphatase 58, Total Protein 7.2, Albumin 4.5, Globulin 2.7, Albumin/Globulin Ratio 1.7, Monoscreen Negative Response Orders (Tests/Meds): ED MEDICATIONS Discontinued Medications Generic Name Dose Route Start Last Admin Trade Name Uli PRN Reason Stop Dose Admin Dexamethasone Sodium Phosphate 8 mg 03/03/25 14:20 03/03/25 14:55 Dexamethasone 4mg/Ml 1ml Vial IV 03/03/25 14:21 8 mg ONCE ONE Administration Sodium Chloride 1,000 mls @ 999 mls/hr 03/03/25 14:20 03/03/25 14:56 Sod Chlor 0.9% 1000ml Bag IV 03/03/25 15:20 999 mls/hr .Q1H1M ONE Administration Ketorolac Tromethamine 30 mg 03/03/25 14:22 03/03/25 14:56 Ketorolac 30mg/Ml Vial IV 03/03/25 14:23 30 mg ONCE ONE Administration ORDERS Category Date Time Status Chest XR 2 view (NOT portable) [XR chest 2V] Stat Exams 03/03/25 14:19 Taken CBC [Complete Blood Count Auto Diff] Stat Lab 03/03/25 14:40 Completed Comprehensive Metabolic Panel Stat Lab 03/03/25 14:40 Completed Full Resp Panel w/COVID ([facility]) Routine Lab 03/03/25 14:19 Completed Magnesium Stat Lab 03/03/25 14:40 Completed Monoscreen (Rapid) Stat Lab 03/03/25 14:40 Completed Urine , HCG Qual. Stat Lab 03/03/25 14:29 Completed MDM Narrative Medical Decision Narrative: patient is a 24-year-old female presenting to the emergency department for evaluation of cough that has been going on for 3 weeks. She has had 2 rounds of antibiotics from her PCP. She says she is still coughing and having no sputum but felt warm.. Patient is hemodynamically stable and nontoxic-appearing upon arrival, afebrile. Differential diagnosis includes pneumonia, viral illness, COVID, flu, mono among others. Workup will be conducted with hematologic labs, specific imaging. Initial inventions include crystalloid bolus. Initial workup reviewed by me hematologic labs are remarkable no actionable abnormalities. Imaging informally interpreted by me and remarkable for no lobar consolidation or pleural effusion. Formal imaging has not reported yet. Please see radiology report when it reports and final chart. We did treat the patient while in the emergency department with IV fluids and dexamethasone. On repeat reassessment she is resting comfortably and is in no acute distress. I have provided her with expectations for course of illness moving forward, including the fact that she can experience dry cough lasting up to 3 weeks from symptom onset. Patient knowledges understanding. We have also recommended that she take Zyrtec at home to help with her symptoms. At this time all questions have been answered and all parties are agreeable with the decision to discharge home. Attestation: I was consulted by the SHARRI, and we discussed the complexity of problems being addressed. I approved the treatment and management plan for this patient's care in the emergency department, thus performing a substantive portion of the medical decision making. Jose Hancock,
[2025-03-03 14:25] LABS: Adenovirus,PCR Not Detected (NotDetected); Chlamydophila Pneumoniae, PCR Not Detected (NotDetected); Coronavirus 19, PCR Not Detected (NotDetected); Coronovirus HKU1,PCR Not Detected (NotDetected); Influenza A, PCR Not Detected (NotDetected); Influenza AH1, 2009 Not Detected (NotDetected); Influenza AH1, PCR Not Detected (NotDetected); Influenza AH3,PCR Not Detected (NotDetected); Influenza B, PCR Not Detected (NotDetected); Mycoplasma Pneumoniae, PCR Not Detected (NotDetected); Parainfluenza 1, PCR Not Detected (NotDetected); Parainfluenza 2, PCR Not Detected (NotDetected); Parainfluenza 3, PCR Not Detected (NotDetected); Parainfluenza 4, PCR Not Detected (NotDetected)
--- NOTE | 2025-03-03 14:33 | [facility].ITSTN ---
Called and spoke with [facility] about preg test and they stated they will be putting orders in
[2025-03-03] MEDS: DEXAMETHASONE 4MG/ML 1ML VIAL 8 MG IV (14:55)
[2025-03-03] MEDS: 0.9 % SODIUM CHLORIDE 1000ML 1,000 ML 999 ML IV (14:56)
[2025-03-03] MEDS: KETOROLAC 30MG/ML VIAL 30 MG IV (14:56)
[2025-03-03 14:58] LABS: Hematocrit 40.9 % (37.0-47.0); Hemoglobin 14.1 g/dL (12.2-16.2); Immature Granulocytes % 0.5 %; Mean Corpuscular HGB Conc 34.5 g/dL (31.8-35.4); Mean Corpuscular Hemoglobin 31.3 pg (27.0-31.2); Mean Corpuscular Volume 90.9 fl (81-99); Nucleated Red Blood Cells % 0 %; Platelet Count 244 K/mm3 (142-424); Red Blood Count 4.50 M/mm3 (4.20-5.40); Red Cell Distribution Width-SD 39.9 fL; White Blood Count 7.6 K/mm3 (4.8-10.8)
[2025-03-03 15:04] LABS: Monoscreen (Rapid) Negative (Negative)
[2025-03-03 15:08] LABS: Alanine Aminotransferase 26 U/L (12-78); Albumin Level 4.5 g/dl (3.5-5.0); Albumin/Globulin Ratio 1.7 (1.1-1.8); Alkaline Phosphatase 58 U/L (38-126); Anion Gap 12.9 mEq/L (5-15); Aspartate Amino Transferase 34 U/L (14-36); Bilirubin,Total 0.7 mg/dl (0.2-1.3); Blood Urea Nitrogen 10 mg/dl (7-17); Calcium 9.9 mg/dl (8.4-10.2); Carbon Dioxide 27 mmol/L (22.0-30.0); Chloride 101 mmol/L (98-107); Creatinine Clearance Estimated 107 mL/min (50-200); Creatinine,Serum 0.80 mg/dl (0.52-1.04); Estimated Glomerular Filt Rate 87 ml/min (>60); GFR (African American) 105 ML/MIN (>60); Globulin 2.7 g/dL (1.3-3.2); Glucose 124 mg/dl (74-100); Magnesium 1.8 mg/dl (1.6-2.3); Potassium 3.9 mmoL/L (3.5-5.1); Sodium 137 mmol/L (136-145); Total Protein,Serum 7.2 g/dl (6.3-8.2)
[2025-03-03 15:22] LABS: Urine Pregnancy, HCG Qual. Negative (Negative)
[2025-03-03 16:03] VITALS: BP 122/76; PULSE 73; RESP 16; TEMP 36.9; O2SAT 98
== END 2025-03-03 16:04 | disposition home or self-care (01) ==
PROVIDERS: Nurse Practitioner; Emergency Provider Student in an Organized Health Care Education/Training Program; PCP Nurse Practitioner Family
DX: R06.89 Other abnormalities of breathing (principal); J04.0 Acute laryngitis; R05.8 Other specified cough
CPT/HCPCS: 0223U; 71046; 80053; 81025; 83735; 85025; 86318; 87633; 96361; 96374; 96375; 99284; J1100; J1885; J7030

== ENCOUNTER 2025-03-19 12:36 | Outpatient (CLI) | payer OTHER, SELFPAY ==
--- OUTSIDE RECORDS SUMMARY | 2025-03-19 12:39 | XMS_ITS | Data Portability ---
Author Organization [facility] Address [address] [place] [address] Care Team Providers Care Taxicab Coordinator Name Role Phone KESHAWN SHANTHIMARYJose Primary Care Provider [phone] Assessment No assessment recorded. Plan of Treatment Reminders Order Date Submit Date Provider Last Modified By Organization Details Last Modified Time Details Appointments CT With Contrast 2024 11:30A M CT [facility] Not available Not available Not available Lab TSH + free T4, serum 2024 025 BAK[facility]I [facility], [address], [address], [place], [address], 03/14/2025 14:08:05 CBC w/ auto diff 2024 025 [facility]AK[facility]I [facility], [address], [address], [place], [address], 03/14/2025 14:08:05 CMP, serum or plasma 2024 025 [facility]AKARI [facility], [address], [place] [address], [place], [address], 03/14/2025 14:08:06 iron + total iron-bind ing capacity (TIBC), serum 2024 025 BAKARI [facility], [address], [address] [address], [place], [address], 03/14/2025 14:08:06 D-dimer, quant, plasma 2024 025 BAKARI [facility], [address], [address] [address], [place], [address], 03/14/2025 14:08:07 magnesium , serum or plasma 2024 025 [facility]AK[facility]I [facility], [address], [address] [address], [place], [address], 03/14/2025 14:08:07 urinalysi s, dipstick 2024 025 [facility], [address] [place] [address], [phone], 02/23/2025 14:18:12 culture, urine 2024 025 [facility]ALL[facility]AY [facility], [address], [place] [address], [place], [address], 02/25/2025 04:06:16 culture, urine 2024 025 [facility], [address], [place], [place], [address], 02/17/2025 14:07:35 urinalysi s, dipstick 2024 025 [facility], [address] [place] [address], [phone], 02/13/2025 18:37:00 urinalysi s, dipstick 2023 024 [facility], [address] [place] [address], [phone], 04/03/2024 16:09:02 culture, urine 2023 024 [facility], [address], [address] [address], [place], [address], 04/05/2024 00:06:17 PPD (purified protein derivativ e), skin test 2023 024 [facility], [address], [place], [address], 10/11/2023 09:16:21 Referral dermatolo gist referral - change in color and shape of mole, medium priority 2024 025 ramona Leger MD, [address] [place] [address], [address], [place], [address], 02/23/2025 14:35:37 Procedures None recorded. Surgeries None recorded. Imaging holter monitor 2024 025 [facility], [address], [place], [address], 03/14/2025 10:48:35 CT, angiogram , chest, w/ contrast 2024 025 [facility], [address] [facility], [place], [address], 03/19/2025 12:33:10 Medication Orders levofloxa ramy 500 mg tablet 2024 025 [facility], [address], [address], 03/07/2025 05:01:55 cephalexi n 500 mg capsule 2024 025 [facility], [address] [place] [address], [address], 02/23/2025 13:53:10 cephalexi n 500 mg capsule 2023 025 [facility], [address] [place] [address], [address], 02/23/2025 13:45:45 Aplisol 5 tub. unit/0.1 mL intraderm al injection solution 2023 024 [facility], [address], [place], [address], 04/03/2024 15:42:57 Patient TargetsNo targets recorded. Patient InstructionsNo instructions recorded. 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 change in color and shape of mole, medium priority Referring Physician: Trista Martinez, Family Medicine, Encounter Date: 02/23/2025 Results Created Date Observation Date Name Description Value Unit Range Abnormal Flag Note LastModifiedBy Organization Detail LastModifiedTime 10/11/19 24 10/11/2023 PPD (dc fied prote in deriv ative ), skin test TB negati ve Not Available [address], [address], 10/07/2023 13:50:58 10/11/19 24 10/11/2023 PPD (dc fied prote in deriv ative ), skin test mm of induration 0 Not Available [facility] [address], [address], 10/07/2023 13:50:58 04/03/20 24 04/04/2024 URINE CULTU RENAZANIN NE urine culture, routine Final report Not Available [facility] ([facility]) [address] [facility], [place], [address], 04/05/2024 00:06:16 04/03/20 24 04/04/2024 URINE CULTU RENAZANIN NE result 1 No growth Not Available [facility] ([facility]) [address] [facility], [place], [address], 04/05/2024 00:06:16 04/03/20 24 04/03/2024 urina lysis , dipst ick Leukocytes Trace Not Available [address], [address], 04/03/2024 15:51:18 04/03/20 24 04/03/2024 urina lysis , dipst ick Nitrite negati ve Not Available [address], [address], 04/03/2024 15:51:18 04/03/20 24 04/03/2024 urina lysis , dipst ick Urobilinogen .2 Not Available [facility] [address], [address], 04/03/2024 15:51:18 04/03/20 24 04/03/2024 urina lysis , dipst ick Protein Trace Not Available [address], [address], 04/03/2024 15:51:18 04/03/20 24 04/03/2024 urina lysis , dipst ick pH 6.0 Not Available [address], [address], 04/03/2024 15:51:18 04/03/20 24 04/03/2024 urina lysis , dipst ick Blood Modera te Not Available [address], [address], 04/03/2024 15:51:18 04/03/20 24 04/03/2024 urina lysis , dipst ick Specific Touchet 1.030 Not Available [address], [address], 04/03/2024 15:51:18 04/03/20 24 04/03/2024 urina lysis , dipst ick Ketone Negati ve Not Available [address], [address], 04/03/2024 15:51:18 04/03/20 24 04/03/2024 urina lysis , dipst ick Bilirubin Negati ve Not Available [address], [address], 04/03/2024 15:51:18 04/03/20 24 04/03/2024 urina lysis , dipst ick Glucose Negati ve Not Available [address], [address], 04/03/2024 15:51:18 04/03/20 24 04/03/2024 urina lysis , dipst ick Appearance Cloudy Not Available [address], [address], 04/03/2024 15:51:18 04/03/20 24 04/03/2024 urina lysis , dipst ick Color Brookesmith Not Available [address], [address], 04/03/2024 15:51:18 02/14/20 25 02/17/2025 URINE CULTU RENAZANIN urine culture, routine Final report abnormal Not Available [facility] ([facility]) [address] [facility], [place], [address], 02/17/2025 14:07:35 02/14/20 25 02/17/2025 URINE CULTU NAZANIN ZULETA result 1 Escher ichia coli abnormal Cefaz [...] ng units per mL Not Available [facility] ([facility]) [address] [facility], [place], [address], 02/17/2025 14:07:35 02/14/2002/17/2025 URINE CULTU RE, ROUTI [...] thopr im/Mendoza lfa S Not Available [facility] ([facility]) [address] [facility], [place], [address], 02/17/2025 14:07:35 02/14/20 25 02/14/2025 PLEAS E NOTE please note Commen t The date and/o r time of colle ction was not indic ated on the requi sitio n as requi red by state and nat al law. The date of recei pt of the speci men was used as the colle ction date if not suppl ied. Not Available [facility] ([facility]) [address] [facility], [place], [address], 02/17/2025 14:07:36 02/14/20 25 02/13/2025 urina lysis , dipst ick Leukocytes Small Not Available [address], [address], 02/13/2025 18:33:49 02/14/20 25 02/13/2025 urina lysis , dipst ick Nitrite positi ve Not Available [address], [address], 02/13/2025 18:33:49 02/14/20 25 02/13/2025 urina lysis , dipst ick Urobilinogen .2 Not Available [facility] [address], [address], 02/13/2025 18:33:49 02/14/20 25 02/13/2025 urina lysis , dipst ick Protein 30 Not Available [address], [address], 02/13/2025 18:33:49 02/14/20 25 02/13/2025 urina lysis , dipst ick pH 6.0 Not Available [address], [address], 02/13/2025 18:33:49 02/14/20 25 02/13/2025 urina lysis , dipst ick Blood Large Not Available [address], [address], 02/13/2025 18:33:49 02/14/20 25 02/13/2025 urina lysis , dipst ick Specific Touchet 1.030 Not Available [address], [address], 02/13/2025 18:33:49 02/14/20 25 02/13/2025 urina lysis , dipst ick Ketone Negati ve Not Available [address], [address], 02/13/2025 18:33:49 02/14/20 25 02/13/2025 urina lysis , dipst ick Bilirubin Negati ve Not Available [address], [address], 02/13/2025 18:33:49 02/14/20 25 02/13/2025 urina lysis , dipst ick Glucose Negati ve Not Available [address], [address], 02/13/2025 18:33:49 02/14/20 25 02/13/2025 urina lysis , dipst ick Appearance Clear Not Available [address], [address], 02/13/2025 18:33:49 02/14/20 25 02/13/2025 urina lysis , dipst ick Color Dark Yellow Not Available [address], [address], 02/13/2025 18:33:49 02/24/20 25 02/25/2025 URINE CULTU RE, MABELI NE urine culture, routine Final report Not Available [facility] ([facility]) [address] [facility], [place], [address], 02/25/2025 04:06:16 02/24/20 25 02/25/2025 URINE CULTU RENAZANIN NE result 1 No growth Not Available [facility] ([facility]) [address] [facility], [place], [address], 02/25/2025 04:06:16 02/24/20 25 02/23/2025 urina lysis , dipst ick Leukocytes Negati ve Not Available [address], [address], 02/23/2025 13:47:01 02/24/20 25 02/23/2025 urina lysis , dipst ick Nitrite negati ve Not Available [address], [address], 02/23/2025 13:47:01 02/24/20 25 02/23/2025 urina lysis , dipst ick Urobilinogen .2 Not Available [facility] [address], [address], 02/23/2025 13:47:01 02/24/20 25 02/23/2025 urina lysis , dipst ick Protein Negati ve Not Available [address], [address], 02/23/2025 13:47:01 02/24/20 25 02/23/2025 urina lysis , dipst ick pH 5.5 Not Available [address], [address], 02/23/2025 13:47:01 02/24/20 25 02/23/2025 urina lysis , dipst ick Blood Modera te Not Available [address], [address], 02/23/2025 13:47:01 02/24/20 25 02/23/2025 urina lysis , dipst ick Specific Touchet 1.020 Not Available [address], [address], 02/23/2025 13:47:01 02/24/20 25 02/23/2025 urina lysis , dipst ick Ketone Negati ve Not Available [address], [address], 02/23/2025 13:47:01 02/24/20 25 02/23/2025 urina lysis , dipst ick Bilirubin Negati ve Not Available [address], [address], 02/23/2025 13:47:01 02/24/20 25 02/23/2025 urina lysis , dipst ick Glucose Negati ve Not Available [address], [address], 02/23/2025 13:47:01 02/24/20 25 02/23/2025 urina lysis , dipst ick Appearance Clear Not Available [address], [address], 02/23/2025 13:47:01 02/24/20 25 02/23/2025 urina lysis , dipst ick Color Yellow Not Available [address], [address], 02/23/2025 13:47:01 03/13/20 25 03/14/2025 TSH+F REE T4 TSH 0.501 uIU/m L 0.450- 4.500 normal Not Available [facility] ([facility]) [address] [place], [address], 03/14/2025 14:08:05 03/13/2003/14/2025 TSH+F REE T4 T4,free(dire ct) 1.29 NG/dL 0.82-1 .77 normal Not Available [facility] ([facility]) [address] [place], [address], 03/14/2025 14:08:05 03/13/2003/14/2025 CBC WITH DIFFE RENTI AL/PL ATELE T WBC 11.1 x10e3 /uL 3.4-10 .8 above high normal Not Available [facility] ([facility]) [address] [place], [address], 03/14/2025 14:08:05 03/13/20 25 03/14/2025 CBC WITH DIFFE RENTI AL/PL ATELE T RBC 4.63 x10e6 /uL 3.77-5 .28 normal Not Available [facility] ([facility]) [address] [place], [address], 03/14/2025 14:08:05 03/13/2003/14/2025 CBC WITH DIFFE RENTI AL/PL ATELE T hemoglobin 14.3 g/dL 11.1-1 5.9 normal Not Available [facility] ([facility]) [address] [place], [address], 03/14/2025 14:08:05 03/13/2003/14/2025 CBC WITH DIFFE RENTI AL/PL ATELE T hematocrit 45.5 % 34.0-4 6.6 normal Not Available [facility] ([facility]) [address] [place], [address], 03/14/2025 14:08:05 03/13/2003/14/2025 CBC WITH DIFFE RENTI AL/PL ATELE T MCV 98 fL 79-97 above high normal Not Available [facility] ([facility]) [address] [place], [address], 03/14/2025 14:08:05 03/13/2003/14/2025 CBC WITH DIFFE RENTI AL/PL ATELE T MCH 30.9 pg 26.6-3 3.0 normal Not Available [facility] ([facility]) [address] [place], [address], 03/14/2025 14:08:05 03/13/20 25 03/14/2025 CBC WITH DIFFE RENTI AL/PL ATELE T MCHC 31.4 g/dL 31.5-3 5.7 below low normal Not Available [facility] ([facility]) [address] [place], [address], 03/14/2025 14:08:05 03/13/20 25 03/14/2025 CBC WITH DIFFE RENTI AL/PL ATELE T RDW 12.6 % 11.7-1 5.4 Not Available [facility] ([facility]) [address] [facility], [place], [address], 03/14/2025 14:08:05 03/13/20 25 03/14/2025 CBC WITH DIFFE RENTI AL/PL ATELE T platelets 295 x10e3 /uL 150-45 0 normal Not Available [facility] ([facility]) [address] [facility], [place], [address], 03/14/2025 14:08:05 03/13/20 25 03/14/2025 CBC WITH DIFFE RENTI AL/PL ATELE T neutrophils 55 % not estab. normal Not Available [facility] ([facility]) [address] [facility], [place], [address], 03/14/2025 14:08:05 03/13/20 25 03/14/2025 CBC WITH DIFFE RENTI AL/PL ATELE T lymphs 37 % not estab. normal Not Available [facility] ([facility]) [address] [facility], [place], [address], 03/14/2025 14:08:05 03/13/20 25 03/14/2025 CBC WITH DIFFE RENTI AL/PL ATELE T monocytes 6 % not estab. normal Not Available [facility] ([facility]) [address] [facility], [place], [address], 03/14/2025 14:08:05 03/13/20 25 03/14/2025 CBC WITH DIFFE RENTI AL/PL ATELE T eos 0 % not estab. normal Not Available [facility] ([facility]) [address] [facility], [place], [address], 03/14/2025 14:08:05 03/13/20 25 03/14/2025 CBC WITH DIFFE RENTI AL/PL ATELE T basos 0 % not estab. normal Not Available [facility] ([facility]) [address] [place], [address], 03/14/2025 14:08:05 03/13/20 25 03/14/2025 CBC WITH DIFFE RENTI AL/PL ATELE T immature cells CASINO ACCOUNTANT Not Available [facility] ([facility]) [address] [place], [address], 03/14/2025 14:08:05 03/13/20 25 03/14/2025 CBC WITH DIFFE RENTI AL/PL ATELE T neutrophils (absolute) 6.1 x10e3 /uL 1.4-7. 0 normal Not Available [facility] ([facility]) [address] [place], [address], 03/14/2025 14:08:05 03/13/20 25 03/14/2025 CBC WITH DIFFE RENTI AL/PL ATELE T lymphs (absolute) 4.1 x10e3 /uL 0.7-3. 1 above high normal Not Available [facility] ([facility]) [address] [place], [address], 03/14/2025 14:08:05 03/13/20 25 03/14/2025 CBC WITH DIFFE RENTI AL/PL ATELE T monocytes(ab solute) 0.7 x10e3 /uL 0.1-0. 9 normal Not Available [facility] ([facility]) [address] [place], [address], 03/14/2025 14:08:05 03/13/20 25 03/14/2025 CBC WITH DIFFE RENTI AL/PL ATELE T eos (absolute) 0.0 x10e3 /uL 0.0-0. 4 normal Not Available [facility] ([facility]) [address] [place], [address], 03/14/2025 14:08:05 03/13/20 25 03/14/2025 CBC WITH DIFFE RENTI AL/PL ATELE T baso (absolute) 0.0 x10e3 /uL 0.0-0. 2 normal Not Available [facility] ([facility]) [address] [facility], [place], [address], 03/14/2025 14:08:05 03/13/20 25 03/14/2025 CBC WITH DIFFE RENTI AL/PL ATELE T immature granulocytes 2 % not estab. Not Available [facility] ([facility]) [address] [facility], [place], [address], 03/14/2025 14:08:05 03/13/2003/14/2025 CBC WITH DIFFE RENTI AL/PL ATELE T immature grans (abs) 0.2 x10e3 /uL 0.0-0. 1 above high normal (An eleva mihir perce ntage of Immat ure Granu locyt es has not been found to be clini antonino signi fican t as a sole clini ramiro predi ctor of disea se. Does NOT inclu de bands or blast cells . Pregn rina assoc iated physi ologi ramiro leuko cytos is may also show incre ased immat ure granu locyt es witho ut clini ramiro signi fican ce.) Not Available [facility] ([facility]) [address] [facility], [place], [address], 03/14/2025 14:08:05 03/13/2003/14/2025 CBC WITH DIFFE RENTI AL/PL ATELE T NRBC CASINO ACCOUNTANT Not Available [facility] ([facility]) [address] [facility], [place], [address], 03/14/2025 14:08:05 03/13/2003/14/2025 CBC WITH DIFFE RENTI AL/PL ATELE T hematology comments: CASINO ACCOUNTANT Not Available [facility] ([facility]) [address] [facility], [place], [address], 03/14/2025 14:08:05 03/13/20 25 03/14/2025 COMP. METAB OLIC PANEL (14) glucose 95 mg/dL 70-99 normal Not Available [facility] ([facility]) [address] [place], [address], 03/14/2025 14:08:06 03/13/20 25 03/14/2025 COMP. METAB OLIC PANEL (14) BUN 7 mg/dL 6-20 normal Not Available [facility] ([facility]) [address] [facility], [place], [address], 03/14/2025 14:08:06 03/13/20 25 03/14/2025 COMP. METAB OLIC PANEL (14) creatinine 0.67 mg/dL 0.57-1 .00 normal Not Available [facility] ([facility]) [address] [place], [address], 03/14/2025 14:08:06 03/13/20 25 03/14/2025 COMP. METAB OLIC PANEL (14) eGFR 124 mL/mi n/1.7 3 >59 normal Not Available [facility] ([facility]) [address] [place], [address], 03/14/2025 14:08:06 03/13/20 25 03/14/2025 COMP. METAB OLIC PANEL (14) BUN/creatini ne ratio 10 9-23 normal Not Available [facility] ([facility]) [address] [place], [address], 03/14/2025 14:08:06 03/13/20 25 03/14/2025 COMP. METAB OLIC PANEL (14) sodium 141 mmol/ L 134-14 4 normal Not Available [facility] ([facility]) [address] [place], [address], 03/14/2025 14:08:06 03/13/20 25 03/14/2025 COMP. METAB OLIC PANEL (14) potassium 3.9 mmol/ L 3.5-5. 2 normal Not Available [facility] ([facility]) [address] [place], [address], 03/14/2025 14:08:06 03/13/20 25 03/14/2025 COMP. METAB OLIC PANEL (14) chloride 106 mmol/ L 96-106 normal Not Available [facility] ([facility]) [address] [place], [address], 03/14/2025 14:08:06 03/13/20 25 03/14/2025 COMP. METAB OLIC PANEL (14) carbon dioxide, total 23 mmol/ L 20-29 normal Not Available [facility] ([facility]) [address] [place], [address], 03/14/2025 14:08:06 03/13/20 25 03/14/2025 COMP. METAB OLIC PANEL (14) calcium 9.2 mg/dL 8.7-10 .2 normal Not Available [facility] ([facility]) [address] [place], [address], 03/14/2025 14:08:06 03/13/20 25 03/14/2025 COMP. METAB OLIC PANEL (14) protein, total 6.4 g/dL 6.0-8. 5 normal Not Available [facility] ([facility]) [address] [place], [address], 03/14/2025 14:08:06 03/13/20 25 03/14/2025 COMP. METAB OLIC PANEL (14) albumin 4.1 g/dL 4.0-5. 0 normal Not Available [facility] ([facility]) [address] [place], [address], 03/14/2025 14:08:06 03/13/20 25 03/14/2025 COMP. METAB OLIC PANEL (14) globulin, total 2.3 g/dL 1.5-4. 5 Not Available [facility] ([facility]) [address] [place], [address], 03/14/2025 14:08:06 03/13/20 25 03/14/2025 COMP. METAB OLIC PANEL (14) bilirubin, total 0.2 mg/dL 0.0-1. 2 normal Not Available [facility] ([facility]) [address] [place], [address], 03/14/2025 14:08:06 03/13/20 25 03/14/2025 COMP. METAB OLIC PANEL (14) alkaline phosphatase 65 IU/L 44-121 normal Not Available [facility] ([facility]) [address] [place], [address], 03/14/2025 14:08:06 03/13/20 25 03/14/2025 COMP. METAB OLIC PANEL (14) AST (SGOT) 14 IU/L 0-40 normal Not Available [facility] ([facility]) [address] [place], [address], 03/14/2025 14:08:06 03/13/20 25 03/14/2025 COMP. METAB OLIC PANEL (14) ALT (SGPT) 15 IU/L 0-32 normal Not Available [facility] ([facility]) [address] [place], [address], 03/14/2025 14:08:06 03/13/20 25 03/14/2025 IRON AND TIBC iron bind.cap.(TI BC) 371 ug/dL 250-45 0 normal Not Available [facility] ([facility]) [address] [place], [address], 03/14/2025 14:08:06 03/13/20 25 03/14/2025 IRON AND TIBC UIBC 255 ug/dL 131-42 5 normal Not Available [facility] ([facility]) [address] [facility], [place], [address], 03/14/2025 14:08:06 03/13/2003/14/2025 IRON AND TIBC iron 116 ug/dL 27-159 normal Not Available [facility] ([facility]) [address] [facility], [place], [address], 03/14/2025 14:08:06 03/13/2003/14/2025 IRON AND TIBC iron saturation 31 % 15-55 normal Not Available [facility] ([facility]) [address] [facility], [place], [address], 03/14/2025 14:08:06 03/13/2003/14/2025 D-DIM ER D-dimer 0.42 mg/L_ feu 0.00-0 .49 Accor ding to the assay manuf actur er's publi shed packa ge inser t, a dee l (<0.5 0 mg/L FEU) D-dim er resul t in conju nctio n with a non-h igh clini ramiro proba bilit y asses sment , exclu deandre deep vein throm bosis (DVT) and pulmo nary embol ism (PE) with high sensi tivit y. D-dim er value s incre ase with age and this can make VTE exclu дмитрий of an older popul ation diffi cult. To addre ss this, the Ameri can Colle ge of Physi cians , based on best avail able evide nce and recen t guide lines , recom mends that clini cians use age-a djust ed D-dim er thres holds in patie nts great er than 50 years of age with: a) a low proba bilit y of PE who do not meet all Pulmo nary Embol ism Rule Out Crite kedar, or b) in those with inter media te proba bilit y of PE. The formu la for an age-a djust ed D-dim er cut-o ff is age/ 100 . For examp le, a 60 year old patie nt would have an age-a djust ed cut-o ff of 0.60 mg/L FEU and an 80 year old 0.80 mg/L FEU. Not Available [facility] ([facility]) [address] [facility], [place], [address], 03/14/2025 14:08:06 03/13/20 25 03/14/2025 MAGNE SIUM magnesium 2.2 mg/dL 1.6-2. 3 normal Not Available [facility] ([facility]) [address] [facility], [place], [address], 03/14/2025 14:08:07 10/08/19 24 10/08/2023 US, abdom en, compl ete No observ ation record ed. [facility] [address], [place], [address], 10/08/2023 11:47:54 10/09/19 24 10/08/2023 US, trans vagin al No observ ation record ed. [facility] [address], [place], [place], [address], 10/11/2023 09:20:25 05/11/20 24 05/11/2024 CT, angio gram, abdom en + pelvi s, w/wo contr ast No observ ation record ed. [facility] [address], [place], [address], 05/11/2024 09:30:20 03/03/20 25 03/03/2025 XR, chest , 2 view No observ ation record ed. [facility] [address], [place], [address], 03/09/2025 08:31:05 03/19/[address], angio gram, chest , w/ contr ast No observ ation record ed. [email or web address] [address], [place], [address], 03/19/2025 12:33:10 Result Notes None recorded. Problems Name Problem SNOMED Code Status Onset Date Resolution Date Notes Provider Name and Address Organization Details Recorded Time Anxiety 24145492 Active 023 Mahi Gary null, [place] - [facility] 14:23:20 Depressive disorder 45835314 Active 023 Mahi Gary null, [place] - [facility] 3 14:23:26 Problem Notes None recorded. Procedures Surgical History Date Name Laterality Status Provider Name and Address Organization Details Recorded Time 04/05/2020 Date of Last Pap Smear completed Ramona [place] [facility] 04/23/2022 14:06:58 Imaging Results None recorded. [...] Not Available Not Available No t Available ibuprofen 800 mg tablet TAKE 1 [...] completed Not Available Not Available Not Available Zithromax Z-Lyndon 250 mg tablet TAKE 2 TABLETS (500 MG) BY ORAL ROUTE ONCE DAILY FOR 1 DAY THEN 1 TABLET (250 MG) BY ORAL ROUTE ONCE DAILY FOR 4 DAYS 2024 active Not Available Not Available Not Avai lable ketorolac 10 mg tablet TAKE 1 TABLET [...] Not Available levofloxaci n 500 mg tablet Take 1 tablet every 24 hours by oral route for 5 days. 03/07 completed Not Available Not Available Not Available loratadine 10 mg tablet Take 1 [...] Updated DateTime 10/07/2023 154.94 cm Ramona Langston [place] - [facility] 0 10/07/2023 13:51:03 Date Recorded Body height Body mass index (BMI) Body weight Heart rate Oxygen saturation Oxygen saturation in Arterial blood by Pulse oximetry Respiratory rate Systolic And Diastolic Provider Name and Address Organization Details Last Updated DateTime 154.94 cm 26.9 kg/m2 19862.8 2 g 98 /min 99 % 99 % 18 /min 110/60 mm[Hg] Ramona Langston [place] - [facility] 18:31:11 Date Recorded Body height Provider Name an d Address Organization Details Last Updated DateTime 02/23/2025 154.94 cm Ramona Langston [place] - [facility] 0 02/23/2025 13:38:42 Date Recorded Body height Body mass index (BMI) Body weight Heart rate Oxygen saturation Oxygen saturation in Arterial blood by Pulse oximetry Respiratory rate Systolic And Diastolic Provider Name and Address Organization Details Last Updated DateTime 07/15/202 5 154.94 cm 26.5 kg/m2 85824.6 3 g 88 /min 99 % 99 % 16 /min 118/82 mm[Hg] Ramona Langston [place] - [facility] 5 15:24:58 Date Recorded Body height Body mass index (BMI) Body weight Heart rate Oxygen saturation Oxygen saturation in Arterial blood by Pulse oximetry Respiratory rate Body temperature Systolic And Diastolic Provider Name and Address Organization Details Last Updated DateTime 4 154.94 cm 26.6 kg/m2 21257.5 2 g 90 /min 98 % 98 % 18 /min 98.3 [degF] 122/72 mm[Hg] Mahi Alcantarakarin [place] - [facility] 4 15:48:35 Social History Question Answer Notes LastModified by Organizat ion Details LastModified Time Tobacco Smoking Status Never Smoker Ramona gonzalez, [place] - [facility] 04/23/2022 14:08:19 Do You [...] Or The Highest Degree You Have Received? WP17364-1 Information not available 04/23/2022 Have There Been Any Changes To Your Family Or Social Situation? No Information no t available 04/23/2022 What Is The Fluoride Status Of Your Home? Fluoridated Information not available 04/23/2022 Have You Recently Or Are You Planning To Travel To An Area With Zika Virus? No Information not available 04/23/2022 Do You Have A Medical Power Of Textile Worker? 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 HO9204-5 Information not available 04/23/2022 Do you have [...] N Cerebrovascular Disease N Depression N Guillain-[place] N Sleep Apnea N Aneurysm N Bronchitis N Heart Disease N Suicidal Ideation N Pre-Eclampsia N Hypertension N Osteoporosis N Gynecological History Statement/Question Response Menses Monthly Y Abnormal Pap N Date of Last Pap Smear 04/05/2020 LMP Approximate Date of LMP 02/19/2025 Obstetrics History GPAL:G 0 P 0 0 0 0 Immunizations Vaccine Type Date Status Note Provider Burak saldana and Address Organization Details Recorded Time Hib-Hep B 0 completed Mahi gonzalez, [place] - [facility] 11/30/2022 14:22:42 Hib-Hep B 9 completed Mahi Stears null, [place] - [facility] 11/30/2022 14:22:42 HPV9 7 completed Mahi Stears null, [place] - [facility] 11/30/2022 14:22:42 HPV9 6 completed Mahi Stears [place] - [facility] 11/30/2022 14:22:42 HPV9 6 completed Mahi Stears [place], [place] - [facility] 11/30/2022 14:22:42 IPV 0 completed Mahi Stears null, [place] - [facility] 11/30/2022 14:22:42 IPV 9 completed Mahi Stears null, [facility] 11/30/2022 14:22:42 IPV 3 completed Mahi Stears null, [facility] 11/30/2022 14:22:42 IPV 9 completed Mahi Stears null, [facility] 11/30/2022 14:22:42 MMR 0 completed Mahi Stears null, [place] - [facility] 11/30/2022 14:22:42 MMR 3 completed Mahi Stears null, [facility] 11/30/2022 14:22:42 Tdap 0 completed Mahi Stears null, [facility] 11/30/2022 14:22:42 varicella 0 completed Mahi Stears null, [facility] 11/30/2022 14:22:42 Influenza, split virus, trivalent, PF 8 completed Mahi Stears null, [facility] 11/30/2022 14:22:42 Hep B, adolescent or pediatric 9 completed Mahi Stears null, [facility] 11/30/2022 14:22:42 Hep A, ped/adol, 2 dose 7 completed Mahi Stears null, [facility] 11/30/2022 14:22:42 Hep A, [...] quadrivalent, PF 0 completed Mahi Stears null, [place] - [facility] 11/30/2022 14:22:42 Past Encounters Encounter ID Performer Location Encounter Start Date Encounter Closed Date Diagnosis/Indication Diagnosis SNOMED-CT Code Diagnosis ICD10 Code Diagnosis Note [id number] rTista Martinez 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 [address] [address] 04/23/2022 13:46:31 04/23/2022 15:43:23 Venereal disease screening 640656422 Z11.3 [id number] Trista Martinez APRN [address] [address] 11/30/2022 14:10:18 11/30/2022 15:12:04 Acute bronchitis 16377310 J20.9 [id number] Eugondjose Martinez[address] [address] 12/10/2022 13:15:42 12/10/2022 14:23:59 Acute bronchitis 92805843 J20.9 Allergic rhinitis 977436 04 J30.[id number] [address] 09/20/2023 13:30:04 09/20/2023 14:00:55 Tuberculosis screening 664884192 Z11.[id number] [address] 10/07/2023 13:35:28 10/07/2023 14:38:25 Tuberculosis screening 851203217 Z11.1 [id number] [facility] [address] 04/03/2024 15:36:36 04/03/2024 16:07:26 Abdominal pain 41456594 R10.9 if symptoms worsen go to ed for eval Acute urin krupa tract infection 596064570 N39.0 Patient presents with symptoms of UTI. Results of dipstick were positive for UTI. Advised to drink clear fluids, reduce sexual activity, Tylenol for pain and take prescribed medication s as instructed . wear cotton under wear urinate after intercours e Patient encouraged to follow up within 1 week if not improving. [id number] [facility] [address] 02/13/2025 18:14:12 02/13/2025 18:34:46 Acute urinary tract infection 844237536 N39.0 Patient presents with symptoms of UTI. Results of dipstick were positive for UTI. Advised to drink clear fluids, reduce sexual activity, Tylenol for pain and take prescribed medication s as instructed . wear cotton under wear urinate after intercours e Patient encouraged to follow up within 1 week if not improving. [id number] [address] [place] [address] 02/23/2025 13:36:29 02/23/2025 14:26:18 Acute urinary tract infection 547346877 N39.0 Patient presents with symptoms of UTI.increa se fluidscran mijares juicewipe front to backvoid after intercours [place] not hold urineantib iotics as orderedcot ton underwearP atient encouraged to follow up within 1 week if not improving. Pigmented skin lesion 20 6151632 D22.9 derm referral Acute bronchitis 6466888 2 J20.9 antibiotic s and inhaler as needed [id number] Trista Martinez APRN [address] [address] 03/13/2025 14:52:48 03/13/2025 15:45:12 Dyspnea 151155892 R06.[address] to r/o pe- takes control pills, recent illness,pa lpitations advised to go to edif pt does not go to ed needs ct stat Palpitations 21626748 R0 0.2 heart monitor orderedif any symptoms go to ed for eval Health Concerns Section Related Observation LastModified by Organization Detai ls LastModified Time None Recorded Concern Status LastModified by Organization Details LastModified Time None Recorded Advance Directives Directive N: Payers Insurance Date Sequence Insurance Name Policy Number Policy Bolanos Covered Member ID Bolanos Member ID Guarantor Name 03/13/2025 [place] [employer] [place] [place]ICAID) [employer] [id number] [employer] 03/19/2025 1 [facility] (MEDICAID HMO) Nathaly Plaza [id number] Nathaly [employer] Notes Date Note Type Note Provider Name and Address Organization Details Recorded Time 10/07/2023 text/html 22 yr old female presents for her 2 step tb skin test. ERNST [place] - [facility] 10/07/2023 14:51:12 04/03/2024 text/html Abdominal [...] pain x 1 week, with soft diarrhea Shanthijo Martinez APRN [address], [place], [address], [facility] - [facility] 04/03/2024 16:09:53 02/13/2025 text/html 24 yr old female presents with a possible uti, burning,freq,urgen cy and discomfort started yesterday. Shanthijo ALEJANDRINA forbes [address], [place], [address], [facility] - [facility] 02/13/2025 18:34:35 02/23/2025 text/html 24 yr old female presents to follow up on uti- still feels like she may have it. She also feels like she may have bronchitis, cough and chest congestion.also has a mole to left shoulder that has gotten bigger and looks like it is changing Shanthimaryjose AyalaALEJANDRINA forbes [address], [place], [address], [facility] - [facility] 02/23/2025 14:22:00 03/13/2025 text/html 24 yr old female presents for dizzy episodes, feels like she is going to pass out at times. states sob and feels her heart racing. Has taken different antibiotics, and steroids recently. Mahi Gary [place], [place] - [facility] 03/14/2025 09:10:25 OBGyn Episode No OBEpisode recorded.
--- OUTSIDE RECORDS SUMMARY | 2025-03-19 12:39 | XMS_ITS | Continuity of Care Document ---
[facility] Organization [facility] Address [address] [place] [address] Care Team Providers Care Jockey Agent Name Role Phone MARILU MARTINEZ Primary Care Provider [phone] Assessment No assessment recorded. Plan of Treatment Reminders Order Date Submit Date Provider Last Modified By Organization Details Last Modified Time Details Appointments CT With Contrast 2024 11:30A M [facility] Not available Not available Not available Lab culture, urine 2024 025 [facility], [address], [place], [place], [address], 02/17/2025 14:07:35 urinalysi s, dipstick 2024 025 [facility], [address] [place] [address], [place], [address], 02/13/2025 18:37:00 Referral None recorded. Procedures None recorded. Surgeries None recorded. Imaging None recorded. Medication Orders cephalexi n 500 mg capsule 2024 025 [facility], [address], [address], 02/23/2025 13:53:10 Patient TargetsNo targets recorded. Patient InstructionsNo instructions recorded. Reason for Referral None Reported. Results Created Date Observation Date Name Description Value Unit Range Abnormal Flag Note LastModifiedBy Organization Detail LastModifiedTime 02/14/2002/13/2025 urina lysis , dipst ick Leukocytes Small Not Available [address], [address], 02/13/2025 18:33:49 02/14/20 25 02/13/2025 urina lysis , dipst ick Nitrite positi ve Not Available [address] [place] [address], [address], 02/13/2025 18:33:49 02/14/20 25 02/13/2025 urina lysis , dipst ick Urobilinogen .2 Not Available [facility] [address], [address], 02/13/2025 18:33:49 02/14/20 25 02/13/2025 urina lysis , dipst ick Protein 30 Not Available [address] [place], [address], 02/13/2025 18:33:49 02/14/20 25 02/13/2025 urina lysis , dipst ick pH 6.0 Not Available [address], [address], 02/13/2025 18:33:49 02/14/20 25 02/13/2025 urina lysis , dipst ick Blood Large Not Available [address], [address], 02/13/2025 18:33:49 02/14/20 25 02/13/2025 urina lysis , dipst ick Specific [place] 1.030 Not Available [address], [address], 02/13/2025 18:33:49 02/14/20 25 02/13/2025 urina lysis , dipst ick Ketone Negati ve Not Available [address], [address], 02/13/2025 18:33:49 02/14/20 25 02/13/2025 urina lysis , dipst ick Bilirubin Negati ve Not Available [address], [address], 02/13/2025 18:33:49 02/14/20 25 02/13/2025 urina lysis , dipst ick Glucose Negati ve Not Available [address], [address], 02/13/2025 18:33:49 02/14/20 25 02/13/2025 urina lysis , dipst ick Appearance Clear Not Available [address], [address], 02/13/2025 18:33:49 02/14/20 25 02/13/2025 urina lysis , dipst ick Color Dark Yellow Not Available [address], [address], 02/13/2025 18:33:49 03/03/20 25 03/03/2025 XR, chest , 2 view No observ ation record ed. [facility] [address], [place], [address], 03/09/2025 08:31:05 03/19/[address], angio gram, chest , w/ contr ast No observ ation record ed. [address], [place], [address], 03/19/2025 12:33:10 Result Notes None recorded. Problems Name Problem SNOMED Code Status Onset Date Resolution Date Notes Provider Name and Address Organization Details Recorded Time Anxiety 78411758 Active 023 Mahi Gary null, [facility] - [facility] 3 14:23:20 Depressive disorder 82465137 Active 023 Mah[facility] gonzalez[facility] 3 14:23:26 Problem Notes None recorded. Procedures Surgical History Date Name Laterality Status Provider Name and Address Organization Details Recorded Time 04/05/2020 Date of Last Pap Smear completed Ramona Langston [facility] 04/23/2022 14:06:58 Imaging Results None [...] Updated DateTime 5 154.94 cm 26.9 kg/m2 34942.8 2 g 98 /min 99 % 99 % 18 /min 110/60 mm[Hg] Ramona Langston [place] - [facility] 5 18:31:11 Social History [...] Or The Highest Degree You Have Received? [id number] Information not available 04/23/2022 Have There Been Any Changes To Your Family Or Social Situation? No Information no t available 04/23/2022 What Is The Fluoride Status Of Your Home? Fluoridated Information not available 04/23/2022 Have You Recently Or Are You Planning To Travel To An Area With Zika Virus? No Information not available 04/23/2022 Do You Have A Medical Power Of Cook Helper Meat? 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 [id number] Information not available 04/23/2022 Do you have [...] D Deficiency N Cellulitis N Endometriosis N Bladder or Kidney Problems N Fracture N Colorectal Cancer N Liver Disease N [...] N Insomnia N Hyperlipidemia N Eczema N Abuse/Domestic Violence N Attention Deficient Disorder N Dementia N Diverticulitis N Ulcerative colitis N Cerebrovascular Disease N Depression N Guillain-[place] N Sleep Apnea N Aneurysm N Bronchitis [...] Hib-Hep B 0 completed Mahi Stears null[place] - [facility] 11/30/2022 14:22:42 Hib-Hep B 9 completed Mahi Stears null, [facility] 11/30/2022 14:22:42 HPV9 7 completed Mahi Stears null, [facility] 11/30/2022 14:22:42 HPV9 6 completed Mahi Stears null, [facility] 11/30/2022 14:22:42 HPV9 6 completed Mahi Stears null, [facility] 11/30/2022 14:22:42 IPV 0 completed Mahi Stears null, [facility] 11/30/2022 14:22:42 IPV 9 completed Mahi Stears null, [facility] 11/30/2022 14:22:42 IPV 3 completed Mahi Stears null, [facility] 11/30/2022 14:22:42 IPV 9 completed Mahi Stears null, [place] - [facility] 11/30/2022 14:22:42 MMR 0 completed Mahi Stears null, [facility] 11/30/2022 14:22:42 MMR 3 completed Mahi Stears null, [facility] 11/30/2022 14:22:42 Tdap 0 completed Mahi Stears null[place] - [facility] 11/30/2022 14:22:42 varicella 0 completed Mahi Stears null, [place] - [facility] 11/30/2022 14:22:42 Influenza, split virus, trivalent, PF 8 completed Mahi Stears null, [place] - [facility] 11/30/2022 14:22:42 Hep B, adolescent or pediatric 9 completed Mahi Stears null, [place] - [facility] 11/30/2022 14:22:42 Hep A, ped/adol, 2 dose 7 completed Mahi Stears null[place] [facility] 11/30/2022 14:22:42 Hep A, ped/adol, 2 dose 6 completed Mahi Stears null, [place] - [facility] 11/30/2022 14:22:42 Hib (PRP-OMP) 9 completed Mahi Stears null, [place] - [facility] 11/30/2022 14:22:42 meningococcal MCV4P 6 [...] SNOMED-CT Code Diagnosis ICD10 Code Diagnosis Note [id number] Marilu Martinez APRN [address] [address] 02/13/2025 18:14:12 02/13/2025 18:34:46 Acute urinary tract infection 153706572 N39.0 Patient presents with symptoms of UTI. [...] Bolanos Member ID Guarantor Name 02/13/2025 1 [facility] (MEDICAID HMO) [employer] [id number] [employer] Notes Date Note Type Note Provider Name and Address Organization Details Recorded Time 02/13/2025 text/html 24 yr old female presents with a possible uti, burning,freq,urge ncy and discomfort started yesterday. Marilu Martinez APRN [address], [place], [address], [place] - [facility] 02/13/2025 18:34:35 OBGyn Episode No OBEpisode recorded.
--- OUTSIDE RECORDS SUMMARY | 2025-03-19 12:39 | XMS_ITS | Continuity of Care Document ---
Author Organization [facility] Address [address] [place] [address] Care Team Providers Care Tie Mill Operator Name Role Phone DAVID AMBERBRIANBabs Primary Care Provider [phone] Assessment No assessment recorded. Plan of Treatment Reminders Order Date Submit Date Provider Last Modified By Organization Details Last Modified Time Details Appointments CT With Contrast 2024 11:30A M CT [facility] Not available Not available Not available Lab urinalysi s, dipstick 2024 025 [facility], [address] [place] [address], [place], [address], 02/23/2025 14:18:12 culture, urine 2024 025 [facility], [address] [facility], [facility] F, [place], [address], 02/25/2025 04:06:16 Referral dermatolo gist referral - change in color and shape of mole, medium priority 2024 025 [email or web address] Carmen Leger MD, [address] [facility], [facility] [address], [place], [address], 02/23/2025 14:35:37 Procedures None recorded. Surgeries None recorded. Imaging None recorded. Medication Orders levofloxa ramy 500 mg tablet 2024 025 [facility] 591, [address] [place], [address], 03/07/2025 05:01:55 Patient TargetsNo targets recorded. Patient InstructionsNo instructions recorded. Reason for Referral Backer Up Referral for P igmented skin lesion change in color and shape of mole, medium priority Referring Physician: Trista Martinez, Family Medicine, Encounter Date: 02/23/2025 Results Created Date Observation Date Name Description Value Unit Range Abnormal Flag Note LastModifiedBy Organization Detail LastModifiedTime 02/24/2002/23/2025 urina lysis , dipst ick Leukocytes Negati ve Not Available [address], [address], 02/23/2025 13:47:01 02/24/20 25 02/23/2025 urina lysis , dipst ick Nitrite negati ve Not Available [address], [address], 02/23/2025 13:47:01 02/24/20 25 02/23/2025 urina lysis , dipst ick Urobilinogen .2 Not Available [facility] [address], [address], 02/23/2025 13:47:01 02/24/20 25 02/23/2025 urina lysis , dipst ick Protein Negati ve Not Available [address], [address], 02/23/2025 13:47:01 02/24/20 25 02/23/2025 urina lysis , dipst ick pH 5.5 Not Available [address], [address], 02/23/2025 13:47:01 02/24/20 25 02/23/2025 urina lysis , dipst ick Blood Modera te Not Available [address], [address], 02/23/2025 13:47:01 02/24/20 25 02/23/2025 urina lysis , dipst ick Specific [place] 1.020 Not Available [address], [address], 02/23/2025 13:47:01 02/24/20 25 02/23/2025 urina lysis , dipst ick Ketone Negati ve Not Available [address], [address], 02/23/2025 13:47:01 02/24/20 25 02/23/2025 urina lysis , dipst ick Bilirubin Negati ve Not Available [address], [address], 02/23/2025 13:47:01 02/24/20 25 02/23/2025 urina lysis , dipst ick Glucose Negati ve Not Available [address], [address], 02/23/2025 13:47:01 02/24/20 25 02/23/2025 urina lysis , dipst ick Appearance Clear Not Available [address], [address], 02/23/2025 13:47:01 02/24/20 25 02/23/2025 urina lysis , dipst ick Color Yellow Not Available [address], [address], 02/23/2025 13:47:01 03/03/20 25 03/03/2025 XR, chest , 2 view No observ ation record ed. [facility] [address], [place], [address], 03/09/2025 08:31:05 03/19/[address], angio gram, chest , w/ contr ast No observ ation record ed. [email or web address] [address], [place], [address], 03/19/2025 12:33:10 Result Notes None recorded. Problems Name Problem SNOMED Code Status Onset Date Resolution Date Notes Provider Name and Address Organization Details Recorded Time Anxiety 60993174 Active 023 Amhi Stears null, [place] - [facility] 3 14:23:20 Depressive disorder 63700382 Active 023 Mahi Stears null, [place] - [facility] 3 14:23:26 Problem Notes None recorded. Procedures Surgical History Date Name Laterality Status Provider Name and Address Organization Details Recorded Time 04/05/2020 Date of Last Pap Smear completed Ramona Langston [place] - [facility] 04/23/2022 14:06:58 Imaging Results None [...] Or The Highest Degree You Have Received? [id number] Information not available 04/23/2022 Have There Been Any Changes To Your Family Or Social Situation? No Information no t available 04/23/2022 What Is The Fluoride Status Of Your Home? Fluoridated Information not available 04/23/2022 Have You Recently Or Are You Planning To Travel To An Area With Zika Virus? No Information not available 04/23/2022 Do You Have A Medical Power Of Grinder Hardboard? 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 [id number] Information not available 04/23/2022 Do you have [...] colitis N Cerebrovascular Disease N Depression N Guillain-[place] N Sleep Apnea N Aneurysm N Bronchitis [...] Hib-Hep B 0 completed Mahi Stears null, [facility] 11/30/2022 14:22:42 Hib-Hep B 9 completed Mahi Stears null, [facility] 11/30/2022 14:22:42 HPV9 7 completed Mahi Stears null, [facility] 11/30/2022 14:22:42 HPV9 6 completed Mahi Stears null, [facility] 11/30/2022 14:22:42 HPV9 6 completed Mahi Stears null, [facility] 11/30/2022 14:22:42 IPV 0 completed Mahi Stears null, [facility] 11/30/2022 14:22:42 IPV 9 completed Mahi Stears null, [facility] 11/30/2022 14:22:42 IPV 3 completed Mahi Stears null, [facility] 11/30/2022 14:22:42 IPV 9 completed Mahi Stears null, [facility] 11/30/2022 14:22:42 MMR 0 completed Mahi Stears null, [facility] 11/30/2022 14:22:42 MMR 3 completed Mahi Stears null, [place] - [facility] 11/30/2022 14:22:42 Tdap 0 completed Mahi Stears null, - [facility] 11/30/2022 14:22:42 varicella 0 completed Mahi Stears null, [place] - [facility] 11/30/2022 14:22:42 Influenza, split virus, trivalent, PF 8 completed Mahi Stears null, [place] - [facility] 11/30/2022 14:22:42 Hep B, adolescent or pediatric 9 completed Mahi Stears null, [place] - [facility] 11/30/2022 14:22:42 Hep A, ped/adol, 2 dose 7 completed Mahi Ste[place] [facility] 11/30/2022 14:22:42 Hep A, ped/adol, 2 dose 6 completed Mahi Ste[place] [facility] 11/30/2022 14:22:42 Hib (PRP-OMP) 9 completed Mahi Ste[place] [facility] 11/30/2022 14:22:42 meningococcal MCV4P 6 completed Mahi Ste[place] [facility] 11/30/2022 14:22:42 DTaP, unspecified formulation 0 completed Mahi Ste[place] [facility] 11/30/2022 14:22:42 DTaP, unspecified formulation 9 completed Mahi Stears null, [place] - [facility] 11/30/2022 14:22:42 DTaP, unspecified formulation 3 completed Mahi Stears null, - [facility] 11/30/2022 14:22:42 DTaP, unspecified formulation [...] SNOMED-CT Code Diagnosis ICD10 Code Diagnosis Note [id number] Trista Martinez [place] 5809364-868 1 02/13/2025 18:14:12 02/13/2025 18:34:46 Acute urinary tract infection [id number] N39.0 Patient presents with symptoms of UTI. Results of dipstick were positive for UTI. Advised to drink clear fluids, reduce sexual activity, Tylenol for pain and take prescribed medication s as instructed . wear cotton under wear urinate after intercours e Patient encouraged to follow up within 1 week if not improving. [id number] Trista Martinez [address] [address] 02/23/2025 13:36:29 02/23/2025 14:26:18 Acute urinary tract infection 167195053 N39.0 Patient presents with symptoms of UTI.increa se fluidscran mijares juicewipe front to backvoid after intercours [place] not hold urineantib iotics as orderedcot ton underwearP atient encouraged to follow up within 1 week if not improving. Pigmented skin lesion 20 0877729 D22.9 derm referral Acute bronchitis 0911982 2 J20.9 antibiotic s and inhaler as needed Health Concerns Section Related Observation LastModified by Organization Detai ls LastModified Time None Recorded Concern Status LastModified by Organization Details LastModified Time None Recorded Payers Encounter Date Sequence Insurance Name Policy Number Policy Bolanos Covered Member ID Bolanos Member ID Guarantor Name 02/23/2025 1 [employer] [facility] (MEDICAID HMO) Nathaly Plaza [id number] Nathaly Plaza Notes Date Note Type Note Provider Name and Address Organization Details Recorded Time 02/23/2025 text/html 24 yr old female presents to follow up on uti- still feels like she may have it. She also feels like she may have bronchitis, cough and chest congestion.also has a mole to left shoulder that has gotten bigger and looks like it is changing Trista Martinez, DIRECTOR OF CLOUD SERVICES [address], [place], [address], [place] - [facility] 02/23/2025 14:22:00 OBGyn Episode No OBEpisode recorded.
--- OUTSIDE RECORDS SUMMARY | 2025-03-19 12:39 | XMS_ITS | Continuity of Care Document ---
Author Organization [facility] Address [address] [place] [address] Care Team Providers Care Event Manager Name Role Phone DAVID AMBERBRIANBabs Primary Care Provider [phone] Assessment No assessment recorded. Plan of Treatment Reminders Order Date Submit Date Provider Last Modified By Organization Details Last Modified Time Details Appointments CT With Contrast 2024 11:30A M CT [facility] Not available Not available Not available Lab TSH + free T4, serum 2024 025 [facility], [address], [place], [place], [address], 03/14/2025 14:08:05 CBC w/ auto diff 2024 025 [facility], [address], [place], [place], [address], 03/14/2025 14:08:05 CMP, serum or plasma 2024 025 [facility], [address], [place], [place], [address], 03/14/2025 14:08:06 iron + total iron-bind ing capacity (TIBC), serum 2024 025 [facility], [address], [place], [place], [address], 03/14/2025 14:08:06 D-dimer, quant, plasma 2024 025 [facility], [address], [place], [place], [address], 03/14/2025 14:08:07 magnesium , serum or plasma 2024 [place] [facility], [address], [place], [place], [address], 03/14/2025 14:08:07 Referral None recorded. Procedures None recorded. Surgeries None recorded. Imaging holter monitor 2024 [facility], [address], [place], [address], 03/14/2025 10:48:35 CT, angiogram , chest, w/ contrast 2024 025 [facility], [address] [place], [address], 03/19/2025 12:33:10 Medication Orders None recorded. Patient TargetsNo targets recorded. Patient InstructionsNo instructions recorded. Reason for Referral None Reported. Results Created Date Observation Date Name Description Value Unit Range Abnormal Flag Note LastModifiedBy Organization Detail LastModifiedTime 03/03/20 25 03/03/2025 XR, chest , 2 view No observ ation record ed. [facility] [address], [place], [address], 03/09/2025 08:31:05 03/19/[address], angio gram, chest , w/ contr ast No observ ation record ed. [email or web address] [facility] [address] [facility], [place], [address], 03/19/2025 12:33:10 Result Notes None recorded. Problems Name Problem SNOMED Code Status Onset Date Resolution Date Notes Provider Name and Address Organization Details Recorded Time Anxiety 63550096 Active 023 Mahi gonzalez, [place] - [facility] 3 14:23:20 Depressive disorder 61004260 Active 023 Mahi Abdirahman null, [place] - [...] Details Last Updated DateTime 5 154.94 cm 26.5 kg/m2 50021.6 3 g 88 /min 99 % 99 % 16 /min 118/82 mm[Hg] Ramona Langston [place] - [facility] 5 15:24:58 Social History Question Answer Notes LastModified by [...] Or The Highest Degree You Have Received? GV34010-9 Information not available 04/23/2022 Have There Been Any Changes To Your Family Or Social Situation? No Information no t available 04/23/2022 What Is The Fluoride Status Of Your Home? Fluoridated Information not available 04/23/2022 Have You Recently Or Are You Planning To Travel To An Area With Zika Virus? No Information not available 04/23/2022 Do You Have A Medical Power Of Job Setter Honing? 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 BP2147-6 Information not available 04/23/2022 Do you have [...] Diseases N Kidney Stones N Hyperthyroidism N Rheumatoid arthritis N Blood [...] N Restless Leg Syndrome N Arthritis N Infertility N Polyps N Carpal Tunnel N Mental Disorder N Acid Reflux (GERD) N Cancer N Stroke N Varicosities N Tendonitis N Crohn's Disease N Hypercholesterolemia N Skin Cancer N Fibromyalgia N Headaches N Anal Fissure N Irritable Bowel Syndrome [...] colitis N Cerebrovascular Disease N Depression N Guillain-[place] N Sleep Apnea N Aneurysm N Bronchitis [...] Hib-Hep B 0 completed Mahi Stears null, [place] - [facility] 11/30/2022 14:22:42 Hib-Hep B 9 completed Mahi Stears [place] - [facility] 11/30/2022 14:22:42 HPV9 7 completed Mah[facility] Stears null[place] - [facility] 11/30/2022 14:22:42 HPV9 6 completed Mahi Stears null, [facility] 11/30/2022 14:22:42 HPV9 6 completed Mahi Stears null[place] - [facility] 11/30/2022 14:22:42 IPV 0 completed Mahi Stears [place] [facility] 11/30/2022 14:22:42 IPV 9 completed Mahi Stears null, [facility] 11/30/2022 14:22:42 IPV 3 completed Mahi Stears [place] [facility] 11/30/2022 14:22:42 IPV 9 completed Mahi Stears [place] [facility] 11/30/2022 14:22:42 MMR 0 completed Mahi Stears [place] [facility] 11/30/2022 14:22:42 MMR 3 completed Mahi Stears [place] [facility] 11/30/2022 14:22:42 Tdap 0 completed Mahi Stears [place] [facility] 11/30/2022 14:22:42 varicella 0 completed Mahi Stears null[place] - [facility] 11/30/2022 14:22:42 Influenza, split virus, [...] SNOMED-CT Code Diagnosis ICD10 Code Diagnosis Note [id number] Eugonda Fryman, [address] [address] 02/13/2025 18:14:12 02/13/2025 18:34:46 Acute urinary tract infection [id number] N39.0 Patient presents with symptoms of UTI. Results of dipstick were positive for UTI. Advised to drink clear fluids, reduce sexual activity, Tylenol for pain and take prescribed medication s as instructed . wear cotton under wear urinate after intercours e Patient encouraged to follow up within 1 week if not improving. [id number] Trista Martinez [address] [address] 02/23/2025 13:36:29 02/23/2025 14:26:18 Acute urinary tract infection 215201640 N39.0 Patient presents with symptoms of UTI.increa se fluidscran mijares juicewipe front to backvoid after intercours [place] not hold urineantib iotics as orderedcot ton underwearP atient encouraged to follow up within 1 week if not improving. Pigmented skin lesion 20 2279546 D22.9 derm referral Acute bronchitis 8229015 2 J20.9 antibiotic s and inhaler as needed [id number] Trista Martinez [address] [address] 03/13/2025 14:52:48 03/13/2025 15:45:12 Dyspnea 034755258 R06.[address] to r/o pe- takes control pills, recent illness,pa lpitations advised to go to edif pt does not go to ed needs ct stat Palpitations 14976035 R0 0.2 heart monitor orderedif any symptoms go to ed for eval Health Concerns Section Related Observation LastModified by Organization Detai ls LastModified Time None Recorded Concern Status LastModified by Organization Details LastModified Time None Recorded Payers Encounter Date Sequence Insurance Name Policy Number Policy Bolanos Covered Member ID Bolanos Member ID Guarantor Name 03/13/2025 1 [employer] [facility] (MEDICAID HMO) Nathaly Plaza [id number] Nathaly Plaza Notes Date Note Type Note Provider Name and Address Organization Details Recorded Time 03/13/2025 text/html 24 yr old female presents for dizzy episodes, feels like she is going to pass out at times. states sob and feels her heart racing. Has taken different antibiotics, and steroids recently. Mahi gonzalez, [place] - [facility] 03/14/2025 09:10:25 OBGyn Episode No OBEpisode recorded.
--- OUTSIDE RECORDS SUMMARY | 2025-03-19 12:40 | XMS_ITS | Clinical Summary ---
Author Organization [facility] Address [address] [place] [address] Care Team Providers Care Lead Cook Name Role Phone None, Physician Primary Care Provider Unavailabl e Allergies Active Allergy Reactions Criticality Noted Date Comments Amoxicillin 08/26/2013 Medications ibuprofen (ADVIL,MOTRIN) 600 MG tablet Take 600 mg by mouth every 6 (six) hours as needed. Active levonorgestrel-e thinyl estradiol (AVIANE) 0.1-20 MG-MCG per tablet Take 1 tablet by mouth daily. Active Active Problems No known active problems Social History Tobacco Use Types Packs/Day Years Used Date Smoking Tobacco: Never Assessed Comments No Sex and Gender Information Value Date Recorded Sex Assigned at Not on file Legal Sex Female 4:03 PM EST Gender Identity Not on file Sexual Orientation Not on file Last Filed Vital Signs Vital Sign Reading Time Taken Comments Blood Pressure 107/65 08/26/2013 4:22 PM EST Pulse 74 08/26/2013 4:22 PM EST Temperature 36.7 C (98.1 F) 08/26/2013 4:22 PM EST Respiratory Rate 18 08/26/2013 4:22 PM EST Oxygen Saturation 97% 08/26/2013 4:22 PM EST Inhaled Oxygen Concentration - - Weight 47.6 kg (105 lb) 08/26/2013 4:22 PM EST Height 154.9 cm (5' 1 ) 08/26/2013 4:22 PM EST Body Mass Index 19.84 08/26/2013 4:22 PM EST Plan of Treatment Health Maintenance Due Date Last Done Comments HPV Vaccine (1 - 3-dose series) 2013 Hepatitis B (HepB) Vaccine ( 1 of 3 - 19+ 3-dose series) 2017 Tdap/Td Vaccine >11 yo (1 - Tdap) 2017 Cervical Cancer Screening 11/04/2019 Annual SDOH Screening 08/30/2024 Influenza Vaccine (#1) 2025 Haemophilus Influenzae Type B (Hib) Vaccine Aged Out No longer eligible b ased on patient's age to complete this topic Hepatitis A (HepA) Vaccine Aged Out N o longer eligible based on patient's age to complete this topic Meningococcal ACWY Aged Out No longer eligible based on patient's age to complete this topic Pneumococcal Vaccines 6-49 yo Risk Aged Out No longer eligible based on patient's age to complete this topic Polio (IPV) Aged Out No longer eligi ble based on patient's age to complete this topic Rotavirus (RV) Vaccine Aged Out No lo nger eligible based on patient's age to complete this topic Care Teams Lead Cook Relationship Specialty Start Date End Date None, Physician PCP - General 08/26/13
--- OUTSIDE RECORDS SUMMARY | 2025-03-19 12:40 | XMS_ITS | Clinical Summary ---
Author Organization Healthcare Address [address] [place] [address] Care Team Providers Care Glove Parts Inspector Name Role Phone Trista Martinez HOTEL ASSOCIATE Primary Care Provider [phone] Social History Tobacco Use Types Packs/Day Years [...] of Treatment Not on file Care Teams Glove Parts Inspector Relationship Specialty Start Date End Date Trista Martinez APRN [address] [place] [address] PCP - General 01/10/21
== END 2025-03-19 23:59 | disposition home or self-care (01) ==
LOC: RT 12:38
PROVIDERS: PCP Nurse Practitioner Family; Visit Provider Nurse Practitioner Family
DX: R00.0 Tachycardia, unspecified (principal); R94.31 Abnormal electrocardiogram [ECG] [EKG]; R00.2 Palpitations
CPT/HCPCS: 93225; 93227

== ENCOUNTER 2025-04-01 15:58 | Emergency (ER) | payer OTHER, SELFPAY ==
[2025-04-01] VITALS (8 sets, daily range): BP systolic 113–144; BP diastolic 71–92; PULSE 69–88; RESP 16–18; TEMP 37–37.4; O2SAT 97–100; BMI 26.4
--- OUTSIDE RECORDS SUMMARY | 2025-04-01 16:07 | XMS_ITS | Clinical Summary ---
Author Organization [facility] Address [address] [place] [address] Care Team Providers Care Piece Maker Name Role Phone None, Physician Primary Care [...] age to complete this topic Care Teams Piece Maker Relationship Specialty Start Date End Date None, Physician PCP - General 08/26/13
--- OUTSIDE RECORDS SUMMARY | 2025-04-01 16:07 | XMS_ITS | Clinical Summary ---
Author Organization [facility] Address [address] [place] [address] Care Team Providers Care Navigation Teacher Name Role Phone Trista Martinez PICTURE ENGRAVER Primary Care Provider [phone] Social History Tobacco Use Types Packs/Day Years [...] of Treatment Not on file Care Teams Navigation Teacher Relationship Specialty Start Date End Date Trista Martinez APRN [address] [place] [address] PCP - General 01/10/21
[2025-04-01 16:22] LABS: Hematocrit 41.5 % (37.0-47.0); Hemoglobin 13.9 g/dL (12.2-16.2); Immature Granulocytes % 0.4 %; Mean Corpuscular HGB Conc 33.5 g/dL (31.8-35.4); Mean Corpuscular Hemoglobin 31.3 pg (27.0-31.2); Mean Corpuscular Volume 93.5 fl (81-99); Nucleated Red Blood Cells % 0 %; Platelet Count 277 K/mm3 (142-424); Red Blood Count 4.44 M/mm3 (4.20-5.40); Red Cell Distribution Width-SD 42.4 fL; White Blood Count 6.9 K/mm3 (4.8-10.8)
[2025-04-01 16:31] LABS: Albumin Level 3.9 g/dl (3.5-5.0); Chloride 105 mmol/L (98-107); Potassium 4.1 mmoL/L (3.5-5.1); Sodium 137 mmol/L (136-145)
[2025-04-01 16:34] LABS: Alanine Aminotransferase 19 U/L (12-78); Albumin/Globulin Ratio 1.0 (1.1-1.8); Alkaline Phosphatase 48 U/L (38-126); Anion Gap 10.1 mEq/L (5-15); Aspartate Amino Transferase 37 U/L (14-36); Bilirubin,Total 0.6 mg/dl (0.2-1.3); Blood Urea Nitrogen 8 mg/dl (7-17); Carbon Dioxide 26 mmol/L (22.0-30.0); Creatinine Clearance Estimated 122 mL/min (50-200); Creatinine,Serum 0.70 mg/dl (0.52-1.04); Estimated Glomerular Filt Rate 101 ml/min (>60); GFR (African American) 122 ML/MIN (>60); Globulin 3.8 g/dL (1.3-3.2); Total Protein,Serum 7.7 g/dl (6.3-8.2)
[2025-04-01 16:35] LABS: Calcium 9.5 mg/dl (8.4-10.2); Glucose 113 mg/dl (74-100)
[2025-04-01 16:38] LABS: Monoscreen (Rapid) Negative (Negative)
--- NOTE | 2025-04-01 16:38 | ED_ITS ---
<Statement entered by aJmarcus Martinez MD - 04/01/25 23:32> I was consulted by the SHARRI, and we discussed the complexity of the problems being addressed. I approved the treatment and management plan for this patient's care in the emergency department, thus performing a substantive portion of the medical decision making. Jamarcus Martinez MD, LELIA, FACEP Discharge Plan Disposition Patient Disposition: Home, Self-Care Prescriptions Prescriptions: New methocarbamol 500 mg tablet 500 mg PO TID 7 Days Qty: 21 0RF lidocaine [Lidoderm] 5 % adhesive patch,medicated 1 patch topical DAILY 7 Days Qty: 7 0RF Rx Instructions: leave on most painful area for up to 12 hrs No Action budesonide-formoterol [Symbicort] 160-4.5 mcg/actuation HFA aerosol inhaler inhalation Patient Comments: INHALE 1 PUFF BY MOUTH TWICE DAILY [id number] [Bromfed DM] 2-30-10 mg/5 mL syrup 5 ml PO Q4-6H PRN (Reason: cold symptoms) Qty: 118 0RF trazodone 50 mg tablet See Rx Instructions .ROUTE .COMPLEX Qty: 90 2RF Dose Instruction: TAKE 1 TABLET BY MOUTH EVERY DAY AT BEDTIME NEEDED FOR SLEEP Rx Instructions: TAKE 1 TABLET BY MOUTH EVERY DAY AT BEDTIME NEEDED FOR SLEEP Lo Loestrin Fe 1 mg-10 mcg (24)/10 mcg (2) tablet 1 tab PO DAILY Qty: 28 4RF buspirone 10 mg tablet 20 mg PO BID 90 Days Qty: 360 0RF Vraylar 3 mg capsule 3 mg PO DAILY Qty: 30 3RF desvenlafaxine succinate 100 mg tablet extended release 24 hr 100 mg PO DAILY Qty: 30 2RF Referrals Follow up/Referrals: Naeem Martinez MD [Physician, Ear, Nose, Throat] - See instructions Trista Martinez APRN [Primary Care Provider, Medical] - See instructions Activity Restrictions/Add. Instructions Additional Instructions/Restrictions: Today you were evaluated in the emergency department. You had a CT scan of your neck which was unremarkable. Your lab work was overall really well. As we discussed, please stop smoking as I feel you may likely have a chronic laryngitis. I have placed ENT phone number on your discharge papers, please call them tomorrow morning for a follow-up appointment. Return to the ED for any worsening of condition. For your back pain, you have been given a prescription for Robaxin and Lidoderm patches. You may use these alongside Tylenol or Motrin. As we discussed, request that your PCP send a PT referral Clinical Impressions Clinical Impression: Hoarseness of voice, Back pain Instructions Patient Instructions: Loss of Voice Print Language Print Language: Albanian Discharge ED Provider: Jamarcus Martinez General Adult HPI General Chief complaint: Upper Respiratory Infection Stated complaint: back pain,muscles in throat choking her Time Seen by Provider: 04/01/25 16:27 Mode of Arrival: Ambulatory Source of Information: Patient Description of Symptoms (Recalled from ER Triage Doc. by RN): pt states she has had pneumonia and upper respiratory symptoms since January. Has been on four rounds of antibiotics. voice is hoarse. states she feels like her throat has been swelling for a week.severe back pain from bulging disks History of Present Illness HPI narrative: patient is a 24-year-old female PMHx bipolar, insomnia, generalized anxiety, who presents to the ED with complaints of feeling that her throat is tight. Patient states that since January, her PCP has placed her on 5 antibiotics and 3 rounds of oral steroids for upper respiratory symptoms without any relief. Related Data Home Medications ?Medication ?Instructions ?Recorded ?Confirmed budesonide-formoterol HFA 160 inhalation 03/21/2502/28 mcg-4.5 mcg/actuation aerosol inhaler (Symbicort) Previous Rx's ?Medication ?Instructions ?Recorded trazodone 50 mg tablet See Rx Instructions .Route 0 11/22/24 .COMPLEX #90 tabs norethindrone 1 mg-ethinyl 1 tab PO DAILY #28 tabs estradiol 10 mcg (24)-iron 10 mcg(2) tablet (Lo Loestrin Fe) fuwdjqwuauazthv-venecfrqhvrscye-GZ 5 ml PO Q4-6H PRN c old symptoms 03/05/25 2 mg-30 mg-10 mg/5 mL oral syrup #118 mL (Bromfed DM) buspirone 10 mg tablet 20 mg (2 x 10 mg) PO BID Anx iety 03/22/25 90 days #360 tabs cariprazine 3 mg capsule (Vraylar) 3 mg PO DAILY #30 c aps 03/22/25 desvenlafaxine succinate 100 mg 100 mg PO DAILY #30 ta bs 03/22/25 tablet,extended release 24 hr lidocaine 5 % topical patch 1 patch topical DAILY 7 da ys #7 ea 04/01/25 (Lidoderm) methocarbamol 500 mg tablet 500 mg PO TID 7 days #21 t abs 04/01/25 Allergies Allergy/AdvReac Type Severity Reaction Status Date / Time No Known Allergies Allergy Verified 03/21/25 15:10 [facility] Disclaimer: The information contained in this section may have been updated after the patient was seen, as this information can be updated by other users. Medical History Nightmares associated with chronic post-traumatic stress disorder Hemoperitoneum LGSIL on Pap smear of cervix Generalized anxiety disorder Insomnia Bipolar II disorder Fatigue Tingling in extremities Surgical History Hx of removal of cyst History of tonsillectomy History of colposcopy Family History Other No significant family history Social History Smoking Status: Never smoker second hand exposure: Yes alcohol intake: never substance use type: marijuana current occupational status: employed Travel in the last 8 weeks?: None household members: family housing: house lives independently: No marital status: single number of children: 0 education level: college service: No half-way: No current occupation: [employer] current occupational exposures/hazards: No Have you lived/traveled outside [place] in past 30 days?: No Contact w/someone who lives/traveled outside US past 30 days?: No Exposure to someone with infectious disease in past 14 days?: No Do you have a fever (greater than 100.4 F or 38 C)?: No Have you tested positive for COVID-19?: No Exposed to someone with COVID-19 in past 14 days?: No Do you have a sore throat?: No Do you have a cough?: No Do you have any weakness?: No Do you have any diarrhea?: No Are you experiencing any unusual bleeding?: No Do you have any muscle aches/pain?: No Do you have any abdominal pain?: No Are you experiencing loss of taste or smell?: No Other Medical History Have you received the Flu Vaccine for this season: No Have you received the Pneumonia Vaccine: No ROS Obtained: Yes Systems reviewed as appropriate & no additional complaints except as documented Physical Exam General General appearance: alert and in no apparent distress Head Head exam: atraumatic Eye Eye exam: Present PERRL and EOMI Neck Neck exam: Present normal inspection, full ROM and trachea midline; Absent tenderness Respiratory Respiratory exam: Present normal lung sounds bilaterally Cardiovascular Cardiovascular exam: Present regular rate Abdominal Exam Abdominal exam: Present soft Back Exam Back exam: Present full ROM Neurological Exam Neurological exam: Present alert and oriented X3 Medical Decision Making Medical Records Screening: Per USPSTF and CDC recommendations, given the prevalence of disease in our region, it is our hospital?s policy to screen for HIV and viral Hepatitis for all patients aged 18 and over and those with ongoing risk factors. Deejay Inquiry Pt receiving controlled substance: No Vital Signs: 04/01/25 16:05 04/01/25 16:06 04/01/25 16:30 Temperature 98.6 F Temperature Source Oral Pulse Rate 88 71 Pulse Rate [Right] 75 Respiratory Rate 18 Blood Pressure 144/92 H 121/71 Blood Pressure [Right Arm] 144/92 H Blood Pressure Mean [Right Arm] 109 02 Sat by Pulse Oximetry 98 100 99 Oxygen Delivery Method Room Air 04/01/25 17:00 04/01/25 17:30 04/01/25 18:00 Temperature Temperature Source Pulse Rate 76 72 86 Pulse Rate [Right] Respiratory Rate Blood Pressure 128/87 113/75 125/87 Blood Pressure [Right Arm] Blood Pressure Mean [Right Arm] 02 Sat by Pulse Oximetry 100 98 97 Oxygen Delivery Method Room Air 04/01/25 18:30 Temperature Temperature Source Pulse Rate 73 Pulse Rate [Right] Respiratory Rate Blood Pressure 124/86 Blood Pressure [Right Arm] Blood Pressure Mean [Right Arm] 02 Sat by Pulse Oximetry 99 Oxygen Delivery Method Room Air Lab Data Lab Results 04/01/25 16:12: WBC 6.9, RBC 4.44, Hgb 13.9, Hct 41.5, MCV 93.5, MCH 31.3 H, MCHC 33.5, RDW 12.2, Plt Count 277, MPV 9.3, Neut % (Auto) 54.2, Lymph % (Auto) 39.9, Mcdowell % (Auto) 5.4, Eos % (Auto) 0.0 L, Baso % (Auto) 0.1, Neut # (Auto) 3.7, Lymph # (Auto) 2.7, Mcdowell # (Auto) 0.4, Eos # (Auto) 0.0, Baso # (Auto) 0.0, Sodium 137, Potassium 4.1, Chloride 105, Carbon Dioxide 26, Anion Gap 10.1, BUN 8, Creatinine 0.70, Estimated Creat Clear 122, Estimated GFR 101, Est GFR ( Amer) 122, Glucose 113 H, Uric Acid 3.6, Calcium 9.5, Total Bilirubin 0.6, AST 37 H, ALT 19, Alkaline Phosphatase 48, Lactate Dehydrogenase 168 L, Total Protein 7.7, Albumin 3.9, Globulin 3.8 H, Albumin/Globulin Ratio 1.0 L, TSH 0.75, Free T4 0.94, Serum HCG, Qual Negative, HCV Ab JENN w/Rflx PCR Qn Negative, Monoscreen Negative, HIV Ag/Ab Combo Qual Negative 04/01/25 16:12 04/01/25 16:12 Orders (Tests/Meds): ED MEDICATIONS Generic Name Dose Route Start Last Admin Trade Name Freq PRN Reason Stop Dose Admin Methocarbamol 500 mg 04/01/25 21:00 04/01/25 18:59 Methocarbamol 500mg Tablet PO 05/01/25 20:59 500 mg BID RACHEL Administration Discontinued Medications Generic Name Dose Route Start Last Admin Trade Name Freq PRN Reason Stop Dose Admin Acetaminophen 1,000 mg 04/01/25 18:50 04/01/25 18:59 Acetaminophen 500mg Tab PO 04/01/25 18:51 1,000 mg ONCE ONE Administration Dexamethasone Sodium Phosphate 8 mg 04/01/25 17:46 04/01/25 18:05 Dexamethasone 4mg/Ml 1ml Vial IV 04/01/25 17:47 8 mg ONCE ONE Administration Iopamidol 75 ml 04/01/25 17:44 04/01/25 17:45 Iopamidol-370 (76%);100ml Bottle IV 04/01/25 17:45 75 ml ONCE ONE Administration Lidocaine 1 each 04/01/25 18:50 04/01/25 18:59 Lidocaine 5% Transdermal Patch TD 04/01/25 18:51 1 each ONCE ONE Administration Sodium Chloride 10 ml 04/01/25 17:44 04/01/25 17:45 Sodium Chloride 0.9% 10ml Syr (Rad Only) IV 04/01/25 17:45 10 ml ONCE ONE Administration ORDERS Category Date Time Status CT soft tissue neck w con Stat Cat Scan 04/01/25 17:05 Completed Complete Blood Count Auto Diff Stat Lab 04/01/25 16:12 Completed Comprehensive Metabolic Panel Stat Lab 04/01/25 16:12 Completed Free T4 (Free Thyroxine) Stat Lab 04/01/25 16:12 Completed Full Resp Panel w/COVID ([facility]) Routine Lab 04/01/25 17:28 Received HIV Combo Stat Lab 04/01/25 16:12 Completed Hepatitis C Ab Qual. W/ RFX Stat Lab 04/01/25 16:12 Completed LDH [Lactate Dehydrogenase] Stat Lab 04/01/25 16:12 Completed Monoscreen (Rapid) Stat Lab 04/01/25 16:12 Completed Serum [HCG Qualitative, Serum] Stat Lab 04/01/25 16:12 Completed TSH [Thyroid Stimulating Hormone] Stat Lab 04/01/25 16:12 Completed Uric Acid Stat Lab 04/01/25 16:12 Completed Medical Decision Narrative: In summary, patient is a 24-year-old female PMHx bipolar, insomnia, generalized anxiety, who presents to the ED with complaints of feeling that her throat is tight. Patient states that since January, her PCP has placed her on 5 antibiotics and 3 rounds of oral steroids for upper respiratory symptoms without any relief. She states that she has had recent CT scans, chest x-rays which showed bronchial thickening (per patient's wording) and is being referred to pulmonology. Patient states she has had a hoarse voice since January. She states that she is having night sweats. Patient states that she ran into her PCP yesterday who advised her to come to the ED for a soft tissue neck CT scan. Upon initial evaluation patient is alert, oriented and cooperative. She is hemodynamically stable. Physical exam is unremarkable, airway is patent. Denies fever, chills, body aches, chest pain, back pain, abdominal pain. Differential diagnosis include URI, laryngitis, cancer, among others. Patient was also evaluated by the attending. We will move forward with labs and CT scan of soft tissue neck. CT soft tissue of the neck shows mildly prominent bilateral jugular chain lymph nodes. No tonsillar enlargement, epiglottis is normal, trachea unremarkable. CBC unremarkable for any leukocytosis, stable H&H. CMP unremarkable for any actionable abnormalities. hCG negative. TSH and T4 normal. I had a discussion with patient and family that wanted to to 3 times per day could cause a chronic laryngitis. We discussed to stop smoking. I also advised patient that she has had 35 imaging studies in the past 6 years and to caution excessive radiation as it can be dangerous. Discussed that I will refer her to ENT for her chronic laryngitis and we discussed return precautions to the ED. Patient verbalized understanding. She also is requesting pain medication for her chronic back pain, she was given Robaxin and Lidoderm patches. I discussed that she may benefit from physical therapy referral. Critical Care Critical Care Time Critical Care Time: No
--- NOTE | 2025-04-01 17:05 | CT_ITS ---
PROCEDURE INFORMATION: Exam: CT Neck With Contrast Exam date and time: 04/01/2025 5:46 PM Age: 24 years old Clinical indication: Mass, lump, or swelling in neck; Bilateral; Additional info: tight throat during inspiration TECHNIQUE: Imaging protocol: Computed tomography of the neck with contrast. Radiation optimization: All CT scans at this facility use at least one of these dose optimization techniques: automated exposure control; mA and/or kV adjustment per patient size (includes targeted exams where dose is matched to clinical indication); or iterative reconstruction. Contrast material: ISOVUE; Contrast volume: 75 ml; Contrast route: IV; COMPARISON: US THYROID 12/19/2020 3:34 PM FINDINGS: Salivary glands: Normal. Glands are normal in size. Pharynx: Unremarkable. No significant tonsillar enlargement. Larynx: Unremarkable. Epiglottis is normal. Thyroid: Normal. No enlarged or calcified nodules. Trachea: Visualized trachea is unremarkable. Lungs: Unremarkable as visualized. Lymph nodes: Mildly prominent bilateral jugular chain lymph nodes. Bones/joints: Unremarkable. No acute fracture. Soft tissues: Unremarkable. No significant soft tissue swelling. IMPRESSION: Mildly prominent bilateral jugular chain lymph nodes. Otherwise unremarkable CT neck.
[2025-04-01 17:14] LABS: Free T4 (Free Thyroxine) 0.94 ng/dl (0.78-2.19)
[2025-04-01 17:23] LABS: Uric Acid 3.6 mg/dl (2.5-6.2)
[2025-04-01 17:27] LABS: HCG Qualitative, Serum Negative (Negative)
[2025-04-01 17:28] LABS: Thyroid Stimulating Hormone 0.75 uIU/mL (0.465-4.68)
[2025-04-01 17:29] LABS: Hepatitis C Ab Qual. W/ RFX NEGATIVE (Negative)
[2025-04-01 17:35] LABS: Adenovirus,PCR Not Detected (NotDetected); Chlamydophila Pneumoniae, PCR Not Detected (NotDetected); Coronavirus 19, PCR Not Detected (NotDetected); Coronovirus HKU1,PCR Not Detected (NotDetected); Influenza A, PCR Not Detected (NotDetected); Influenza AH1, 2009 Not Detected (NotDetected); Influenza AH1, PCR Not Detected (NotDetected); Influenza AH3,PCR Not Detected (NotDetected); Influenza B, PCR Not Detected (NotDetected); Mycoplasma Pneumoniae, PCR Not Detected (NotDetected); Parainfluenza 1, PCR Not Detected (NotDetected); Parainfluenza 2, PCR Not Detected (NotDetected); Parainfluenza 3, PCR Not Detected (NotDetected); Parainfluenza 4, PCR Not Detected (NotDetected)
[2025-04-01] MEDS: SODIUM CHLORIDE 0.9% 10ML SYR (RAD ONLY) 10 ML IV (17:45)
[2025-04-01] MEDS: IOPAMIDOL-370 (76%);100ML BOTTLE 75 ML IV (17:45)
[2025-04-01] MEDS: DEXAMETHASONE 4MG/ML 1ML VIAL 8 MG IV (18:05)
[2025-04-01] MEDS: ACETAMINOPHEN 500MG TAB 1000 MG PO (18:59)
[2025-04-01] MEDS: LIDOCAINE 5% TRANSDERMAL PATCH 1 EACH TD (18:59)
[2025-04-01] MEDS: METHOCARBAMOL 500MG TABLET 500 MG PO (18:59)
== END 2025-04-01 19:23 | disposition home or self-care (01) ==
PROVIDERS: Nurse Practitioner; Emergency Provider Student in an Organized Health Care Education/Training Program; PCP Nurse Practitioner Family
DX: M54.50 Low back pain, unspecified (principal); R49.0 Dysphonia; J45.909 Unspecified asthma, uncomplicated; G47.00 Insomnia, unspecified; F41.1 Generalized anxiety disorder
CPT/HCPCS: 0223U; 70491; 80053; 83615; 84439; 84443; 84550; 84703; 85025; 86318; 86803; 87389; 87633; 96374; 99285; J1100; Q9967

== ENCOUNTER 2025-04-17 15:43 | Outpatient (RCR) | payer OTHER, SELFPAY ==
--- NOTE | 2025-04-18 09:39 | [facility].SLVOIC ---
Speech & Language Evaluation Speech/Language Voice Evaluation Start: 04/18/25 09:25 Freq: once Status: Complete Protocol: Document 04/17/25 16:00 MARY ANN (Rec: 04/18/25 09:39 MARY ANN [id number]) Voice/Dysarthria Assessment/Goals/Plan Assessment/Problems Date of Evaluation: 04/17/25 Assessment/Problems voice training per MD order Does Patient Qualify Yes for Service Qualify/Failure Based on patient interview and information gathered Comment from informal assessment, she would benefit from skilled speech therapy services to address muscle tension dysphonia and loss of voice in order to improve speech functionality across multiple settings and environments. Recommendations Pt will be seen # 1 times/week for # weeks 12 Plan Anticipate reaching 8 STG in # weeks Anticipate reaching 12 LTG in # weeks Pt/Guardian verbally Yes ack understanding of dx/prognosis/ goals G -code Required No Short Term Goals Educated on & Yes eliminate vocal abuse behaviors Use easy initiation Yes of phonation for prod of best voice 8 /10 trials Sustain phonation of 15 'ah' at comf. pitch 8/10 trials # secs Use easy initial of Yes phonation using breathy attack wo yawn/sigh 8/10 trials Easy initiation of Yes phon. using breathy attack preceding vowels 8/10 trials Inc inflection 5 sustaining best voice by upward inflection # notes 8 /10 trials Inc inflection 5 sustaining best voice by downward inflection # notes 8 /10 trials Inc loudness level Yes wo inc pitch 8/10 trials Inc loudness level Yes wo inc laryngeal tension 8/10 trials Inc easy initial of Yes phonation using best vocal quality habitually 8/10 Half-Way Goals Improve overall Yes quality to increase/ improve communication with family/friends. Education Instructions Discussed preliminary test results and POC with patient provided who expressed understanding. Pt/Caregiver able to Able to recall/restate recall information Speech & Language HPI History Present Illness Description of Pt is a 24 year old who presents at [facility] Speech Therapy Patient Problem following voice concerns. Pt states that since January she has had no voice 2' having pneumonia and bronchitis and lost her voice and it just hasn't come back. Pt states she doesn't really have pain it is just uncomfortable and she feels like her muscles are strained. Pt states sometimes when she drinks she feels tingling in her throat. 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 Patient is also a smoker x 10+ years. Patient states she has ultimately decreased the amount she smokes daily. Examination today reveals bilateral tympanic membranes free from any evidence of infection however there was mild serous effusions present. Pharynx/oropharynx examined, no enlargement or exudate noted. Neck palpated, no thyromegaly noted on today's examination, also no lymphadenopathy. The remainder of the examination is unremarkable. Flexible laryngoscopy carried out due to persistant hoarseness= cords not closing appropriately due to severe erythema from previous illness approximately 2 months ago. Rehab Services Speech therapy Assessed Language Primary Language Lao SL Voice & Resonance Eval Communication/Cognition Orientation Name,Place,Day,Date,Year Ablility to follow 2-step commands commands Intelligibility Good Oral-Motor Structure/Function Structure/Function Yes: Buccal Labial Lingual Mandibular Velar Other Facial Symmetry Symmetrical Laryngeal Function WEAK: Voluntary Cough Throat Clearing Dentition Good Dentition Resp Status/History Resp status/hx a No concern? Oxygen Delivery Room Air Method Mouth breather inconsistent Risk fatigue due to No compromised resp? Voice Voice Pitch Limited Variation Voice Loudness Limited Variation Voice Phonatory- Breathy,Hoarse,Weak,Loss of Voice based Quality Voice Other Progressively Weak Voice,Mouth Breathing,Disordered Observations Stress Pattern Sustain AH #secs (15 15 -20=NML) Sustain S #secs (20- 17 25=NML) Sustain Z #secs (20- 17 25=NML) S/Z Ratio % 1 Resonance Breathing Mechanism Clavicular Comment Nasal pinch showed inconsistent hypernasality dependent on positioning. Oral Agility: Diadochokinetic Rates P 22 T 21 K 22 PTK 25 Speech Intelligibility Phoneme WNL Word WNL Sentence WNL Conversation WNL Other Notes Excessive Ant. Yes: Cog Tongue Carriage Cook Go [place] Endurance-Able to Yes rapidly count to 200 PHYSICIAN CERTIFICATION: I certify the specified therapy services for [place] are required, authorized, and reviewed every 30 days.
== END 2025-04-17 23:59 | disposition home or self-care (01) ==
LOC: ST 15:43
PROVIDERS: PCP Nurse Practitioner Family; Visit Provider Nurse Practitioner
DX: F80.9 Developmental disorder of speech and language, unspecified (principal)
CPT/HCPCS: 92524

== ENCOUNTER 2025-06-12 11:58 | Emergency (ER) | payer OTHER, SELFPAY ==
[2025-06-12 12:13] VITALS: BP 139/95; PULSE 78; RESP 20; TEMP 37; O2SAT 100; BMI 26.4
[2025-06-12 12:25] LABS: Coronavirus 19, PCR Not Detected (NotDetected); Influenza A, PCR Not Detected (NotDetected); Influenza B, PCR Not Detected (NotDetected)
--- OUTSIDE RECORDS SUMMARY | 2025-06-12 12:26 | XMS_ITS | Clinical Summary ---
Author Organization Healthcare Address [address] [place] [address] Care Team Providers Care Studio Operator Name Role Phone Trista Martinez QUALITY PROCESS AUDITOR Primary Care Provider [phone] Social History Tobacco Use Types Packs/Day Years [...] of Treatment Not on file Care Teams Studio Operator Relationship Specialty Start Date End Date Trista Martinez APRN [address] [place] [address] PCP - General 01/10/21
--- OUTSIDE RECORDS SUMMARY | 2025-06-12 12:26 | XMS_ITS | Clinical Summary ---
Author Organization [facility] Address [address] [place] [address] Care Team Providers Care Radar Technician Name Role Phone None, Physician Primary Care [...] age to complete this topic Care Teams Radar Technician Relationship Specialty Start Date End Date None, Physician PCP - General 08/26/13
--- NOTE | 2025-06-12 12:42 | ED_ITS ---
<Statement entered by Domenica Smalls DO - 06/12/25 15:35> I was consulted by the SHARRI, and we discussed the complexity of the problems being addressed. I approved the treatment and management plan for this patient's care in the emergency department, thus performing a substantive portion of the medical decision making. Domenica Smalls DO Discharge Plan Disposition Patient Disposition: Home, Self-Care Condition: Good Prescriptions Prescriptions: No Action Lo Loestrin Fe 1 mg-10 mcg (24)/10 mcg (2) tablet 1 tab PO DAILY Qty: 84 4RF trazodone 50 mg tablet See Rx Instructions .ROUTE .COMPLEX Qty: 90 2RF Dose Instruction: TAKE 1 TABLET BY MOUTH EVERY DAY AT BEDTIME NEEDED FOR SLEEP Rx Instructions: TAKE 1 TABLET BY MOUTH EVERY DAY AT BEDTIME NEEDED FOR SLEEP buspirone 10 mg tablet 20 mg PO BID 90 Days Qty: 360 0RF desvenlafaxine succinate 100 mg tablet extended release 24 hr 100 mg PO DAILY Qty: 30 2RF Referrals Follow up/Referrals: Trista Martinez APRN [Primary Care Provider, Medical] - See instructions Activity Restrictions/Add. Instructions Additional Instructions/Restrictions: Please return to the emergency department with any worsening signs or symptoms. Please take all your medication at home as prescribed. Would recommend [id number] anti-inflammatory medication/tfwp-prw-gmetctn headache relief if symptoms persist. Please follow-up with your PCP and other providers in the upcoming days/weeks. Clinical Impressions Clinical Impression: Migraine headache Instructions Patient Instructions: DI for Headache, DI for Migraine Print Language Print Language: Macanese Discharge ED Provider: Domenica Smalls General Adult HPI General Chief complaint: Headache Stated complaint: headache,bilateral ear pain Time Seen by Provider: 06/12/25 12:21 Mode of Arrival: Ambulatory Source of Information: Patient and Relative Description of Symptoms (Recalled from ER Triage Doc. by RN): Pt c/o night sweats, headaches that cause light sensitivity, bilateral ear fullness for a week now. Pt complains of a marybeth smell in her sweat every night. History of Present Illness HPI narrative: 24-year-old female presents the emergency department with a 1 week history of subjective fever chills night sweats, she states her bilateral hands get clammy , and they smell like pennies . She endorses bilateral ear fullness, for a week now and headache, with photophobia, and nausea, that started last night, lightheadedness/presyncopal episode started today when she was driving , on the way here, due to position change of the car, patient states no position made her headache better or worse last night. Denies any recent illness or sick contacts, denies any chest pain or shortness of breath, denies any abdominal pain, have some nausea, but denies any nausea currently, denies any urinary type symptomatology, denies any vaginal type symptomatology, no constipation no diarrhea. Patient is quite anxious, does have history of PTSD, DELMER, bipolar 2 disorder and MDD, takes medications for this. Patient denies any alcohol tobacco or drug use with the exception of occasional marijuana use. Initial triage vitals are unremarkable. Of note, 2 weeks ago the patient had a mole , removed by dermatology of her left shoulder, denies any wound dehiscence drainage, or redness around the wound. Please note that above description of symptoms, in this electronic medical record under categorization of recalled from ER triage doctor by RN are reflective of an initial nursing assessment, however, is not reflective of my full history and physical exam that was personally taken and clarified. Consequentially, this preceding description of symptoms, which may include the patient's categorized chief complaint in the EMR, do not reflect my personal clinical impression, and the ultimate description of history of present illness and patient stated complaints should be deferred to this section of the note. Unless stated otherwise or congruent with this section of the note, additional signs, symptoms, or incongruence should be interpreted as inaccurate with my clinical impression. Onset (ago): day(s) Related Data Previous Rx's ?Medication ?Instructions ?Recorded trazodone 50 mg tablet See Rx Instructions .Route 0 11/22/24 .COMPLEX #90 tabs buspirone 10 mg tablet 20 mg (2 x 10 mg) PO BID Anx iety 03/22/25 90 days #360 tabs norethindrone 1 mg-ethinyl 1 tab PO DAILY #84 tabs estradiol 10 mcg (24)-iron 10 mcg(2) tablet (Lo Loestrin Fe) desvenlafaxine succinate 100 mg 100 mg PO DAILY #30 ta bs 06/11/25 tablet,extended release 24 hr Allergies Allergy/AdvReac Type Severity Reaction Status Date / Time No Known Allergies Allergy Verified 06/12/25 11:29 [facility] Disclaimer: The information contained in this section may have been updated after the patient was seen, as this information can be updated by other users. Medical History Muscular tension dysphonia Dysphonia Nightmares associated with chronic post-traumatic stress disorder Hemoperitoneum LGSIL on Pap smear of cervix Generalized anxiety disorder Insomnia Bipolar II disorder Fatigue Tingling in extremities Surgical History Hx of removal of cyst History of tonsillectomy History of colposcopy Family History (Reviewed 06/12/25 @ 11: by CLARIBEL Barker) Other No significant family history Social History (Reviewed 06/12/25 @ 11: by CLARIBEL Barker) Smoking Status: Current every day smoker second hand exposure: Yes alcohol intake: never substance use type: marijuana current occupational status: employed Travel in the last 8 weeks?: None household members: family housing: house lives independently: No marital status: single number of children: 0 education level: college service: No senior living: No current occupation: [employer] current occupational exposures/hazards: No Have you lived/traveled outside [place] in past 30 days?: No Contact w/someone who lives/traveled outside US past 30 days?: No Exposure to someone with infectious disease in past 14 days?: No Do you have a fever (greater than 100.4 F or 38 C)?: No Have you tested positive for COVID-19?: No Exposed to someone with COVID-19 in past 14 days?: No Do you have a sore throat?: No Do you have a cough?: No Do you have any weakness?: No Do you have any diarrhea?: No Are you experiencing any unusual bleeding?: No Do you have any muscle aches/pain?: No Do you have any abdominal pain?: No Are you experiencing loss of taste or smell?: No Other Medical History Have you received the Flu Vaccine for this season: No Have you received the Pneumonia Vaccine: No ROS Obtained: Yes All systems reviewed & no additional complaints except as documented Physical Exam General General appearance: alert, in no apparent distress and anxious Comment: Moderately anxious and tearful at the bedside Head Head exam: atraumatic and normocephalic Eye Eye exam: Present PERRL and EOMI ENT ENT exam: Present normal oropharynx, mucous membranes moist, TM's normal bilaterally and other (White reflex elicited bilaterally no tympanic membrane bulging or erythema, uvula midline, no tonsillar exudates, no oropharyngeal erythema or edema) Neck Neck exam: Present normal inspection Chest Chest inspection: Present normal inspection and symmetric chest wall rise Respiratory Respiratory exam: Present normal lung sounds bilaterally; Absent respiratory distress Cardiovascular Cardiovascular exam: Present regular rate and normal rhythm Abdominal Exam Abdominal exam: Present soft; Absent tenderness, guarding or rebound Extremities Exam Extremities exam: Present normal inspection Neurological Exam Neurological exam: Present alert and oriented X3 Psychiatric Psychiatric exam: Present normal affect Skin Skin exam: Present warm, dry and other (Prior site of skin lesion removal on the left shoulder noted anterior laterally, some serosanguineous drainage, but no erythema, no edema around the wound no wound dehiscence ) Medical Decision Making Medical Records Medical records reviewed: Yes I reviewed the patient's medical records. Screening: Per USPSTF and CDC recommendations, given the prevalence of disease in our region, it is our hospital?s policy to screen for HIV and viral Hepatitis for all patients aged 18 and over and those with ongoing risk factors. Deejay Inquiry Pt receiving controlled substance: No Deejay was queried for this patient: No Vital Signs: 06/12/25 12:13 06/12/25 13:33 Temperature 98.6 F 98.5 F Temperature Source Oral Temporal Artery Scan Pulse Rate 66 Pulse Rate [Right] 78 Respiratory Rate 20 18 Blood Pressure 122/74 Blood Pressure [Right Arm] 139/95 H Blood Pressure Mean [Right Arm] 109 Blood Pressure Source Automatic Cuff Blood Pressure Source [Right Arm] Automatic Cuff Blood Pressure Position Sitting Blood Pressure Position [Right Arm] Sitting 02 Sat by Pulse Oximetry 100 97 Oxygen Delivery Method Room Air Room Air Lab Data Lab results reviewed: Yes I reviewed the patient's lab results. Lab Results 06/12/25 12:21: SARS-CoV-2 (PCR) Not detected, Influenza A Untype (PCR) Not detected, Influenza Type B (PCR) Not detected 06/12/25 13:08: WBC 8.7, RBC 4.18 L, Hgb 13.0, Hct 37.5, MCV 89.7, MCH 31.1, MCHC 34.7, RDW 11.7, Plt Count 278, MPV 9.4, Neut % (Auto) 68.4, Lymph % (Auto) 26.6, [place] % (Auto) 4.7, Eos % (Auto) 0.0 L, Baso % (Auto) 0.1, Neut # (Auto) 6.0, Lymph # (Auto) 2.3, [place] # (Auto) 0.4, Eos # (Auto) 0.0, Baso # (Auto) 0.0, Sodium 139, Potassium 3.7, Chloride 105, Carbon Dioxide 26, Anion Gap 11.7, BUN 7, Creatinine 0.60, Estimated Creat Clear 142, Estimated GFR 121, Est GFR ( Amer) 146, Glucose 113 H, Lactate 1.6, Calcium 9.0, Total Bilirubin 0.3, AST 36, ALT 30, Alkaline Phosphatase 68, Troponin I < 0.01, NT-Pro-B Natriuret Pep < 20.0, Total Protein 6.7, Albumin 3.9, Globulin 2.8, Albumin/Globulin Ratio 1.4, Serum HCG, Qual Negative 06/12/25 13:24: Urine Color Yellow, Urine Appearance Clear, Urine pH 7.0, Ur Specific [place] 1.015, Urine Protein Negative, Urine Glucose (UA) Negative, Urine Ketones Negative, Urine Blood 1+ A, Urine Nitrate Negative, Urine Bilirubin Negative, Urine Urobilinogen 0.2, Ur Leukocyte Esterase Negative, Urine RBC 3-5, Urine WBC 3-5, Ur Squamous Epith Cells 5-10, Urine Bacteria 2+ 06/12/25 13:08 06/12/25 13:08 Orders (Tests/Meds): ED MEDICATIONS Discontinued Medications Generic Name Dose Route Start Last Admin Trade Name Freq PRN Reason Stop Dose Admin Dexamethasone Sodium Phosphate 10 mg 06/12/25 12:54 06/12/25 13:07 Dexamethasone 4mg/Ml 1ml Vial IV 06/12/25 12:55 10 mg ONCE ONE Administration Diphenhydramine HCl 25 mg 06/12/25 12:54 06/12/25 13:08 Diphenhydramine 50mg/Ml Vial IV 06/12/25 12:55 25 mg ONCE ONE Administration Iopamidol 80 ml 06/12/25 13:59 06/12/25 14:01 Iopamidol-370 (76%);100ml Bottle IV 06/12/25 14:00 80 ml ONCE ONE Administration Metoclopramide HCl 10 mg 06/12/25 12:54 06/12/25 13:08 Metoclopramide Hcl 10mg/2ml Vial IVP 06/12/25 12:55 10 mg ONCE ONE Administration Sodium Chloride 10 ml 06/12/25 13:59 06/12/25 14:00 Sodium Chloride 0.9% 10ml Syr (Rad Only) IV 06/12/25 14:00 10 ml ONCE ONE Administration Sodium Chloride 50 ml 06/12/25 13:59 06/12/25 14:00 0.9 % Sodium Chloride 50 Ml Vial IV 06/12/25 14:00 50 ml ONCE ONE Administration ORDERS Category Date Time Status CT Venogram head Stat Cat Scan 06/12/25 12:[address] head/brain wo con Stat Cat Scan 06/12/25 12:51 Completed Complete Blood Count Auto Diff Stat Lab 06/12/25 13:08 Completed Comprehensive Metabolic Panel Stat Lab 06/12/25 13:08 Completed HCG Qualitative, Serum Stat Lab 06/12/25 13:08 Completed Lactic Acid Stat Lab 06/12/25 13:08 Completed NT Pro Brain Natriuretic Pep. Stat Lab 06/12/25 13:08 Completed Rapid PCR Covid and Flu A/B Stat Lab 06/12/25 12:21 Completed Troponin I Q3H Lab 06/12/25 16:00 Ordered Troponin I Q3H Lab 06/12/25 19:00 Ordered Troponin I Stat Lab 06/12/25 13:08 Completed Urinalysis and Microscopic Stat Lab 06/12/25 13:24 Completed Urine Culture Stat Micro 06/12/25 13:24 Received Medical Decision Narrative: 24-year-old female presents the emergency department with headache last night, bilateral ear fullness, night sweats, difficulty sleeping for 1 week, differential diagnose include but not limited to malignancy, anxiety reaction, panic attack, URI, migraine with aura, migraine without aura, tension headache, peripheral vertigo among others. I discussed this patient's case with the attending physician Dr. Smalls Will obtain basic laboratory studies, EKG, CT head without contrast, CT venogram, hCG qualitative, lactic acid level proBNP, rapid, PCR COVID flu, troponin, urinalysis, will give 10 mg IV dexamethasone, 25 mg IV Benadryl and 10 mg IV Reglan for migraine cocktail. CBC unremarkable COVID-19 is negative via PCR influenza negative via PCR CMP is unremarkable, proBNP within normal limits. hCG qualitative is negative Troponin is less than 0.01. 1+ hematuria, 3-5 RBCs, 3-5 WBCs, 5-10 squamous epithelial cells and 2+ bacteria. I reviewed the patient's CT head without contrast on the corresponding radiologic report, no acute intracranial abnormality. I reviewed the patient's CT venogram, along with the corresponding radiologic report, no evidence of dural venous thrombosis. Reexamination of the patient at approximately 3:20 PM, patient is resting comfortably and in the chair, headache is improved, still has some light sensitivity/fatigue, but states she did not sleep well last night . I discussed all results with the patient at bedside, patient could be discharged home to self-care, has remained hemodynamically stable throughout her time in the emergency department and believe that she had some degree of migraine with aura, as well as some degree of anxiety type reaction. Recommend follow-up with PCP other providers in the coming days, patient states she has appointment with her WOMEN'S STUDIES LECTURER and mental health provider in the upcoming days, can schedule PCP follow-up next week. Patient was given strict ED return precautions. Patient voiced understanding and agreement with the current treatment plan/discharge plan. Critical Care Critical Care Time Critical Care Time: No
--- NOTE | 2025-06-12 12:51 | CT_ITS ---
FINAL REPORT TECHNIQUE: Thin section axial images were obtained from skull base to vertex without contrast. Coronal reconstruction images were obtained from the axial data. Exam was performed using dose reduction techniques such as automated exposure control, adjustment of the mA and kV according to patient size, and use of iterative reconstruction technique. CLINICAL HISTORY: SANCHEZ, presyncope,BL ear pain FINDINGS: There is no mass effect or midline shift. There is no hydrocephalus. There is no intracranial hemorrhage. The posterior fossa is without acute abnormality. The basilar cisterns are preserved. The soft tissues are without acute abnormality. No acute osseous abnormality is identified. IMPRESSION: No acute intracranial abnormality. Reviewed, Interpreted and Dictated by Rachelle Bradley MD Transcribed by Ashley Pagan Authenticated and [facility] [place] [place]
--- NOTE | 2025-06-12 12:54 | CT_ITS ---
FINAL REPORT TECHNIQUE: Axial CT of the brain with contrast to evaluate the dural venous sinuses. Coronal reformatted images were obtained. This study was performed with techniques to keep radiation doses as low as reasonably achievable, (ALARA). Individualized dose reduction techniques using automated exposure control or adjustment of mA and/or kV according to the patient's size were employed. CLINICAL HISTORY: Headache, lightheadedness, nausea FINDINGS: The dural venous sinuses are patent. No filling defect is identified. The transverse and sigmoid sinuses are normal. The remaining vascular venous structures are unremarkable. IMPRESSION: No evidence of dural venous thrombosis. Reviewed, Interpreted and Dictated by Rachelle Bradley MD Transcribed by Ashley Pagan Authenticated and . [facility]
[2025-06-12] MEDS: DEXAMETHASONE 4MG/ML 1ML VIAL 10 MG IV (13:07)
[2025-06-12] MEDS: METOCLOPRAMIDE HCL 10MG/2ML VIAL 10 MG IVP (13:08)
[2025-06-12 13:22] LABS: Hematocrit 37.5 % (37.0-47.0); Hemoglobin 13.0 g/dL (12.2-16.2); Immature Granulocytes % 0.2 %; Mean Corpuscular HGB Conc 34.7 g/dL (31.8-35.4); Mean Corpuscular Hemoglobin 31.1 pg (27.0-31.2); Mean Corpuscular Volume 89.7 fl (81-99); Nucleated Red Blood Cells % 0 %; Platelet Count 278 K/mm3 (142-424); Red Blood Count 4.18 M/mm3 (4.20-5.40); Red Cell Distribution Width-SD 37.8 fL; White Blood Count 8.7 K/mm3 (4.8-10.8)
[2025-06-12 13:29] LABS: Albumin Level 3.9 g/dl (3.5-5.0); Chloride 105 mmol/L (98-107); HCG Qualitative, Serum Negative (Negative); Potassium 3.7 mmoL/L (3.5-5.1); Sodium 139 mmol/L (136-145)
--- NOTE | 2025-06-12 13:29 | ECG_ITS ---
APPROVED REPORT Exam: Resting ECG HR:67 bpm ECG Measurements Heart Rate 67 AXES CA 112 P 50 QRSd 85 QRS 89 QT 404 T 53 QTc 420 Conclusion SINUS RHYTHM WITH SHORT CA INTERVAL BORDERLINE ECG Electronically signed by : NAVID SUGGS, 06/15/2025 16:13:20
[2025-06-12 13:32] LABS: Alanine Aminotransferase 30 U/L (12-78); Albumin/Globulin Ratio 1.4 (1.1-1.8); Alkaline Phosphatase 68 U/L (38-126); Anion Gap 11.7 mEq/L (5-15); Aspartate Amino Transferase 36 U/L (14-36); Bilirubin,Total 0.3 mg/dl (0.2-1.3); Blood Urea Nitrogen 7 mg/dl (7-17); Carbon Dioxide 26 mmol/L (22.0-30.0); Creatinine Clearance Estimated 142 mL/min (50-200); Creatinine,Serum 0.60 mg/dl (0.52-1.04); Estimated Glomerular Filt Rate 121 ml/min (>60); GFR (African American) 146 ML/MIN (>60); Globulin 2.8 g/dL (1.3-3.2); Total Protein,Serum 6.7 g/dl (6.3-8.2)
[2025-06-12 13:33] VITALS: BP 122/74; PULSE 66; RESP 18; TEMP 36.9; O2SAT 97
[2025-06-12 13:33] LABS: Calcium 9.0 mg/dl (8.4-10.2); Glucose 113 mg/dl (74-100)
[2025-06-12 13:33] LABS: Microscopic, Urine URINE MICROSCOPIC (MICROSCOPIC)
[2025-06-12 13:36] LABS: Bilirubin,Urine Negative (Negative); Color,Urine YELLOW (Yellow); Glucose,Urine (UA) Negative (Negative); Ketones,Urine Negative (Negative); Leukocyte Esterase,Urine Negative (Negative); PH,Urine 7.0 (5.0-8.5); Protein,Urine Negative (Negative); Specific Gravity, Urine 1.015 (1.005-1.030); Urobilinogen,Urine 0.2 EU/dl (0.2)
[2025-06-12 13:43] LABS: NT Pro Brain Natriuretic Pep. < 20.0 pg/mL (0-125)
[2025-06-12 13:47] LABS: Troponin I < 0.01 ng/ml (0.00-0.034)
[2025-06-12] MEDS: 0.9 % SODIUM CHLORIDE 50 ML VIAL IV (14:00)
[2025-06-12] MEDS: SODIUM CHLORIDE 0.9% 10ML SYR (RAD ONLY) 10 ML IV (14:00)
[2025-06-12] MEDS: IOPAMIDOL-370 (76%);100ML BOTTLE 80 ML IV (14:01)
[2025-06-12 14:27] LABS: Bacteria,Urine 2+ /lpf
[2025-06-12 15:30] VITALS: BP 116/77; PULSE 85; O2SAT 99
[2025-06-12 15:52] VITALS: BP 116/77; PULSE 74; RESP 16; TEMP 37; O2SAT 99
== END 2025-06-12 15:53 | disposition home or self-care (01) ==
PROVIDERS: Physician Assistant; Emergency Provider Emergency Medicine; PCP Nurse Practitioner Family
DX: G43.109 Migraine with aura, not intractable, without status migrainosus (principal); R11.0 Nausea; H53.71 Glare sensitivity; H93.93 Unspecified disorder of ear, bilateral; F17.210 Nicotine dependence, cigarettes, uncomplicated; R50.9 Fever, unspecified
CPT/HCPCS: 70450; 70496; 80053; 81001; 83605; 83880; 84484; 84703; 85025; 87086; 87636; 93005; 96374; 96375; 99284; 99285; J1100; J1200; J2765; Q9967

== ENCOUNTER 2025-06-17 20:27 | Emergency (ER) | payer OTHER, SELFPAY ==
[2025-06-17] VITALS (15 sets, daily range): BP systolic 117–150; BP diastolic 76–104; PULSE 67–89; RESP 14–18; TEMP 36.8; O2SAT 97–100; BMI 26.4
--- OUTSIDE RECORDS SUMMARY | 2025-06-17 20:49 | XMS_ITS | Patient Health Record ---
Author Organization [facility] Address [address] [facility] [address] [place] [id number] Care Team Providers Care Slab Off Mill Tender Name Role Phone Zechariah Haider Primary Care Provider Jamarcus Mason [phone] Allergies Allergen (clinical drug ingredient) Drug/Non Drug Allergy documented on EMR Reaction Allergy Type Onset Date Status amoxicillin Amoxicillin rash Drug Allergy Act rick Medications Medication SIG (Take, Route, Frequency, Duration) Notes Start Date End Date Status Singulair 10 MG 1 tab(s) orally once a day (in the evening) 12/19/2014 Active Aviane 0.1-20 MG-MCG 1 tab(s) orally once a day Active Ventolin HFA 108 (90 Base) MCG/ACT 1 puff inhaled qid, prn Acti ve Zithromax Z-Lyndon 250 MG 2 pills first day then one daily for 4 days orally as directed; Duration: 5 days 01/22/2016 Activ e Promethazine-DM 6.25-15 MG/5ML 5 mL orally every 6 hours prn 01/22/2016 Active Problems Problem Type SNOMED Code ICD Code Onset Dates Problem Status W/U Status Risk Notes Problem Seasonal allergic rhinitis (347891254) Seasonal allergic rhinitis (477.9) Active confirmed Problem Exercise-induce d asthma (15089515) Exercise-induced bronchospasm (493.81) Active confirmed Problem Asthma (130195023) ASTHMA NOS (493.90) Active confirmed Problem Anxiety disorder (695523408) Anxiety disorder (300.00) Active confirmed Problem Mixed anxiety and depressive disorder (807860685) Depression with anxiety (300.4) Active confirmed Plan Of Treatment No Information Insurance Providers Payer Name Payer Address Payer Phone Subscriber Number Group Number Insured Name Patient Relationship to Insured Coverage Start Date Coverage End Date AETMORIAH SANTIZO [id number] BRIGID [employer]AGG [id number] [employer] Self - patient is the insured Medical (General) History Medical History History ICD Code Exercise Induced Asthma fracture of left patella IBS Surgical History Surgery Date(Month/Year) tonsillectomy and adenoidectomy PE tubes Hospitalization History Reason Date(Month/Year) [facility] ER-hurt right foot 02/09 shaking, SOA, pale 03/18/14 [facility] ER-stomach pain 03/27/15 clinic-strep 09/14 Clinic-bronchitis 09/14
--- OUTSIDE RECORDS SUMMARY | 2025-06-17 20:50 | XMS_ITS | Clinical Summary ---
Author Organization Healthcare Address [address] [place] [address] Care Team Providers Care Senior Ui Software Engineer Name Role Phone Trista Martinez PLATER BARREL Primary Care Provider [phone] Social History Tobacco Use Types Packs/Day Years [...] of Treatment Not on file Care Teams Senior Ui Software Engineer Relationship Specialty Start Date End Date Trista Martinez APRN [address] [place] [address] PCP - General 01/10/21
--- OUTSIDE RECORDS SUMMARY | 2025-06-17 20:50 | XMS_ITS | Continuity of Care Document ---
Author Organization [facility] Address [address] [place] [address] Care Team Providers Care Professor Of Biblical Studies Name Role Phone MARILU LIAO Primary Care Provider [phone] Assessment No assessment recorded. Plan of Treatment Reminders Order Date Submit Date Provider Last Modified By Organization Details Last Modified Time Details Appointments MH Initial 60 2024 01:00P M MARYANN Youngblood Not available Not available Not available [facility] 2025 11:00A M Jareth Bill LCSW Not available Not available Not available Lab surgical pathology study - left shoulder Nevus vs melanoma 2024 025 ALEDO [facility], [address], [facility], [place], [address], 05/21/2025 14:11:22 Referral None recorded. Procedures None recorded. Surgeries None recorded. Imaging None recorded. Medication Orders None recorded. Patient TargetsNo targets recorded. Patient Instructions Encounter Date Encounter Id Patient Instructions Last Modified By Organization Details Last Modified Time 05/16/2025 [id number] Apply vaseline and new bandage to area daily until completely healed. PP will call with results. If you have any questions or concerns, call pp or seek medical attention. Not available 05/16/2025 11:18:25 Discussed ABCDE' s of skin lesions. Not available 05/16/2025 11:28:32 Reason for Referral None Reported. Results Created Date Observation Date Name Description Value Unit Range Abnormal Flag Note LastModifiedBy Organization Detail LastModifiedTime 05/16/2005/21/2025 PATHO LOGY REPOR T . Commen t Mater ial submi tted: . shoul vinicio - LEFT SHOUL VINICIO SKIN. Modif iers: left Not Available [facility] ([facility]) [address], [place], [address], 05/21/2025 14:11:22 05/16/2005/21/2025 PATHO LOGY REPOR T . Commen t Clini ramiro histo ry: . L98.9 Not Available [facility] ([facility]) [address], [place], [address], 05/21/2025 14:11:05/16/2005/21/2025 PATHO LOGY REPOR T . 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 COMME NT: ONE PERIP HERAL EDGE INVOL ALONSO. RECOM MEND REPEA T EXCIS ION TO ENSUR E COMPL ETE REMOV AL AND TO DECRE ASE THE RISK OF RECUR RENCE /PROG RESSI ON. REVIE WED BY: RAF BRIAN M.D. [facility] 05/18 0657 Local Not Available [facility] ([facility]) [address], [place], [address], 05/21/2025 14:11:22 05/16/2005/21/2025 PATHO LOGY REPOR T . Commen t Elect nicolás patel d: . Matt MD, [place] topat holog ist Not Available [facility] ([facility]) [address], [place], [address], 05/21/2025 14:11:22 05/16/20 25 05/21/2025 PATHO LOGY REPOR T . Commen t Gross descr iptio n: . 1 Conta iner, forma danielle-f illed , label ed with patie nt ident ifica tion. LEFT SHOUL VINICIO SKIN: 1 SHAVE BIOPS Y OF OTERO SKIN MEASU RING 0.8 X 0.6 X 0.2 CM. ON THE SURFA CE IS A FLAT OTERO-B ROWN 0.8 CM LESIO N. THE LESIO N APPEA RS TO INVOL VE THE OREN N. THE SURGI RAMIRO OREN N IS INKED BLUE. THE SPECI MEN IS BISEC DIAN. IT IS SUBMI TTED ENTIR MICHELLE IN CASSE TTE(S ) A1. STACIA/K YE 05/17 0524 Local Not Available [facility] ([facility]) [address], [place], [address], 05/21/2025 14:11:22 05/16/20 25 05/21/2025 PATHO LOGY REPOR T . Commen t Patho logis t provi ded ICD-1 0: D48.5 Not Available [facility] ([facility]) [address], [place], [address], 05/21/2025 14:11:22 05/16/20 25 05/21/2025 PATHO LOGY REPOR T . Commen t CPT . [address]27 1 Not Available [facility] ([facility]) [address], [place], [address], 05/21/2025 14:11:22 04/20/20 25 04/20/2025 elect lucas orta am No observ ation record ed. bstears [facility] (Med Record) [address], [place], [address], 04/23/2025 09:09:24 06/12/2006/12/2025 CT, venog tamar, head, w/wo contr ast [facility]ion [facility] [address], [place], [address], 06/13/2025 07:51:15 06/12/2006/12/2025 CT, head + brain , w/o contr ast No observ [facility]ion [facility] ed. [facility] [address], [place], [address], 06/13/2025 07:51:37 06/15/2006/12/2025 imagi ng/di agnos tic resul t No observ ation record ed. [facility] [address], [place], [address], 06/15/2025 16:16:30 Result Notes None recorded. Problems Name Problem SNOMED Code Status Onset Date Resolution Date Notes Provider Name and Address Organization Details Recorded Time Anxiety 23198100 Active 023 Mahi Gary null, [place] - [facility] 3 14:23:20 Depressive disorder 99411221 Active 023 Mahi Gary null, [place] - [facility] 3 14:23:26 Problem Notes None recorded. Procedures Surgical History Date Name Laterality Status Provider Name and Address Organization Details Recorded Time 5 Shave Biopsy trunk, arms, or legs completed Karma Saxena, MEDICAL LAB ASSISTANT [address], [place], [address], [place] - [facility] 06/01/2025 10:21:16 5 Shave Biopsy trunk, arms, or legs completed Karma Saxena, MEDICAL LAB ASSISTANT [address], [place], [address], [place] - [facility] 05/16/2025 11:15:42 0 Date of Last Pap Smear completed Ramona [...] completed Not Available Not Available Not Available methocarbam ol 500 mg tablet TAKE 1 TABLET BY MOUTH THREE TIMES DAILY FOR 7 DAYS 05/28 completed Not Available Not Available Not Available [...] ORAL ROUTE ONCE DAILY FOR 4 DAYS 05/16 completed Not Available Not Available Not Available naproxen 250 mg tablet Take 1 tablet twice a day by oral route for 7 days. 04/12 completed Not Available Not Available Not Available [...] Not Available Not Available No t Available lidocaine 5 % topical patch USE 1 PATCH TOPICALLY ONCE DAILY FOR 7 DAYS. LEAVE ON MOST PAINFUL AREA FOR UP TO 12 HOURS 05/28 completed Not Available Not Available Not Available simethicone 125 mg chewable tablet TAKE [...] 4 TO 6 HOURS NEEDED FOR WHEEZING FOR SHORTNESS OF BREATH active Not Available Not Available No t Available oxycodone 5 mg tablet TAKE ONE TABLET [...] TAKE 1 TABLET BY MOUTH ONCE DAILY 05/28 completed Not Available Not Available Not Available [...] BY MOUTH ONCE DAILY FOR BI POLAR 05/28 completed Not Available Not Available Not Available Vitals Date Recorded Body height Body mass index (BMI) Body weight Body temperature Oxygen saturation Oxygen saturation in Arterial blood by Pulse oximetry Respiratory rate Pain severity - 0-10 verbal numeric rating [Score] - Reported Heart rate Systolic And Diastolic Provider Name and Address Organization Details Last Updated DateTime 5 154.94 cm 26.9 kg/m2 96522.2 2 g 98.4 [degF] 98 % 98 % 18 /min 0 77 /min 118/78 mm[Hg] Gerda Etienne [place] - [facility] 5 10:59:30 Social History Question Answer Notes LastModified by [...] Have You Had Close Contact With A [facility] COVID-19 While That Case Was Ill? No [...] You Following? REGULAR Information not available 04/23/2022 Which Illicit Or Recreational Drugs Have You Used? [place]amping [place] Information not available 05/16/2025 Have You Processed Blood Or Body Fluids From An Ebola Virus Disease Patient Without Appropriate PPE? No Information not available 04/23/2022 Do You Reside In Or Have You Traveled To An Area Where Ebola Virus Transmission Is Active? No Information not available 04/23/2022 What Is The Highest Grade Or Level Of School You Have Completed Or The Highest Degree You Have Received? [id number] Information not available 04/23/2022 Have There Been Any Changes To Your Family Or Social Situation? No Information no t available 04/23/2022 What Is The Fluoride Status Of Your Home? Fluoridated Information not available 04/23/2022 Have You Recently Or Are You Planning To Travel To An Area With Zika Virus? No Information not available 04/23/2022 Do You Have A Medical Power Of Field Reimbursement Manager? No Information not available 04/23/2022 What Was The Date Of Your Most Recent Tobacco Screening? 06/01/2025 Information not available 06/01/2025 How Many Children Do You Have? -1 [...] times per week Information not available 11/30/2022 Do you or have you ever used smokeless tobacco? Never used smokeless tobacco Information not available 05/16/2025 Are you currently employed? Yes Information not available 04/23/2022 Do you have transportation difficulties? No Information not available 04/23/2022 Are you able to care for yourself independently? Yes Information not available 04/23/2022 Do you have difficulty dressing, bathing, grooming, or toileting? No Information not available 04/23/2022 Do you or have you ever used e-cigarettes or vape? Never used electronic cigarettes Information not available 05/16/2025 What is your exercise level? Moderate Information not available 04/23/2022 Do you use any illicit or recreational drugs? Yes Information not available 05/16/2025 Do you or have you ever used any other forms of tobacco or nicotine? Yes Information not available 05/16/2025 What is your level of alcohol consumption? Occasional Information not available 04/23/2022 What is your status? Not Information no t available 04/23/2022 Are you able to walk independently without assistance or assistive devices? YESWOREST Information not available 04/23/2022 Do you have difficulty doing errands alone? 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 DX5525-9 Information not available 04/23/2022 Do you have difficulty concentrating, remembering or making decisions? No Information no t available 04/23/2022 Family History Relationship Description Onset Age of this Age Resolved Age Notes LastModified by Organization Details LastModified Time Father Hypertensive disorder cbuckler Not available 2021 14:07:42 Medical History Condition Response Coronary Artery Disease N Blood Diseases N Hyperthyroidism N Rheumatoid arthritis N Blood Transfusion N amputation N Colonoscopy N COPD N Depression N Pneumonia N Incontinence N Edema N Anxiety Disorder N Obesity N Restless Leg Syndrome N Infertility N Polyps N Carpal Tunnel N Mental Disorder N Acid Reflux (GERD) N Stroke N Varicosities N Tendonitis N Skin Cancer N Fibromyalgia N Anal Fissure N Irritable Bowel Syndrome N Kidney Disease N Hospitalizations N Gallstones N Goiter N Acne N Skin Problems N Eating Disorder N Rapp's Esophagus N Hypertriglyceridemia N MRSA exposure N Constipation N Embolism N Deviated Septum N Tuberculosis N Myocardial Infarction N Asthma N Vertigo N Pulmonary Embolism N Chronic Ear Infections N Chicken Pox N Von Willebrands Disease N Lung Disease N Defects or Inherited Disease N Developmental or Behavioral Disorders N Difficulty Swallowing N Ovarian Cyst N Anesthesia Complications N Testosterone Deficiency N Meniere's disease N Head Injury/Concussion N Interstitial Cystitis N Congenital Anomalies N Hypoglycemia N Blood clot N Cellulitis N Endometriosis N Fracture N Liver Disease N Panic Disorder N Schizophrenia N Spina Bifida N Parkinson's Disease N STI N Angina N Thyroid Problems N GI Problems N ADD/ADHD N Anemia N Multiple Sclerosis N Lumbago N Psychiatric Illness N Diabetes N Congestive Heart Failure (CHF) N Hyperlipidemia N Syncope N Abuse/Domestic Violence N Attention Deficient Disorder N Ulcerative colitis N Aneurysm N Bronchitis N Heart Disease N Suicidal Ideation N Pre-Eclampsia N Hypertension N Pancreatitis N Other N Gout N Atrial Fibrillation N congenital heart disease N Kidney Stones N Erectile Dysfunction N Skin Lesions N Murmur N Alzheimer's Disease N Migraine Headaches N Tobacco Abuse N Muscle, Joint, or Bone Problems N Hemorrhoids N Vision or Eye Problems N Arthritis N Cancer N Crohn's Disease N Hypercholesterolemia N Headaches N Heart Problems N Ear or Hearing Problems N Kidney or Bladder Problems N Vitamin B12 Deficiency N AIDS/HIV N Mitral Valve Disorders N Hepatitis N Thyroid Cancer N Neuropathy N History of DVT N Herniated Disc N Autism Spectrum Disorder (ASD) N Thrombophilias N Breast Cancer N Hernia N Plantar Fasciitis N Hospital Admission Other Than N Hypothyroidism N Breast Problem N Vitamin D Deficiency N Bladder or Kidney Problems N Colorectal Cancer N Concussion N Allergies/Hayfever N Osteoarthritis N Disc Protrusion N Esophagitis N Abnormal PAP N Mental Illness N Ovarian Cancer N Bedwetting N Degenerative Disc Disease N Seizures/Epilepsy N Insomnia N Eczema N Diverticulitis N Dementia N Cerebrovascular Disease N Depression N Guillain-[place]ford N Sleep Apnea N Osteoporosis N Gynecological History Statement/Question Response Abnormal Pap N Flow Light Date of LMP 03/12/2025 STIs/STDs N HPV Vaccine N Duration of Flow (days) 3 Current Control Method BCPs Age at Menarche 10 Frequency of Cycle (Q days) 3 Sexually Active? N Menses Monthly N Date of Last Pap Smear 04/05/2020 LMP Approximate Hormone Replacement Therapy N Obstetrics History GPAL:G 0 P 0 0 0 0 Immunizations Vaccine Type Date Status Note Provider Nam e and Address Organization Details Recorded Time Hib-Hep B 0 completed Mahi Stears null, [place] - [facility] 11/30/2022 14:22:42 Hib-Hep B 9 completed Mahi Stears null, [place] - [facility] 11/30/2022 14:22:42 HPV9 7 completed Mahi Stears null, [place] - [facility] 11/30/2022 14:22:42 HPV9 6 completed Mahi Stears null, [place] - [facility] 11/30/2022 14:22:42 HPV9 6 completed Mahi Stears null, [place] - [facility] 11/30/2022 14:22:42 IPV 0 completed Mahi Stears null, [place] - [facility] 11/30/2022 14:22:42 IPV 9 completed Mahi Stears null, [place] - [facility] 11/30/2022 14:22:42 IPV 3 completed Mahi Stears null, [place] - [facility] 11/30/2022 14:22:42 IPV 9 completed Mahi Stears null, [place] [facility] 11/30/2022 14:22:42 MMR 0 completed Mahi Stears null, [place] - [facility] 11/30/2022 14:22:42 MMR 3 completed Mahi Stears null, [place] - [facility] 11/30/2022 14:22:42 Tdap 0 completed Mahi Stears [place] [facility] 11/30/2022 14:22:42 varicella 0 completed Mahi Stears [place] [facility] 11/30/2022 14:22:42 Influenza, split virus, trivalent, PF 8 completed Mahi Ste[place] [facility] 11/30/2022 14:22:42 Hep B, adolescent or pediatric 9 completed Mahi Stears [place] [facility] 11/30/2022 14:22:42 Hep A, ped/adol, 2 dose 7 completed Mahi Ste[place] [facility] 11/30/2022 14:22:42 Hep A, ped/adol, 2 dose 6 completed Mahi Ste[place] [facility] 11/30/2022 14:22:42 Hib (PRP-OMP) 9 completed Mahi Ste[place] [facility] 11/30/2022 14:22:42 meningococcal MCV4P 6 completed Mahi Stears [place] [facility] 11/30/2022 14:22:42 DTaP, unspecified formulation 0 completed Mahi Ste[place] [facility] 11/30/2022 14:22:42 DTaP, unspecified formulation 9 completed Mahi Stears [place] [facility] 11/30/2022 14:22:42 DTaP, unspecified formulation [...] Diagnosis SNOMED-CT Code Diagnosis ICD10 Code Diagnosis IMO Codes Diagnosis Note [id number] Karma Saxena APRN [facility] [address] [place] [address] 05/16/2025 10:48:03 05/16/2025 11:30:30 Skin lesion 41423492 L98.9 47301 Overweight in adulthood with body mass index of 25 or more but less than 30 [id number] Z68.26 [id number] Health Concerns Section Related Observation LastModified by Organization Detai ls LastModified Time None Recorded Concern Status LastModified by Organization Details LastModified Time None Recorded Payers Encounter Date Sequence Insurance Name Policy Number Policy Bolanos Covered Member ID Bolanos Member ID Guarantor Name 05/16/2025 1 [employer] (MEDICAID HMO) Nathaly Plaza [id number] Nathaly Plaza Notes Date Note Type Note Provider Name and Address Organization Details Recorded Time 05/16/2025 text/html ROS as noted in the HPI Nathaly presents today as a new patient to dermatology.Was referred by Marilu Liao APRN for a mole to her left shoulder that she has had for 10 years that has increased in size and changed in color over the summer. Also has a mole between the web of her pinky and her ring finger of her left hand that is tender. She has had this mole for about 10 years and has grown over this time. No family history of skin cancer. Karma Saxena, MEDICAL LAB ASSISTANT [address], [place], [address], [facility] - [facility] 05/16/2025 11:29:33 OBGyn Episode No OBEpisode recorded.
--- OUTSIDE RECORDS SUMMARY | 2025-06-17 20:50 | XMS_ITS | Continuity of Care Document ---
[facility] Address [address] [place] [address] Care Team Providers Care Engraver Set Up Operator Name Role Phone MARILU MARTINEZ Primary Care Provider [phone] Assessment No assessment recorded. Plan of Treatment Reminders Order Date Submit Date Provider Last Modified By Organization Details Last Modified Time Details Appointments MH Initial 60 2024 01:00P M MARYANN Youngblood Not available Not available Not available AUTISM INITIAL 2025 11:00A M Jareth Bill LCSW Not available Not available Not available Lab None recorded . Referral None recorded . Procedures None recorded . Surgeries None recorded . Imaging None recorded . Medication Orders None recorded . Patient TargetsNo targets recorded. Patient Instructions Encounter Date Encounter Id Patient Instructions Last Modified By Organization Details Last Modified Time 05/28/2025 [id number] autism evaluation* bstears Not available 06/13/2025 11:07:17 Reason for Referral None Reported. Results Created Date Observation Date Name Description Value Unit Range Abnormal Flag Note LastModifiedBy Organization Detail LastModifiedTime 05/16/2005/21/2025 PATHO LOGY MISAEL Soares t Mater ial submi tted: . shoul vinicio - LEFT SHOUL VINICIO SKIN. Modif iers: left Not Available [facility] ([facility]) [address] [facility], [place], [address], 05/21/2025 14:11:22 05/16/20 25 05/21/2025 PATHO LOGY REPOR Daniel Soares t Clini ramiro histo ry: . L98.9 Not Available [facility] ([facility]) [address] [facility], [place], [address], 05/21/2025 14:11:22 05/16/20 25 05/21/2025 PATHO LOGY [...] ON. REVIE WED BY: RAF BRIAN M.D. [facility] 05/18 0657 Local Not Available [facility] ([facility]) [address] [facility], [place], [address], 05/21/2025 14:11:22 05/16/20 25 05/21/2025 PATHO LOGY REPOR T . Commen t Elect nicolás patel d: . Matt MD, [place] topat holog ist Not Available [facility] ([facility]) [address] [facility], [place], [address], 05/21/2025 14:11:22 05/16/20 25 05/21/2025 PATHO LOGY [...] YE 05/17 0524 Local Not Available [facility] ([facility]) [address] [facility], [place], [address], 05/21/2025 14:11:22 05/16/2005/21/2025 PATHO LOGY REPOR T . Commen t Patho logis t provi ded ICD-1 0: D48.5 Not Available [facility] ([facility]) [address] [facility], [place], [address], 05/21/2025 14:11:22 05/16/20 25 05/21/2025 PATHO LOGY REPOR T . Commen t CPT . 59269 1 Not Available [facility] ([facility]) [address] [facility], [place], [address], 05/21/2025 14:11:22 06/12/2006/12/2025 CT, venog tamar, head, w/wo contr ast No observ ation record ed. [facility] [address], [place], [place], [address], 06/13/2025 07:51:15 06/12/2006/12/2025 CT, head + brain , w/o contr ast No observ ation record ed. [facility] [address], [place], [place], [address], 06/13/2025 07:51:37 1006/12/2025 rudyi ng/vicente swartz tic resul t No observ ation record ed. [facility] [address], [place], [address], 06/15/2025 16:16:30 Result Notes None recorded. Problems Name Problem SNOMED Code Status Onset Date Resolution Date Notes Provider Name and Address Organization Details Recorded Time Anxiety 44002538 Active 023 Mahi Stears null, [place] - [facility] 3 14:23:20 Depressive disorder 73958179 Active 023 Mahi Stears null, [place] - [facility] 3 14:23:26 Problem Notes None recorded. Procedures Surgical History Date Name Laterality Status Provider Name and Address Organization Details Recorded Time 5 Shave Biopsy trunk, arms, or legs completed Karma Saxena APRN [address], [place], [address], [place] - [facility] 06/01/2025 10:21:16 5 Shave Biopsy trunk, arms, or legs completed Karma Saxena APRN [address], [place], [address], [place] - [facility] 05/16/2025 11:15:42 0 Date [...] mass index (BMI) Body weight Heart rate Body temperature Oxygen saturation Oxygen saturation in Arterial blood by Pulse oximetry Respiratory rate Pain severity - 0-10 verbal numeric rating [Score] - Reported Systolic And Diastolic Provider Name and Address Organization Details Last Updated DateTime 5 154.94 cm 26.8 kg/m2 41608.1 2 g 88 /min 98 [degF] 98 % 98 % 18 /min 0 118/72 mm[Hg] Ramona Langston [place] - [facility] 5 14:37:06 Social History Question Answer Notes LastModified by [...] Illicit Or Recreational Drugs Have You Used? [place] Information not available 05/16/2025 Have You Processed [...] Or The Highest Degree You Have Received? [id number] Information not available 04/23/2022 Have There Been Any Changes To Your Family Or Social Situation? No Information no t available 04/23/2022 What Is The Fluoride Status Of Your Home? Fluoridated Information not available 04/23/2022 Have You Recently Or Are You Planning To Travel To An Area With Zika Virus? No Information not available 04/23/2022 Do You Have A Medical Power Of [place]? 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 [id number] Information not available 04/23/2022 Do you have [...] colitis N Cerebrovascular Disease N Depression N Guillain-Caruthers N Sleep Apnea N Aneurysm N Bronchitis [...] Hib-Hep B 0 completed Mahi Stears null, [place] - [facility] 11/30/2022 14:22:42 Hib-Hep B 9 completed Mahi Stears [place] - [facility] 11/30/2022 14:22:42 HPV9 7 completed Mahi Stears [place] [facility] 11/30/2022 14:22:42 HPV9 6 completed Mahi Ste[place] [facility] 11/30/2022 14:22:42 HPV9 6 completed Mahi Ste[place] [facility] 11/30/2022 14:22:42 IPV 0 completed Mahi Ste[place] [facility] 11/30/2022 14:22:42 IPV 9 completed Mahi Ste[place] [facility] 11/30/2022 14:22:42 IPV 3 completed Mahi Ste[place] [facility] 11/30/2022 14:22:42 IPV 9 completed Mahi Ste[place] [facility] 11/30/2022 14:22:42 MMR 0 completed Mahi Stears [place] [facility] 11/30/2022 14:22:42 MMR 3 completed Mahi Ste[place] [facility] 11/30/2022 14:22:42 Tdap 0 completed Mahi Ste[place] [facility] 11/30/2022 14:22:42 varicella 0 completed Mahi Ste[place] [facility] 11/30/2022 14:22:42 Influenza, split virus, [...] Hib (PRP-OMP) 9 completed Mahi Ste[place] [facility] 11/30/2022 14:22:42 meningococcal MCV4P 6 completed Mahi Stears [place] [facility] 11/30/2022 14:22:42 DTaP, unspecified formulation 0 completed Mahi Stears null, [place] - [facility] 11/30/2022 14:22:42 DTaP, unspecified formulation 9 completed Mahi Stears null, [place] [facility] 11/30/2022 14:22:42 DTaP, unspecified formulation 3 completed Mahi Stears [place] [facility] 11/30/2022 14:22:42 DTaP, unspecified formulation 9 completed Mahi Stears null, [place] - [facility] 11/30/2022 14:22:42 DTaP, unspecified formulation 9 completed Mahi Stears null, [place] - [facility] 11/30/2022 14:22:42 meningococcal MCV4, unspecified formulation 0 completed Mahi Stears [place] [facility] 11/30/2022 14:22:42 Influenza, split virus, quadrivalent, PF 0 completed Mahi Stears null[place] [facility] 11/30/2022 14:22:42 Past Encounters Encounter ID Performer Location Encounter Start Date Encounter Closed Date Diagnosis/Indication Diagnosis SNOMED-CT Code Diagnosis ICD10 Code Diagnosis IMO Codes Diagnosis Note [id number] Karma SaxenaALEJANDRINA [facility] [address] [place] [address] 05/16/2025 10:48:03 05/16/2025 11:30:30 Skin lesion 58222502 L98.9 88906 Overweight in adulthood with body mass index of 25 or more but less than 30 236871795 Z68.26 [id number] Marilu Martinez APRN [address] [address] 05/28/2025 14:07:01 05/28/2025 15:11:43 Depressive disorder 35067813 F32.A Anxiety 20741363 F41.9 Autism suspected 0059579 06 R68.89 [id number] will send for testing- per pt request Health Concerns Section Related Observation LastModified by Organization Detai ls LastModified Time None Recorded Concern Status LastModified by Organization Details LastModified Time None Recorded Payers Encounter Date Sequence Insurance Name Policy Number Policy Bolanos Covered Member ID Bolanos Member ID Guarantor Name 05/28/2025 1 [facility] (MEDICAID HMO) [employer] [id number] [employer] Notes Date Note Type Note Provider Name and Address Organization Details Recorded Time 05/28/2025 text/html ROS as noted in the HPI 24 yr old female presents for a referral for possible autism. 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 has mentioned she had autism before. pt states she has some symptoms of autismno hi or si Marilu Martinez APRN [address], [place], [address], [place] - [facility] 05/28/2025 15:13:53 OBGyn Episode No OBEpisode recorded.
--- OUTSIDE RECORDS SUMMARY | 2025-06-17 20:50 | XMS_ITS | Clinical Summary ---
Author Organization [facility] Address [address] [place] [address] Care Team Providers Care Chemical Research Engineer Name Role Phone None, Physician Primary Care [...] age to complete this topic Care Teams Chemical Research Engineer Relationship Specialty Start Date End Date None, Physician PCP - General 08/26/13
--- OUTSIDE RECORDS SUMMARY | 2025-06-17 20:50 | XMS_ITS | Data Portability ---
Author Organization [facility] Address [address] [place] [address] Care Team Providers Care Ager Tender Name Role Phone MARILU LIAO Primary Care Provider Assessment No assessment recorded. 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 One periphera l edge involved. Re-excisi on of left shoulder. 2024 025 BAKARI [facility], [address], [address], [place], [address], 06/08/2025 14:13:29 surgical pathology study - left shoulder Nevus vs melanoma 2024 025 BAKARI [facility], [address], [address], [place], [address], 05/21/2025 14:11:22 TSH + free T4, serum 2024 025 BAKARI [facility], [address], [address] [address], [place], [address], 03/14/2025 14:08:05 CBC w/ auto diff 2024 025 BAKARI [facility], [address], [place] [address], [place], [address], 03/14/2025 14:08:05 CMP, serum or plasma 2024 025 BAKARI [facility], [address], [address], [place], [address], 03/14/2025 14:08:06 iron + total iron-bind ing capacity (TIBC), serum 2024 025 BAKARI [facility], [address], [address], [place], [address], 03/14/2025 14:08:06 D-dimer, quant, plasma 2024 025 BAKARI [facility], [address], [address], [place], [address], 03/14/2025 14:08:07 magnesium , serum or plasma 2024 025 BAKARI [facility], [address], [address], [place], [address], 03/14/2025 14:08:07 urinalysi s, dipstick 2024 025 [facility], [address] [facility], [place], [address], 02/23/2025 14:18:12 culture, urine 2024 025 BAKARI [facility], [address], [address], [place], [address], 02/25/2025 04:06:16 Referral dermatolo gist referral - change in color and shape of mole, medium priority 2024 025 BAKARI Leger MD, [address] [place] [address], [address], [place], [address], 06/06/2025 04:06:42 Procedures None recorded. Surgeries None recorded. Imaging CT, angiogram , chest, w/ contrast 2024 025 [facility], [address] [facility], [place], [address], 03/19/2025 12:33:10 Medication Orders levofloxa ramy 500 mg tablet 2024 025 [facility], [address], [address], 03/07/2025 05:01:55 Patient TargetsNo targets recorded. Patient Instructions Encounter Date Encounter Id Patient Instructions Last Modified By Organization Details Last Modified Time 05/16/2025 [id number] Apply vaseline and new bandage to area daily until completely healed. PP will call with results. If you have any questions or concerns, call pp or seek medical attention. Not available 05/16/2025 11:18:25 Discussed ABCDE' s of skin lesions. Not available 05/16/2025 11:28:32 05/28/2025 [id number] autism evaluation* bstears Not available 06/13/2025 11:07:17 06/01/2025 [id number] Continue to appl y Vaseline and band aid daily to area. PP will call with results. If you have any questions or concerns, call pp or seek medical attention. 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 Referral for P igmented skin lesion change in color and shape of mole, medium priority Referring Physician: Marilu Liao, Family Medicine, Encounter Date: 02/23/2025 Results Created Date Observation Date Name Description Value Unit Range Abnormal Flag Note LastModifiedBy Organization Detail LastModifiedTime 02/14/2002/17/2025 URINE CULTU NAZANIN ZULETA urine culture, routine Final report abnormal Not Available [facility] ([facility]) [address] [facility], [place], [address], 02/17/2025 14:07:35 02/14/2002/17/2025 URINE CULTU RE, ROUTI NE result 1 Escher ichia coli abnormal Cefaz tierney with an ARBEN <=16 predi cts susce ptibi lity to the oral agent s cefac meka, cefdi breana, cefpo doxim e, cefpr ozil, cefur oxime , cepha lexin , and lorac arbef when used for thera py of uncom plica dian urina ry tract infec tions due to E. coli, Klebs iella pneum oniae , and Prote us mirab ilis. Great er than 100,0 00 colon y formi ng units per mL Not Available [facility] ([facility]) [address] [facility], [place], [address], 02/17/2025 14:07:35 02/14/20 25 02/17/2025 URINE CULTU RE, ROUTI NE antimicrobia l [...] thopr im/Mendoza lfa S Not Available [facility] ([facility]) [address] [facility], [place], [address], 02/17/2025 14:07:35 02/14/20 25 02/14/2025 PLEAS E NOTE please note Commen t The date and/o r time of colle ction was not indic ated on the requi sitio n as requi red by state and nat al law. The date of recei pt of the speci men was used as the colle ction date if not suppl ied. Not Available [facility] ([facility]) [address], [place], [address], 02/17/2025 14:07:36 02/14/20 25 02/13/2025 urina lysis , dipst ick Leukocytes Small Not Available [address], [address], 02/13/2025 18:33:49 02/14/20 25 02/13/2025 urina lysis , dipst ick Nitrite positi ve Not Available [address], [address], 02/13/2025 18:33:49 02/14/20 25 02/13/2025 urina lysis , dipst ick Urobilinogen .2 Not Available [facility] [address], [address], 02/13/2025 18:33:49 02/14/20 25 02/13/2025 urina lysis , dipst ick Protein 30 Not Available [address], [address], 02/13/2025 18:33:49 02/14/20 25 02/13/2025 urina lysis , dipst ick pH 6.0 Not Available [address], [address], 02/13/2025 18:33:49 02/14/20 25 02/13/2025 urina lysis , dipst ick Blood Large Not Available [address], [address], 02/13/2025 18:33:49 02/14/20 25 02/13/2025 urina lysis , dipst ick Specific Hamilton 1.030 Not Available [address], [address], 02/13/2025 18:33:49 02/14/20 25 02/13/2025 urina lysis , dipst ick Ketone Negati ve Not Available [address], [address], 02/13/2025 18:33:49 02/14/20 25 02/13/2025 urina lysis , dipst ick Bilirubin Negati ve Not Available [address], [address], 02/13/2025 18:33:49 02/14/20 25 02/13/2025 urina lysis , dipst ick Glucose Negati ve Not Available [address], [address], 02/13/2025 18:33:49 02/14/20 25 02/13/2025 urina lysis , dipst ick Appearance Clear Not Available [address], [address], 02/13/2025 18:33:49 02/14/20 25 02/13/2025 urina lysis , dipst ick Color Dark Yellow Not Available [address], [address], 02/13/2025 18:33:49 02/24/20 25 02/25/2025 URINE CULTU RENAZANIN NE urine culture, routine Final report Not Available [facility] ([facility]) [address] [facility], [place], [address], 02/25/2025 04:06:16 02/24/20 25 02/25/2025 URINE CULTU RENAZANIN NE result 1 No growth Not Available [facility] ([facility]) [address] [facility], [place], [address], 02/25/2025 04:06:16 02/24/20 25 02/23/2025 urina lysis , dipst ick Leukocytes Negati ve Not Available [address], [address], 02/23/2025 13:47:01 02/24/20 25 02/23/2025 urina lysis , dipst ick Nitrite negati ve Not Available [address], [address], 02/23/2025 13:47:01 02/24/20 25 02/23/2025 urina lysis , dipst ick Urobilinogen .2 Not Available [facility] [address], [address], 02/23/2025 13:47:01 02/24/20 25 02/23/2025 urina lysis , dipst ick Protein Negati ve Not Available [address], [address], 02/23/2025 13:47:01 02/24/20 25 02/23/2025 urina lysis , dipst ick pH 5.5 Not Available [address], [address], 02/23/2025 13:47:01 02/24/20 25 02/23/2025 urina lysis , dipst ick Blood Modera te Not Available [address], [address], 02/23/2025 13:47:01 02/24/20 25 02/23/2025 urina lysis , dipst ick Specific Hamilton 1.020 Not Available Aidan son [address], [address], 02/23/2025 13:47:01 02/24/20 25 02/23/2025 urina lysis , dipst ick Ketone Negati ve Not Available [address], [address], 02/23/2025 13:47:01 02/24/20 25 02/23/2025 urina lysis , dipst ick Bilirubin Negati ve Not Available [address], [address], 02/23/2025 13:47:01 02/24/20 25 02/23/2025 urina lysis , dipst ick Glucose Negati ve Not Available [address], [address], 02/23/2025 13:47:01 02/24/20 25 02/23/2025 urina lysis , dipst ick Appearance Clear Not Available [address], [address], 02/23/2025 13:47:01 02/24/20 25 02/23/2025 urina lysis , dipst ick Color Yellow Not Available [address], [address], 02/23/2025 13:47:01 03/13/20 25 03/14/2025 TSH+F REE T4 TSH 0.501 uIU/m L 0.450- 4.500 normal Not Available [facility] ([facility]) [address] [facility], [place], [address], 03/14/2025 14:08:05 03/13/20 25 03/14/2025 TSH+F REE T4 T4,free(dire ct) 1.29 NG/dL 0.82-1 .77 normal Not Available [facility] ([facility]) [address] [place], [address], 03/14/2025 14:08:05 03/13/20 25 03/14/2025 CBC WITH DIFFE RENTI AL/PL ATELE T WBC 11.1 x10e3 /uL 3.4-10 .8 above high normal Not Available [facility] ([facility]) [address] [place], [address], 03/14/2025 14:08:05 03/13/20 25 03/14/2025 CBC WITH DIFFE RENTI AL/PL ATELE T RBC 4.63 x10e6 /uL 3.77-5 .28 normal Not Available [facility] ([facility]) [address] [place], [address], 03/14/2025 14:08:05 03/13/20 25 03/14/2025 CBC WITH DIFFE RENTI AL/PL ATELE T hemoglobin 14.3 g/dL 11.1-1 5.9 normal Not Available [facility] ([facility]) [address] [place], [address], 03/14/2025 14:08:05 03/13/20 25 03/14/2025 CBC WITH DIFFE RENTI AL/PL ATELE T hematocrit 45.5 % 34.0-4 6.6 normal Not Available [facility] ([facility]) [address] [place], [address], 03/14/2025 14:08:05 03/13/2003/14/2025 CBC WITH DIFFE RENTI AL/PL ATELE T MCV 98 fL 79-97 above high normal Not Available [facility] ([facility]) [address] [place], [address], 03/14/2025 14:08:05 03/13/20 25 03/14/2025 CBC WITH DIFFE RENTI AL/PL ATELE T MCH 30.9 pg 26.6-3 3.0 normal Not Available [facility] ([facility]) [address] [place], [address], 03/14/2025 14:08:05 03/13/20 25 03/14/2025 CBC WITH DIFFE RENTI AL/PL ATELE T MCHC 31.4 g/dL 31.5-3 5.7 below low normal Not Available [facility] ([facility]) [address] [place], [address], 03/14/2025 14:08:05 03/13/20 25 03/14/2025 CBC WITH DIFFE RENTI AL/PL ATELE T RDW 12.6 % 11.7-1 5.4 Not Available [facility] ([facility]) [address] [place], [address], 03/14/2025 14:08:05 03/13/20 25 03/14/2025 CBC WITH DIFFE RENTI AL/PL ATELE T platelets 295 x10e3 /uL 150-45 0 normal Not Available [facility] ([facility]) [address] [place], [address], 03/14/2025 14:08:05 03/13/20 25 03/14/2025 CBC WITH DIFFE RENTI AL/PL ATELE T neutrophils 55 % not estab. normal Not Available [facility] ([facility]) [address] [place], [address], 03/14/2025 14:08:05 03/13/20 25 03/14/2025 CBC WITH DIFFE RENTI AL/PL ATELE T lymphs 37 % not estab. normal Not Available [facility] ([facility]) [address] [place], [address], 03/14/2025 14:08:05 03/13/20 25 03/14/2025 CBC WITH DIFFE RENTI AL/PL ATELE T monocytes 6 % not estab. normal Not Available [facility] ([facility]) [address] [facility], [place], [address], 03/14/2025 14:08:05 03/13/20 25 03/14/2025 CBC WITH DIFFE RENTI AL/PL ATELE T eos 0 % not estab. normal Not Available [facility] ([facility]) [address] [facility], [place], [address], 03/14/2025 14:08:05 03/13/20 25 03/14/2025 CBC WITH DIFFE RENTI AL/PL ATELE T basos 0 % not estab. normal Not Available [facility] ([facility]) [address] [facility], [place], [address], 03/14/2025 14:08:05 03/13/20 25 03/14/2025 CBC WITH DIFFE RENTI AL/PL ATELE T immature cells BUSINESS SERVICES TECH Not Available [facility] ([facility]) [address] [place], [address], 03/14/2025 14:08:05 03/13/20 25 03/14/2025 CBC WITH DIFFE RENTI AL/PL ATELE T neutrophils (absolute) 6.1 x10e3 /uL 1.4-7. 0 normal Not Available [facility] ([facility]) [address] [place], [address], 03/14/2025 14:08:05 03/13/20 25 03/14/2025 CBC WITH DIFFE RENTI AL/PL ATELE T lymphs (absolute) 4.1 x10e3 /uL 0.7-3. 1 above high normal Not Available [facility] ([facility]) [address] [place], [address], 03/14/2025 14:08:05 03/13/20 25 03/14/2025 CBC WITH DIFFE RENTI AL/PL ATELE T monocytes(ab solute) 0.7 x10e3 /uL 0.1-0. 9 normal Not Available [facility] ([facility]) [address] [facility], [place], [address], 03/14/2025 14:08:05 03/13/20 25 03/14/2025 CBC WITH DIFFE RENTI AL/PL ATELE T eos (absolute) 0.0 x10e3 /uL 0.0-0. 4 normal Not Available [facility] ([facility]) [address] [facility], [place], [address], 03/14/2025 14:08:05 03/13/20 25 03/14/2025 CBC WITH DIFFE RENTI AL/PL ATELE T baso (absolute) 0.0 x10e3 /uL 0.0-0. 2 normal Not Available [facility] ([facility]) [address] [facility], [place], [address], 03/14/2025 14:08:05 03/13/20 25 03/14/2025 CBC WITH DIFFE RENTI AL/PL ATELE T immature granulocytes 2 % not estab. Not Available [facility] ([facility]) [address] [facility], [place], [address], 03/14/2025 14:08:05 03/13/2003/14/2025 CBC WITH DIFFE RENTI AL/PL ATELE T immature grans (abs) 0.2 x10e3 /uL 0.0-0. 1 above high normal (An eleva dian perce ntage of Immat ure Granu locyt [...] ramiro signi fican ce.) Not Available [facility] ([facility]) [address] [facility], [place], [address], 03/14/2025 14:08:05 03/13/20 25 03/14/2025 CBC WITH DIFFE RENTI AL/PL ATELE T NRBC BUSINESS SERVICES TECH Not Available [facility] ([facility]) [address] [facility], [place], [address], 03/14/2025 14:08:05 03/13/20 25 03/14/2025 CBC WITH DIFFE RENTI AL/PL ATELE T hematology comments: BUSINESS SERVICES TECH Not Available [facility] ([facility]) [address] [facility], [place], [address], 03/14/2025 14:08:05 03/13/20 25 03/14/2025 COMP. METAB OLIC PANEL (14) glucose 95 mg/dL 70-99 normal Not Available [facility] ([facility]) [address] [facility], [place], [address], 03/14/2025 14:08:06 03/13/20 25 03/14/2025 COMP. METAB OLIC PANEL (14) BUN 7 mg/dL 6-20 normal Not Available [facility] ([facility]) [address] [place] [place], [address], 03/14/2025 14:08:06 03/13/20 25 03/14/2025 COMP. METAB OLIC PANEL (14) creatinine 0.67 mg/dL 0.57-1 .00 normal Not Available [facility] ([facility]) [address] [place] [place], [address], 03/14/2025 14:08:06 03/13/20 25 03/14/2025 COMP. METAB OLIC PANEL (14) eGFR 124 mL/mi n/1.7 3 >59 normal Not Available [facility] ([facility]) [address] [place] [place], [address], 03/14/2025 14:08:06 03/13/20 25 03/14/2025 COMP. METAB OLIC PANEL (14) BUN/creatini ne ratio 10 9-23 normal Not Available [facility] ([facility]) [address] [place], [address], 03/14/2025 14:08:06 03/13/20 25 03/14/2025 COMP. METAB OLIC PANEL (14) sodium 141 mmol/ L 134-14 4 normal Not Available [facility] ([facility]) [address] [place], [address], 03/14/2025 14:08:06 03/13/20 25 03/14/2025 COMP. METAB OLIC PANEL (14) potassium 3.9 mmol/ L 3.5-5. 2 normal Not Available [facility] ([facility]) [address] [place], [address], 03/14/2025 14:08:06 03/13/20 25 03/14/2025 COMP. METAB OLIC PANEL (14) chloride 106 mmol/ L 96-106 normal Not Available [facility] ([facility]) [address] [place], [address], 03/14/2025 14:08:06 03/13/20 25 03/14/2025 COMP. METAB OLIC PANEL (14) carbon dioxide, total 23 mmol/ L 20-29 normal Not Available [facility] ([facility]) [address] [place], [address], 03/14/2025 14:08:06 03/13/20 25 03/14/2025 COMP. METAB OLIC PANEL (14) calcium 9.2 mg/dL 8.7-10 .2 normal Not Available [facility] ([facility]) [address] [place], [address], 03/14/2025 14:08:06 03/13/20 25 03/14/2025 COMP. METAB OLIC PANEL (14) protein, total 6.4 g/dL 6.0-8. 5 normal Not Available [facility] ([facility]) [address] [place] [place], [address], 03/14/2025 14:08:06 03/13/20 25 03/14/2025 COMP. METAB OLIC PANEL (14) albumin 4.1 g/dL 4.0-5. 0 normal Not Available [facility] ([facility]) [address] [place], [address], 03/14/2025 14:08:06 03/13/20 25 03/14/2025 COMP. METAB OLIC PANEL (14) globulin, total 2.3 g/dL 1.5-4. 5 Not Available [facility] ([facility]) [address] [place], [address], 03/14/2025 14:08:06 03/13/20 25 03/14/2025 COMP. METAB OLIC PANEL (14) bilirubin, total 0.2 mg/dL 0.0-1. 2 normal Not Available [facility] ([facility]) [address] [place] [place], [address], 03/14/2025 14:08:06 03/13/20 25 03/14/2025 COMP. METAB OLIC PANEL (14) alkaline phosphatase 65 IU/L 44-121 normal Not Available [facility] [address] [place], [address], 03/14/2025 14:08:06 03/13/20 25 03/14/2025 COMP. METAB OLIC PANEL (14) AST (SGOT) 14 IU/L 0-40 normal Not Available [facility] ([facility]) [address] [place], [address], 03/14/2025 14:08:06 03/13/20 25 03/14/2025 COMP. METAB OLIC PANEL (14) ALT (SGPT) 15 IU/L 0-32 normal Not Available [facility] ([facility]) [address] [place] [place], [address], 03/14/2025 14:08:06 03/13/20 25 03/14/2025 IRON AND TIBC iron bind.cap.(TI BC) 371 ug/dL 250-45 0 normal Not Available [facility] ([facility]) [address] [facility], [place], [address], 03/14/2025 14:08:06 03/13/2003/14/2025 IRON AND TIBC UIBC 255 ug/dL 131-42 5 normal Not Available [facility] ([facility]) [address] [facility], [place], [address], 03/14/2025 14:08:06 03/13/2003/14/2025 IRON AND TIBC iron 116 ug/dL 27-159 normal Not Available [facility] ([facility]) [address] [place], [address], 03/14/2025 14:08:06 03/13/2003/14/2025 IRON AND TIBC iron saturation 31 % 15-55 normal Not Available [facility]) [address] [facility], [place], [address], 03/14/2025 14:08:06 03/13/2003/14/2025 D-DIM ER D-dimer 0.42 [...] old 0.80 mg/L FEU. Not Available [facility] ([facility]) [address] [facility], [place], [address], 03/14/2025 14:08:06 03/13/20 25 03/14/2025 MAGNE SIUM magnesium 2.2 mg/dL 1.6-2. 3 normal Not Available [facility] ([facility]) [address] [facility], [place], [address], 03/14/2025 14:08:07 05/16/2005/21/2025 PATHO LOGY REPOR T . Commen t Mater ial submi tted: . shoul vinicio - LEFT SHOUL VINICIO SKIN. Modif iers: left Not Available [facility] ([facility]) [address] [facility], [place], [address], 05/21/2025 14:11:22 05/16/2005/21/2025 PATHO LOGY REPOR T . Commen t Clini ramiro histo ry: . L98.9 Not Available [facility] ([facility]) [address] [place], [address], 05/21/2025 14:11:22 05/16/20 25 05/21/2025 PATHO LOGY [...] /PROG RESSI ON. REVIE WED BY: RAF CHARLES M.D. [facility] 05/18 0657 Local Not Available [facility] ([facility]) [address] [facility], [place], [address], 05/21/2025 14:11:22 05/16/2005/21/2025 PATHO LOGY REPOR T . Commen t Minh patel d: . Matt MD, [place] topat holog ist Not Available [facility] ([facility]) [address] [place], [address], 05/21/2025 14:11:22 05/16/2005/21/2025 PATHO LOGY REPOR T [...] YE 05/17 0524 Local Not Available [facility] ([facility]) [address] [facility], [place], [address], 05/21/2025 14:11:22 05/16/20 25 05/21/2025 PATHO LOGY REPOR T . Commen t Patho logis t provi ded ICD-1 0: D48.5 Not Available [facility] ([facility]) [address] [facility], [place], [address], 05/21/2025 14:11:22 05/16/20 25 05/21/2025 PATHO LOGY REPOR T . Commen t CPT . 97785 1 Not Available [facility] ([facility]) [address] [facility], [place], [address], 05/21/2025 14:11:22 06/01/20 25 06/08/2025 PATHO LOGY REPOR T . Commen t Mater ial submi tted: . shoul vinicio - LEFT SHOUL VINICIO RE-EX CISIO N. Modif iers: left Not Available [facility] ([facility]) [address] [facility], [place], [address], 06/08/2025 14:13:29 06/01/20 25 06/08/2025 PATHO LOGY REPOR T . Commen t Clini ramiro histo ry: . PREVI OUS PATHO LOGY SHOWE D SEVER E ATYPI A WITH HALO PHENO ERIN ; ONE PERIP HERAL EDGE INVOL ALONSO Not Available [facility] ([facility]) [address] [facility], [place], [address], 06/08/2025 14:13:29 06/01/20 25 06/08/2025 PATHO LOGY REPOR T . Commen t Diagn osis: WOUND OF OPERA TION. COMME NT: NO RESID UAL DYSPL ASTIC NEVUS IDENT IFIED . WOUND OF OPERA TION IS DIFFU SELY PRESE NT AT TISSU E EDGES . SMI 06/08 1241 Local Not Available [facility] ([facility]) [address] [place], [address], 06/08/2025 14:13:29 06/01/20 25 06/08/2025 PATHO LOGY REPOR T . Commen t Elect nicolás patel d: . Raf charles MD, [place] topat holog ist Not Available [facility] ([facility]) [address] [place], [address], 06/08/2025 14:13:29 06/01/20 25 06/08/2025 PATHO LOGY REPOR T . Commen t Gross descr iptio n: . 1 Conta iner, forma danielle-f illed , label ed with patie nt ident ifica tion. LEFT SHOUL VINICIO RE-EX CISIO N: RECEI ALONSO ARE 3 FRAGM ENTS OF WHITE TISSU E MEASU RING 0.6 X 0.5 X 0.2 CM. TISSU E IS NOT INKED . SPECI MEN IS SECTI ONED. IT IS SUBMI TTED IN ITS ENTIR ETY IN CASSE TTE A1. THERE ARE 6 PIECE S TOTAL . ORT/O RT 06/06 0841 Local Not Available [facility] ([facility]) [address] [place], [address], 06/08/2025 14:13:29 06/01/20 25 06/08/2025 PATHO LOGY REPOR T . Commen t Patho logis t provi ded ICD-1 0: L90.5 Not Available [facility] ([facility]) [address] [facility], [place], [address], 06/08/2025 14:13:29 06/01/20 25 06/08/2025 PATHO LOGY REPOR T . Commaspen t CPT . 29324 1 Not Available [facility] ([facility]) [address] [facility], [place], [address], 06/08/2025 14:13:29 03/03/20 25 03/03/2025 XR, chest , 2 view No observ ation record ed. [facility] [id number], [place], [address], 03/09/2025 08:31:05 03/19/20 CT, angio gram, chest , w/ contr ast No observ ation record ed. [facility] [address] [facility], [place], [address], 03/22/2025 09:23:33 04/01/20 25 04/01/2025 CT, neck, soft tissu e, w/ contr ast No observ ation record ed. [facility] [address], [place], [address], 04/02/2025 16:17:10 04/20/20 25 04/20/2025 elect lucas orta am No observ ation record ed. [facility] (Med Record) [address], [place], [address], 04/23/2025 09:09:24 06/12/20 25 06/12/2025 CT, venog tamar, head, w/wo contr ast No observ [facility] ed[facility] [address], [place], [address], 06/13/2025 07:51:15 06/12/2006/12/2025 CT, head + brain , w/o contr ast No observ [facility]ion [facility] ed. [facility] [address], [place], [address], 06/13/2025 07:51:37 06/15/2006/12/2025 imagi ng/di agnos tic resul t No observ ation record ed. [facility] [address], [place], [id number], 06/15/2025 16:16:30 Result Notes None recorded. Problems Name Problem SNOMED Code Status Onset Date Resolution Date Notes Provider Name and Address Organization Details Recorded Time Anxiety 21408207 Active 023 Mahi Abdirahman null, [place] - [facility] 3 14:23:20 Depressive disorder 55773399 Active 023 Mahifransisco Gary null, [place] - [facility] 3 14:23:26 Problem Notes None recorded. Procedures Surgical History Date Name Laterality Status Provider Name and Address Organization Details Recorded Time 5 Shave Biopsy trunk, arms, or legs completed Karma Saxena APRN [address], [place], [address], [place] - [facility] 06/01/2025 10:21:16 5 Shave Biopsy trunk, arms, or legs completed Karma Saxena APRN [address], [place], [address], [place] - [facility] 05/16/2025 11:15:42 0 Date of Last Pap Smear completed Ramona Langston [place] - [facility] 04/23/2022 14:06:58 Imaging Results None [...] Not Available Vitals Date Recorded Body height Provider Name an d Address Organization Details Last Updated DateTime 02/23/2025 154.94 cm Ramona Langston [facility] 0 02/23/2025 13:38:42 Date Recorded Body height Body mass index (BMI) Body weight Heart rate Oxygen saturation Oxygen saturation in Arterial blood by Pulse oximetry Respiratory rate Pain severity - 0-10 verbal numeric rating [Score] - Reported Systolic And Diastolic Provider Name and Address Organization Details Last Updated DateTime 5 154.94 cm 26.5 kg/m2 89211.6 3 g 88 /min 99 % 99 % 16 /min 0 118/82 mm[Hg] Ramona Langston [place] - [facility] 5 15:24:58 Date Recorded Body height Body mass index (BMI) Body weight Body temperature Oxygen saturation Oxygen saturation in Arterial blood by Pulse oximetry Respiratory rate Pain severity - 0-10 verbal numeric rating [Score] - Reported Heart rate Systolic And Diastolic Provider Name and Address Organization Details Last Updated DateTime 5 154.94 cm 26.9 kg/m2 90797.2 2 g 98.4 [degF] 98 % 98 % 18 /min 0 77 /min 118/78 mm[Hg] Gerda Etienne [place] - [facility] 5 10:59:30 Date Recorded Body height Body mass index (BMI) Body weight Heart rate Body temperature Oxygen saturation Oxygen saturation in Arterial blood by Pulse oximetry Respiratory rate Pain severity - 0-10 verbal numeric rating [Score] - Reported Systolic And Diastolic Provider Name and Address Organization Details Last Updated DateTime 5 154.94 cm 26.8 kg/m2 51478.1 2 g 88 /min 98 [degF] 98 % 98 % 18 /min 0 118/72 mm[Hg] Ramona Langston [place] - [facility] 14:37:06 Date Recorded Body height Body mass index (BMI) Body weight Body temperature Oxygen saturation Oxygen saturation in Arterial blood by Pulse oximetry Respiratory rate Pain severity - 0-10 verbal numeric rating [Score] - Reported Heart rate Systolic And Diastolic Provider Name and Address Organization Details Last Updated DateTime 154.94 cm 27 kg/m2 07580.7 1 g 97.4 [degF] 98 % 98 % 18 /min 0 83 /min 134/82 mm[Hg] Gerda Etienne [place] - [facility] 09:53:46 Social History Question Answer Notes LastModified by Organizat ion Details LastModified Time Tobacco Smoking Status Never Smoker Ramona Langston [facility] 04/23/2022 14:08:19 Do You Have An [...] Illicit Or Recreational Drugs Have You Used? [place] Information not available 05/16/2025 Have You Processed [...] Or The Highest Degree You Have Received? KY12920-5 Information not available 04/23/2022 Have There Been Any Changes To Your Family Or Social Situation? No Information no t available 04/23/2022 What Is The Fluoride Status Of Your Home? Fluoridated Information not available 04/23/2022 Have You Recently Or Are You Planning To Travel To An Area With Zika Virus? No Information not available 04/23/2022 Do You Have A Medical Power Of Credentialing Manager? 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 CP9315-6 Information not available 04/23/2022 Do you have [...] colitis N Cerebrovascular Disease N Depression N Guillain-[place] N Sleep Apnea N Aneurysm N Bronchitis [...] Hib-Hep B 0 completed Mahi Stears null, [place] - [facility] 11/30/2022 14:22:42 Hib-Hep B 9 completed Mahi Stears null, [facility] 11/30/2022 14:22:42 HPV9 7 completed Mahi Stears null, [facility] 11/30/2022 14:22:42 HPV9 6 completed Mahi Stears null, [facility] 11/30/2022 14:22:42 HPV9 6 completed Mahi Stears null, [facility] 11/30/2022 14:22:42 IPV 0 completed Mahi Stears null, [facility] 11/30/2022 14:22:42 IPV 9 completed Mahi Stears null, [facility] 11/30/2022 14:22:42 IPV 3 completed Mahi Stears null, [facility] 11/30/2022 14:22:42 IPV 9 completed Mahi Stears null, [facility] 11/30/2022 14:22:42 MMR 0 completed Mahi Stears null, [place] - [facility] 11/30/2022 14:22:42 MMR 3 completed Mahi Stears null, [place] - [facility] 11/30/2022 14:22:42 Tdap 0 completed Mahi Stears null, [facility] 11/30/2022 14:22:42 varicella 0 completed Mahi [...] 11/30/2022 14:22:42 DTaP, unspecified formulation 9 completed Amhi Stears null, [place] - [facility] 11/30/2022 14:22:42 [...] ICD10 Code Diagnosis IMO Codes Diagnosis Note [id number] Marilu Liao [address] [address] 04/23/2022 13:46:31 04/23/2022 15:43:23 Venereal disease screening 680549171 Z11.3 [id number] Marilu Liao [address] [address] 11/30/2022 14:10:18 11/30/2022 15:12:04 Acute bronchitis 67004611 J20.9 [id number] Marilu Liao[address] [address] 12/10/2022 13:15:42 12/10/2022 14:23:59 Acute bronchitis 11081791 J20.9 Allergic rhinitis 769783 04 J30.9 [id number] Marilu Liao [address] [address] 09/20/2023 13:30:04 09/20/2023 14:00:55 Tuberculosis screening 937098974 Z11.1 [id number] Marilu Liao[address] [address] 10/07/2023 13:35:28 10/07/2023 14:38:25 Tuberculosis screening 089886103 Z11.1 [id number] Marilu Liao [address] [address] 04/03/2024 15:36:36 04/03/2024 16:07:26 Abdominal pain 76881958 R10.9 if symptoms worsen go to ed for eval Acute urin krupa tract infection 432545662 N39.0 Patient presents with symptoms of UTI. Results of dipstick were positive for UTI. Advised to drink clear fluids, reduce sexual activity, Tylenol for pain and take prescribed medication s as instructed . wear cotton under wear urinate after intercours e Patient encouraged to follow up within 1 week if not improving. [id number] Shanthijo Liao [address] [address] 02/13/2025 18:14:12 02/13/2025 18:34:46 Acute urinary tract infection 093396487 N39.0 [id number] Patient presents with symptoms of UTI. Results of dipstick were positive for UTI. Advised to drink clear fluids, reduce sexual activity, Tylenol for pain and take prescribed medication s as instructed . wear cotton under wear urinate after intercours e Patient encouraged to follow up within 1 week if not improving. [id number] [facility] [address] [address] 02/23/2025 13:36:29 02/23/2025 14:26:18 Acute urinary tract infection 245297451 N39.0 356844 Patient presents with symptoms of UTI.increa se fluidscran mijares juicewipe front to backvoid after intercours [place] not hold urineantib iotics as orderedcot ton underwearP atient encouraged to follow up within 1 week if not improving. Pigmented skin lesion 20 4665229 D22.9 134097 derm referral Acute bronchitis 4830127 2 J20.9 72814228 antibiotic s and inhaler as needed [id number] Marilu Liao [address] [address] 03/13/2025 14:52:48 03/13/2025 15:45:12 Dyspnea 280927312 R06.[address] to r/o pe- takes control pills, recent illness,pa lpitations advised to go to edif pt does not go to ed needs ct stat Palpitations 14260886 R0 0.2 23050 heart monitor orderedif any symptoms go to ed for eval [id number] Karma Saxena APRN [facility] [address] [place] [address] 05/16/2025 10:48:03 05/16/2025 11:30:30 Skin lesion 97867400 L98.9 15303 Overweight in adulthood with body mass index of 25 or more but less than 30 830144745 Z68.26 1877932684 [id number] Marilu Liao APRN [facility] [address] [place] [address] 05/28/2025 14:07:01 05/28/2025 15:11:43 Depressive disorder 30248997 F32.A Anxiety 36166141 F41.9 Autism suspected 2712027 06 R68.89 [id number] will send for testing- per pt request [id number] Karma Saxena APRN [facility] [address] [place] [address] 06/01/2025 09:47:50 06/01/2025 10:53:51 Dysplastic nevus of skin 150639886 D22.9 743119 Overweight in adulthood with body mass index of 25 or more but less than 30 240500966 Z68.27 99226439 Health Concerns Section Related Observation LastModified by Organization Detai ls LastModified Time None Recorded Concern Status LastModified by Organization Details LastModified Time None Recorded Advance Directives Directive N: Payers Insurance Date Sequence Insurance Name Policy Number Policy Bolanos Covered Member ID Bolanos Member ID Guarantor Name 05/30/2025 [place] [id number] [employer] ([place]ICAID[place] Nathaly Plaza [id number] N[employer]aly [employer] 05/30/2025 1 [facility] (MEDICAID O) Nathaly Plaza [id number] Nathaly [employer] Notes Date Note Type Note Provider Name and Address Organization Details Recorded Time 02/23/2025 text/html 24 yr old female presents to follow up on uti- still feels like she may have it. She also feels like she may have bronchitis, cough and chest congestion.also has a mole to left shoulder that has gotten bigger and looks like it is changing Marilu Liao APRN [address], [place], [address], [place] - [facility] 02/23/2025 14:22:00 03/13/2025 text/html 24 yr old female presents for dizzy episodes, feels like she is going to pass out at times. states sob and feels her heart racing. Has taken different antibiotics, and steroids recently. Marilu Liao APRN [address], [place], [address], [employer] - [facility] 04/24/2025 17:30:15 05/16/2025 text/html ROS as noted in the [...] No family history of skin cancer. Karma Saxena APRN [address], [place], [address], [employer] - [facility] 05/16/2025 11:29:33 05/28/2025 text/html ROS as noted in the HPI 24 yr old female presents for a referral for possible autism. She is recently going through a lot of life changes and her behavioral health BUSINESS SERVICES TECH couldn't get her in for a few weeks. has mentioned she had autism before. pt states she has some symptoms of autismno hi or si Marilu Liao APRN [address], [place], [address], [employer] - [facility] 05/28/2025 15:13:53 06/01/2025 text/html ROS as noted in the HPI Nathaly presents today for re-excision to her left shoulder. Was seen in office on 05/16/25 for a biopsy of a skin lesion to her left shoulder.Pathology report showed severe atypia with halo phenomenon and recommended re-excision. Karma Saxena APRN [address], [place], [address], [employer] - [facility] 06/01/2025 10:30:45 OBGyn Episode No OBEpisode recorded.
--- OUTSIDE RECORDS SUMMARY | 2025-06-17 20:50 | XMS_ITS | Continuity of Care Document ---
Author Organization [facility] Address [address] [place] [address] Care Team Providers Care Civil Rights Attorney Name Role Phone MARILU LIAO [facility] [...] Re-excisi on of left shoulder. 2024 025 FUQUAY VARINA [facility], [address], [address], [place], [address], 06/08/2025 14:13:29 Referral None recorded. Procedures None recorded. Surgeries None recorded. Imaging None recorded. Medication Orders None recorded. Patient TargetsNo targets recorded. Patient Instructions Encounter Date Encounter Id Patient Instructions Last Modified By Organization Details Last Modified Time 06/01/2025 [id number] Continue to appl y Vaseline and band aid daily to area. PP will call with results. If you have any questions or concerns, call pp or seek medical attention. [email or web address] Not available 06/01/2025 10:22:06 Reason for Referral None Reported. Results Created Date Observation Date Name Description Value Unit Range Abnormal Flag Note LastModifiedBy Organization Detail LastModifiedTime 05/16/2005/21/2025 PATHO LOGY REPOR T . Commen t Mater ial submi tted: . shoul vinicio - LEFT SHOUL VINICIO SKIN. Modif iers: left Not Available [facility] ([facility]) [address] [facility], [place], [address], 05/21/2025 14:11:22 05/16/20 25 05/21/2025 PATHO LOGY REPOR T . Commen t Clini ramiro histo ry: . L98.9 Not Available [facility] ([facility]) [address] [facility], [place], [address], 05/21/2025 14:11:05/16/2005/21/2025 PATHO LOGY REPOR T . [...] ON. REVIE WED BY: RAF CHARLES M.D. [facility] 05/18 0657 Local Not Available [facility] ([facility]) [address] [facility], [place], [address], 05/21/2025 14:11:22 05/16/2005/21/2025 PATHO LOGY REPOR T . Commen t Elect nicolás horner jroge d: . Matt MD, Daisy topat holog ist Not Available [facility] ([facility]) [address] [facility], [place], [address], 05/21/2025 14:11:22 05/16/20 25 05/21/2025 PATHO LOGY [...] YE 05/17 0524 Local Not Available [facility] ([facility]) [address] [facility], [place], [address], 05/21/2025 14:11:22 05/16/20 25 05/21/2025 PATHO LOGY REPOR T . Commen t Patho logis t provi ded ICD-1 0: D48.5 Not Available [facility] ([facility]) [address] [facility], [place], [address], 05/21/2025 14:11:22 05/16/20 25 05/21/2025 PATHO LOGY REPOR T . Commen t CPT . 41972 1 Not Available [facility] ([facility]) [address] [place], [address], 05/21/2025 14:11:22 06/01/20 25 06/08/2025 PATHO LOGY REPOR T . Commen t Mater ial submi tted: . shoul vinicio - LEFT SHOUL VINICIO RE-EX CISIO N. Modif iers: left Not Available [facility] ([facility]) [address] [facility], [place], [address], 06/08/2025 14:13:29 06/01/2006/08/2025 PATHO LOGY REPOR T . Commen t Clini ramiro histo ry: . PREVI OUS PATHO LOGY SHOWE D SEVER E ATYPI A WITH HALO PHENO ERIN ; ONE PERIP HERAL EDGE INVOL ALONSO Not Available [facility] ([facility]) [address] [facility], [place], [address], 06/08/2025 14:13:29 06/01/2006/08/2025 PATHO LOGY REPOR T . Commen t Diagn osis: WOUND OF OPERA TION. COMME NT: NO RESID UAL DYSPL ASTIC NEVUS IDENT IFIED . WOUND OF OPERA TION IS DIFFU SELY PRESE NT AT TISSU E EDGES . SMI 06/08 1241 Local Not Available [facility] ([facility]) [address] [facility], [place], [address], 06/08/2025 14:13:29 06/01/2006/08/2025 PATHO LOGY REPOR T . Commen t Elect nicolás patel d: . Raf charles MD, Daisy topat holog ist Not Available [facility] ([facility]) [address] [facility], [place], [address], 06/08/2025 14:13:29 06/01/2006/08/2025 PATHO LOGY REPOR T . Commen t [...] RT 06/06 0841 Local Not Available [facility] ([facility]) [address] [facility], [place], [address], 06/08/2025 14:13:29 06/01/2006/08/2025 PATHO LOGY REPOR T . Commen t Patho logis t provi ded ICD-1 0: L90.5 Not Available [facility] ([facility]) [address] [facility], [place], [address], 06/08/2025 14:13:29 06/01/20 25 06/08/2025 PATHO LOGY REPOR T . Commen t CPT . 63193 1 Not Available [facility] ([facility]) [address] [facility], [place], [address], 06/08/2025 14:13:29 06/12/20 25 06/12/2025 CT, venog tamar, head, w/wo contr ast No observ ation record ed. [facility] [address], [place], [address], 06/13/2025 07:51:15 06/12/20 25 06/12/2025 CT, head + brain , w/o contr ast No observ ation record ed. [facility] [address], [place], [address], 06/13/2025 07:51:37 06/15/2006/12/2025 rudyi jhon/vicente swartz tic resul t No observ ation record ed. [facility] [address], [place], [address], 06/15/2025 16:16:30 Result Notes None recorded. Problems Name Problem SNOMED Code Status Onset Date Resolution Date Notes Provider Name and Address Organization Details Recorded Time Anxiety 43643521 Active 023 Mahi Stears null, [place] - [facility] 3 14:23:20 Depressive disorder 30836298 Active 023 Mahi Stears null, [place] - [facility] 3 14:23:26 Problem Notes None recorded. Procedures Surgical History Date Name Laterality Status Provider Name and Address Organization Details Recorded Time 5 Shave Biopsy trunk, arms, or legs completed Karma Saxena APRN [address], [place], [address], [place] - [facility] 06/01/2025 10:21:16 5 Shave Biopsy trunk, arms, or legs completed Karma Saxena APRN [address], [place], [address], [place] - [facility] 05/16/2025 11:15:42 0 Date of Last Pap Smear completed Ramona Langston [place] - [facility] 04/23/2022 14:06:58 Imaging Results None [...] day by oral route for 7 days. 04/03 /2023 completed Not Available Not Available Not Available [...] Details Last Updated DateTime 5 154.94 cm 27 kg/m2 34037.7 1 g 97.4 [degF] 98 % 98 % 18 /min 0 83 /min 134/82 mm[Hg] Gerda Etienne [place] - [facility] 5 09:53:46 Social History Question Answer Notes LastModified [...] Illicit Or Recreational Drugs Have You Used? [place] Information not available 05/16/2025 Have You Processed [...] Or The Highest Degree You Have Received? [id number] Information not available 04/23/2022 Have There Been Any Changes To Your Family Or Social Situation? No Information no t available 04/23/2022 What Is The Fluoride Status Of Your Home? Fluoridated Information not available 04/23/2022 Have You Recently Or Are You Planning To Travel To An Area With Zika Virus? No Information not available 04/23/2022 Do You Have A Medical Power Of Oncology Admin? 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 [id number] Information not available 04/23/2022 Do you have [...] colitis N Cerebrovascular Disease N Depression N Guillain-[place] N Sleep Apnea N Aneurysm N Bronchitis [...] Hib-Hep B 0 completed Mahi Stears null, [place] [facility] 11/30/2022 14:22:42 Hib-Hep B 9 completed Mahi Stears null, [place] [facility] 11/30/2022 14:22:42 HPV9 7 completed Mahi Stears null, [place] - [facility] 11/30/2022 14:22:42 HPV9 6 completed Mahi Stears null, [place] - [facility] 11/30/2022 14:22:42 HPV9 6 completed Mahi Stears null, [place] - [facility] 11/30/2022 14:22:42 IPV 0 completed Mahi Stears null, [place] - [facility] 11/30/2022 14:22:42 IPV 9 completed Mahi Stears null, [place] - [facility] 11/30/2022 14:22:42 IPV 3 completed Mahi Stears [place], [place] [facility] 11/30/2022 14:22:42 IPV 9 completed Mahi Stears [place], [place] [facility] 11/30/2022 14:22:42 MMR 0 completed Mahi Stears null, [place] - [facility] 11/30/2022 14:22:42 MMR 3 completed Mahi Stears null, [place] - [facility] 11/30/2022 14:22:42 Tdap 0 completed Mahi Stears null, [place] - [facility] 11/30/2022 14:22:42 varicella 0 completed [...] virus, quadrivalent, PF 0 completed Mahi Stears [place], [place] - [facility] 11/30/2022 14:22:42 Past Encounters Encounter ID Performer Location Encounter Start Date Encounter Closed Date Diagnosis/Indication Diagnosis SNOMED-CT Code Diagnosis ICD10 Code Diagnosis IMO Codes Diagnosis Note [id number] Karma Saxena [facility] [address] [place] [address] 05/16/2025 10:48:03 05/16/2025 11:30:30 Skin lesion 53839642 L98.9 42167 Overweight in adulthood with body mass index of 25 or more but less than 30 641833330 Z68.26 [id number] Marilu Liao APRN [address] [address] 05/28/2025 14:07:01 05/28/2025 15:11:43 Depressive disorder 08127347 F32.A Anxiety 15190352 F41.9 Autism suspected 6668748 06 R68.89 [id number] will send for testing- per pt request [id number] Karma Saxena [facility] [address] [place] [address] 06/01/2025 09:47:50 06/01/2025 10:53:51 Dysplastic nevus of skin 234359609 D22.9 066614 Overweight in adulthood with body mass index of 25 or more but less than 30 949726328 Z68.27 23267080 Health Concerns Section Related Observation LastModified by Organization Detai ls LastModified Time None Recorded Concern Status LastModified by Organization Details LastModified Time None Recorded Payers Encounter Date Sequence Insurance Name Policy Number Policy Bolanos Covered Member ID Bolanos Member ID Guarantor Name 06/01/2025 1 [facility] (MEDICAID HMO) Nathaly Plaza [id number] [employer]aly [employer] Notes Date Note Type Note Provider Name and Address Organization Details Recorded Time 06/01/2025 text/html ROS as noted in the HPI Nathaly presents today for re-excision to her left shoulder. Was seen in office on 05/16/25 for a biopsy of a skin lesion to her left shoulder.Pathology report showed severe atypia with halo phenomenon and recommended re-excision. Karma Saxena, [employer] [address], [place], [address], [place] - [facility] 06/01/2025 10:30:45 OBGyn Episode No OBEpisode recorded.
--- NOTE | 2025-06-17 21:12 | ED_ITS ---
Discharge Plan Disposition Patient Disposition: Home, Self-Care Prescriptions Prescriptions: New ondansetron 4 mg tablet,disintegrating 4 mg PO Q6H PRN (Reason: nausea and vomiting) Qty: 14 0RF No Action Lo Loestrin Fe 1 mg-10 mcg (24)/10 mcg (2) tablet 1 tab PO DAILY Qty: 84 4RF trazodone 50 mg tablet See Rx Instructions .ROUTE .COMPLEX Qty: 90 2RF Dose Instruction: TAKE 1 TABLET BY MOUTH EVERY DAY AT BEDTIME NEEDED FOR SLEEP Rx Instructions: TAKE 1 TABLET BY MOUTH EVERY DAY AT BEDTIME NEEDED FOR SLEEP buspirone 10 mg tablet 20 mg PO BID 90 Days Qty: 360 0RF desvenlafaxine succinate 100 mg tablet extended release 24 hr 100 mg PO DAILY Qty: 30 2RF Referrals Follow up/Referrals: Trista Martinez APRN [Primary Care Provider, Medical] - See instructions Activity Restrictions/Add. Instructions Additional Instructions/Restrictions: Follow-up with your primary care physician tomorrow. Continue to hydrate well but drink plenty of fluids. I will prescribing Zofran for nausea. Take this as prescribed. You continue to take Tylenol and ibuprofen to help with your headaches. If you develop any new or worsening symptoms, or if you become concerned for your help for any reason, return to the emergency department for evaluation Clinical Impressions Clinical Impression: Headache Print Language Print Language: Burmese Discharge ED Provider: Rayo Miller Adult [facility] General Chief complaint: Headache Stated complaint: headache x seven days Time Seen by Provider: 06/17/25 20:46 Mode of Arrival: Ambulatory Source of Information: Patient Description of Symptoms (Recalled from ER Triage Doc. by RN): Pt presents with c/o headache. Pt states she has had the headache since wednesday, and was seen in the ER on wednesday. Pt states she never got relief from her headache, and has continued to have the headache since and has become worse. Pt has nausea, and is sensitive to light. Rates pain as a 9/10. Pt states she normally does not get headaches like this History of Present Illness HPI narrative: Nathaly Plaza is a 24-year-old female with a history of bipolar 2, generalized anxiety disorder who presents to the emergency department for complaints of a headache. Patient states that 2 weeks ago, she had subjective fevers and intermittent headaches that improved after sleeping. Over the last week, she reports a constant headache mostly to the back of her head and behind her eyes with sensitivity to light and sound. She feels a pressure behind her ears. She denies any nasal congestion. She has had a mild runny nose and a cough. She was seen in the emergency department 5 days ago and was treated with migraine cocktail and had CT imaging of her head as well as CT venogram that were negative. She was discharged has been taking Tylenol, ibuprofen and doing muscle massages without relief. Related Data Previous Rx's ?Medication ?Instructions ?Recorded trazodone 50 mg tablet See Rx Instructions .Route 0 11/22/24 .COMPLEX #90 tabs norethindrone 1 mg-ethinyl 1 tab PO DAILY #84 tabs estradiol 10 mcg (24)-iron 10 mcg(2) tablet (Lo Loestrin Fe) desvenlafaxine succinate 100 mg 100 mg PO DAILY #30 ta bs 06/11/25 tablet,extended release 24 hr buspirone 10 mg tablet 20 mg (2 x 10 mg) PO BID Anx iety 06/14/25 90 days #360 tabs ondansetron 4 mg disintegrating 4 mg PO Q6H PRN nausea and 06/17/25 tablet vomiting #14 tabs Allergies Allergy/AdvReac Type Severity Reaction Status Date / Time No Known Allergies Allergy Verified 06/14/25 10:53 [facility] Disclaimer: The information contained in this section may have been updated after the patient was seen, as this information can be updated by other users. Medical History Muscular tension dysphonia Dysphonia Nightmares associated with chronic post-traumatic stress disorder Hemoperitoneum LGSIL on Pap smear of cervix Generalized anxiety disorder Insomnia Bipolar II disorder Fatigue Tingling in extremities Surgical History Hx of removal of cyst History of tonsillectomy History of colposcopy Family History Other No significant family history Social History Smoking Status: Never smoker second hand exposure: Yes alcohol intake: never substance use type: marijuana current occupational status: employed Travel in the last 8 weeks?: None household members: family housing: house lives independently: No marital status: single number of children: 0 education level: college service: No [place] [facility]: No current occupation: [employer] current occupational exposures/hazards: No Have you lived/traveled outside [place] in past 30 days?: No Contact w/someone who lives/traveled outside [place] past 30 days?: No Exposure to someone with infectious disease in past 14 days?: No Do you have a fever (greater than 100.4 F or 38 C)?: No Have you tested positive for COVID-19?: No Exposed to someone with COVID-19 in past 14 days?: No Do you have a sore throat?: No Do you have a cough?: No Do you have any weakness?: No Do you have any diarrhea?: No Are you experiencing any unusual bleeding?: No Do you have any muscle aches/pain?: No Do you have any abdominal pain?: No Are you experiencing loss of taste or smell?: No Other Medical History Have you received the Flu Vaccine for this season: No Have you received the Pneumonia Vaccine: No ROS Obtained: Yes Systems reviewed as appropriate & no additional complaints except as documented Physical Exam General General appearance: alert and in no apparent distress Comment: appears uncomfortable with sweatshirt overlying eyes Head Head exam: atraumatic Eye Eye exam: Present normal appearance, PERRL and EOMI; Absent nystagmus ENT ENT exam: Present normal external ear exam Neck Neck exam: Present full ROM Chest Chest inspection: Present symmetric chest wall rise Respiratory Respiratory exam: Present normal lung sounds bilaterally; Absent respiratory distress, wheezes or stridor Cardiovascular Cardiovascular exam: Present regular rate and normal rhythm Abdominal Exam Abdominal exam: Present soft; Absent tenderness or guarding Extremities Exam Extremities exam: Present normal inspection Back Exam Back exam: Present normal inspection Neurological Exam Neurological exam: Present alert, oriented X3 and CN II-XII intact Psychiatric Psychiatric exam: Present normal affect Skin Skin exam: Present warm and dry Medical Decision Making Medical Records Screening: Per USPSTF and CDC recommendations, given the prevalence of disease in our region, it is our hospital?s policy to screen for HIV and viral Hepatitis for all patients aged 18 and over and those with ongoing risk factors. Deejay Inquiry Pt receiving controlled substance: No Vital Signs: 06/17/25 20:34 06/17/25 21:21 06/17/25 21:30 Temperature 98.2 F Temperature Source Oral Pulse Rate 77 68 Pulse Rate [Right] 89 Respiratory Rate 18 Blood Pressure 144/93 H 136/88 Blood Pressure [Right Arm] 150/90 H Blood Pressure Mean Blood Pressure Mean [Right Arm] 110 Blood Pressure Source Blood Pressure Source [Right Arm] Automatic Cuff Blood Pressure Position Blood Pressure Position [Right Arm] Sitting 02 Sat by Pulse Oximetry 98 98 97 Oxygen Delivery Method Room Air 06/17/25 21:42 06/17/25 22:00 06/17/25 22:09 Temperature Temperature Source Pulse Rate 67 Pulse Rate [Right] Respiratory Rate Blood Pressure 149/104 H 141/92 H Blood Pressure [Right Arm] Blood Pressure Mean 118 110 Blood Pressure Mean [Right Arm] Blood Pressure Source Blood Pressure Source [Right Arm] Blood Pressure Position Blood Pressure Position [Right Arm] 02 Sat by Pulse Oximetry 99 Oxygen Delivery Method 06/17/25 22:10 06/17/25 22:15 06/17/25 22:29 Temperature Temperature Source Pulse Rate 86 68 73 Pulse Rate [Right] Respiratory Rate Blood Pressure Blood Pressure [Right Arm] Blood Pressure Mean Blood Pressure Mean [Right Arm] Blood Pressure Source Blood Pressure Source [Right Arm] Blood Pressure Position Blood Pressure Position [Right Arm] 02 Sat by Pulse Oximetry 100 100 99 Oxygen Delivery Method 06/17/25 22:30 06/17/25 22:31 06/17/25 22:45 Temperature Temperature Source Pulse Rate 72 70 Pulse Rate [Right] Respiratory Rate Blood Pressure 126/76 Blood Pressure [Right Arm] Blood Pressure Mean 92 Blood Pressure Mean [Right Arm] Blood Pressure Source Blood Pressure Source [Right Arm] Blood Pressure Position Blood Pressure Position [Right Arm] 02 Sat by Pulse Oximetry 99 99 Oxygen Delivery Method 06/17/25 23:00 06/17/25 23:00 06/17/25 23:15 Temperature Temperature Source Pulse Rate 81 87 Pulse Rate [Right] Respiratory Rate Blood Pressure 117/79 Blood Pressure [Right Arm] Blood Pressure Mean 85 Blood Pressure Mean [Right Arm] Blood Pressure Source Blood Pressure Source [Right Arm] Blood Pressure Position Blood Pressure Position [Right Arm] 02 Sat by Pulse Oximetry 98 99 Oxygen Delivery Method 06/17/25 23:25 Temperature 98.2 F Temperature Source Pulse Rate 68 Pulse Rate [Right] Respiratory Rate 14 Blood Pressure 117/79 Blood Pressure [Right Arm] Blood Pressure Mean Blood Pressure Mean [Right Arm] Blood Pressure Source Automatic Cuff Blood Pressure Source [Right Arm] Blood Pressure Position Sitting Blood Pressure Position [Right Arm] 02 Sat by Pulse Oximetry Oxygen Delivery Method Room Air Orders (Tests/Meds): ED MEDICATIONS Discontinued Medications Generic Name Dose Route Start Last Admin Trade Name Uli PRN Reason Stop Dose Admin Acetaminophen 1,000 mg 06/17/25 22:29 06/17/25 22:33 Acetaminophen 500mg Tab PO 06/17/25 22:30 1,000 mg ONCE ONE Administration Diphenhydramine HCl 25 mg 06/17/25 20:59 06/17/25 21:14 Diphenhydramine 50mg/Ml Vial IV 06/17/25 21:00 25 mg ONCE ONE Administration Droperidol 2.5 mg 06/17/25 20:59 06/17/25 21:15 Droperidol 5mg/2ml Vial IV 06/17/25 21:00 2.5 mg ONCE ONE Administration Lactated Ringer's 1,000 mls @ 999 mls/hr 06/17/25 20:59 06/17/25 22:26 Lactated Ringer's 1000 Ml Bag IV 06/17/25 21:59 Infused .Q1H1M ONE Infusion Magnesium Sulfate 2 gm in 50 mls @ 50 mls/hr 06/17/25 20:59 06/17/25 22:27 Magnesium Sulfate 2gm/50ml Premix IV 06/17/25 21:58 Infused ONCE ONE Infusion Ketorolac Tromethamine 15 mg 06/17/25 20:59 06/17/25 21:14 Ketorolac 15mg/Ml Vial IV 06/17/25 21:00 15 mg ONCE ONE Administration Medical Decision Narrative: Nathaly Plaza is a 24-year-old female with a history of bipolar 2, generalized anxiety disorder who presents to the emergency department for complaints of a headache. Patient states that 2 weeks ago, she had subjective fevers and intermittent headaches that improved after sleeping. Over the last week, she reports a constant headache mostly to the back of her head and behind her eyes with sensitivity to light and sound. She feels a pressure behind her ears. She denies any nasal congestion. She has had a mild runny nose and a cough. She was seen in the emergency department 5 days ago and was treated with migraine cocktail and had CT imaging of her head as well as CT venogram that were negative. She was discharged has been taking Tylenol, ibuprofen and doing muscle massages without relief. On arrival, patient is hemodynamically stable, in no acute distress, breathing comfortably on room air with appropriate oxygen saturation. Afebrile. Physical exam, as stated above, revealed nontoxic- appearing female in no distress. She is alert and answering questions appropriately. Pupils equal round reactive to light. Extraocular movements intact. Tympanic membranes are pearly hernandez with normal light reflex and no bulging or erythema. She has a nonfocal neurological exam. She has no mening ismus. Differential diagnosis includes, but is not limited to: Migraine headache, tension headache, occipital migraine, muscle strain, less likely is a viral meningitis in the setting of her recent illness, however she has no meningeal signs on exam and is afebrile and I do not feel that LP is indicated at this time. Low concern for subarachnoid hemorrhage as patient's symptoms have been ongoing for 7 days. Also, patient had a CT head without contrast as well as CT venogram performed on 06/12 in the emergency department that were both unremarkable, and I have low concern for venous sinus thrombus at this time. I do not feel that additional imaging would be of any value here. Patient's lab work on that visit was also unremarkable and nonactionable and I do not feel that repeating lab work today would be of any benefit. Discussed with patient about pursuing IV medications to help with her headache and she was in agreement with this plan. Will administer 1 L lactated ringer, 15 mg IV Toradol, 25 mg IV Benadryl, 2 g IV magnesium sulfate, 2.5 mg IV droperidol (EKG was obtained beforehand and was interpreted by me personally showed normal sinus rhythm, no ST elevation and normal QTc of 393). Patient had received 10 mg of dexamethasone on her visit on the I do not feel that repeating steroids would be of benefit at this time. On reassessment, patient reported that her headache is improving but not completely resolved and is about a 6 out of 10 on severity. Will administer 1000 mg of Tylenol. On additional reassessment, patient states that her headache is nearly gone and has been tolerable at this point. I do feel the patient symptomatology is most likely related to migraine and I encouraged her to follow-up with her primary care physician tomorrow, which she states that she plans on doing. Return precautions were given. All questions were answered. I will be prescribing Zofran to help with any nausea to ensure that she stays hydrated as dehydration could contribute to her migraines. She demonstrated understanding and was in agreement with this plan. She was then discharged from the emergency department in stable condition. Critical Care Critical Care Time Critical Care Time: No
[2025-06-17] MEDS: KETOROLAC 15MG/ML VIAL 15 MG IV (21:14)
[2025-06-17] MEDS: LACTATED RINGERS 1000ML 1,000 ML 999 ML IV (21:14)
--- NOTE | 2025-06-17 21:14 | ECG_ITS ---
APPROVED REPORT Exam: Resting ECG HR:71 bpm ECG Measurements Heart Rate 71 AXES ME 117 P 42 QRSd 85 QRS 83 QT 393 T 46 QTc 415 Conclusion SINUS RHYTHM WITH SHORT ME INTERVAL BORDERLINE ECG UNCONFIRMED REPORT Electronically signed by : ROBIN OREILLY, 06/19/2025 02:49:43
[2025-06-17] MEDS: droPERidol 5MG/2ML VIAL 2.5 MG IV (21:15)
[2025-06-17] MEDS: MAGNESIUM SULFATE IN WATER 2 GM/50 ML PIGGYBACK IV (21:15)
[2025-06-17] MEDS: ACETAMINOPHEN 500MG TAB 1000 MG PO (22:33)
== END 2025-06-17 23:27 | disposition home or self-care (01) ==
PROVIDERS: Emergency Provider Student in an Organized Health Care Education/Training Program; PCP Nurse Practitioner Family
DX: G44.89 Other headache syndrome (principal); H53.71 Glare sensitivity; R09.81 Nasal congestion
CPT/HCPCS: 93005; 96365; 96375; 99284; 99285; J1200; J1790; J1885; J3475; J7120

== ENCOUNTER 2025-07-03 15:41 | Emergency (ER) | payer OTHER, SELFPAY ==
[2025-07-03 15:44] VITALS: BP 132/88; PULSE 89; RESP 18; TEMP 36.8; O2SAT 98; BMI 26.4
--- NOTE | 2025-07-03 15:50 | XR_ITS ---
PROCEDURE INFORMATION: Exam: XR Right Shoulder Exam date and time: 07/03/2025 4:10 PM Age: 24 years old Clinical indication: Pain; Shoulder; Right; Additional info: Possible shoulder injury TECHNIQUE: Imaging protocol: Radiologic exam of the right shoulder. Views: 2 or more views. COMPARISON: CR SHOULDCMRT XR shoulder RT min 2V 12/13/2018 5:31 PM FINDINGS: Bones/joints: Normal. Soft tissues: Normal. IMPRESSION: No acute findings.
--- OUTSIDE RECORDS SUMMARY | 2025-07-03 16:18 | XMS_ITS | Data Portability ---
Author Organization [facility] Address [address] [place] [address] Care Team Providers Care Sports Information Director Name Role Phone MARILU LIAO Primary Care Provider [phone] Assessment Encounter Date Assessment Date Assessment LastModified by Organization Details LastModified Time 06/22/2025 06/22/2025 -Medications were reviewed and any necessary updates and renewals were made, patient instructed to complete as prescribed. -The potential side effects of medications were discussed. -Counseling was done on care goals and ways to prevent future hospitalizatio ns. -Further treatment per orders listed below. [email or web address] Not available 06/22/2025 15:48:52 Plan of Treatment Reminders Order Date Submit Date Provider Last Modified By Organization Details Last Modified Time Details Appointments MH Initial 60 2024 01:00P M Jose Enrique Pham FLOOR LAYER Not available Not available Not available [facility] INITIAL 2025 11:00A M Jareth Bill LCSW Not available Not available Not available Lab rapid SARS CoV + SARS CoV 2 Ag, QL IA, respirato ry specimen 2024 [facility], [address], [place], [address], 06/29/2025 11:07:12 surgical pathology study - Previous pathology showed severe atypia with halo phenomeno n. One periphera l edge involved. Re-excisi on of left shoulder. 2024 BAK[facility]I [facility], [address], [address], [place], [address], 06/08/2025 14:13:29 surgical pathology study - left shoulder Nevus vs melanoma 2024 BAKARI [facility], [address], [address] [address], [place], [address], 05/21/2025 14:11:[address] referral 2024 BAKARI Palacio MD, [address], [place], [address], 06/26/2025 19:12:40 Procedures None recorded. Surgeries None recorded. Imaging XR, cervical spine, 2 or 3 view 2024 [facility] (X-Ray), [address] [place] [address] [address], [place], [address], 06/22/2025 16:35:08 Medication Orders prednison e 10 mg tablet 2024 025 BAKARI [facility], [address] [place], [address], 06/29/2025 11:07:18 Patient TargetsNo targets recorded. Patient Instructions Encounter Date Encounter Id Patient Instructions Last Modified By Organization Details Last Modified Time 05/16/2025 [id number] Apply vaseline and new bandage to area daily until completely healed. PP will call with results. If you have any questions or concerns, call pp or seek medical attention. Not available 05/16/2025 11:18:25 Discussed ABCDE' s of skin lesions. Not available 05/16/2025 11:28:32 05/28/2025 [id number] autism evaluation* [email or web address] Not available 06/13/2025 11:07:17 06/01/2025 [id number] Continue to appl y Vaseline and band aid daily to area. PP will call with results. If you have any questions or concerns, call pp or seek medical attention. Not available 06/01/2025 10:22:06 Reason for Referral Neurologist Referral for Toni quent headache Referring Physician: Marilu Liao, Family Medicine, Encounter Date: 06/22/2025 Results Created Date Observation Date Name Description Value Unit Range Abnormal Flag Note LastModifiedBy Organization Detail LastModifiedTime 05/16/20 25 05/21/2025 PATHO LOGY REPOR T . Commen t Mater ial submi tted: . shoul vinicio - LEFT SHOUL VINICIO SKIN. Modif iers: left Not Available [facility] ([facility]) [address], [place], [address], 05/21/2025 14:11:22 05/16/2005/21/2025 PATHO LOGY REPOR T . Commen t Clini ramiro histo ry: . L98.9 Not Available [facility] ([facility]) [address], [place], [address], 05/21/2025 14:11:22 05/16/20 25 05/21/2025 PATHO LOGY [...] ON. REVIE WED BY: RAF CHARLES M.D. [facility] 05/18 0657 Local Not Available [facility] ([facility]) [address], [place], [address], 05/21/2025 14:11:22 05/16/20 25 05/21/2025 PATHO LOGY REPOR T . Commen t Elect nicolás patel d: . Matt MD, [place] topat holog ist Not Available [facility] ([facility]) [address], [place], [address], 05/21/2025 14:11:22 05/16/2005/21/2025 PATHO LOGY REPOR T [...] ENTIR MICHELLE IN CASSE TTE(S ) A1. STAICA/K YE 05/17 0524 Local Not Available [facility] ([facility]) [address], [place], [address], 05/21/2025 14:11:22 05/16/20 25 05/21/2025 PATHO LOGY REPOR T . Commen t Patho logis t provi ded ICD-1 0: D48.5 Not Available [facility] ([facility]) [address], [place], [address], 05/21/2025 14:11:22 05/16/20 25 05/21/2025 PATHO LOGY REPOR T . Commen t CPT . 64195 1 Not Available [facility] ([facility]) [address], [place], [address], 05/21/2025 14:11:22 06/01/2006/08/2025 PATHO LOGY REPOR T . Commen t Mater ial submi tted: . shoul vinicio - LEFT SHOUL VINICIO RE-EX CISIO N. Modif iers: left Not Available [facility] ([facility]) [address], [place], [address], 06/08/2025 14:13:29 06/01/2006/08/2025 PATHO LOGY REPOR T . Commen t Clini ramiro histo ry: . PREVI OUS PATHO LOGY SHOWE D SEVER E ATYPI A WITH HALO PHENO ERIN ; ONE PERIP HERAL EDGE INVOL ALONSO Not Available [facility] ([facility]) [address], [place], [address], 06/08/2025 14:13:29 06/01/2006/08/2025 PATHO LOGY REPOR T . Commen t Diagn osis: WOUND OF OPERA TION. COMME NT: NO RESID UAL DYSPL ASTIC NEVUS IDENT IFIED . WOUND OF OPERA TION IS DIFFU SELY PRESE NT AT TISSU E EDGES . SMI 06/08 1241 Local Not Available [facility] ([facility]) [address], [place], [address], 06/08/2025 14:13:29 06/01/20 25 06/08/2025 PATHO LOGY REPOR T . Commen t Elect nicolás patel d: . Raf charles MD, [place] topat holog ist Not Available [facility] ([facility]) [address], [place], [address], 06/08/2025 14:13:29 06/01/20 25 06/08/2025 PATHO LOGY [...] RT 06/06 0841 Local Not Available [facility] ([facility]) [address], [place], [address], 06/08/2025 14:13:29 06/01/20 25 06/08/2025 PATHO LOGY REPOR T . Commen t Patho logis t provi ded ICD-1 0: L90.5 Not Available [facility] ([facility]) [address], [place], [address], 06/08/2025 14:13:29 06/01/20 25 06/08/2025 PATHO LOGY REPOR T . Commen t CPT . 92535 1 Not Available [facility] ([facility]) [address] [place], [address], 06/08/2025 14:13:29 06/29/20 25 06/29/2025 rapid SARS CoV + SARS CoV 2 Ag, QL IA, respi rator y speci men SARS CoV antigen Negati ve Not Available [facility] [address], [place], [address], 06/29/2025 10:37:31 04/20/2004/20/2025 elect rocar diogr am No observ ation record ed. [facility] (Med Record) [address], [place], [address], 04/23/2025 09:09:24 06/12/2006/12/2025 CT, venog tamar, head, w/wo contr ast No observ ation record ed. [facility] [address], [place], [address], 06/21/2025 08:51:05 06/12/2006/12/2025 CT, head + brain , w/o contr ast No observ ation record ed. [facility] [address], [place], [address], 06/21/2025 08:51:05 06/15/2006/12/2025 elect rocar diogr am No observ ation record ed. [facility] [address], [place], [address], 06/21/2025 08:51:06 06/19/2006/17/2025 elect rocar diogr am No observ ation record ed. [facility] [address], [place], [address], 06/21/2025 08:51:06 Result Notes None recorded. Problems Name Problem SNOMED Code Status Onset Date Resolution Date Notes Provider Name and Address Organization Details Recorded Time Anxiety 36198370 Active 023 Mahi Alcantaras null, [place] - [facility] 3 14:23:20 Depressive disorder 25128650 Active 023 Mahi Quintons null, [place] - [facility] 3 14:23:26 Problem Notes None recorded. Procedures Surgical History Date Name Laterality Status Provider Name and Address Organization Details Recorded Time 06/22/20 Medication Reconcilliation completed Mahi Gary [place] - [facility] 06/22/2025 15:48:52 06/01/20 25 Shave Biopsy trunk, arms, or legs completed Karma Saxena, [employer] [address], [place], [address], [place] - [facility] 06/01/2025 10:21:16 05/16/20 25 Shave Biopsy trunk, arms, or legs completed Karma Saxena, [employer] [address], [place], [address], [place] - [facility] 05/16/2025 11:15:42 04/05/20 Date of Last Pap Smear completed Ramona Langston [place] - [facility] 04/23/2022 14:06:58 Imaging Results None [...] Not Available Not Available Not Available prednisone 10 mg tablet Take 1 tablet twice a day by oral route for 5 days. 2024 active Not Available Not Available Not Avai lable doxycycline hyclate 100 mg capsule Take 1 [...] completed Not Available Not Available Not Available propranolol ER 60 mg capsule,24 hr,extended release TAKE 1 CAPSULE BY MOUTH ONCE DAILY AT [facility] AT 5PM active Not Available Not Available No t Available Zithromax Z-Lyndon 250 mg tablet TAKE [...] completed Not Available Not Available Not Available rizatriptan 5 mg disintegrat ing tablet TAKE ONE TABLET BY MOUTH AT ONSET OF HEADACHE . IF SYMPTOMS PERSIST, A SECOND DOSE MAY BE TAKEN IN 2 HOURS. DO NOT EXCEED 2 DOSES IN A 24 HOUR PERIOD active Not Available Not Available No t Available ondansetron 4 mg disintegrat ing tablet DISSOLVE 1 TABLET IN MOUTH EVERY 6 HOURS NEEDED FOR NAUSEA AND VOMITING active Not Available Not Available No t [...] Updated DateTime 5 154.94 cm 26.9 kg/m2 91852.2 2 g 98.4 [degF] 98 % 98 % 18 /min 0 77 /min 118/78 mm[Hg] Gerda Etienne [facility] 5 10:59:30 Date Recorded Body height Body mass index (BMI) Body weight Heart rate Body temperature Oxygen saturation Oxygen saturation in Arterial blood by Pulse oximetry Respiratory rate Pain severity - 0-10 verbal numeric rating [Score] - Reported Systolic And Diastolic Provider Name and Address Organization Details Last Updated DateTime 5 154.94 cm 26.8 kg/m2 03116.1 2 g 88 /min 98 [degF] 98 % 98 % 18 /min 0 118/72 mm[Hg] Ramona Langston [facility] 5 14:37:06 Date Recorded Body height Body mass index (BMI) Body weight Body temperature Oxygen saturation Oxygen saturation in Arterial blood by Pulse oximetry Respiratory rate Pain severity - 0-10 verbal numeric rating [Score] - Reported Heart rate Systolic And Diastolic Provider Name and Address Organization Details Last Updated DateTime 5 154.94 cm 27 kg/m2 37588.7 1 g 97.4 [degF] 98 % 98 % 18 /min 0 83 /min 134/82 mm[Hg] Gerda Etienne [facility] 5 09:53:46 Date Recorded Body height Respiratory rate Body mass index (BMI) Body weight Body temperature Oxygen saturation Oxygen saturation in Arterial blood by Pulse oximetry Heart rate Systolic And Diastolic Provider Name and Address Organization Details Last Updated DateTime 5 154.94 cm 18 /min 26.6 kg/m2 61940.5 2 g 98.1 [degF] 98 % 98 % 96 /min 124/76 mm[Hg] Mahi Abdirahman [place] - [facility] 5 15:47:33 Date Recorded Body height Body mass index (BMI) Body weight Heart rate Oxygen saturation Oxygen saturation in Arterial blood by Pulse oximetry Respiratory rate Pain severity - 0-10 verbal numeric rating [Score] - Reported Body temperature Systolic And Diastolic Provider Name and Address Organization Details Last Updated DateTime 5 154.94 cm 26.5 kg/m2 63627.9 3 g 88 /min 99 % 99 % 18 /min 0 97.9 [degF] 124/82 mm[Hg] Ramona Desailer [place] - [facility] 5 10:32:19 Social History Question Answer Notes LastModified by Organizat ion Details LastModified Time Tobacco Smoking Status Never Smoker Ramona Ivis null, [place] - [facility] 04/23/2022 14:08:19 [...] Illicit Or Recreational Drugs Have You Used? [place] Information not available 05/16/2025 Have You Processed [...] Or The Highest Degree You Have Received? [id number] Information not available 04/23/2022 Have There Been Any Changes To Your Family Or Social Situation? No Information no t available 04/23/2022 What Is The Fluoride Status Of Your Home? Fluoridated Information not available 04/23/2022 Have You Recently Or Are You Planning To Travel To An Area With Zika Virus? No Information not available 04/23/2022 Do You Have A Medical Power Of Sewer Pipe Cleaner? 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 [id number] Information not available 04/23/2022 Do you have [...] colitis N Cerebrovascular Disease N Depression N Guillain-Progreso N Sleep Apnea N Aneurysm N Bronchitis [...] Hib-Hep B 0 completed Mahi Stears null[place] [facility] 11/30/2022 14:22:42 Hib-Hep B 9 completed Mahi Stears null, [facility] 11/30/2022 14:22:42 HPV9 7 completed Mahi Stears null, [facility] 11/30/2022 14:22:42 HPV9 6 completed Mahi Stears null, [facility] 11/30/2022 14:22:42 HPV9 6 completed Mahi Stears null, [facility] 11/30/2022 14:22:42 IPV 0 completed Mahi Stears null, [facility] 11/30/2022 14:22:42 IPV 9 completed Mahi Stears null, [facility] 11/30/2022 14:22:42 IPV 3 completed Mahi Stears null, [facility] 11/30/2022 14:22:42 IPV 9 completed Mahi Stears null, [place] - [facility] 11/30/2022 14:22:42 MMR 0 completed Mahi Stears null, [place] - [facility] 11/30/2022 14:22:42 MMR 3 completed Mahi Stears null, [place] - [facility] 11/30/2022 14:22:42 Tdap 0 completed Mahi Stears null, [facility] 11/30/2022 14:22:42 varicella 0 completed Mahi [...] ICD10 Code Diagnosis IMO Codes Diagnosis Note [id number] [place] [id number] 04/23/2022 13:46:31 04/23/2022 15:43:23 Venereal disease screening 151181230 Z11.3 [id number] [place]u [place] [address]64[address] 11/30/2022 14:10:18 11/30/2022 15:12:04 Acute bronchitis 42676580 J20.9 [id number] [facility] [place] [address] 12/10/2022 13:15:42 12/10/2022 14:23:59 Acute bronchitis 67018058 J20.9 Allergic rhinitis 910197 04 J30.9 [id number] [facility] [place] [address] 09/20/2023 13:30:04 09/20/2023 14:00:55 Tuberculosis screening 882385792 Z11.1 [id number] [facility] [address] [address] 10/07/2023 13:35:28 10/07/2023 14:38:25 Tuberculosis screening 109574657 Z11.1 [id number] [facility] [address] [address] 04/03/2024 15:36:36 04/03/2024 16:07:26 Abdominal pain 10685375 R10.9 if symptoms worsen go to ed for eval Acute urin krupa tract infection 583483569 N39.0 Patient presents with symptoms of UTI. Results of dipstick were positive for UTI. Advised to drink clear fluids, reduce sexual activity, Tylenol for pain and take prescribed medication s as instructed . wear cotton under wear urinate after intercours e Patient encouraged to follow up within 1 week if not improving. [id number] Marilu Ayalaandrei [address] [address] 02/13/2025 18:14:12 02/13/2025 18:34:46 Acute urinary tract infection 489926704 N39.0 065350 Patient presents with symptoms of UTI. Results of dipstick were positive for UTI. Advised to drink clear fluids, reduce sexual activity, Tylenol for pain and take prescribed medication s as instructed . wear cotton under wear urinate after intercours e Patient encouraged to follow up within 1 week if not improving. [id number] [facility] Ayala[address]rei[address] [address] 02/23/2025 13:36:29 02/23/2025 14:26:18 Acute urinary tract infection 048770785 N39.0 549278 Patient presents with symptoms of UTI.increa se fluidscran mijares juicewipe front to backvoid after intercours [place] not hold urineantib iotics as orderedcot ton underwearP atient encouraged to follow up within 1 week if not improving. Pigmented skin lesion 20 4924471 D22.9 141119 derm referral Acute bronchitis 7720161 2 J20.9 61365559 antibiotic s and inhaler as needed [id number] Shanthijo Liao [address] [address] 03/13/2025 14:52:48 03/13/2025 15:45:12 Dyspnea 817279104 R06.[address] to r/o pe- takes control pills, recent illness,pa lpitations advised to go to edif pt does not go to ed needs ct stat Palpitations 90792024 R0 0.2 25595 heart monitor orderedif any symptoms go to ed for eval [id number] Karma Saxena APRN [facility] [address] [place] [address] 05/16/2025 10:48:03 05/16/2025 11:30:30 Skin lesion 43634053 L98.9 21665 Overweight in adulthood with body mass index of 25 or more but less than 30 966634955 Z68.26 9560368266 [id number] [facility] [place] [address] 05/28/2025 14:07:01 05/28/2025 15:11:43 Depressive disorder 92714412 F32.A Anxiety 57376055 F41.9 Autism suspected 6426766 06 R68.89 [id number] will send for testing- per pt request [id number] Karma Saxena [facility] [address] [place] [address] 06/01/2025 09:47:50 06/01/2025 10:53:51 Dysplastic nevus of skin 974311118 D22.9 978454 Overweight in adulthood with body mass index of 25 or more but less than 30 424162523 Z68.27 51789682 [id number] [facility] [place] [address] 06/22/2025 15:37:57 06/22/2025 16:32:21 Frequent headache 375424316 R51.9 74838079 Neck pain 49816691 M54.2 5746391 [id number] [facility] [address] [address] 06/29/2025 10:10:57 06/29/2025 11:02:45 Viral upper respiratory tract infection 980663564 J06.9 [id number] no sign of a bacterial infection. likely viral. viruses can take 7-14 days to run their course. nasal saline and bulb syringe to remove nasal drainage to help with congestion . monitor temp. Tylenol or Motrin as needed for pain or fever. encourage fluids, water, Gatorade, power aide, Pedialyte if /tod dler/child warm salt water gargles warm fluids sore throat lozenges sleep elevated humidifier /vaporizer follow up immediatel y for new or worsening symptoms or no noticeable improvemen t over the next 48-72 hours Health Concerns Section Related Observation LastModified by Organization Detai ls LastModified Time None Recorded Concern Status LastModified by Organization Details LastModified Time None Recorded Advance Directives Directive N: Payers Insurance Date Sequence Insurance Name Policy Number Policy Bolanos Covered Member ID Bolanos Member ID Guarantor Name 05/30/2025 [place] [id number] [place] (MEDICAID) Nathaly Plaza [id number] Nathaly Plaza 06/28/2025 1 [facility] (MEDICAID [facility] Nathaly Plaza [id number] Nathalykristy Plaza Notes Date Note Type Note Provider [...] cancer. Karma Saxena APRN [address], [place], [address], [employer] - [facility] 05/16/2025 11:29:33 05/28/2025 text/html ROS as noted in the HPI 24 yr old female presents for a referral for possible autism. 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 has mentioned she had autism before. pt states she has some symptoms of autismno hi or si Marilu Liao APRN [address], [place], [address], [place] - [facility] 05/28/2025 15:13:53 06/01/2025 text/html ROS as noted in the HPI Nathaly presents today for re-excision to her left shoulder. Was seen in office on 05/16/25 for a biopsy of a skin lesion to her left shoulder.Pathology report showed severe atypia with halo phenomenon and recommended re-excision. Karma Saxena APRN [address], [place], [address], [place] - [facility] 06/01/2025 10:30:45 06/22/2025 text/html Emergency Depart ment Follow-Up RecordReported by PatientEmergency Room Follow-Up RecordFor discharge information, patient reportsname of hospital/urgent care patient was seen: ([facility]),patient presented to hospital for treatment of: (throbbing headache, discomfort in head, neck and earsmetal taste),treatment received by hospital/urgent care: (ct w/contrast, ekg, migraine cocktail, prescribed nausea medication),patient's condition has: improved, andhospital records available at the time of this visit: yes.ROS as noted in the HPI 24 year old female who presents to the office today for ahospital follow up states headache is not as bad, but still has a lot of discomfort in head, neck and earsstates has a crackling sound at base of skull Marilu Liao APRN [address], [place], [address], [place] [facility] 06/22/2025 16:33:14 06/29/2025 text/html COVID-19 Symptom(s)Reported by PatientROS as noted in the HPI 24 yr old female presents for possible covid. She states she lost her sense of taste and smell yesterday. She does not think she was exposed to covid. Marilu Liao APRN [address], [place], [address], [place] [facility] 06/29/2025 11:10:52 OBGyn Episode No OBEpisode recorded.
--- OUTSIDE RECORDS SUMMARY | 2025-07-03 16:18 | XMS_ITS | Continuity of Care Document ---
Author Organization [facility] Address [address] [place] [address] Care Team Providers Care Cargo Handler Name Role Phone MARILU MARTINEZ Primary Care Provider [phone] Assessment Encounter Date Assessment Date Assessment LastModified [...] available Not available Not available Lab None recorded. Referral neurologi st referral 2024 025 BAKARI Palacio MD, [address], [place], [address], 06/26/2025 19:12:40 Procedures None recorded. Surgeries None recorded. Imaging XR, cervical spine, 2 or 3 view 2024 025 bstears [facility] (X-Ray), [address], [place], [address], 06/22/2025 16:35:08 Medication Orders None recorded. Patient TargetsNo targets recorded. Patient InstructionsNo instructions recorded. Reason for Referral Neurologist Referral for Toni quent headache Referring Physician: Marilu Martinez, Family Medicine, Encounter Date: 06/22/2025 Results Created Date Observation Date Name Description Value Unit Range Abnormal Flag Note LastModifiedBy Organization Detail LastModifiedTime 06/01/2006/08/2025 PATHO LOGY REPOR T . Commen t Mater ial submi tted: . shoul vinicio - LEFT SHOUL VINICIO RE-EX CISIO N. Modif iers: left Not Available [facility] ([facility]) [address] [facility], [place], [address], 06/08/2025 14:13:29 06/01/2006/08/2025 PATHO LOGY REPOR T . Commen t Clini ramiro histo ry: . PREVI OUS PATHO LOGY SHOWE D SEVER E ATYPI A WITH HALO PHENO ERIN ; ONE PERIP HERAL EDGE INVOL ALONSO Not Available [facility] ([facility]) [address] [facility], [place], [address], 06/08/2025 14:13:29 06/01/2006/08/2025 PATHO LOGY REPOR T . Commen t Diagn osis: WOUND OF OPERA TION. COMME NT: NO RESID UAL DYSPL ASTIC NEVUS IDENT IFIED . WOUND OF OPERA TION IS DIFFU SELY PRESE NT AT TISSU E EDGES . SMI 06/08 1241 Local Not Available [facility] ([facility]) [address] [facility], [place], [address], 06/08/2025 14:13:29 06/01/2006/08/2025 PATHO LOGY REPOR T . Commen t Elect nicolás patel d: . Rodney charles MD, [place] topat holog ist Not Available [facility] ([facility]) [address] [facility], [place], [address], 06/08/2025 14:13:29 06/01/2006/08/2025 PATHO LOGY REPOR T [...] RT 06/06 0841 Local Not Available [facility] ([facility]) [address] [facility], [place], [address], 06/08/2025 14:13:29 06/01/2006/08/2025 PATHO LOGY REPOR T . Commen t Patho logis t provi ded ICD-1 0: L90.5 Not Available [facility] ([facility]) [address] [facility], [place], [address], 06/08/2025 14:13:29 06/01/2006/08/2025 PATHO LOGY REPOR T . Commen t CPT . 47697 1 Not Available [facility] ([facility]) [address] [facility], [place], [address], 06/08/2025 14:13:29 06/12/2006/12/2025 CT, venog tamar, head, w/wo contr ast No observ ation record ed. [facility] [address], [place], [address], 06/21/2025 08:51:05 06/12/2006/12/2025 CT, head + brain , w/o contr ast No observ ation record ed. [facility] [address], [place], [place], [address], 06/21/2025 08:51:05 06/15/2006/12/2025 elect rocar diogr am No observ ation record ed. [facility] [address], [place], [place], [address], 06/21/2025 08:51:06 06/19/2006/17/2025 elect rocar diogr am No observ ation record ed. [facility] [address], [place], [address], 06/21/2025 08:51:06 Result Notes None recorded. Problems Name Problem SNOMED Code Status Onset Date Resolution Date Notes Provider Name and Address Organization Details Recorded Time Anxiety 31231203 Active 023 Mahi [place] null, [place] - [facility] 3 14:23:20 Depressive disorder 49632837 Active 023 Mahi [place] null, [place] - [facility] 3 14:23:26 Problem Notes None recorded. Procedures Surgical History Date Name Laterality Status Provider Name and Address Organization Details Recorded Time 06/22/20 Medication Reconcilliation completed Mahi Stears [place] - [facility] 06/22/2025 15:48:52 06/01/20 Shave Biopsy trunk, arms, or legs completed Karma Saxena APRN [address], [place], [address], [place] - [facility] 06/01/2025 10:21:16 09/17/20 25 Shave Biopsy trunk, arms, or legs completed Karma Saxena, OCULARIST [address], [place], [address], [place] - [facility] 05/16/2025 11:15:42 04/05/20 20 Date of Last Pap Smear completed Ramona Ivis [place] - [facility] 04/23/2022 14:06:58 Imaging Results [...] BY MOUTH ONCE DAILY AT [facility] AT 5PM active Not Available Not Available [...] Not Available Vitals Date Recorded Body height Respiratory rate Body mass index (BMI) Body weight Body temperature Oxygen saturation Oxygen saturation in Arterial blood by Pulse oximetry Heart rate Systolic And Diastolic Provider Name and Address Organization Details Last Updated DateTime 10/24/202 5 154.94 cm 18 /min 26.6 kg/m2 08330.5 2 g 98.1 [degF] 98 % 98 % 96 /min 124/76 mm[Hg] Mahi Gary [place] - [facility] 5 15:47:33 Social History Question Answer Notes LastModified by Organizat ion Details LastModified Time Tobacco Smoking Status Never Smoker Ramona Desairudy gonz[place], [place] - [facility] 04/23/2022 14:08:19 Do [...] Or The Highest Degree You Have Received? [id number] Information not available 04/23/2022 Have There Been Any Changes To Your Family Or Social Situation? No Information no t available 04/23/2022 What Is The Fluoride Status Of Your Home? Fluoridated Information not available 04/23/2022 Have You Recently Or Are You Planning To Travel To An Area With Zika Virus? No Information not available 04/23/2022 Do You Have A Medical Power Of Platform Material Handling Supervisor? 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 [id number] Information not available 04/23/2022 Do you have [...] colitis N Cerebrovascular Disease N Depression N Guillain-[place]roy N Sleep Apnea N Aneurysm N Bronchitis [...] Hib-Hep B 0 completed Mahi Stears null, [place] - [facility] 11/30/2022 14:22:42 Hib-Hep B 9 completed Mahi Stears null, [facility] 11/30/2022 14:22:42 HPV9 7 completed Mahi Stears null, [place] - [facility] 11/30/2022 14:22:42 HPV9 6 completed Mahi Stears null, [facility] 11/30/2022 14:22:42 HPV9 6 completed Mahi Stears null, [facility] 11/30/2022 14:22:42 IPV 0 completed Mahi Stears null, [facility] 11/30/2022 14:22:42 IPV 9 completed Mahi Stears null, [facility] 11/30/2022 14:22:42 IPV 3 completed Mahi Stears null, [facility] 11/30/2022 14:22:42 IPV 9 completed Mahi Stears null, [facility] 11/30/2022 14:22:42 MMR 0 completed Mahi Stears null, [facility] 11/30/2022 14:22:42 MMR 3 completed Mahi Stears null, [facility] 11/30/2022 14:22:42 Tdap 0 completed Mahi Stears null, [facility] 11/30/2022 14:22:42 varicella 0 completed Mahi Stears null, [facility] 11/30/2022 14:22:42 Influenza, split virus, trivalent, PF 8 completed Mahi Stears null, [facility] 11/30/2022 14:22:42 Hep B, adolescent or pediatric 9 completed Mahi Stears null, [facility] 11/30/2022 14:22:42 Hep A, [...] ICD10 Code Diagnosis IMO Codes Diagnosis Note [id number] Marilu Martinez APRN [address] [address] 05/28/2025 14:07:01 05/28/2025 15:11:43 Depressive disorder 14049913 F32.A Anxiety 35337406 F41.9 Autism suspected 2411809 06 R68.89 [id number] will send for testing- per pt request [id number] Karma Saxena APRN [facility] [address] [place] [address] 06/01/2025 09:47:50 06/01/2025 10:53:51 Dysplastic nevus of skin 138218917 D22.9 290708 Overweight in adulthood with body mass index of 25 or more but less than 30 952724195 Z68.27 70834169 [id number] Marilu Martinez APRN [address] [address] 06/22/2025 15:37:57 06/22/2025 16:32:21 Frequent headache 630699703 R51.9 45998810 Neck pain 21807120 M54.2 2164533 Health Concerns Section Related Observation LastModified by Organization Detai ls LastModified Time None Recorded Concern Status LastModified by Organization Details LastModified Time None Recorded Payers Encounter Date Sequence Insurance Name Policy Number Policy Bolanos Covered Member ID Bolanos Member ID Guarantor Name 06/22/2025 1 [facility] (MEDICAID HMO) Nathaly Plaza [id number] Nathaly [employer] Notes Date Note Type Note Provider Name and Address Organization Details Recorded Time 06/22/2025 text/html Emergency Depart ment Follow-Up RecordReported by PatientEmergency Room Follow-Up RecordFor discharge information, patient reportsname of hospital/urgent care patient was seen: ([facility]),patient presented to hospital for treatment of: [...] crackling sound at base of skull Marilu Martinez APRN [address], [place], [address], [place] - [facility] 06/22/2025 16:33:14 OBGyn Episode No OBEpisode recorded.
--- OUTSIDE RECORDS SUMMARY | 2025-07-03 16:18 | XMS_ITS | Continuity of Care Document ---
Author Organization [facility] Address [address] [place] [address] Care Team Providers Care Warp Coiler Name Role Phone MARILU MARTINEZ Primary Care [...] left shoulder Nevus vs melanoma 2024 025 RAVIA [facility], [address], [facility], [place], [address], 05/21/2025 14:11:22 Referral None recorded. Procedures None recorded. Surgeries None recorded. Imaging None recorded. Medication Orders None recorded. Patient TargetsNo targets recorded. Patient Instructions Encounter Date Encounter Id Patient Instructions Last Modified By Organization Details Last Modified Time 05/16/2025 [id number] Apply vaseline and new bandage to area [...] SKIN. Modif iers: left Not Available [facility] ([facility]) [address] [facility], [place], [address], 05/21/2025 14:11:22 05/16/2005/21/2025 PATHO LOGY REPOR T . Commen t Clini ramiro histo ry: . L98.9 Not Available [facility] ([facility]) [address] [facility], [place], [address], 05/21/2025 14:11:05/16/2005/21/2025 PATHO LOGY REPOR T . [...] ON. REVIE WED BY: RAF BRIAN M.D. [facility] 05/18 0657 Local Not Available [facility] ([facility]) [address] [facility], [place], [address], 05/21/2025 14:11:22 05/16/2005/21/2025 PATHO LOGY REPOR T . Commen t Elect nicolás patel d: . Matt MD, [place] topat holog ist Not Available [facility] ([facility]) [address] [facility], [place], [address], 05/21/2025 14:11:22 05/16/20 25 05/21/2025 PATHO LOGY [...] YE 05/17 0524 Local Not Available [facility] ([facility]) [address] [facility], [place], [address], 05/21/2025 14:11:22 05/16/20 25 05/21/2025 PATHO LOGY REPOR T . Commen t Patho logis t provi ded ICD-1 0: D48.5 Not Available [facility] ([facility]) [address] [facility], [place], [address], 05/21/2025 14:11:22 05/16/20 25 05/21/2025 PATHO LOGY REPOR T . Commen t CPT . 01866 1 Not Available [facility] ([facility]) [address] [facility], [place], [address], 05/21/2025 14:11:22 04/20/20 25 04/20/2025 elect lucas orta am No observ ation record ed. [facility] (Med Record) [address], [place], [address], 04/23/2025 09:09:24 06/12/2006/12/2025 CT, venog tamar, head, w/wo contr ast No observ ation record ed. [facility] [address], [place], [address], 06/21/2025 08:51:05 06/12/2006/12/2025 CT, head + brain , w/o contr ast No observ ation record ed. [facility] [address], [place], [address], 06/21/2025 08:51:05 06/15/2006/12/2025 elect rocar diogr am No observ ation record ed. [facility] [address], [place], [address], 06/21/2025 08:51:06 06/19/2006/17/2025 elect rocar diogr am No observ ation record ed. [facility] [address], [place], [address], 06/21/2025 08:51:06 Result Notes None recorded. Problems Name Problem SNOMED Code Status Onset Date Resolution Date Notes Provider Name and Address Organization Details Recorded Time Anxiety 24473004 Active 023 Mahi Stears null, [place] - [facility] 3 14:23:20 Depressive disorder 17620478 Active 023 Mahi Stears null, [place] - [facility] 3 14:23:26 Problem Notes None recorded. Procedures Surgical History Date Name Laterality Status Provider Name and Address Organization Details Recorded Time 06/22/20 Medication Reconcilliation completed Mahi Stears [place] - [facility] 06/22/2025 15:48:52 06/01/20 Shave Biopsy trunk, arms, or legs completed Karma Saxena, ALEJANDRINA [address], [place], [address], [place] [facility] 06/01/2025 10:21:16 05/16/20 25 Shave Biopsy trunk, arms, or legs completed Karma SaxenaALEJANDRINA [address], [place], [address], [place] - [facility] 05/16/2025 11:15:42 04/05/20 20 [...] 1 CAPSULE BY MOUTH ONCE DAILY AT [facility] AT 5PM active Not Available Not Available [...] Updated DateTime 5 154.94 cm 26.9 kg/m2 20117.2 2 g 98.4 [degF] 98 % 98 % 18 /min 0 77 /min 118/78 mm[Hg] Gerda Etienne [place] - [facility] 5 10:59:30 Social History Question Answer Notes LastModified by Organizat ion Details LastModified Time Tobacco Smoking Status Never Smoker Ramona Langston lisa, [place] - [facility] 04/23/2022 14:08:19 Do You [...] Illicit Or Recreational Drugs Have You Used? [place] Information not available 05/16/2025 Have You Processed [...] Or The Highest Degree You Have Received? [id number] Information not available 04/23/2022 Have There Been Any Changes To Your Family Or Social Situation? No Information no t available 04/23/2022 What Is The Fluoride Status Of Your Home? Fluoridated Information not available 04/23/2022 Have You Recently Or Are You Planning To Travel To An Area With Zika Virus? No Information not available 04/23/2022 Do You Have A Medical Power Of Supervisor Forming And Tempering? 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 [id number] Information not available 04/23/2022 Do you have [...] colitis N Cerebrovascular Disease N Depression N Guillain-[place]rhard N Sleep Apnea N Aneurysm N Bronchitis [...] 7 completed Mahi Stears null, [place] - [facility] 11/30/2022 14:22:42 HPV9 6 completed Mah[facility] [place] null[place] [facility] 11/30/2022 14:22:42 HPV9 6 completed Mahi [place] [facility] 11/30/2022 14:22:42 IPV 0 completed Mahi [place] null[place] [facility] 11/30/2022 14:22:42 IPV 9 completed Mahi [place] [facility] 11/30/2022 14:22:42 IPV 3 completed Mahi [place] [facility] 11/30/2022 14:22:42 IPV 9 completed Mahi [place] [facility] 11/30/2022 14:22:42 MMR 0 completed Mahi [place] [facility] 11/30/2022 14:22:42 MMR 3 completed Mahi [place] [facility] 11/30/2022 14:22:42 Tdap 0 completed Mahi [place] [facility] 11/30/2022 14:22:42 varicella 0 completed Mahi [place] [facility] 11/30/2022 14:22:42 Influenza, split virus, trivalent, PF 8 completed Mahi [place] [facility] 11/30/2022 14:22:42 Hep B, adolescent or pediatric 9 completed Mahi Stears null, [place] - [facility] 11/30/2022 14:22:42 Hep A, ped/adol, 2 dose 7 completed Mahi [place] [facility] 11/30/2022 14:22:42 Hep A, ped/adol, 2 dose 6 completed Mahi [place] [facility] 11/30/2022 14:22:42 Hib (PRP-OMP) 9 completed Mahi Stears null, [place] - [facility] 11/30/2022 14:22:42 meningococcal MCV4P 6 completed Mahi [place] [facility] 11/30/2022 14:22:42 DTaP, unspecified formulation 0 completed Mahi [place] [facility] 11/30/2022 14:22:42 DTaP, unspecified formulation 9 completed Mahi [place] [facility] 11/30/2022 14:22:42 DTaP, unspecified formulation 3 completed Mahi [place] [facility] 11/30/2022 14:22:42 DTaP, unspecified formulation 9 completed Mahi [place] [facility] 11/30/2022 14:22:42 DTaP, unspecified formulation 9 completed Mahi [place] [facility] 11/30/2022 14:22:42 meningococcal MCV4, unspecified formulation 0 completed Mahi Stears null, [place] - [facility] 11/30/2022 14:22:42 Influenza, split virus, quadrivalent, PF 0 completed Mahi [place] [facility] 11/30/2022 14:22:42 Past Encounters Encounter ID Performer Location Encounter Start Date Encounter Closed Date Diagnosis/Indication Diagnosis SNOMED-CT Code Diagnosis ICD10 Code Diagnosis IMO Codes Diagnosis Note [id number] Karma Saxena APRN [facility] [address] [place] [address] 05/16/2025 10:48:03 05/16/2025 11:30:30 Skin lesion 56816110 L98.9 58156 Overweight in adulthood with body mass index of 25 or more but less than 30 392090197 Z68.26 8008910161 Health Concerns Section Related Observation LastModified by Organization Detai ls LastModified Time None Recorded Concern Status LastModified by Organization Details LastModified Time None Recorded Payers Encounter Date Sequence Insurance Name Policy Number Policy Bolanos Covered Member ID Bolanos Member ID Guarantor Name 05/16/2025 1 [facility] (MEDICAID HMO) Nathaly Plaza [id number] Nathaly Plaza Notes Date Note Type Note Provider Name and Address Organization Details Recorded Time 05/16/2025 text/html ROS as noted in the HPI Nathaly presents today as a new patient to dermatology.Was referred by Marilu Martinez APRN for a mole to her left [...] cancer. Karma Saxena APRN [address], [place], [address], [place] - [facility] 05/16/2025 11:29:33 OBGyn Episode No OBEpisode recorded.
--- OUTSIDE RECORDS SUMMARY | 2025-07-03 16:19 | XMS_ITS | Continuity of Care Document ---
Author Organization [facility] Address [address] [place] [address] Care Team Providers Care Director Hris Name Role Phone MARILU MARTINEZ Primary Care Provider [phone] Assessment No assessment recorded. Plan of Treatment [...] Ag, QL IA, respirato ry specimen 2024 [facility], [address] [place] [address], [place], [address], 06/29/2025 11:07:12 Referral None recorded. Procedures None recorded. Surgeries None recorded. Imaging None recorded. Medication Orders prednison e 10 mg tablet 2024 025 [facility], [address] [place], [address], 06/29/2025 11:07:18 Patient TargetsNo targets recorded. Patient InstructionsNo instructions recorded. Reason for Referral None Reported. Results Created Date Observation Date Name Description Value Unit Range Abnormal Flag Note LastModifiedBy Organization Detail LastModifiedTime 06/01/2006/08/2025 PATHO LOGY REPOR T . Commen t Mater ial submi tted: . shoul vinicio - LEFT SHOUL VINICIO RE-EX CISIO N. Modif iers: left Not Available [facility] ([facility]) [address] [facility], [place], [address], 06/08/2025 14:13:29 06/01/2006/08/2025 PATHO LOGY REPOR T . Commen t Clini ramiro histo ry: . PREVI OUS PATHO LOGY SHOWE D SEVER E ATYPI A WITH HALO PHENO ERIN ; ONE PERIP HERAL EDGE INVOL ALONSO Not Available [facility] ([facility]) [address] [facility], [place], [address], 06/08/2025 14:13:29 06/01/2006/08/2025 PATHO LOGY REPOR T . Commen t Diagn osis: WOUND OF OPERA TION. COMME NT: NO RESID UAL DYSPL ASTIC NEVUS IDENT IFIED . WOUND OF OPERA TION IS DIFFU SELY PRESE NT AT TISSU E EDGES . SMI 06/08 1241 Local Not Available [facility] ([facility]) [address] [facility], [place], [address], 06/08/2025 14:13:29 06/01/2006/08/2025 PATHO LOGY REPOR T . Commen t Elect nicolás patel d: . Rodney charles MD, [place] topat holog ist Not Available [facility] ([facility]) [address] [facility], [place], [address], 06/08/2025 14:13:29 06/01/2006/08/2025 PATHO LOGY REPOR T [...] RT 06/06 0841 Local Not Available [facility] ([facility]) [address] [facility], [place], [address], 06/08/2025 14:13:29 06/01/20 25 06/08/2025 PATHO LOGY REPOR T . Commen t Patho logis t provi ded ICD-1 0: L90.5 Not Available [facility] ([facility]) [address] [facility], [place], [address], 06/08/2025 14:13:29 06/01/20 25 06/08/2025 PATHO LOGY REPOR T . Commen t CPT . 76257 1 Not Available [facility] ([facility]) [address] [facility], [place], [address], 06/08/2025 14:13:29 06/29/20 25 06/29/2025 rapid SARS CoV + SARS CoV 2 Ag, QL IA, respi rator y speci men SARS CoV antigen Negati ve Not Available [address], [address], 06/29/2025 10:37:31 06/12/20 25 06/12/2025 CT, venog tamar, head, w/wo contr ast No observ ation record ed. [facility] [address], [place], [address], 06/21/2025 08:51:05 06/12/2006/12/2025 CT, head + brain , w/o contr ast No observ ation record ed. [facility] [address], [place], [address], 06/21/2025 08:51:05 06/15/2006/12/2025 elect rocar diogr am No observ ation record ed. [facility] [address], [place], [address], 06/21/2025 08:51:06 06/19/2006/17/2025 elect rocar diogr am No observ ation record ed. [facility] [address], [place], [address], 06/21/2025 08:51:06 Result Notes None recorded. Problems Name Problem SNOMED Code Status Onset Date Resolution Date Notes Provider Name and Address Organization Details Recorded Time Anxiety 92166580 Active 023 Mahi Stears null, [place] - [facility] 3 14:23:20 Depressive disorder 68191536 Active 023 Mahi Stears null, [place] - [facility] 3 14:23:26 Problem Notes None recorded. Procedures Surgical History Date Name Laterality Status Provider Name and Address Organization Details Recorded Time 06/22/20 25 Medication Reconcilliation completed Mahi Stears [place] - [facility] 06/22/2025 15:48:52 06/01/20 25 Shave Biopsy trunk, arms, or legs completed Karma Saxena APRN [address], [place], [address], [place] - [facility] 06/01/2025 10:21:16 05/16/20 25 Shave Biopsy trunk, arms, or legs completed Karma Saxena APRN [address], [place], [address], [place] - [facility] 05/16/2025 11:15:42 04/05/20 20 [...] 1 CAPSULE BY MOUTH ONCE DAILY AT [facility] AT 5PM active Not Available Not Available [...] Updated DateTime 5 154.94 cm 26.5 kg/m2 52406.9 3 g 88 /min 99 % 99 % 18 /min 0 97.9 [degF] 124/82 mm[Hg] Ramona Langston [place] - [facility] 5 10:32:19 Social History [...] Illicit Or Recreational Drugs Have You Used? [place] Information not available 05/16/2025 Have You Processed [...] Or The Highest Degree You Have Received? [id number] Information not available 04/23/2022 Have There Been Any Changes To Your Family Or Social Situation? No Information no t available 04/23/2022 What Is The Fluoride Status Of Your Home? Fluoridated Information not available 04/23/2022 Have You Recently Or Are You Planning To Travel To An Area With Zika Virus? No Information not available 04/23/2022 Do You Have A Medical Power Of Embossing Clerk? 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 [id number] Information not available 04/23/2022 Do you have [...] colitis N Cerebrovascular Disease N Depression N Guillain-[place] N Sleep Apnea N Aneurysm N Heart [...] Hib-Hep B 0 completed Mahi Stears null, [place] - [facility] 11/30/2022 14:22:42 Hib-Hep B 9 completed Mahi Stears null, [place] - [facility] 11/30/2022 14:22:42 HPV9 7 completed Mahi Stears null, [place] - [facility] 11/30/2022 14:22:42 HPV9 6 completed Mahi Stears null, [place] - [facility] 11/30/2022 14:22:42 HPV9 6 completed Mahi Stears [place], [place] - [facility] 11/30/2022 14:22:42 IPV 0 completed Mahi Stears [place], [place] - [facility] 11/30/2022 14:22:42 IPV 9 completed Mahi Stears [place] - [facility] 11/30/2022 14:22:42 IPV 3 completed Mahi Stears [place] - [facility] 11/30/2022 14:22:42 IPV 9 completed Mahi Stears [place] - [facility] 11/30/2022 14:22:42 MMR 0 completed Mahi Stears [place] - [facility] 11/30/2022 14:22:42 MMR 3 completed Mahi Stears [place] - [facility] 11/30/2022 14:22:42 Tdap 0 completed Mahi Stears [place], [place] - [facility] 11/30/2022 14:22:42 varicella 0 completed Mahi Stears [place] - [facility] 11/30/2022 14:22:42 Influenza, split virus, trivalent, PF 8 completed Mahi Stears [place], [place] - [facility] 11/30/2022 14:22:42 Hep B, adolescent or pediatric 9 completed Mahi Stears [place] - [facility] 11/30/2022 14:22:42 Hep A, ped/adol, 2 dose 7 completed Mahi Stears [place], [place] - [facility] 11/30/2022 14:22:42 Hep A, ped/adol, 2 dose 6 completed Mahi Stears [place] - [facility] 11/30/2022 14:22:42 Hib (PRP-OMP) 9 completed Mahi Stears [place] - [facility] 11/30/2022 14:22:42 meningococcal MCV4P 6 completed Mahi Stears [place] - [facility] 11/30/2022 14:22:42 DTaP, unspecified formulation 0 completed Mahi Ste[place] [facility] 11/30/2022 14:22:42 DTaP, unspecified formulation 9 completed Mahi Ste[place] [facility] 11/30/2022 14:22:42 DTaP, unspecified formulation 3 completed Mahi Ste[place] [facility] 11/30/2022 14:22:42 DTaP, unspecified formulation 9 completed Mahi Ste[place] [facility] 11/30/2022 14:22:42 DTaP, unspecified formulation 9 completed Mahi Stears [place] [facility] 11/30/2022 14:22:42 meningococcal MCV4, unspecified formulation 0 completed Mahi Stears [place] - [facility] 11/30/2022 14:22:42 Influenza, split virus, quadrivalent, PF 0 completed Mahi Stears null, [place] - [facility] 11/30/2022 14:22:42 Past Encounters Encounter ID Performer Location Encounter Start Date Encounter Closed Date Diagnosis/Indication Diagnosis SNOMED-CT Code Diagnosis ICD10 Code Diagnosis IMO Codes Diagnosis Note [id number] Karma Saxena APRN [facility] [address] [place] [address] 06/01/2025 09:47:50 06/01/2025 10:53:51 Dysplastic nevus of skin 726706488 D22.9 038918 Overweight in adulthood with body mass index of 25 or more but less than 30 425030632 Z68.27 [id number] Eugonda Fryman, FIRE WATCHER [address] [address] 06/22/2025 15:37:57 06/22/2025 16:32:21 Frequent headache 668359148 R51.9 89051216 Neck pain 99341267 M54.2 0899345 [id number] Radhajose AyalaALEJANDRINA forbes [address] [address] 06/29/2025 10:10:57 06/29/2025 11:02:45 Viral upper respiratory tract infection 163465299 J06.9 [id number] no sign of a bacterial infection. likely [...] Member ID Bolanos Member ID Guarantor Name 06/29/2025 1 [employer] [facility] (MEDICAID HMO) [employer] [id number] [employer] Notes Date Note Type Note Provider Name and Address Organization Details Recorded Time 06/29/2025 text/html COVID-19 Symptom(s)Reporte d by PatientROS as noted in the HPI 24 yr old female presents for possible covid. She states she lost her sense of taste and smell yesterday. She does not think she was exposed to covid. Marilu Martinez, ALEJANDRINA [address], [place], [address], [place] - [facility] 06/29/2025 11:10:52 OBGyn Episode No OBEpisode recorded.
--- OUTSIDE RECORDS SUMMARY | 2025-07-03 16:19 | XMS_ITS | Continuity of Care Document ---
Author Organization [facility] Address [address] [place] [address] Care Team Providers Care Utility System Repairer Name Role Phone MARILU LIAO Primary Care [...] Re-excisi on of left shoulder. 2024 025 [place] [facility], [address], [address], [place], [address], 06/08/2025 14:13:29 Referral None recorded. Procedures None recorded. Surgeries None recorded. Imaging None recorded. Medication Orders None recorded. Patient TargetsNo targets recorded. Patient Instructions Encounter Date Encounter Id Patient Instructions Last Modified By Organization Details Last Modified Time 06/01/2025 [id number] Continue to appl y Vaseline and band [...] Modif iers: left Not Available [facility] ([facility]) [address] [facility], [place], [address], 05/21/2025 14:11:22 05/16/20 25 05/21/2025 PATHO LOGY REPOR T . Commen t Clini ramiro histo ry: . L98.9 Not Available [facility] ([facility]) [address] [facility], [place], [address], 05/21/2025 14:11:05/16/2005/21/2025 PATHO LOGY REPOR T . [...] ON. REVIE WED BY: RAF CHARLES M.D. [facility] 05/18 0657 Local Not Available [facility] ([facility]) [address] [facility], [place], [address], 05/21/2025 14:11:22 05/16/2005/21/2025 PATHO LOGY REPOR T . Commen t Elect nicolás horner jorge d: . Matt MD, [place] topat holog ist Not Available [facility] ([facility]) [address] [facility], [place], [address], 05/21/2025 14:11:22 05/16/20 25 05/21/2025 PATHO LOGY [...] 05/17 0524 Local Not Available [facility] ([facility]) [address] [facility], [place], [address], 05/21/2025 14:11:22 05/16/20 25 05/21/2025 PATHO LOGY REPOR T . Commen t Patho logis t provi ded ICD-1 0: D48.5 Not Available [facility] ([facility]) [address] [facility], [place], [address], 05/21/2025 14:11:22 05/16/20 25 05/21/2025 PATHO LOGY REPOR T . Commen t CPT . 26882 1 Not Available [facility] ([facility]) [address] [place], [address], 05/21/2025 14:11:22 06/01/20 25 06/08/2025 PATHO LOGY REPOR T . Commen t Mater ial submi tted: . shoul vinicio - LEFT SHOUL VINICIO RE-EX CISIO N. Modif iers: left Not Available [facility] ([facility]) [address] [facility], [place], [address], 06/08/2025 14:13:29 06/01/2006/08/2025 PATHO LOGY REPOR T . Commen t Clini ramiro histo ry: . PREVI OUS PATHO LOGY SHOWE D SEVER E ATYPI A WITH HALO PHENO ERIN ; ONE PERIP HERAL EDGE INVOL ALONSO Not Available [facility] ([facility]) [address] [facility], [place], [address], 06/08/2025 14:13:29 06/01/2006/08/2025 PATHO LOGY REPOR T . Commen t Diagn osis: WOUND OF OPERA TION. COMME NT: NO RESID UAL DYSPL ASTIC NEVUS IDENT IFIED . WOUND OF OPERA TION IS DIFFU SELY PRESE NT AT TISSU E EDGES . SMI 06/08 1241 Local Not Available [facility] ([facility]) [address] [facility], [place], [address], 06/08/2025 14:13:29 06/01/2006/08/2025 PATHO LOGY REPOR T . Commen t Elect nicolás patel d: . Raf charles MD, [place] topat holog ist Not Available [facility] ([facility]) [address] [facility], [place], [address], 06/08/2025 14:13:29 06/01/2006/08/2025 PATHO LOGY REPOR T [...] RT 06/06 0841 Local Not Available [facility] ([facility]) [address] [facility], [place], [address], 06/08/2025 14:13:29 06/01/2006/08/2025 PATHO LOGY REPOR T . Commen t Patho logis t provi ded ICD-1 0: L90.5 Not Available [facility] ([facility]) [address] [facility], [place], [address], 06/08/2025 14:13:29 06/01/20 25 06/08/2025 PATHO LOGY REPOR T . Commen t CPT . 06620 1 Not Available [facility] ([facility]) [address] [facility], [place], [address], 06/08/2025 14:13:29 06/12/20 25 06/12/2025 CT, venog tamar, head, w/wo contr ast No observ ation record ed. [facility] [address], [place], [address], 06/21/2025 08:51:05 06/12/20 25 06/12/2025 CT, head + brain , w/o contr ast No observ ation record ed. [facility] [address], [place], [address], 06/21/2025 08:51:05 06/15/2006/12/2025 elect rocar diogr am No observ ation record ed. [facility] [address], [place], [address], 06/21/2025 08:51:06 06/19/2006/17/2025 elect rocar diogr am No observ ation record ed. [facility] [address], [place], [address], 06/21/2025 08:51:06 Result Notes None recorded. Problems Name Problem SNOMED Code Status Onset Date Resolution Date Notes Provider Name and Address Organization Details Recorded Time Anxiety 48888146 Active 023 Mahifransisco Gary null, [place] - [facility] 3 14:23:20 Depressive disorder 65644146 Active 023 Mahi Quintons null, [place] - [facility] 3 14:23:26 Problem Notes None recorded. Procedures Surgical History Date Name Laterality Status Provider Name and Address Organization Details Recorded Time 06/22/20 25 Medication Reconcilliation completed Mahi Gary [place] - [facility] 06/22/2025 15:48:52 06/01/20 25 Shave Biopsy trunk, arms, or legs completed Karma Saxena APRN [address], [place], [address], [facility] 06/01/2025 10:21:16 05/16/20 25 Shave Biopsy trunk, arms, or legs completed Karma Saxena APRN [address], [place], [address], [facility] 05/16/2025 11:15:42 04/05/20 Date of Last Pap Smear completed Ramona Langston [facility] 04/23/2022 14:06:58 Imaging [...] 1 CAPSULE BY MOUTH ONCE DAILY AT [facility] AT 5PM active Not Available [...] day by oral route for 7 days. 04/125 completed Not Available Not Available Not Available [...] Updated DateTime 5 154.94 cm 27 kg/m2 31786.7 1 g 97.4 [degF] 98 % 98 % 18 /min 0 83 /min 134/82 mm[Hg] Gerda Etienne [place] - [facility] 09:53:46 Social History Question Answer [...] Illicit Or Recreational Drugs Have You Used? [place] Information not available 05/16/2025 Have You Processed [...] Or The Highest Degree You Have Received? [id number] Information not available 04/23/2022 Have There Been Any Changes To Your Family Or Social Situation? No Information no t available 04/23/2022 What Is The Fluoride Status Of Your Home? Fluoridated Information not available 04/23/2022 Have You Recently Or Are You Planning To Travel To An Area With Zika Virus? No Information not available 04/23/2022 Do You Have A Medical Power Of Assistant Spa Manager? 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 [id number] Information not available 04/23/2022 Do you have [...] colitis N Cerebrovascular Disease N Depression N Guillain-[place] N Sleep Apnea N Aneurysm N Bronchitis [...] 14:22:42 HPV9 6 completed Mahi Stears null, [place] - [facility] 11/30/2022 14:22:42 HPV9 6 completed Mahi Stears [place] [facility] 11/30/2022 14:22:42 IPV 0 completed Mahi Stears null[place] [facility] 11/30/2022 14:22:42 IPV 9 completed Mahi Stears [place] [facility] 11/30/2022 14:22:42 IPV 3 completed Mahi Stears [place] [facility] 11/30/2022 14:22:42 IPV 9 completed Mahi Stears [place] [facility] 11/30/2022 14:22:42 MMR 0 completed Mahi Stears null, [facility] 11/30/2022 14:22:42 MMR 3 completed Mahi Stears null, [facility] 11/30/2022 14:22:42 Tdap 0 completed Mahi Stears null, [place] - [facility] 11/30/2022 14:22:42 varicella 0 completed Mahi Stears [place] [facility] 11/30/2022 14:22:42 Influenza, split virus, trivalent, PF 8 completed Mahi Stears [place] [facility] 11/30/2022 14:22:42 Hep B, adolescent or pediatric 9 completed Mahi Stears [place] [facility] 11/30/2022 14:22:42 Hep A, ped/adol, 2 dose 7 completed Mahi Stears [place] [facility] 11/30/2022 14:22:42 Hep A, ped/adol, 2 dose 6 completed Mahi Stears [place] [facility] 11/30/2022 14:22:42 Hib (PRP-OMP) 9 completed Mahi Stears null[place] [facility] 11/30/2022 14:22:42 meningococcal MCV4P 6 [...] ICD10 Code Diagnosis IMO Codes Diagnosis Note [id number] Karma Saxena APRN [facility] [address] [place] [address] 05/16/2025 10:48:03 05/16/2025 11:30:30 Skin lesion 58438740 L98.9 62872 Overweight in adulthood with body mass index of 25 or more but less than 30 974127667 Z68.26 [id number] [id number] Marilu Liao APRN [address] [address] 05/28/2025 14:07:01 05/28/2025 15:11:43 Depressive disorder 95000832 F32.A Anxiety 33770428 F41.9 Autism suspected 6141102 06 R68.89 [id number] will send for testing- per pt request [id number] Karma Saxena APRN [facility] [address] [place] [address] 06/01/2025 09:47:50 06/01/2025 10:53:51 Dysplastic nevus of skin 516377082 D22.9 267205 Overweight in adulthood with body mass index of 25 or more but less than 30 426387397 Z68.27 93380577 Health Concerns Section Related Observation LastModified by Organization Detai ls LastModified Time None Recorded Concern Status LastModified by Organization Details LastModified Time None Recorded Payers Encounter Date Sequence Insurance Name Policy Number Policy Bolanos Covered Member ID Bolanos Member ID Guarantor Name 06/01/2025 1 [facility] (MEDICAID HMO) [employer] [id number] [employer] Notes Date Note Type Note [...] re-excision. Karma Saxena APRN [address], [place], [address], [place] - [facility] 06/01/2025 10:30:45 OBGyn Episode No OBEpisode recorded.
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
--- NOTE | 2025-07-03 16:47 | ED_ITS ---
<Statement entered by Rebeca Valdez DO - 07/04/25 00:27> I was consulted by the SHARRI, and we discussed the complexity of problems being addressed. I approve the treatment and management plan for this patient's care in the emergency department, thus performing a substantial portion of the medical decision making. Rebeca Valdez DO Discharge Plan Disposition Patient Disposition: Home, Self-Care Condition: Good Prescriptions Prescriptions: No Action Lo Loestrin Fe 1 mg-10 mcg (24)/10 mcg (2) tablet 1 tab PO DAILY Qty: 84 4RF buspirone 10 mg tablet 20 mg PO BID 90 Days Qty: 360 0RF propranolol 60 mg capsule,extended release 24 hr 60 mg PO DAILY Qty: 30 2RF Rx Instructions: Take at approximately 5 pm. rizatriptan 5 mg tablet,disintegrating See Rx Instructions PO .COMPLEX Qty: 10 3RF Rx Instructions: take 1 tablet at onset of headache; if no relief, may repeat 1 tablet after at least 2 hrs PO desvenlafaxine succinate 100 mg tablet extended release 24 hr 100 mg PO DAILY Qty: 30 2RF ondansetron 4 mg tablet,disintegrating 4 mg PO Q6H PRN (Reason: nausea and vomiting) Qty: 14 0RF Referrals Follow up/Referrals: Trista Martinez APRN [Primary Care Provider, Medical] - See instructions Stefany Palacio MD [Staff Physician, Neurology] - See instructions Activity Restrictions/Add. Instructions Additional Instructions/Restrictions: Please return to the emergency department with any worsening signs or symptoms. Please keep your follow-up with your family doctor and neurologist in the upcoming days/weeks. Please take all your medication as prescribed. I recommend ibuprofen Tylenol muscle relaxers as needed for symptomatic relief. Could consider a trial of physical therapy./MRI of your shoulder if your MRI of your neck is negative. Clinical Impressions Clinical Impression: Pain in right shoulder Instructions Patient Instructions: DI for Shoulder Pain, DI for Cervical Radiculopathy Print Language Print Language: Polish Discharge ED Provider: Rebeca Valdez General Adult HPI General Chief complaint: PAIN Stated complaint: Pain in R shoulder, starting to go down arm Time Seen by Provider: 07/03/25 16:40 Mode of Arrival: Ambulatory Source of Information: Patient and Relative Description of Symptoms (Recalled from ER Triage Doc. by RN): patient presents for right shoulder pain that radiates all the way down her arm. patient has a history of headaches and is scheduled for a brain MRI tomorrow. anaya stated a week ago she had a stretch of really bad nightmares that she couldnt wake up from and when she finally woke up from one she couldnt move her right arm or shoudler. History of Present Illness HPI narrative: 24-year-old female presents the emergency department with some neck pain/right sided shoulder pain that radiates around her anterior bicep region for the last week, patient states that she woke up from a nightmare , 1 week ago, patient states she has been having these nightmares due to her PTSD, and she woke up and could not move my arms or legs , the left arm and legs got better with her right arm did have some pain and difficulty with range of motion around the shoulder joint. Patient denies any real numbness or tingling denies any saddle anesthesia, denies any urinary bladder or bowel dysfunction, denies any trauma or injury per history, denies any fever chills chest pain shortness of breath, no abdominal pain no nausea no vomiting no constipation no diarrhea no urinary symptomatology, no vaginal symptomatology, patient has been seen in the emergency department with times over the last several months for migraine type headaches, patient followed up with neurology recently, has slated MRI of the brain with and without contrast, as well as MRI of the cervical spine, patient is not utilize any ncrn-ons-aqctamf medications for this, patient has a daily headache, as well as some photophobia, she believes that these are at her baseline. Initial triage vitals are unremarkable, patient denies any alcohol tobacco or drug use. Other past medical history consistent with MDD/DELMER, PTSD, migraine headaches, amenorrhea, bipolar 2 disorder. Patient had workup in the emergency department that consisted of previous CT head Noncon and CT venogram all which were negative. Please note that above description of symptoms, in this electronic medical record under categorization of recalled from ER triage doctor by RN are reflective of an initial nursing assessment, however, is not reflective of my full history and physical exam that was personally taken and clarified. Consequentially, this preceding description of symptoms, which may include the patient's categorized chief complaint in the EMR, do not reflect my personal clinical impression, and the ultimate description of history of present illness and patient stated complaints should be deferred to this section of the note. Unless stated otherwise or congruent with this section of the note, additional signs, symptoms, or incongruence should be interpreted as inaccurate with my clinical impression. Onset (ago): week(s) Related Data Previous Rx's ?Medication ?Instructions ?Recorded norethindrone 1 mg-ethinyl 1 tab PO DAILY #84 tabs estradiol 10 mcg (24)-iron 10 mcg(2) tablet (Lo Loestrin Fe) desvenlafaxine succinate 100 mg 100 mg PO DAILY #30 ta bs 06/11/25 tablet,extended release 24 hr buspirone 10 mg tablet 20 mg (2 x 10 mg) PO BID Anx iety 06/14/25 90 days #360 tabs ondansetron 4 mg disintegrating 4 mg PO Q6H PRN nausea and 06/17/25 tablet vomiting #14 tabs propranolol 60 mg capsule,24 60 mg PO DAILY #30 caps 1 hr,extended release rizatriptan 5 mg disintegrating See Rx Instructions PO .COMPLEX 06/26/25 tablet #10 tabs Allergies Allergy/AdvReac Type Severity Reaction Status Date / Time No Known Allergies Allergy Verified 07/03/25 15:09 [facility] Disclaimer: The information contained in this section may have been updated after the patient was seen, as this information can be updated by other users. Medical History (Updated 07/03/25 @ 18:08 by MELCHOR De Jesus) Neck pain Depression Anxiety Migraine headache Headache Muscular tension dysphonia Dysphonia Nightmares associated with chronic post-traumatic stress disorder Hemoperitoneum LGSIL on Pap smear of cervix Generalized anxiety disorder Insomnia Bipolar II disorder Fatigue Tingling in extremities Surgical History Hx of removal of cyst History of tonsillectomy History of colposcopy Family History Other Hypertension Social History Smoking Status: Never smoker second hand exposure: Yes alcohol intake: never substance use type: marijuana current occupational status: employed Travel in the last 8 weeks?: None household members: family housing: house lives independently: No marital status: single number of children: 0 education level: college service: No senior living: No current occupation: [employer] current occupational exposures/hazards: No Have you lived/traveled outside US in past 30 days?: No Contact w/someone who lives/traveled outside US past 30 days?: No Exposure to someone with infectious disease in past 14 days?: No Do you have a fever (greater than 100.4 F or 38 C)?: No Have you tested positive for COVID-19?: No Exposed to someone with COVID-19 in past 14 days?: No Do you have a sore throat?: No Do you have a cough?: No Do you have any weakness?: No Do you have any diarrhea?: No Are you experiencing any unusual bleeding?: No Do you have any muscle aches/pain?: No Do you have any abdominal pain?: No Are you experiencing loss of taste or smell?: No Other Medical History Have you received the Flu Vaccine for this season: No Have you received the Pneumonia Vaccine: No ROS Obtained: Yes All systems reviewed & no additional complaints except as documented Physical Exam General General appearance: alert and in no apparent distress Head Head exam: atraumatic and normocephalic Eye Eye exam: Present PERRL and EOMI ENT ENT exam: Present mucous membranes moist Neck Neck exam: Present normal inspection; Absent meningismus or lymphadenopathy Chest Chest inspection: Present normal inspection and symmetric chest wall rise Respiratory Respiratory exam: Present normal lung sounds bilaterally; Absent respiratory distress Cardiovascular Cardiovascular exam: Present regular rate and normal rhythm Abdominal Exam Abdominal exam: Present soft; Absent tenderness Extremities Exam Extremities exam: Present normal inspection, tenderness and other (Some decreased range of motion to the right shoulder joint, positive empty can sign, difficulty with elevation of the right shoulder, no difficulty with internal and external rotation, no difficulty with pronation or supination, otherwise neurovascular intact.); Absent full ROM Back Exam Back exam: Present paraspinal tenderness; Absent vertebral tenderness Neurological Exam Neurological exam: Present alert, oriented X3 and other (5 out of 5 strength in the left upper extremity, bilateral lower extremities, no gross sensation deficit, no focal neurological deficit, 4-5 strength that I do believe is effort related in the right upper extremity, negative Antonio sign bilaterally) Psychiatric Psychiatric exam: Present normal affect Skin Skin exam: Present warm and dry Medical Decision Making Medical Records Medical records reviewed: Yes I reviewed the patient's medical records. Screening: Per USPSTF and CDC recommendations, given the prevalence of disease in our region, it is our hospital?s policy to screen for HIV and viral Hepatitis for all patients aged 18 and over and those with ongoing risk factors. Deejay Inquiry Pt receiving controlled substance: No Vital Signs: 07/03/25 15:44 Temperature 98.2 F Temperature Source Oral Pulse Rate [Right Radial] 89 Respiratory Rate 18 Blood Pressure [Right Arm] 132/88 Blood Pressure Mean [Right Arm] 102 Blood Pressure Source [Right Arm] Automatic Cuff Blood Pressure Position [Right Arm] Sitting 02 Sat by Pulse Oximetry 98 Oxygen Delivery Method Room Air Lab Data Lab results reviewed: Yes I reviewed the patient's lab results. Lab Results 07/03/25 17:03: Urine HCG, Qual Negative Orders (Tests/Meds): ED MEDICATIONS Discontinued Medications Generic Name Dose Route Start Last Admin Trade Name Uli PRN Reason Stop Dose Admin Acetaminophen 500 mg 07/03/25 17:07 07/03/25 17:25 Acetaminophen 500mg Tab PO 07/03/25 17:08 500 mg ONCE ONE Administration Ibuprofen 600 mg 07/03/25 17:07 07/03/25 17:25 Ibuprofen 600 Mg Tablet PO 07/03/25 17:08 600 mg ONCE ONE Administration Lidocaine 1 each 07/03/25 17:00 07/03/25 17:25 Lidocaine 5% Transdermal Patch TD 07/03/25 17:01 1 each ONCE ONE Administration Methocarbamol 750 mg 07/03/25 17:00 07/03/25 17:25 Methocarbamol 500mg Tablet PO 07/03/25 17:01 750 mg ONCE ONE Administration ORDERS Category Date Time Status CT cervical spine wo con Stat Cat Scan 07/03/25 17:00 Completed XR shoulder RT min 2V Stat Exams 07/03/25 15:50 Completed Urine , HCG Qual. Stat Lab 07/03/25 17:03 Completed Medical Decision Narrative: 24-year-old female presents the emergency department with right-sided neck neck pain/trapezius pain/shoulder pain with right-sided radiculopathy to the bicep for the last week. Differential diagnose include but not limited to, conversion disorder, panic attack, anxiety reaction, acute shoulder impingement syndrome, AC joint separation, cervicalgia, cervical radiculopathy, shoulder sprain/strain among others. I discussed this patient's case with the attending physician Dr. Valdez Will obtain x-ray of the right shoulder, CT cervical without contrast, urine hCG, will give 500 mg p.o. acetaminophen and 600 mg p.o. Motrin with a Lidoderm patch and 750 mg p.o. methocarbamol for symptomatic relief. I reviewed the patient's CT cervical spine without contrast and with corresponding radiologic report, no acute cervical spine fracture, reversal of usual cervical lordosis. Urine hCG negative. I discussed the results with the patient at the bedside, patient states she has had some relief from medications she feels her muscles are cool , on the area of her pain around her trapezius muscle/right shoulder. Patient has no other red flag signs or symptoms. Patient will need to follow-up with PCP and neurologist in the upcoming days advised her to keep those appointments. Patient voiced understanding and agreed with the current treatment plan/discharge plan. Patient tells me she has muscle relaxer at home that she can use as needed. Strict return precaution given. Critical Care Critical Care Time Critical Care Time: No
--- NOTE | 2025-07-03 17:00 | CT_ITS ---
PROCEDURE INFORMATION: Exam: CT Cervical Spine Without Contrast Exam date and time: 07/03/2025 5:37 PM Age: 24 years old Clinical indication: Other: Right-sided neck pain/right side ue radiculopathy TECHNIQUE: Imaging protocol: Computed tomography of the cervical spine without contrast. Radiation optimization: All CT scans at this facility use at least one of these dose optimization techniques: automated exposure control; mA and/or kV adjustment per patient size (includes targeted exams where dose is matched to clinical indication); or iterative reconstruction. COMPARISON: CT SOFT TISSUE NECK W CON 04/01/2025 5:46 PM FINDINGS: Bones/joints: No acute fracture. Reversal of usual cervical lordosis. C2-C3: No significant disc bulge or herniation. No severe spinal canal stenosis. No significant neural foraminal narrowing. C3-C4: No significant disc bulge or herniation. No severe spinal canal stenosis. No significant neural foraminal narrowing. C4-C5: No significant disc bulge or herniation. No severe spinal canal stenosis. No significant neural foraminal narrowing. C5-C6: No significant disc bulge or herniation. No severe spinal canal stenosis. No significant neural foraminal narrowing. C6-C7: No significant disc bulge or herniation. No severe spinal canal stenosis. No significant neural foraminal narrowing. C7-T1: No significant disc bulge or herniation. No severe spinal canal stenosis. No significant neural foraminal narrowing. Lungs: Lung apices are normal. Soft tissues: Unremarkable. IMPRESSION: 1. No acute cervical spine fracture. 2. Reversal of usual cervical lordosis.
[2025-07-03] MEDS: IBUPROFEN 600 MG TABLET PO (17:25)
[2025-07-03] MEDS: METHOCARBAMOL 500MG TABLET 750 MG PO (17:25)
[2025-07-03] MEDS: ACETAMINOPHEN 500MG TAB 500 MG PO (17:25)
[2025-07-03] MEDS: LIDOCAINE 5% TRANSDERMAL PATCH 1 EACH TD (17:25)
[2025-07-03 17:30] LABS: Urine Pregnancy, HCG Qual. Negative (Negative)
[2025-07-03 18:34] VITALS: BP 137/80; PULSE 84; RESP 18; TEMP 36.7; O2SAT 100
== END 2025-07-03 18:34 | disposition home or self-care (01) ==
PROVIDERS: Emergency Provider Student in an Organized Health Care Education/Training Program; PCP Nurse Practitioner Family
DX: M25.511 Pain in right shoulder (principal)
CPT/HCPCS: 72125; 73030; 81025; 99283; 99284

== ENCOUNTER 2025-07-04 12:41 | Outpatient (CLI) | payer OTHER, SELFPAY ==
--- OUTSIDE RECORDS SUMMARY | 2025-07-04 12:44 | XMS_ITS | Clinical Summary ---
Author Organization Healthcare Address [address] [place] [address] Care Team Providers Care Contract Writer Name Role Phone Trista Martinez [employer] Primary Care Provider [phone] Social History Tobacco Use Types Packs/Day Years [...] of Treatment Not on file Care Teams Contract Writer Relationship Specialty Start Date End Date Trista Martinez APRN [address] [place] [address] PCP - General 01/10/21
--- OUTSIDE RECORDS SUMMARY | 2025-07-04 12:44 | XMS_ITS | Clinical Summary ---
Author Organization [facility] Address [address] [place] [address] Care Team Providers Care Heavy Equipment Service Manager Name Role Phone None, Physician Primary Care [...] age to complete this topic Care Teams Heavy Equipment Service Manager Relationship Specialty Start Date End Date None, Physician PCP - General 08/26/13
--- NOTE | 2025-07-04 13:00 | MR_ITS ---
FINAL REPORT TECHNIQUE: Multiplanar and multisequence imaging of the brain was obtained before and after contrast administration. CLINICAL HISTORY: special att pituitary gland, new onset SANCHEZ FINDINGS: Brain parenchymal: There is no mass effect or midline shift. There are no areas of abnormal signal intensity.The cerebellum and brainstem are without acute abnormality. Ventricles: The ventricles are symmetric in size and configuration without hydrocephalus. Extra-axial spaces: No extra-axial fluid collections. Diffusion imaging: No areas of restricted diffusion to suggest acute infarct. Flow voids: Flow voids within the major intracranial vessels are preserved. Soft tissues: Soft tissues are without acute abnormality. The pituitary gland is mildly prominent. No hypoenhancing lesion is seen to suggest microadenoma. There is no deviation of the infundibulum. Post contrast imaging: No abnormal enhancement. IMPRESSION: No acute intracranial abnormality and no pathologic contrast enhancement. Mildly prominent pituitary gland. No hypoenhancing lesion to suggest microadenoma. Reviewed, Interpreted and Dictated by Rachelle Bradley MD Transcribed by Ashley Pagan Authenticated and [facility]
[2025-07-04] MEDS: GADOTERIDOL INJ 20ML SYRINGE 12 ML IV (13:38)
[2025-07-04] MEDS: SODIUM CHLORIDE 0.9% 10ML SYR (RAD ONLY) 10 ML IV (13:38)
== END 2025-07-04 23:59 | disposition home or self-care (01) ==
LOC: RAD 12:41
PROVIDERS: PCP Nurse Practitioner Family; Visit Provider Specialist
DX: E23.6 Other disorders of pituitary gland (principal); G43.909 Migraine, unspecified, not intractable, without status migrainosus; M54.2 Cervicalgia
CPT/HCPCS: 70553; A9576

== ENCOUNTER 2025-08-16 13:03 | Outpatient (RCR) | payer OTHER, SELFPAY | END 2025-08-16 23:59 | disposition home or self-care (01) | LOC: PT 13:03 | PROVIDERS: PCP Nurse Practitioner Family; Visit Provider Nurse Practitioner Family | DX: M54.2 Cervicalgia (principal); M25.519 Pain in unspecified shoulder | CPT/HCPCS: 97162 ==

== ENCOUNTER 2025-08-19 01:12 | Emergency (ER) | payer OTHER, SELFPAY ==
--- OUTSIDE RECORDS SUMMARY | 2025-08-19 01:17 | XMS_ITS | Data Portability ---
Author Organization [facility] Address [address] [place] [address] Care Team Providers Care Document Control Assistant Name Role Phone MARILU LIAO Primary Care Provider [phone] Assessment Encounter Date Assessment Date Assessment LastModified by Organization Details LastModified Time 06/22/2025 06/22/2025 -Medications were reviewed and any necessary updates and renewals were made, patient instructed to complete as prescribed. -The potential side effects of medications were discussed. -Counseling was done on care goals and ways to prevent future hospitalizatio ns. -Further treatment per orders listed below. [email or web address] Not available 06/22/2025 15:48:52 07/23/2025 07/23/2025 -Medications were reviewed and any necessary updates and renewals were made, patient instructed to complete as prescribed. -The potential side effects of medications were discussed. -Counseling was done on care goals and ways to prevent future hospitalizatio ns. -Further treatment per orders listed below. [email or web address] Not available 07/23/2025 14:07:24 Plan of Treatment Reminders Order Date Submit Date Provider Last Modified By Organization Details Last Modified Time Details Appointments [facility] 2025 11:00A M Jareth Bill LCSW Not available Not available Not available Initial 60 2025 01:00P M MARYANN Youngblood Not available Not available Not available Lab cobalamin and folate panel, serum 2024 025 [facility], [address], [address] [address], [place], [address], 08/04/2025 18:07:21 vitamin D, 25-hydrox y, total, serum 2024 025 [facility], [address], [place] [address], [place], [address], 08/04/2025 18:07:22 CBC 2024 025 [facility], [address], [place], [place], [address], 08/04/2025 18:07:20 iron + total iron-bind ing capacity (TIBC), serum 2024 025 [facility], [address], [place] [address], [place], [address], 08/04/2025 18:07:21 magnesium , serum or plasma 2024 025 [facility], [address], [place] [address], [place], [address], 08/04/2025 18:07:22 vitamin B12, serum 2024 025 [facility], [address], [place] [address], [place], [address], 08/08/2025 08:20:25 WILMA + rf (antinucl ear antibodie s + rheumatoi d factor), quantitat rick, serum 2024 025 [facility], [address] [place] [address], [address], 08/04/2025 18:07:22 C reactive protein, QN, serum or plasma 2024 025 [facility], [address] [place] [address], [address], 08/04/2025 18:07:23 systemic lupus Ab panel, serum or plasma 2024 025 [facility], [address], [place] [address], [place], [address], 08/04/2025 18:07:20 WILMA (antinucl ear antibodie s) screen, serum 2024 [facility], [address], [place], [place], [address], 08/08/2025 08:20:26 borrelia burgdorfe ri IgG + IgM + total panel, IA, serum 2024 [facility], [address], [place] [address], [place], [address], 08/04/2025 18:07:22 galactose -alpha-1, 3-galacto se panel, serum or plasma 2024 [facility], [address], [address] [address], [place], [address], 08/04/2025 18:07:21 rapid SARS CoV + SARS CoV 2 Ag, QL IA, respirato ry specimen 2024 [facility], [address], [place], [address], 06/29/2025 11:07:12 surgical pathology study - Previous pathology showed severe atypia with halo phenomeno n. One periphera l edge involved. Re-excisi on of left shoulder. 2024 [facility], [address], [address] [address], [place], [address], 06/08/2025 14:13:29 Referral cooker meal referral 2024 CHARLOTTE Davis MD, [address] [place], [address], 08/14/2025 11:27:02 physical therapist referral - shoulder and neck pain 2024 [facility], [address], [place], [address], 08/13/2025 04:12:[address] referral 2024 025 BAKARI Palacio MD, [address] [facility] [address], [place], [address], 06/26/2025 19:12:40 Procedures None recorded. Surgeries None recorded. Imaging XR, cervical spine, 2 or 3 view 2024 [facility] ([facility]), [address] [facility] [address], [place], [address], 08/08/2025 08:20:58 Medication Orders dexametha sone sodium phosphate 4 mg/mL injection solution 2024 025 [facility] Not available 08/14/2025 11:44:07 prednison e 20 mg tablet 2024 025 [facility], [address], [place], [address], 08/14/2025 11:01:58 prednison e 10 mg tablet 2024 025 [facility]69, [address] [place], [address], 07/11/2025 05:02:05 Patient TargetsNo targets recorded. Patient Instructions Encounter Date Encounter Id Patient Instructions Last Modified By Organization Details Last Modified Time 06/01/2025 [id number] Continue to appl y Vaseline and band aid daily to area. PP will call with results. If you have any questions or concerns, call pp or seek medical attention. [email or web address] Not available 06/01/2025 10:22:06 Reason for Referral Neurologist Referral for Toni quent headache Referring Physician: Marilu Liao, Family Medicine, Encounter Date: 06/22/2025 Physical Therapist Referral for Neck pain shoulder and neck pain Referring Physician: Marilu Liao Family Medicine, Encounter Date: 07/23/2025 Documentation Writer Referral for Aller gic reaction Referring Physician: Marilu Liao, Family Medicine, Encounter Date: 08/14/2025 Results Created Date Observation Date Name Description Value Unit Range Abnormal Flag Note LastModifiedBy Organization Detail LastModifiedTime 05/16/20 25 05/21/2025 PATHO LOGY REPOR T . Commen t Mater ial submi tted: . shoul vinicio - LEFT SHOUL VINICIO SKIN. Modif iers: left Not Available [facility] ([facility]) [address], [place], [address], 05/21/2025 14:11:22 05/16/20 25 05/21/2025 PATHO LOGY REPOR T . Commen t Clini ramiro histo ry: . L98.9 Not Available [facility] ([facility]) [address], [place], [address], 05/21/2025 14:11:22 05/16/2005/21/2025 PATHO LOGY REPOR T [...] ON. REVIE WED BY: RAF CHARLES M.D. TMZ 05/18 0657 Local Not Available [facility] ([facility]) [address], [place], [address], 05/21/2025 14:11:22 05/16/20 25 05/21/2025 PATHO LOGY REPOR T . Commen t Elect nicolás patel d: . Matt MD, Rainelle topat holog ist Not Available [facility] ([facility]) [address], [place], [address], 05/21/2025 14:11:22 05/16/2005/21/2025 PATHO LOGY REPOR T . Commaspen t Gross descr iptio n: . 1 [...] YE 05/17 0524 Local Not Available [facility] ([facility]) [address], [place], [address], 05/21/2025 14:11:22 05/16/20 25 05/21/2025 PATHO LOGY REPOR T . Commen t Patho logis t provi ded ICD-1 0: D48.5 Not Available [facility] ([facility]) [address], [place], [address], 05/21/2025 14:11:22 05/16/20 25 05/21/2025 PATHO LOGY REPOR T . Commaspen t CPT . 08175 1 Not Available [facility] ([facility]) [address], [place], [address], 05/21/2025 14:11:22 06/01/2006/08/2025 PATHO LOGY REPOR T . Commen t Mater ial submi tted: . shoul vinicio - LEFT SHOUL VINICIO RE-EX CISIO N. Modif iers: left Not Available [facility] ([facility]) [address], [place], [address], 06/08/2025 14:13:29 06/01/2006/08/2025 PATHO LOGY REPOR T . Commen t Clini ramiro histo ry: . PREVI OUS PATHO LOGY SHOWE D SEVER E ATYPI A WITH HALO PHENO ERIN ; ONE PERIP HERAL EDGE INVOL ALONSO Not Available [facility] ([facility]) [address], [place], [address], 06/08/2025 14:13:29 06/01/2006/08/2025 PATHO LOGY REPOR T . Commen t Diagn osis: WOUND OF OPERA TION. COMME NT: NO RESID UAL DYSPL ASTIC NEVUS IDENT IFIED . WOUND OF OPERA TION IS DIFFU SELY PRESE NT AT TISSU E EDGES . SMI 06/08 1241 Local Not Available [facility] ([facility]) [address], [place], [address], 06/08/2025 14:13:29 06/01/20 25 06/08/2025 PATHO LOGY REPOR T . Commen t Elect nicolás patel d: . Raf charles MD, Rainelle topat holog ist Not Available [facility] ([facility]) [address], [place], [address], 06/08/2025 14:13:29 06/01/20 25 06/08/2025 PATHO LOGY [...] RT 06/06 0841 Local Not Available [facility] ([facility]) [address], [place], [address], 06/08/2025 14:13:29 06/01/20 25 06/08/2025 PATHO LOGY REPOR T . Commen t Patho logis t provi ded ICD-1 0: L90.5 Not Available [facility] ([facility]) [address], [place], [address], 06/08/2025 14:13:29 06/01/20 25 06/08/2025 PATHO LOGY REPOR T . Commen t CPT . 32526 1 Not Available [facility] ([facility]) [address], [place], [address], 06/08/2025 14:13:29 06/29/20 25 06/29/2025 rapid SARS CoV + SARS CoV 2 Ag, QL IA, respi rator y speci men SARS CoV antigen Negati ve Not Available [address], [place], [address], 06/29/2025 10:37:31 07/23/2007/24/2025 CBC, PLATE LET, NO DIFFE RENTI AL WBC 8.2 x10e3 /uL 3.4-10 .8 normal Not Available [facility] ([facility]) [address], [place], [address], 08/04/2025 18:07:20 07/23/2007/24/2025 CBC, PLATE LET, NO DIFFE RENTI AL RBC 4.48 x10e6 /uL 3.77-5 .28 normal Not Available [facility] ([facility]) [address], [place], [address], 08/04/2025 18:07:20 07/23/2007/24/2025 CBC, PLATE LET, NO DIFFE RENTI AL hemoglobin 13.8 g/dL 11.1-1 5.9 normal Not Available [facility] ([facility]) [address] [place], [address], 08/04/2025 18:07:20 07/23/2007/24/2025 CBC, PLATE LET, NO DIFFE RENTI AL hematocrit 41.6 % 34.0-4 6.6 normal Not Available [facility] ([facility]) [address] [place], [address], 08/04/2025 18:07:20 07/23/2007/24/2025 CBC, PLATE LET, NO DIFFE RENTI AL MCV 93 fL 79-97 normal Not Available [facility] ([facility]) [address] [place], [address], 08/04/2025 18:07:20 07/23/2007/24/2025 CBC, PLATE LET, NO DIFFE RENTI AL MCH 30.8 pg 26.6-3 3.0 normal Not Available [facility] ([facility]) [address], [place], [address], 08/04/2025 18:07:20 07/23/2007/24/2025 CBC, PLATE LET, NO DIFFE RENTI AL MCHC 33.2 g/dL 31.5-3 5.7 normal Not Available [facility] ([facility]) [address], [place], [address], 08/04/2025 18:07:20 07/23/2007/24/2025 CBC, PLATE LET, NO DIFFE RENTI AL RDW 12.1 % 11.7-1 5.4 Not Available [facility] ([facility]) [address], [place], [address], 08/04/2025 18:07:20 07/23/2007/24/2025 CBC, PLATE LET, NO DIFFE RENTI AL platelets 294 x10e3 /uL 150-45 0 normal Not Available [facility] ([facility]) [address], [place], [address], 08/04/2025 18:07:20 07/23/2007/24/2025 CBC, PLATE LET, NO DIFFE RENTI AL NRBC PUBLIC HEALTH ENGINEER Not Available [facility] ([facility]) [address] [place], [address], 08/04/2025 18:07:20 07/23/20 25 07/28/2025 LUPUS DIAGN OSTIC PROFI LE anti-sm Ab (rdl) <20 units <20 Negat rick: <20 Weak Posit rick: 20-39 Moder ate Posit rick: 40-80 Stron g Posit rick: >80 Not Available [facility] [address] [place] [address], [address], 08/04/2025 18:07:20 07/23/20 25 07/28/2025 LUPUS DIAGN OSTIC PROFI LE anti-U1 chemical cell changer Ab (rdl) <20 units <20 Negat rick: <20 Weak Posit rick: 20-39 Moder ate Posit rick: 40-80 Stron g Posit rick: >80 Not Available [facility] [address] [place], [address], 08/04/2025 18:07:20 07/23/20 25 07/28/2025 LUPUS DIAGN OSTIC PROFI LE anti-RO (ss-A) Ab (rdl) <20 units <20 Negat rick: <20 Weak Posit rick: 20-39 Moder ate Posit rick: 40-80 Stron g Posit rick: >80 Not Available [facility] [address] [place] [address], [address], 08/04/2025 18:07:20 07/23/20 25 07/28/2025 LUPUS DIAGN OSTIC PROFI LE anti-la (ss-B) Ab (rdl) <20 units <20 Negat rick: <20 Weak Posit rick: 20-39 Moder ate Posit rick: 40-80 Stron g Posit rick: >80 Not Available [facility] [address] [place] [address], [address], 08/04/2025 18:07:20 07/23/20 25 07/28/2025 LUPUS DIAGN OSTIC PROFI LE C3 complement (rdl) 206 mg/dL 90-180 above high normal Not Available [facility] [address] [place] [address], [address], 08/04/2025 18:07:20 07/23/20 25 07/28/2025 LUPUS DIAGN OSTIC PROFI LE C4 complement (rdl) 19 mg/dL 10-40 Ple ase note refer ence inter alejandrina charlie e Not Available [facility] [address] [place] [address], [address], 08/04/2025 18:07:20 07/23/20 25 07/31/2025 LUPUS DIAGN OSTIC PROFI LE anti-nuclear Ab by ifa (rdl) Positi ve negati ve abnormal Not Available [facility] [address] [place], [address], 08/04/2025 18:07:20 07/23/20 25 07/31/2025 LUPUS DIAGN OSTIC PROFI LE homogeneous pattern PUBLIC HEALTH ENGINEER Not Available [facility] [address] [place], [address], 08/04/2025 18:07:20 07/23/20 25 07/31/2025 LUPUS DIAGN OSTIC PROFI LE nucleolar pattern PUBLIC HEALTH ENGINEER Not Available [facility] [address] [place] [address], [address], 08/04/2025 18:07:20 07/23/20 25 07/31/2025 LUPUS DIAGN OSTIC PROFI LE speckled pattern 1:40 <1:40 above high normal Not Available [facility] [address] [place], [address], 08/04/2025 18:07:20 07/23/20 25 07/31/2025 LUPUS DIAGN OSTIC PROFI LE centromere pattern PUBLIC HEALTH ENGINEER Not Available [facility] [address] [place] [address], [address], 08/04/2025 18:07:20 07/23/20 25 07/31/2025 LUPUS DIAGN OSTIC PROFI LE spindle apparatus pattern PUBLIC HEALTH ENGINEER Not Available [facility] [address] [place], [address], 08/04/2025 18:07:20 07/23/20 25 07/31/2025 LUPUS DIAGN OSTIC PROFI LE nuclear membrane pattern PUBLIC HEALTH ENGINEER Not Available [facility] [address] [place], [address], 08/04/2025 18:07:20 07/23/20 25 07/31/2025 LUPUS DIAGN OSTIC PROFI LE midbody pattern PUBLIC HEALTH ENGINEER Not Available [facility] [address] [place], [address], 08/04/2025 18:07:20 07/23/20 25 07/31/2025 LUPUS DIAGN OSTIC PROFI LE nuclear dot pattern PUBLIC HEALTH ENGINEER Not Available [facility] [address] [place], [address], 08/04/2025 18:07:20 07/23/20 25 07/31/2025 LUPUS DIAGN OSTIC PROFI LE pcna pattern PUBLIC HEALTH ENGINEER Not Available [facility] [address] [place], [address], 08/04/2025 18:07:20 07/23/2007/31/2025 LUPUS DIAGN OSTIC PROFI LE centriole pattern PUBLIC HEALTH ENGINEER Not Available [facility] [address] [place], [address], 08/04/2025 18:07:20 07/23/20 25 07/31/2025 LUPUS DIAGN OSTIC PROFI LE note: Commen t WILMA perfo rmed by Indir ect Fluor escen t Antib cj (IFA) Not Available [facility] [address] [place], [address], 08/04/2025 18:07:20 07/23/20 25 08/04/2025 LUPUS DIAGN OSTIC PROFI LE anti-dsdna Ab by max(rdl) <8.0 IU/mL <8.0 Not Available [facility] [address] [place], [address], 08/04/2025 18:07:20 07/23/20 25 08/04/2025 LUPUS DIAGN OSTIC PROFI LE anti-chromat in Ab, IgG (rdl) <20 units <20 Negat rick: <20 Moder ate Posit rick: 20 - 60 Stron g Posit rick: >60 Not Available [facility] [address] [place], [address], 08/04/2025 18:07:20 07/23/2007/24/2025 ALPHA -GAL IGE PANEL class description Commen t Level s of Speci fic IgE Class Descr iptio n of Class ----- ----- ----- ----- ----- -- ----- ----- ----- ----- ----- < 0.10 0 Negat rick 0.10 - 0.31 0/I Equiv ocal/ Low 0.32 - 0.55 I Low 0.56 - 1.40 II Moder ate 1.41 - 3.90 III High 3.91 - 19.00 IV Very High 19.01 - 100.0 0 V Very High >100. 00 Very High Not Available [facility] ([facility]) [address] [place], [address], 08/04/2025 18:07:21 07/23/2007/29/2025 ALPHA -GAL IGE PANEL immunoglobul in E, total 9 IU/mL 6-495 Not Available [facility]) [address] [place], [address], 08/04/2025 18:07:21 07/23/2007/29/2025 ALPHA -GAL IGE PANEL P749-LvL pork <0.10 kU/L class 0 Not Available [facility] ([facility]) [address] [place], [address], 08/04/2025 18:07:21 07/23/2007/29/2025 ALPHA -GAL IGE PANEL M891-ImR beef <0.10 kU/L class 0 Not Available [facility] ([facility]) [address] [place], [address], 08/04/2025 18:07:21 07/23/20 25 07/29/2025 ALPHA -GAL IGE PANEL X976-KnQ alfonso <0.10 kU/L class 0 Not Available [facility] ([facility]) [address] [place], [address], 08/04/2025 18:07:21 07/23/2007/29/2025 ALPHA -GAL IGE PANEL H467-XsU alpha-gal <0.10 kU/L class 0 Not Available [facility] ([facility]) [address] [place], [address], 08/04/2025 18:07:21 07/23/20 25 07/24/2025 IRON AND TIBC iron bind.cap.(TI BC) 383 ug/dL 250-45 0 normal Not Available [facility] ([facility]) [address] [place], [address], 08/04/2025 18:07:21 07/23/2007/24/2025 IRON AND TIBC UIBC 282 ug/dL 131-42 5 normal Not Available [facility] ([facility]) [address] [place], [address], 08/04/2025 18:07:21 07/23/20 25 07/24/2025 IRON AND TIBC iron 101 ug/dL 27-159 normal Not Available [facility] ([facility]) [address] [place], [address], 08/04/2025 18:07:21 07/23/2007/24/2025 IRON AND TIBC iron saturation 26 % 15-55 normal Not Available [facility] [address] [place], [address], 08/04/2025 18:07:21 07/23/20 25 07/24/2025 VITAM IN B12 AND FOLAT E vitamin B12 327 pg/mL 232-12 45 normal Not Available [facility] ([facility]) [address] [place], [address], 08/04/2025 18:07:21 07/23/20 25 07/24/2025 VITAM IN B12 AND FOLAT E folate (folic acid), serum >20.0 NG/mL >3.0 A serum folat e allan ntrat ion of less than 3.1 ng/mL is consi dered to repre sent clini armiro defic iency . Not Available [facility] ([facility]) [address], [place], [address], 08/04/2025 18:07:21 07/23/2007/24/2025 WILMA+R F QN WILMA direct Negati ve negati ve Not Available [facility] ([facility]) [address], [place], [address], 08/04/2025 18:07:21 07/23/2007/24/2025 WILMA+R F QN rheumatoid factor (rf) <10.0 IU/mL <14.0 Not Available [facility]) [address], [place], [address], 08/04/2025 18:07:21 07/23/2007/24/2025 VITAM IN D, 25-HY DROXY vitamin D, 25-hydroxy 21.5 NG/mL 30.0-1 00.0 below low normal Vitam in D defic iency has been defin ed by the Insti tute of Medic ine and an Endoc rine Socie ty pract ice guide line as a level of serum 25-OH vitam in D less than 20 ng/mL (1,2) . The Endoc rine Socie ty went on to fur er defin e vitam in D insuf ficie ncy as a level betwe en 21 and 29 ng/mL (2). 1. IOM (Inst itute of Medic ine). 2009. Dieta ry refer ence intak es for calci um and D. Beck russell [place]: The Natio nal [facility] Press . 2. Ana hazel MF, Kristen ey [place], Bisarash off-F errar i SANCHEZ, et al. Evalu ation , treat ment, and preve ntion of vitam in D defic iency : an Endoc rine Socie ty clini ramiro pract ice guide line. JCEM. 2010; 96(7) :1911 -30. Not Available [facility] ([facility]) [address], [place], [address], 08/04/2025 18:07:22 07/23/20 25 07/24/2025 LYME DISEA SE SEROL OGY W/REF DENG lyme total antibody karla Negati ve negati ve Lyme antib odies not detec dian. Refle x testi ng is not indic ated. No labor atory evide nce of infec tion with B. burgd orfer i (Lyme disea se). Negat rikc resul ts may occur in patie nts recen tly infec dian (less than or equal to 14 days) with B. burgd orfer i. If recen t infec tion is suspe cted, repea t testi ng on a new sampl e colle cted in 7 to 14 days is recom jacob d. Not Available [facility] ([facility]) [address], [place], [address], 08/04/2025 18:07:22 07/23/20 25 07/24/2025 MAGNE SIUM magnesium 2.0 mg/dL 1.6-2. 3 normal Not Available [facility] ([facility]) [address], [place], [address], 08/04/2025 18:07:22 07/23/20 25 07/24/2025 C-KATE CTIVE PROTE IN, QUANT C-reactive protein, quant 7 mg/L 0-10 normal Not Available [facility]) [address], [place], [address], 08/04/2025 18:07:23 06/12/20 25 06/12/2025 CT, venog tamar, head, w/wo contr ast No observ ation record ed. [facility] [address], [place], [address], 06/21/2025 08:51:05 06/12/20 25 06/12/2025 CT, head + brain , w/o contr ast No observ ation record ed. [facility] [address], [place], [address], 06/21/2025 08:51:05 06/15/20 25 06/12/2025 elect rocar diogr am No observ ation record ed. [facility] [address], [place], [address], 06/21/2025 08:51:06 06/19/20 25 06/17/2025 elect rocar diogr am No observ ation record ed. [facility] [address], [place], [address], 06/21/2025 08:51:06 07/03/20 25 07/03/2025 XR, shoul vinicio, 2 or more view No observ ation record ed. [facility] [address], [place], [address], 07/03/2025 17:13:21 07/03/20 25 07/03/2025 CT, cervi ramiro spine , w/o contr ast No observ ation record ed. [facility] [address], [place], [address], 07/03/2025 18:50:44 07/05/2007/04/2025 MRI, head, w/wo contr ast No observ ation record ed. [facility] [address], [place], [address], 07/05/2025 09:16:00 Result Notes None recorded. Problems Name Problem SNOMED Code Status Onset Date Resolution Date Notes Provider Name and Address Organization Details Recorded Time Anxiety 24042759 Active 023 MANOHAR Christopher - [facility] 14:23:20 Depressive disorder 48806867 Active 023 Mahi Gary [facility], [place] - [facility] 14:23:26 Problem Notes None recorded. Procedures Surgical History Date Name Laterality Status Provider Name and Address Organization Details Recorded Time 07/23/20 25 Medication Reconcilliation completed Ramona Ivis [place] - [facility] 07/23/2025 14:07:24 06/22/20 25 Medication Reconcilliation completed Mahi Abdirahman [place] - [facility] 06/22/2025 15:48:52 06/01/20 25 Shave Biopsy trunk, arms, or legs completed Karma Saxena APRN [address], [place], [address], [place] - [facility] 06/01/2025 10:21:16 05/16/20 25 Shave Biopsy trunk, arms, or legs completed Karma Saxena APRN [address], [place], [address], [place] - [facility] 05/16/2025 11:15:42 04/16/20 Date of Last Pap Smear completed Ramona Langston [place] - [facility] 08/14/2025 10:56:25 Imaging Results None recorded. Procedure Notes None [...] day by oral route for 5 days. 07/11 completed Not Available Not Available Not Available [...] Available Not Available prednisone 20 mg tablet Take 1 tablet twice a day by oral route for 5 days. 2024 active Not Available Not Available Not Avai lable propranolol ER 60 mg capsule,24 hr,extended release TAKE 1 CAPSULE BY MOUTH ONCE DAILY AT [facility] AT 5PM active Not Available Not [...] completed Not Available Not Available Not Available amitriptyli ne 25 mg tablet TAKE 1 TABLET BY MOUTH ONCE DAILY active Not Available Not Available No t Available cephalexin 500 mg capsule TAKE 1 [...] completed Not Available Not Available Not Available ergocalcife rol (vitamin D2) 1,250 mcg (50,000 unit) capsule Take 1 capsule every week by oral route. 2024 active Not Available Not Available Not Avai lable dexamethaso ne sodium phosphate 4 mg/mL injection solution Inject 1 mL twice a day by intramusc ular route. 2024 active Not Available Not Available Not Avai lable levofloxaci n 500 mg tablet Take 1 [...] (BMI) Body weight Body temperature Oxygen saturation Respiratory rate Pain severity - 0-10 verbal numeric rating [Score] - Reported Heart rate Systolic And Diastolic Provider Name and Address Organization Details Last Updated DateTime 5 154.94 cm 27 kg/m2 92666.7 1 g 97.4 [degF] 98 % 18 /min 0 83 /min 134/82 mm[Hg] Gerda Forde [place] - [facility] 5 09:53:46 Date Recorded Body height Respiratory rate Body mass index (BMI) Body weight Body temperature Oxygen saturation Heart rate Systolic And Diastolic Provider Name and Address Organization Details Last Updated DateTime 5 154.94 cm 18 /min 26.6 kg/m2 19348.5 2 g 98.1 [degF] 98 % 96 /min 124/76 mm[Hg] Mahi [place] - [facility] 5 15:47:33 Date Recorded Body height Body mass index (BMI) Body weight Heart rate Oxygen saturation Respiratory rate Pain severity - 0-10 verbal numeric rating [Score] - Reported Body temperature Systolic And Diastolic Provider Name and Address Organization Details Last Updated DateTime 5 154.94 cm 26.5 kg/m2 19651.9 3 g 88 /min 99 % 18 /min 0 97.9 [degF] 124/82 mm[Hg] Ramona Langston [place] - [facility] 5 10:32:19 Date Recorded Body height Body mass index (BMI) Body weight Heart rate Body temperature Oxygen saturation Respiratory rate Pain severity - 0-10 verbal numeric rating [Score] - Reported Systolic And Diastolic Provider Name and Address Organization Details Last Updated DateTime 5 154.94 cm 27 kg/m2 23836.7 1 g 87 /min 98.1 [degF] 98 % 18 /min 2 122/74 mm[Hg] Ramona Langston [place] - [facility] 5 14:11:00 Date Recorded Body height Body mass index (BMI) Body weight Body temperature Heart rate Oxygen saturation Respiratory rate Pain severity - 0-10 verbal numeric rating [Score] - Reported Systolic And Diastolic Provider Name and Address Organization Details Last Updated DateTime 5 154.94 cm 27 kg/m2 77886.7 1 g 98.1 [degF] 89 /min 98 % 18 /min 0 110/76 mm[Hg] Ramona Langston [place] - [facility] 5 10:55:40 Social History Question Answer Notes LastModified by Organizat ion Details LastModified Time Tobacco Smoking Status Never Smoker [place] [facility] 04/23/2022 14:08:19 Do You [...] Illicit Or Recreational Drugs Have You Used? [place] Information not available 05/16/2025 Have You Processed [...] Or The Highest Degree You Have Received? [id number] Information not available 04/23/2022 Have There Been Any Changes To Your Family Or Social Situation? No Information no t available 04/23/2022 What Is The Fluoride Status Of Your Home? Fluoridated Information not available 04/23/2022 Have You Recently Or Are You Planning To Travel To An Area With Zika Virus? No Information not available 04/23/2022 Do You Have A Medical Power Of Heat Curer? 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 [id number] Information not available 04/23/2022 Do you have [...] N Arthritis N Restless Leg Syndrome N Infertility N Polyps N Carpal Tunnel N Mental Disorder N Acid Reflux (GERD) N Cancer N Stroke N Varicosities N Tendonitis N Crohn's Disease N Hypercholesterolemia N Skin Cancer N Fibromyalgia N Headaches N Irritable Bowel Syndrome N Anal Fissure [...] colitis N Cerebrovascular Disease N Depression N Guillain-[place] N Sleep Apnea N Aneurysm N Bronchitis N Heart Disease N Suicidal Ideation N Pre-Eclampsia N Hypertension N Osteoporosis N Gynecological History Statement/Question Response Abnormal Pap N Flow Light Date of LMP 08/06/2025 STIs/STDs N HPV Vaccine N Duration of Flow (days) 3 Current Control Method BCPs Age at Menarche 10 Frequency of Cycle (Q days) 3 Sexually Active? N Menses Monthly N Date of Last Pap Smear 04/16/2020 LMP Approximate Hormone Replacement Therapy N Obstetrics History GPAL:G 0 P 0 0 0 0 Immunizations Vaccine Type Date Status Note Provider Nam e and Address Organization Details Recorded Time Hib-Hep B 0 completed Mahi Stears null, [facility] 11/30/2022 14:22:42 Hib-Hep B 9 completed Mahi Stears null, [facility] 11/30/2022 14:22:42 HPV9 7 completed Mahi Stears null, [facility] 11/30/2022 14:22:42 HPV9 6 completed Mahi Stears null, [facility] 11/30/2022 14:22:42 HPV9 6 completed Mahi [place] null, [place] - [facility] 11/30/2022 14:22:42 IPV 0 completed Mahi [place] null, [place] - [facility] 11/30/2022 14:22:42 IPV 9 completed Mahi [place] null, [place] - [facility] 11/30/2022 14:22:42 IPV 3 completed Mahi [place] null, [place] - [facility] 11/30/2022 14:22:42 IPV 9 completed Mahi Stears [...] trivalent, PF 8 completed Mahi [place] null, [place] [facility] 11/30/2022 14:22:42 Hep B, adolescent or pediatric 9 completed Mahi [place] [facility] 11/30/2022 14:22:42 Hep A, ped/adol, 2 dose 7 completed Mahi [place], [place] - [facility] 11/30/2022 14:22:42 Hep A, ped/adol, 2 dose 6 completed Mahi [place], [place] - [facility] 11/30/2022 14:22:42 Hib (PRP-OMP) 9 completed Mahi [place] null, [place] - [facility] 11/30/2022 14:22:42 meningococcal MCV4P 6 completed Mahi [place] null, [place] - [facility] 11/30/2022 14:22:42 DTaP, unspecified formulation 0 completed Mahi [place] null, [place] - [facility] 11/30/2022 14:22:42 DTaP, unspecified formulation 9 completed Mahi [place] null, [place] - [facility] 11/30/2022 14:22:42 DTaP, unspecified formulation 3 completed Mahi [place] null, [place] - [facility] 11/30/2022 14:22:42 DTaP, unspecified formulation 9 completed Mahi [place] null, [place] - [facility] 11/30/2022 14:22:42 DTaP, unspecified formulation 9 completed Mahi [place] null, [place] - [facility] 11/30/2022 14:22:42 meningococcal MCV4, unspecified formulation 0 completed Mahi [place] [facility] 11/30/2022 14:22:42 Influenza, split virus, quadrivalent, PF 0 completed Mahi [place] null, [place] - [facility] 11/30/2022 14:22:42 Past Encounters Encounter ID Performer Location Encounter Start Date Encounter Closed Date Diagnosis/Indication Diagnosis SNOMED-CT Code Diagnosis ICD10 Code Diagnosis IMO Codes Diagnosis Note [id number] Marilu Liao [place] [address] 1 04/23/2022 13:46:31 04/23/2022 15:43:23 Venereal disease screening 651875306 Z11.3 [id number] Marilu Liao [place] [id number] 11/30/2022 14:10:18 11/30/2022 15:12:04 Acute bronchitis 75678570 J20.9 [id number] [place] [id number] 12/10/2022 13:15:42 12/10/2022 14:23:59 Acute bronchitis 70336765 J20.9 Allergic rhinitis 291767 04 J30.9 [id number] Marilu Liao [place] [id number] 09/20/2023 13:30:04 09/20/2023 14:00:55 Tuberculosis screening 891485601 Z11.1 [id number] [place] [id number] 10/07/2023 13:35:28 10/07/2023 14:38:25 Tuberculosis screening 241334954 Z11.1 [id number] Marilu Liao [employer] [address] 04/03/2024 15:36:36 04/03/2024 16:07:26 Abdominal pain 42184070 R10.9 if symptoms worsen go to ed for eval Acute urin krupa tract infection 829211230 N39.0 Patient presents with symptoms of UTI. Results of dipstick were positive for UTI. Advised to drink clear fluids, reduce sexual activity, Tylenol for pain and take prescribed medication s as instructed . wear cotton under wear urinate after intercours e Patient encouraged to follow up within 1 week if not improving. [id number] Marilu Liao [address] [address] 02/13/2025 18:14:12 02/13/2025 18:34:46 Acute urinary tract infection 623761180 N39.0 577835 Patient presents with symptoms of UTI. Results of dipstick were positive for UTI. Advised to drink clear fluids, reduce sexual activity, Tylenol for pain and take prescribed medication s as instructed . wear cotton under wear urinate after intercours e Patient encouraged to follow up within 1 week if not improving. [id number] [facility] [address] [address] 02/23/2025 13:36:29 02/23/2025 14:26:18 Acute urinary tract infection 039273374 N39.0 442942 Patient presents with symptoms of UTI.increa se fluidscran mijares juicewipe front to backvoid after intercours [place] not hold urineantib iotics as orderedcot ton underwearP atient encouraged to follow up within 1 week if not improving. Pigmented skin lesion 20 9296620 D22.9 743107 derm referral Acute bronchitis 6685020 2 J20.9 60100847 antibiotic s and inhaler as needed [id number] [facility] [address] [address] 03/13/2025 14:52:48 03/13/2025 15:45:12 Dyspnea 244077943 R06.[address] to r/o pe- takes control pills, recent illness,pa lpitations advised to go to edif pt does not go to ed needs ct stat Palpitations 07055358 R0 0.2 37929 heart monitor orderedif any symptoms go to ed for eval [id number] Karma Saxena [facility] [address] [place] [address] 05/16/2025 10:48:03 05/16/2025 11:30:30 Skin lesion 34944011 L98.9 00748 Overweight in adulthood with body mass index of 25 or more but less than 30 014099299 Z68.26 9492875291 [id number] Marilu Liao [place] [id number] 05/28/2025 14:07:01 05/28/2025 15:11:43 Depressive disorder 91975194 F32.A Anxiety 38054440 F41.9 Autism suspected 8465868 06 R68.89 [id number] will send for testing- per pt request [id number] Karma Saxena [facility] [address] [place] [address] 06/01/2025 09:47:50 06/01/2025 10:53:51 Dysplastic nevus of skin 051652802 D22.9 366856 Overweight in adulthood with body mass index of 25 or more but less than 30 169484825 Z68.27 03702945 [id number] Marilu Liao [place] [id number] 06/22/2025 15:37:57 06/22/2025 16:32:21 Frequent headache 687175924 R51.9 16924176 Neck pain 95860515 M54.2 0079914 [id number] Marilu Liao [address] [address] 06/29/2025 10:10:57 06/29/2025 11:02:45 Viral upper respiratory tract infection 663728086 J06.9 2838570 no sign of a bacterial infection. likely viral. viruses can take 7-14 days to run their course. nasal saline and bulb syringe to remove nasal drainage to help with congestion . monitor temp. Tylenol or Motrin as needed for pain or fever. encourage fluids, water, Gatorade, power aide, Pedialyte if infant/tod dler/child warm salt water gargles warm fluids sore throat lozenges sleep elevated humidifier /vaporizer follow up immediatel y for new or worsening symptoms or no noticeable improvemen t over the next 48-72 hours [id number] Marilu Liao [address] [address] 07/23/2025 13:52:50 07/23/2025 15:01:27 Numbness of limbs 044982580 R20.0 9490103 Tick bite 43018695 W57.X XXA 0983850726 Pain of mu ltiple joints 76987836 M25.50 342803 Muscle weakness 94604341 M62.81 11204 Pain of ri ght shoulder region 3738611942 M25.511 27673910 Neck pain 71809364 M54.2 6236407 [id number] [facility] [address] [address] 08/14/2025 10:34:22 08/14/2025 11:06:04 Allergic reaction 262419773 T78.40XA 4631342 benadryl as neededster oids-shot today start pills tomorrowif worsen or no improvemen t go to ed Health Concerns Section Related Observation LastModified by Organization Detai ls LastModified Time None Recorded Concern Status LastModified by Organization Details LastModified Time None Recorded Advance Directives Directive N: Payers Insurance Date Sequence Insurance Name Policy Number Policy Bolanos Covered Member ID Bolanos Member ID Guarantor Name 07/30/2025 [place] [id number] [place] [place] (MEDICAID) Nathaly Plaza [id number] Nathaly Plaza 08/14/2025 1 AETNA [facility] (MEDICAID O) Nathaly Plaza [id number] Nathaly Plaza Notes Date Note Type Note Provider Name and Address Organization Details Recorded Time 06/01/2025 text/html ROS as noted in the [facility] Nathaly presents today for re-excision to her left shoulder. Was seen in office on 05/16/25 for a biopsy of a skin lesion to her left shoulder.Pathology report showed severe atypia with halo phenomenon and recommended re-excision. Karma Saxena, [employer] MEM[employer] [address], [place], [address], [place] - [facility] 06/01/2025 10:30:45 06/22/2025 text/html Emergency Depart ment Follow-Up RecordReported by PatientEmergency Room Follow-Up RecordFor discharge information, patient reportsname of hospital/urgent care patient was seen: ([facility]patient presented to hospital for treatment of: [...] a crackling sound at base of skull Shanthijo Liao, ALEJANDRINA [address], [place], [address], [place] - [facility] 06/22/2025 16:33:14 06/29/2025 text/html COVID-19 Symptom(s)Reported by PatientROS as noted in the HPI 24 yr old female presents for possible covid. She states she lost her sense of taste and smell yesterday. She does not think she was exposed to covid. Shanthimaryjose Ayalaandrei, ENV[employer] MEMBER [address], [place], [address], [place] [facility] 06/29/2025 11:10:52 07/23/2025 text/html Emergency Depart ment Follow-Up RecordReported by PatientEmergency Room Follow-Up RecordFor discharge information, patient reportsname of hospital/urgent care patient was seen: ([facility]),patient presented to hospital/urgent care on or around: actual date 07-03-25,patient presented to hospital for treatment of: (headache/shoulder and neck pain),treatment received by hospital/urgent care: (x rays, scans, mri brain),patient's condition has: improved, andhospital records available at the time of this visit: yes.ROS as noted in the HPI 24 yr old female presents to follow up on er visit. She was seen at [facility] ER on 07/03/25for neck/shoulder and head pain. pt states she is having numbness to hands and finger,intolerant to cold. pt states muscle weakness and tightness., seen neurology and placed on propanolol and emergency med but has not started propanolol.also had her therapy appointment cancelled and would like it sent to someone else Marilu Liao APRN [address], [place], [address], [employer] - [facility] 07/23/2025 14:55:12 08/14/2025 text/html ROS as noted in the HPI 24 yr old female presents for swelling of lips. She has had hives the last week and was given zyrtec at the urgent care. rash returned and woke this am with swollen lips. no swelling of tongue or throat.pt states she is not sure what she is exposing herself to, states she has not changed anything that she knows of. pt states no difficulty breathing Marilu Liao APRN [address], [place], [address], [place] - [facility] 08/14/2025 11:25:53 OBGyn Episode No OBEpisode recorded.
--- OUTSIDE RECORDS SUMMARY | 2025-08-19 01:17 | XMS_ITS | Continuity of Care Document ---
Author Organization [facility] Address [address] [place] [address] Care Team Providers Care Operating Systems Specialist Name Role Phone MARILU MARTINEZ Primary Care Provider Assessment Encounter Date Assessment Date Assessment LastModified [...] available Not available Initial 60 2025 01:00P MARYANN Dasilva Not available Not available Not available Lab None recorded. Referral neurologi st referral 2024 025 BAKARI Palacio MD, [address], [place], [address], 06/26/2025 19:12:40 Procedures None recorded. Surgeries None recorded. Imaging XR, cervical spine, 2 or 3 view 2024 025 [facility] (X-Ray), [address] [facility] [address], [place], [place], [address], 08/08/2025 08:20:58 Medication Orders None recorded. Patient TargetsNo targets [...] Modif iers: left Not Available [facility] ([facility]) [address] [facility], [place], [address], 06/08/2025 14:13:29 06/01/2006/08/2025 PATHO LOGY REPOR T . Commen t Clini ramiro histo ry: . PREVI OUS PATHO LOGY SHOWE D SEVER E ATYPI A WITH HALO PHENO ERIN ; ONE PERIP HERAL EDGE INVOL ALONSO Not Available [facility] ([facility]) [address] [facility], [place], [address], 06/08/2025 14:13:29 06/01/2006/08/2025 PATHO LOGY REPOR T . Commen t Diagn osis: WOUND OF OPERA TION. COMME NT: NO RESID UAL DYSPL ASTIC NEVUS IDENT IFIED . WOUND OF OPERA TION IS DIFFU SELY PRESE NT AT TISSU E EDGES . SMI 06/08 1241 Local Not Available [facility] ([facility]) [address] [facility], [place], [address], 06/08/2025 14:13:29 06/01/2006/08/2025 PATHO LOGY REPOR T . Commen t Elect nicolás patel d: . Rodney charles MD, Yantis topat holog ist Not Available [facility] ([facility]) [address] [facility], [place], [address], 06/08/2025 14:13:29 06/01/2006/08/2025 PATHO LOGY REPOR T [...] 06/06 0841 Local Not Available [facility] ([facility]) [address] [facility], [place], [address], 06/08/2025 14:13:29 06/01/2006/08/2025 PATHO LOGY REPOR T . Commen t Patho logis t provi ded ICD-1 0: L90.5 Not Available [facility] ([facility]) [address] [facility], [place], [address], 06/08/2025 14:13:29 06/01/2006/08/2025 PATHO LOGY REPOR T . Commen t CPT . 56355 1 Not Available [facility] ([facility]) [address] [facility], [place], [address], 06/08/2025 14:13:29 06/12/2006/12/2025 CT, venog tamar, head, w/wo contr ast No observ ation record ed. [facility] [address], [place], [address], 06/21/2025 08:51:05 06/12/20 25 06/12/2025 CT, head + brain , w/o contr ast No observ ation record ed. [facility] [address], [place], [address], 06/21/2025 08:51:05 06/15/2006/12/2025 elect rocar diogr am No observ ation record ed. [facility] [address], [place], [address], 06/21/2025 08:51:06 06/19/20 25 06/17/2025 elect rocar diogr am No observ ation record ed. [facility] [address], [place], [address], 06/21/2025 08:51:06 07/03/20 25 07/03/2025 XR, shoul vinicio, 2 or more view No observ ation record ed. [facility] [address], [place], [address], 07/03/2025 17:13:21 07/03/2007/03/2025 CT, cervi ramiro spine , w/o contr ast No observ ation record ed. [facility] [address], [place], [address], 07/03/2025 18:50:44 07/05/20 25 07/04/2025 MRI, head, w/wo contr ast No observ ation record ed. [facility] [address], [place], [address], 07/05/2025 09:16:00 Result Notes None recorded. Problems Name Problem SNOMED Code Status Onset Date Resolution Date Notes Provider Name and Address Organization Details Recorded Time Anxiety 56785324 Active 023 Mahi Alcantaras null, [place] - [facility] 3 14:23:20 Depressive disorder 97846685 Active 023 Mahi Quintons null, [place] - [facility] 3 14:23:26 Problem Notes None recorded. Procedures Surgical History Date Name Laterality Status Provider Name and Address Organization Details Recorded Time 07/23/20 25 Medication Reconcilliation completed Ramona Langston [place] - [facility] 07/23/2025 14:07:24 06/22/20 25 Medication Reconcilliation completed Mahi Gary [facility] 06/22/2025 15:48:52 06/01/20 25 Shave Biopsy trunk, arms, or legs completed Karma Saxena APRN [address], [place], [address], [facility] - [facility] 06/01/2025 10:21:16 05/16/20 25 Shave Biopsy trunk, arms, or legs completed Karma Saxena APRN [address], [place], [address], [facility] 05/16/2025 11:15:42 04/16/20 20 Date of Last Pap Smear completed Ramona Langston [facility] 08/14/2025 10:56:25 Imaging Results None recorded. Procedure [...] 1 CAPSULE BY MOUTH ONCE DAILY AT [facility] AT 5PM active Not Available Not Available [...] Organization Details Last Updated DateTime 154.94 cm 18 /min 26.6 kg/m2 93050.5 2 g 98.1 [degF] 98 % 96 /min 124/76 mm[Hg] Mahi [place] - [facility] 15:47:33 Social History Question Answer Notes LastModified [...] Illicit Or Recreational Drugs Have You Used? [place] Information not available 05/16/2025 Have You Processed [...] Or The Highest Degree You Have Received? [id number] Information not available 04/23/2022 Have There Been Any Changes To Your Family Or Social Situation? No Information no t available 04/23/2022 What Is The Fluoride Status Of Your Home? Fluoridated Information not available 04/23/2022 Have You Recently Or Are You Planning To Travel To An Area With Zika Virus? No Information not available 04/23/2022 Do You Have A Medical Power Of Employee Benefits Coordinator? 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 [id number] Information not available 04/23/2022 Do you have [...] colitis N Cerebrovascular Disease N Depression N Guillain-[place] N Sleep Apnea N Aneurysm N Bronchitis [...] 14:22:42 Tdap 0 completed Mahi [place] null, [place] - [facility] 11/30/2022 14:22:42 varicella 0 completed Mahi [place] [facility] 11/30/2022 14:22:42 Influenza, split virus, trivalent, PF 8 completed Mahi [place] [facility] 11/30/2022 14:22:42 Hep B, adolescent or pediatric 9 completed Mahi [place] [facility] 11/30/2022 14:22:42 Hep A, ped/adol, 2 dose 7 completed Mahi [place] [facility] 11/30/2022 14:22:42 Hep A, ped/adol, 2 dose 6 completed Mahi [place] [facility] 11/30/2022 14:22:42 Hib (PRP-OMP) 9 completed Mahi [place] [facility] 11/30/2022 14:22:42 meningococcal MCV4P 6 completed Mahi [place] [facility] 11/30/2022 14:22:42 DTaP, unspecified formulation [...] unspecified formulation 9 completed Mahi [place] [facility] 11/30/2022 14:22:42 meningococcal MCV4, unspecified formulation 0 completed Mahi [place] [facility] 11/30/2022 14:22:42 Influenza, split virus, quadrivalent, PF 0 completed Mahi [place] [facility] 11/30/2022 14:22:42 Past Encounters Encounter ID Performer Location Encounter Start Date Encounter Closed Date Diagnosis/Indication Diagnosis SNOMED-CT Code Diagnosis ICD10 Code Diagnosis IMO Codes Diagnosis Note [id number] Marilu Martinez [address] [address] 05/28/2025 14:07:01 05/28/2025 15:11:43 Depressive disorder 30712054 F32.A Anxiety 33435581 F41.9 Autism suspected 4385939 06 R68.89 6836704 will send for testing- per pt request [id number] Karma Saxena [facility] [address] [place] [address] 06/01/2025 09:47:50 06/01/2025 10:53:51 Dysplastic nevus of skin 597260601 D22.9 899850 Overweight in adulthood with body mass index of 25 or more but less than 30 453838521 Z68.27 36810360 [id number] Marilu Martinez [employer] [address] [address] 06/22/2025 15:37:57 06/22/2025 16:32:21 Frequent headache 018843387 R51.9 21279499 Neck pain 09285324 M54.2 5435887 Health Concerns Section Related Observation LastModified by Organization Detai ls LastModified Time None Recorded Concern Status LastModified by Organization Details LastModified Time None Recorded Payers Encounter Date Sequence Insurance Name Policy Number Policy Bolanos Covered Member ID Bolanos Member ID Guarantor Name 06/22/2025 1 AETNA [facility] (MEDICAID HMO) Nathaly Plaza [id number] Nathaly Plaza Notes Date Note Type Note Provider Name and Address Organization Details Recorded Time 06/22/2025 text/html Emergency Depart ment Follow-Up RecordReported by PatientEmergency Room Follow-Up RecordFor discharge information, patient reportsname of hospital/urgent care patient was seen: ([facility]),patient presented to hospital for treatment [...] crackling sound at base of skull Marilu Martinez, [employer] [address], [place], [address], [place] - [facility] 06/22/2025 16:33:14 OBGyn Episode No OBEpisode recorded.
--- OUTSIDE RECORDS SUMMARY | 2025-08-19 01:17 | XMS_ITS | Continuity of Care Document ---
[facility] Address [address] [place] [address] Care Team Providers Care Neurophysiologist Name Role Phone MARILU MARTINEZ Primary Care [...] By Organization Details Last Modified Time 05/28/2025 [id number] autism evaluation* bstears Not available 06/13/2025 11:07:17 Reason for Referral None Reported. Results Created Date Observation Date Name Description Value Unit Range Abnormal Flag Note LastModifiedBy Organization Detail LastModifiedTime 05/16/2005/21/2025 PATHO LOGY MISAEL Soares t Mater ial submi tted: . shoul vinicio - LEFT SHOUL VINICIO SKIN. Modif iers: left Not Available [facility] ([facility]) [address] [facility], [place], [address], 05/21/2025 14:11:22 05/16/20 25 05/21/2025 PATHO LOGY REPOR Daniel Soares t Clini ramiro histo ry: . L98.9 Not Available [facility] ([facility]) [address] [facility], [place], [address], 05/21/2025 14:11:22 05/16/20 25 05/21/2025 PATHO LOGY [...] ON. REVIE WED BY: RAF BRIAN M.D. [facility] 05/18 0657 Local Not Available [facility] ([facility]) [address] [facility], [place], [address], 05/21/2025 14:11:22 05/16/20 25 05/21/2025 PATHO LOGY REPOR T . Commen t Elect nicolás patel d: . Matt MD, [place] topat holog ist Not Available [facility] ([facility]) [address] [facility], [place], [address], 05/21/2025 14:11:22 05/16/20 25 05/21/2025 PATHO LOGY [...] YE 05/17 0524 Local Not Available [facility] ([facility]) [address] [facility], [place], [address], 05/21/2025 14:11:22 05/16/20 25 05/21/2025 PATHO LOGY REPOR T . Commen t Patho logis t provi ded ICD-1 0: D48.5 Not Available [facility] ([facility]) [address] [facility], [place], [address], 05/21/2025 14:11:22 05/16/20 25 05/21/2025 PATHO LOGY REPOR T . Commen t CPT . 58275 1 Not Available [facility] ([facility]) [address] [facility], [place], [address], 05/21/2025 14:11:22 06/12/20 25 06/12/2025 CT, venog tamar, head, w/wo contr ast No observ ation record ed. [facility] [address], [place], [place], [address], 06/21/2025 08:51:05 06/12/20 25 06/12/2025 CT, head + brain , w/o contr ast No observ ation record ed. [facility] [address], [place], [place], [address], 06/21/2025 08:51:05 06/15/20 25 06/12/2025 elect rocar diogr am No observ ation record ed. [facility] [address], [place], [address], 06/21/2025 08:51:06 06/19/20 25 06/17/2025 elect rocar diogr am No observ ation record ed. [facility] [address], [place], [address], 06/21/2025 08:51:06 07/03/2007/03/2025 XR, shoul vinicio, 2 or more view No observ ation record ed. [facility] [address], [place], [address], 07/03/2025 17:13:21 07/03/20 25 07/03/2025 CT, cervi ramiro spine , w/o contr ast No observ ation record ed. [facility] [address], [place], [address], 07/03/2025 18:50:44 07/05/2007/04/2025 MRI, head, w/wo contr ast No observ ation record ed. [place] [id number], [place], [address], 07/05/2025 09:16:00 Result Notes None recorded. Problems Name Problem SNOMED Code Status Onset Date Resolution Date Notes Provider Name and Address Organization Details Recorded Time Anxiety 57142938 Active 023 Mahi Stears null, [place] - [facility] 3 14:23:20 Depressive disorder 16910914 Active 023 Mahi Stears null, [place] - [facility] 3 14:23:26 Problem Notes None recorded. Procedures Surgical History Date Name Laterality Status Provider Name and Address Organization Details Recorded Time 07/23/20 Medication Reconcilliation completed Ramona Langston [place] - [facility] 07/23/2025 14:07:24 06/22/20 Medication Reconcilliation completed Mahi Abdirahman [place] - [facility] 06/22/2025 15:48:52 06/01/20 Shave Biopsy trunk, arms, or legs completed Karma ALEJANDRINA Saxena [address], [place], [address], [place] - [facility] 06/01/2025 10:21:16 05/16/20 Shave Biopsy trunk, arms, or legs completed Karma Saxena APRN [address], [place], [address], [place] - [facility] 05/16/2025 11:15:42 04/16/20 Date of Last Pap Smear completed Armona Ivis [place] - [facility] 08/14/2025 10:56:25 Imaging Results None [...] CAPSULE BY MOUTH ONCE DAILY AT [facility] AT 5PM active Not Available [...] Updated DateTime 5 154.94 cm 26.8 kg/m2 61007.1 2 g 88 /min 98 [degF] 98 % 18 /min 0 118/72 mm[Hg] [...] Illicit Or Recreational Drugs Have You Used? [place] Information not available 05/16/2025 Have You Processed [...] Or The Highest Degree You Have Received? LG76741-7 Information not available 04/23/2022 Have There Been Any Changes To Your Family Or Social Situation? No Information no t available 04/23/2022 What Is The Fluoride Status Of Your Home? Fluoridated Information not available 04/23/2022 Have You Recently Or Are You Planning To Travel To An Area With Zika Virus? No Information not available 04/23/2022 Do You Have A Medical Power Of Aromatherapist? 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 GS7966-6 Information not available 04/23/2022 Do you have [...] Dementia N Cerebrovascular Disease N Depression N Guillain[place] N Sleep Apnea N Osteoporosis N Gynecological [...] 14:22:42 HPV9 7 completed Mahi Stears null, [place] - [facility] 11/30/2022 14:22:42 HPV9 6 completed [...] ICD10 Code Diagnosis IMO Codes Diagnosis Note [id number] Karma Saxena APRN [facility] [address] [place] [address] 05/16/2025 10:48:03 05/16/2025 11:30:30 Skin lesion 59173221 L98.9 31834 Overweight in adulthood with body mass index of 25 or more but less than 30 769213307 Z68.26 [id number] Marilu Martinez APRN [address] [address] 05/28/2025 14:07:01 05/28/2025 15:11:43 Depressive disorder 69582265 F32.A Anxiety 58982786 F41.9 Autism suspected 5989903 06 R68.89 [id number] will send for testing- per pt request Health Concerns Section Related Observation LastModified by Organization Detai ls LastModified Time None Recorded Concern Status LastModified by Organization Details LastModified Time None Recorded Payers Encounter Date Sequence Insurance Name Policy Number Policy Bolanos Covered Member ID Bolanos Member ID Guarantor Name 05/28/[address] [facility] (MEDICAID HMO) [employer] [id number] [employer] Notes Date Note Type Note Provider Name and Address Organization Details Recorded Time 05/28/2025 text/html ROS as noted in the HPI 24 yr old female presents for a referral for possible autism. She is recently going through a lot of life changes and her behavioral health [employer] couldn't get her in for a few weeks. has mentioned she had autism before. pt states she has some symptoms of autismno hi or si Marilu Martinez APRN [address], [place], [address], [facility] - [facility] 05/28/2025 15:13:53 OBGyn Episode No OBEpisode recorded.
--- OUTSIDE RECORDS SUMMARY | 2025-08-19 01:17 | XMS_ITS | Continuity of Care Document ---
Author Organization [facility] Address [address] [place] [address] Care Team Providers Care Library Serials Assistant Name Role Phone MARILU LIAO Primary Care Provider Assessment Encounter Date Assessment Date Assessment LastModified by Organization Details LastModified Time 07/23/2025 07/23/2025 -Medications were reviewed and any [...] cobalamin and folate panel, serum 2024 025 BAKARI [facility], [address], [address] [address], [place], [address], 08/04/2025 18:07:21 vitamin D, 25-hydrox y, total, serum 2024 025 BAKARI [facility], [address], [place] [address], [place], [address], 08/04/2025 18:07:22 CBC 2024 025 BAKARI [facility], [address], [place] [address], [place], [address], 08/04/2025 18:07:20 iron + total iron-bind ing capacity (TIBC), serum 2024 BAKARI [facility], [address], [place] [address], [place], [address], 08/04/2025 18:07:21 magnesium , serum or plasma 2024 BAKARI [facility], [address], [place], [place], [address], 08/04/2025 18:07:22 vitamin B12, serum 2024 025 [facility], [address], [place] [address], [place], [address], 08/08/2025 08:20:25 WILMA + rf (antinucl ear antibodie s + rheumatoi d factor), quantitat rick, serum 2024 025 [facility], [address] [place], [address], 08/04/2025 18:07:22 C reactive protein, QN, serum or plasma 2024 025 [facility], [address] [place], [address], 08/04/2025 18:07:23 systemic lupus Ab panel, serum or plasma 2024 025 BAKARI [facility], [address], [place], [place], [address], 08/04/2025 18:07:20 WILMA (antinucl ear antibodie s) screen, serum 2024 025 [facility], [address], [place], [place], [address], 08/08/2025 08:20:26 borrelia burgdorfe ri IgG + IgM + total panel, IA, serum 2024 025 HEFLIN [facility], [address], [address] [address], [place], [address], 08/04/2025 18:07:22 galactose -alpha-1, 3-galacto se panel, serum or plasma 2024 025 HEFLIN [facility], [address], [place], [place], [address], 08/04/2025 18:07:21 Referral physical therapist referral - shoulder and neck pain 2024 025 [facility], [address], [place], [address], 08/13/2025 04:12:24 Procedures None recorded. Surgeries None recorded. Imaging None recorded. Medication Orders None recorded. Patient TargetsNo targets recorded. Patient InstructionsNo instructions recorded. Reason for Referral Physical Therapist Referral for Neck pain shoulder and neck pain Referring Physician: Marilu Liao, Family Medicine, Encounter Date: 07/23/2025 Results Created Date Observation Date Name Description Value Unit Range Abnormal Flag Note LastModifiedBy Organization Detail LastModifiedTime 06/29/2006/29/2025 rapid SARS CoV + SARS CoV 2 Ag, QL IA, respi rator y speci men SARS CoV antigen Negati ve Not Available [address], [address], 06/29/2025 10:37:31 07/23/2007/24/2025 CBC, PLATE LET, NO DIFFE RENTI AL WBC 8.2 x10e3 /uL 3.4-10 .8 normal Not Available [facility] ([facility]) [address] [facility], [place], [address], 08/04/2025 18:07:20 07/23/20 25 07/24/2025 CBC, PLATE LET, NO DIFFE RENTI AL RBC 4.48 x10e6 /uL 3.77-5 .28 normal Not Available [facility] ([facility]) [address] [facility], [place], [address], 08/04/2025 18:07:20 07/23/2007/24/2025 CBC, PLATE LET, NO DIFFE RENTI AL hemoglobin 13.8 g/dL 11.1-1 5.9 normal Not Available [facility] ([facility]) [address] [facility], [place], [address], 08/04/2025 18:07:20 07/23/2007/24/2025 CBC, PLATE LET, NO DIFFE RENTI AL hematocrit 41.6 % 34.0-4 6.6 normal Not Available [facility] ([facility]) [address] [facility], [place], [address], 08/04/2025 18:07:20 07/23/2007/24/2025 CBC, PLATE LET, NO DIFFE RENTI AL MCV 93 fL 79-97 normal Not Available [facility] ([facility]) [address] [facility], [place], [address], 08/04/2025 18:07:20 07/23/2007/24/2025 CBC, PLATE LET, NO DIFFE RENTI AL MCH 30.8 pg 26.6-3 3.0 normal Not Available [facility] ([facility]) [address] [facility], [place], [address], 08/04/2025 18:07:20 07/23/2007/24/2025 CBC, PLATE LET, NO DIFFE RENTI AL MCHC 33.2 g/dL 31.5-3 5.7 normal Not Available [facility] ([facility]) [address] [facility], [place], [address], 08/04/2025 18:07:20 07/23/20 25 07/24/2025 CBC, PLATE LET, NO DIFFE RENTI AL RDW 12.1 % 11.7-1 5.4 Not Available [facility] ([facility]) [address] [facility], [place], [address], 08/04/2025 18:07:20 07/23/2007/24/2025 CBC, PLATE LET, NO DIFFE RENTI AL platelets 294 x10e3 /uL 150-45 0 normal Not Available [facility] ([facility]) [address] [facility], [place], [address], 08/04/2025 18:07:20 07/23/2007/24/2025 CBC, PLATE LET, NO DIFFE RENTI AL NRBC RESOURCE CONSERVATIONIST Not Available [facility] ([facility]) [address] [facility], [place], [address], 08/04/2025 18:07:20 07/23/20 25 07/28/2025 LUPUS DIAGN OSTIC PROFI LE anti-sm Ab (rdl) <20 units <20 Negat rick: <20 Weak Posit rick: 20-39 Moder ate Posit rick: 40-80 Stron g Posit rick: >80 Not Available [facility] [address] [place] [address], [address], 08/04/2025 18:07:20 07/23/20 25 07/28/2025 LUPUS DIAGN OSTIC PROFI LE anti-U1 linux systems administrator Ab (rdl) <20 units <20 Negat rick: <20 Weak Posit rick: 20-39 Moder ate Posit rick: 40-80 Stron g Posit rick: >80 Not Available [facility] [address] [place], [address], 08/04/2025 18:07:20 07/23/20 25 07/28/2025 LUPUS DIAGN OSTIC PROFI LE anti-RO (ss-A) Ab (rdl) <20 units <20 Negat rick: <20 Weak Posit rick: 20-39 Moder ate Posit rick: 40-80 Stron g Posit rick: >80 Not Available [facility] [address] [place], [address], 08/04/2025 18:07:20 07/23/20 25 07/28/2025 LUPUS DIAGN OSTIC PROFI LE anti-la (ss-B) Ab (rdl) <20 units <20 Negat rick: <20 Weak Posit rick: 20-39 Moder ate Posit rick: 40-80 Stron g Posit rick: >80 Not Available [facility] [address] [place], [address], 08/04/2025 18:07:20 07/23/20 25 07/28/2025 LUPUS DIAGN OSTIC PROFI LE C3 complement (rdl) 206 mg/dL 90-180 above high normal Not Available [facility] [address] [place] [address], [address], 08/04/2025 18:07:20 07/23/20 25 07/28/2025 LUPUS DIAGN OSTIC PROFI LE C4 complement (rdl) 19 mg/dL 10-40 Ple ase note refer ence inter alejandrina charlie e Not Available [facility] [address] [place] [address], [address], 08/04/2025 18:07:20 07/23/20 25 07/31/2025 LUPUS DIAGN OSTIC PROFI LE anti-nuclear Ab by ifa (rdl) Positi ve negati ve abnormal Not Available [facility] [address] [place], [address], 08/04/2025 18:07:20 07/23/20 25 07/31/2025 LUPUS DIAGN OSTIC PROFI LE homogeneous pattern RESOURCE CONSERVATIONIST Not Available [facility] [address] [place] [address], [address], 08/04/2025 18:07:20 07/23/20 25 07/31/2025 LUPUS DIAGN OSTIC PROFI LE nucleolar pattern RESOURCE CONSERVATIONIST Not Available [facility] [address] [place], [address], 08/04/2025 18:07:20 07/23/20 25 07/31/2025 LUPUS DIAGN OSTIC PROFI LE speckled pattern 1:40 <1:40 above high normal Not Available [facility] [address] [place], [address], 08/04/2025 18:07:20 07/23/20 25 07/31/2025 LUPUS DIAGN OSTIC PROFI LE centromere pattern RESOURCE CONSERVATIONIST Not Available [facility] [address] [place], [address], 08/04/2025 18:07:20 07/23/20 25 07/31/2025 LUPUS DIAGN OSTIC PROFI LE spindle apparatus pattern RESOURCE CONSERVATIONIST Not Available [facility] [address] [place], [address], 08/04/2025 18:07:20 07/23/20 25 07/31/2025 LUPUS DIAGN OSTIC PROFI LE nuclear membrane pattern RESOURCE CONSERVATIONIST Not Available [facility] [address] [place], [address], 08/04/2025 18:07:20 07/23/20 25 07/31/2025 LUPUS DIAGN OSTIC PROFI LE midbody pattern RESOURCE CONSERVATIONIST Not Available [facility] [address] [place], [address], 08/04/2025 18:07:20 07/23/20 25 07/31/2025 LUPUS DIAGN OSTIC PROFI LE nuclear dot pattern RESOURCE CONSERVATIONIST Not Available [facility] [address] [place], [address], 08/04/2025 18:07:20 07/23/20 25 07/31/2025 LUPUS DIAGN OSTIC PROFI LE pcna pattern RESOURCE CONSERVATIONIST Not Available [facility] [address] [place], [address], 08/04/2025 18:07:20 07/23/20 25 07/31/2025 LUPUS DIAGN OSTIC PROFI LE centriole pattern RESOURCE CONSERVATIONIST Not Available [facility] [address] [place] [address], [address], 08/04/2025 18:07:20 07/23/20 25 07/31/2025 LUPUS DIAGN OSTIC PROFI LE note: Commen t WILMA perfo rmed by Indir ect Fluor escen t Antib cj (IFA) Not Available [facility] [address] [place] [address], [address], 08/04/2025 18:07:20 07/23/20 25 08/04/2025 LUPUS DIAGN OSTIC PROFI LE anti-dsdna Ab by max(rdl) <8.0 IU/mL <8.0 Not Available [facility] [address] [place] [address], [address], 08/04/2025 18:07:20 07/23/20 25 08/04/2025 LUPUS DIAGN OSTIC PROFI LE anti-chromat in Ab, IgG (rdl) <20 units <20 Negat rick: <20 Moder ate Posit rick: 20 - 60 Stron g Posit rick: >60 Not Available [facility] [address] [place] [address], [address], 08/04/2025 18:07:20 07/23/20 25 07/24/2025 ALPHA -GAL IGE PANEL class description Commaspen t Level s of Speci fic IgE [...] >100. 00 Very High Not Available [facility] ([facility]) [address] [place], [address], 08/04/2025 18:07:21 07/23/20 25 07/29/2025 ALPHA -GAL IGE PANEL immunoglobul in E, total 9 IU/mL 6-495 Not Available [facility] ([facility]) [address] [place], [address], 08/04/2025 18:07:21 07/23/2007/29/2025 ALPHA -GAL IGE PANEL K072-SfR pork <0.10 kU/L class 0 Not Available [facility] ([facility]) [address] [place], [address], 08/04/2025 18:07:21 07/23/2007/29/2025 ALPHA -GAL IGE PANEL J873-PpO beef <0.10 kU/L class 0 Not Available [facility] ([facility]) [address] [place], [address], 08/04/2025 18:07:21 07/23/2007/29/2025 ALPHA -GAL IGE PANEL Q720-MfZ alfonso <0.10 kU/L class 0 Not Available [facility] ([facility]) [address] [place], [address], 08/04/2025 18:07:21 07/23/20 25 07/29/2025 ALPHA -GAL IGE PANEL X809-ZmX alpha-gal <0.10 kU/L class 0 Not Available [facility] ([facility]) [address] [place], [address], 08/04/2025 18:07:21 07/23/20 25 07/24/2025 IRON AND TIBC iron bind.cap.(TI BC) 383 ug/dL 250-45 0 normal Not Available [facility] ([facility]) [address] [facility], [place], [address], 08/04/2025 18:07:21 07/23/2007/24/2025 IRON AND TIBC UIBC 282 ug/dL 131-42 5 normal Not Available [facility] ([facility]) [address] [facility], [place], [address], 08/04/2025 18:07:21 07/23/2007/24/2025 IRON AND TIBC iron 101 ug/dL 27-159 normal Not Available [facility] ([facility]) [address] [facility] [place], [address], 08/04/2025 18:07:21 07/23/2007/24/2025 IRON AND TIBC iron saturation 26 % 15-55 normal Not Available [facility] ([facility]) [address] [facility], [place], [address], 08/04/2025 18:07:21 07/23/20 25 07/24/2025 VITAM IN B12 AND FOLAT E vitamin B12 327 pg/mL 232-12 45 normal Not Available [facility] ([facility]) [address] [place], [address], 08/04/2025 18:07:21 07/23/2007/24/2025 VITAM IN B12 AND FOLAT E folate (folic acid), serum >20.0 NG/mL >3.0 A serum folat e allan ntrat ion of less than 3.1 ng/mL is consi dered to repre sent clini ramiro defic iency . Not Available [facility] ([facility]) [address] [place], [address], 08/04/2025 18:07:21 07/23/20 25 07/24/2025 WILMA+R F QN WILMA direct Negati ve negati ve Not Available [facility] ([facility]) [address] [place], [address], 08/04/2025 18:07:21 07/23/20 25 07/24/2025 WILMA+R F QN rheumatoid factor (rf) <10.0 IU/mL <14.0 Not Available [facility] ([facility]) [address] [facility], [place], [address], 08/04/2025 18:07:21 07/23/20 25 07/24/2025 VITAM IN D, 25-HY DROXY vitamin D, 25-hydroxy 21.5 NG/mL 30.0-1 00.0 below low normal Vitam in D defic iency has been defin ed by the Insti tute of [facility] ine and an Endoc rine Socie ty pract ice guide line as a level of serum 25-OH vitam in D less than 20 ng/mL (1,2) . The Endoc rine Socie ty went on to furth er defin e vitam in D insuf ficie ncy as a level betwe en 21 and 29 ng/mL (2). 1. IOM (Inst itute of Medic ine). 2009. Dieta ry refer ence christine es for calci um and D. Beck russell [place]: [facility] . 2. Ana hazel MF, Kristen cm [place], Suman off-F errar i SANCHEZ, et al. Evalu ation , treat ment, and preve ntion of vitam in D defic iency : an Endoc rine Socie ty clini ramiro pract ice guide line. JCEM. 2010; 96(7) :1911 -30. Not Available [facility] ([facility]) [address] [facility], [place], [address], 08/04/2025 18:07:22 07/23/20 25 07/24/2025 LYME DISEA SE SEROL OGY W/REF DENG lyme total antibody karla Negati ve negati ve Lyme antib odies not detec mihir. Refle x testi ng is not indic ated. No labor atory evide nce of infec tion with B. burgd orfer i (Lyme disea se). Negat rick resul ts may occur in patie nts recen tly infec mihir (less than or equal to 14 days) with B. burgd orfer i. If recen t infec tion is suspe cted, repea t testi ng on a new sampl e colle cted in 7 to 14 days is recom jacob d. Not Available [facility] ([facility]) [address] [facility], [place], [address], 08/04/2025 18:07:22 07/23/20 25 07/24/2025 MAGNE SIUM magnesium 2.0 mg/dL 1.6-2. 3 normal Not Available [facility] ([facility]) [address] [facility], [place], [address], 08/04/2025 18:07:22 07/23/20 25 07/24/2025 C-KATE CTIVE PROTE IN, QUANT C-reactive protein, quant 7 mg/L 0-10 normal Not Available [facility] ([facility]) [address] [facility], [place], [address], 08/04/2025 18:07:23 07/03/2007/03/2025 XR, shoul vinicio, 2 or more view No observ ation record ed. [facility] [address], [place], [address], 07/03/2025 17:13:21 07/03/2007/03/2025 CT, cervi ramiro spine , w/o contr ast No observ ation record ed. [facility] [address], [place], [address], 07/03/2025 18:50:44 07/05/2007/04/2025 MRI, head, w/wo contr ast No observ ation record ed. [facility] [address], [place], [address], 07/05/2025 09:16:00 Result Notes None recorded. Problems Name Problem SNOMED Code Status Onset Date Resolution Date Notes Provider Name and Address Organization Details Recorded Time Anxiety 70223219 Active 023 Mahi Stears null, [place] - [facility] 3 14:23:20 Depressive disorder 61976748 Active 023 Mahi Stears null, [place] - [facility] 14:23:26 Problem Notes None recorded. Procedures Surgical History Date Name Laterality Status Provider Name and Address Organization Details Recorded Time 07/23/20 25 Medication Reconcilliation completed Ramona Langston [place] - [facility] 07/23/2025 14:07:24 06/22/20 25 Medication Reconcilliation completed Mahi Gary [place] - [facility] 06/22/2025 15:48:52 06/01/20 25 Shave Biopsy trunk, arms, or legs completed Karma Saxena APRN [address], [place], [address], [place] - [facility] 06/01/2025 10:21:16 05/16/20 25 Shave Biopsy trunk, arms, or legs completed Karma Saxena APRN [address], [place], [address], [place] - [facility] 05/16/2025 11:15:42 04/16/20 20 Date of Last Pap Smear completed Ramona Langston [place] - [facility] 08/14/2025 10:56:25 Imaging Results None [...] 1 CAPSULE BY MOUTH ONCE DAILY AT [facility] AT 5PM active Not Available Not [...] Updated DateTime 5 154.94 cm 27 kg/m2 77270.7 1 g 87 /min 98.1 [degF] 98 % 18 /min 2 122/74 mm[Hg] Ramona Langston [place] - [facility] 14:11:00 Social History Question Answer Notes LastModified by [...] Illicit Or Recreational Drugs Have You Used? [place] Information not available 05/16/2025 Have You Processed [...] Or The Highest Degree You Have Received? [id number] Information not available 04/23/2022 Have There Been Any Changes To Your Family Or Social Situation? No Information no t available 04/23/2022 What Is The Fluoride Status Of Your Home? Fluoridated Information not available 04/23/2022 Have You Recently Or Are You Planning To Travel To An Area With Zika Virus? No Information not available 04/23/2022 Do You Have A Medical Power Of Vibrating Screed Operator? 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 [id number] Information not available 04/23/2022 Do you have [...] colitis N Cerebrovascular Disease N Depression N Guillain-[place] N Sleep Apnea N Aneurysm N Heart [...] null, [place] - [facility] 11/30/2022 14:22:42 HPV9 11/28/201 6 completed Mahi Stears null, [place] - [facility] 11/30/2022 14:22:42 IPV 0 completed Mahi Stears null, [place] - [facility] 11/30/2022 14:22:42 IPV 9 completed Mahi Stears null, [place] - [facility] 11/30/2022 14:22:42 IPV 3 completed Mahi Stears null, [place] - [facility] 11/30/2022 14:22:42 IPV 9 completed Mahi Stears null, [place] - [facility] 11/30/2022 14:22:42 MMR 0 completed Mahi Stears null, [place] - [facility] 11/30/2022 14:22:42 MMR 3 completed Mahi Stears null, [place] - [facility] 11/30/2022 14:22:42 Tdap 0 completed Mahi Stears null, [place] - [facility] 11/30/2022 14:22:42 varicella 0 completed Mahi Stears null, [place] - [facility] 11/30/2022 14:22:42 Influenza, split virus, trivalent, PF 8 completed Mahi Stears null, [place] - [facility] 11/30/2022 14:22:42 Hep B, adolescent or pediatric 9 completed Mahi Stears null, [place] - [facility] 11/30/2022 14:22:42 Hep A, ped/adol, 2 dose 7 completed Mahi Stears null, [place] - [facility] 11/30/2022 14:22:42 Hep A, ped/adol, 2 dose 6 completed Mahi Stears null, [place] - [facility] 11/30/2022 14:22:42 Hib (PRP-OMP) 9 completed Mahi Stears null, [place] - [facility] 11/30/2022 14:22:42 meningococcal MCV4P 6 completed Mahi Stears null, [place] - [facility] 11/30/2022 14:22:42 DTaP, unspecified formulation [...] unspecified formulation 0 completed Mahi Stears null, [place] - [facility] 11/30/2022 14:22:42 Influenza, split virus, quadrivalent, PF 0 completed Mahi Stears null, [place] - [facility] 11/30/2022 14:22:42 Past Encounters Encounter ID Performer Location Encounter Start Date Encounter Closed Date Diagnosis/Indication Diagnosis SNOMED-CT Code Diagnosis ICD10 Code Diagnosis IMO Codes Diagnosis Note [id number] Marilu Liao [address] [address] 06/22/2025 15:37:57 06/22/2025 16:32:21 Frequent headache 388266704 R51.9 13156713 Neck pain 52807105 M54.2 [id number] [facility] [address] [address] 06/29/2025 10:10:57 06/29/2025 11:02:45 Viral upper respiratory tract infection 811229864 J06.9 8534816 no sign of a bacterial infection. likely [...] improvemen t over the next 48-72 hours [id number] Marilu Liao APRN [address] [address] 07/23/2025 13:52:50 07/23/2025 15:01:27 Numbness of limbs 097505303 R20.0 5374813 Tick bite 22511164 W57.X XXA 2340646423 Pain of mu ltiple joints 91335788 M25.50 389831 Muscle weakness 64719661 M62.81 35490 Pain of ri ght shoulder region 6170201066 M25.511 21497816 Neck pain 12466925 M54.2 [id number] Health Concerns Section Related Observation LastModified by Organization Detai ls LastModified Time None Recorded Concern Status LastModified by Organization Details LastModified Time None Recorded Payers Encounter Date Sequence Insurance Name Policy Number Policy Bolanos Covered Member ID Bolanos Member ID Guarantor Name 07/23/2025 1 [employer] [facility] (MEDICAID HMO) Nathaly Plaza [id number] Nathaly Plaza Notes Date Note Type Note Provider Name and Address Organization Details Recorded Time 07/23/2025 text/html Emergency Depart ment Follow-Up RecordReported by PatientEmergency Room Follow-Up RecordFor discharge information, patient reportsname of hospital/urgent care patient was seen: ([facility]),patient presented to hospital/urgent care on or around: actual date 07-03-25,patient presented to hospital for treatment of: (headache/shoulder and neck pain),treatment received by hospital/urgent care: (x rays, scans, mri brain),patient's condition has: improved, andhospital records available at the time of this visit: yes.ROS as noted in the HPI 24 yr old female presents to follow up on er visit. She was seen at [facility] ER on 07/03/25for neck/shoulder and head pain. pt states she is having numbness to hands and finger,intolerant to cold. pt states muscle weakness and tightness., seen neurology and placed on propanolol and emergency med but has not started propanolol.also had her therapy appointment cancelled and would like it sent to someone else Marilu Liao, HEALTH UNIT SUPERVISOR [address], [place], [address], [facility] - [facility] 07/23/2025 14:55:12 OBGyn Episode No OBEpisode recorded.
--- NOTE | 2025-08-19 01:18 | HMH.EDGENADL ---
Discharge Plan Disposition Patient Disposition: Home, Self-Care Prescriptions Prescriptions: No Action Lo Loestrin Fe 1 mg-10 mcg (24)/10 mcg (2) tablet 1 tab PO DAILY Qty: 84 4RF amitriptyline 25 mg tablet 25 mg PO DAILY Qty: 30 2RF cetirizine [Zyrtec] 10 mg tablet 10 mg PO DAILY Qty: 30 2RF buspirone 10 mg tablet 20 mg PO BID 90 Days Qty: 360 0RF propranolol 60 mg capsule,extended release 24 hr 60 mg PO DAILY Qty: 30 2RF Rx Instructions: Take at approximately 5 pm. rizatriptan 5 mg tablet,disintegrating See Rx Instructions PO .COMPLEX Qty: 10 3RF Rx Instructions: take 1 tablet at onset of headache; if no relief, may repeat 1 tablet after at least 2 hrs PO desvenlafaxine succinate 100 mg tablet extended release 24 hr 100 mg PO DAILY Qty: 30 2RF ondansetron 4 mg tablet,disintegrating 4 mg PO Q6H PRN (Reason: nausea and vomiting) Qty: 14 0RF Referrals Follow up/Referrals: Trista Martinez APRN [Primary Care Provider, Medical] - See instructions Activity Restrictions/Add. Instructions Additional Instructions/Restrictions: Please follow-up with your primary care provider. Please return to the emergency department if you develop any new or worsening symptoms or become concerned for your health. Clinical Impressions Clinical Impression: Episodic idiopathic urticaria Instructions Patient Instructions: DI for Skin Abscess Print Language Print Language: Macedonian Discharge ED Provider: Spencer Jane General Adult HPI General Chief complaint: Skin/Abscess/Foreign Body Stated complaint: Hives all over, and Issues with throat Time Seen by Provider: 08/19/25 01:15 History of Present Illness HPI narrative: 24-year-old female presents for subacute hives. She reports that she has been dealing with this for the last week or so. She has been having various chronic intermittent symptoms such as headache, rashes etc. and reports that she is being evaluated for an autoimmune condition. She is here tonight because the hives are getting worse despite taking Zyrtec, Benadryl at home. She also started having some soreness in her throat so wanted to be evaluated. She denies any significant shortness of breath. Denies any chest pain. Reports no concern for . Related Data Previous Rx's ?Medication ?Instructions ?Recorded norethindrone 1 mg-ethinyl 1 tab PO DAILY #84 tabs 04/27/25 estradiol 10 mcg (24)-iron 10 mcg(2) tablet (Lo Loestrin Fe) desvenlafaxine succinate 100 mg 100 mg PO DAILY #30 tabs 06/11/25 tablet,extended release 24 hr buspirone 10 mg tablet 20 mg (2 x 10 mg) PO BID Anxiety 06/14/25 90 days #360 tabs ondansetron 4 mg disintegrating 4 mg PO Q6H PRN nausea and 06/17/25 tablet vomiting #14 tabs propranolol 60 mg capsule,24 60 mg PO DAILY #30 caps 06/26/25 hr,extended release rizatriptan 5 mg disintegrating See Rx Instructions PO .COMPLEX 06/26/25 tablet #10 tabs amitriptyline 25 mg tablet 25 mg PO DAILY #30 tabs 07/04/25 cetirizine 10 mg tablet (Zyrtec) 10 mg PO DAILY #30 tabs 08/11/25 Allergies Allergy/AdvReac Type Severity Reaction Status Date / Time No Known Allergies Allergy Verified 08/11/25 12:00 [facility] Disclaimer: The information contained in this section may have been updated after the patient was seen, as this information can be updated by other users. Medical History Neck pain Depression Anxiety Migraine headache Headache Muscular tension dysphonia Dysphonia Nightmares associated with chronic post-traumatic stress disorder Hemoperitoneum LGSIL on Pap smear of cervix Generalized anxiety disorder Insomnia Bipolar II disorder Fatigue Tingling in extremities Surgical History Hx of removal of cyst History of tonsillectomy History of colposcopy Family History Other Hypertension Social History Smoking Status: Never smoker second hand exposure: Yes alcohol intake: never substance use type: marijuana current occupational status: employed Travel in the last 8 weeks?: None household members: family housing: house lives independently: No marital status: single number of children: 0 education level: college service: No senior care: No current occupation: [employer] current occupational exposures/hazards: No Have you lived/traveled outside US in past 30 days?: No Contact w/someone who lives/traveled outside US past 30 days?: No Exposure to someone with infectious disease in past 14 days?: No Do you have a fever (greater than 100.4 F or 38 C)?: No Have you tested positive for COVID-19?: No Exposed to someone with COVID-19 in past 14 days?: No Do you have a sore throat?: No Do you have a cough?: No Do you have any weakness?: No Do you have any diarrhea?: No Are you experiencing any unusual bleeding?: No Do you have any muscle aches/pain?: No Do you have any abdominal pain?: No Are you experiencing loss of taste or smell?: No Other Medical History Have you received the Flu Vaccine for this season: No Have you received the Pneumonia Vaccine: No ROS Obtained: Yes All systems reviewed & no additional complaints except as documented Physical Exam General General appearance: alert and in no apparent distress Head Head exam: atraumatic and normocephalic Eye Eye exam: Present normal appearance, PERRL and EOMI ENT ENT exam: Present normal oropharynx and normal external ear exam Neck Neck exam: Present normal inspection and full ROM Chest Chest inspection: Present normal inspection and symmetric chest wall rise; Absent tenderness Respiratory Respiratory exam: Present normal lung sounds bilaterally; Absent respiratory distress Cardiovascular Cardiovascular exam: Present regular rate and normal rhythm Abdominal Exam Abdominal exam: Present soft; Absent distention, tenderness or guarding Extremities Exam Extremities exam: Present normal inspection; Absent edema or joint swelling Back Exam Back exam: Present normal inspection; Absent tenderness Neurological Exam Neurological exam: Present alert and oriented X3; Absent motor sensory deficit Psychiatric Psychiatric exam: Present normal affect and normal mood Skin Skin exam: Present warm, dry, normal color and rash (Faint hives noted) Lymphatic Lymphatic Findings: no adenopathy Medical Decision Making Medical Records Medical records reviewed: Yes I reviewed the patient's medical records. Screening: Per USPSTF and CDC recommendations, given the prevalence of disease in our region, it is our hospital?s policy to screen for HIV and viral Hepatitis for all patients aged 18 and over and those with ongoing risk factors. Deejay Inquiry Pt receiving controlled substance: No Deejay was queried for this patient: No Vital Signs: 08/19/25 01:19 08/19/25 01:25 08/19/25 01:28 Temperature 98.1 F 98.1 F 98.1 F Temperature Source Oral Oral Pulse Rate 93 H 91 H Pulse Rate [Right] 93 H Respiratory Rate 18 16 16 Blood Pressure 143/98 H 134/98 H Blood Pressure [Right Arm] 143/98 H Blood Pressure Mean [Right Arm] 113 02 Sat by Pulse Oximetry 99 100 Oxygen Delivery Method Room Air Room Air Room Air Lab Data Lab results reviewed: Yes I reviewed the patient's lab results. Orders (Tests/Meds): ED MEDICATIONS Discontinued Medications Generic Name Dose Route Start Last Admin Trade Name Freq PRN Reason Stop Dose Admin Dexamethasone 10 mg 08/19/25 01:25 08/19/25 01:38 Dexamethasone 4mg Tablet PO 08/19/25 01:26 10 mg ONCE ONE Administration Medical Decision Narrative: 24-year-old female, being evaluated for possible autoimmune condition, presents for worsening of her subacute hives with sore throat.. History was obtained via interactive discussion with patient, family, chart via. On arrival, patient is [afebrile, hemodynamically stable, satting appropriately, alert, oriented x4, GCS 15], moving all extremities spontaneously. Full physical exam performed and significant for mild rash. No swelling of the lips, tongue or throat. Clear lungs bilaterally. Differential includes but is not limited to idiopathic urticaria, viral exanthem, autoimmune condition, anaphylaxis, angioedema. No evidence of anaphylaxis or angioedema based on physical exam. Patient is generally well-appearing with normal vital signs. Recommend she continue her antihistamine regimen at home. I gave her a dose of Decadron as well. She is planning to follow-up with rheumatology and an orthodontist for further assessment.. Procedures Risk/Benefits of Procedure(s) Were Explained: Yes Critical Care Critical Care Time Critical Care Time: No
--- OUTSIDE RECORDS SUMMARY | 2025-08-19 01:18 | XMS_ITS | Continuity of Care Document ---
[facility] Organization [facility] Address [address] [place] [address] Care Team Providers Care Lithographer Helper Name Role Phone MARILU MARTINEZ Primary Care [...] Ag, QL IA, respirato ry specimen 2024 [facility], [address] [place] [address], [place], [address], 06/29/2025 11:07:12 Referral None recorded. Procedures None recorded. Surgeries None recorded. Imaging None recorded. Medication Orders prednison e 10 mg tablet 2024 025 [facility]69, [address] [place], [address], 07/11/2025 05:02:05 Patient TargetsNo targets recorded. Patient InstructionsNo instructions recorded. Reason for Referral None Reported. Results Created Date Observation Date Name Description Value Unit Range Abnormal Flag Note LastModifiedBy Organization Detail LastModifiedTime 06/01/20 25 06/08/2025 PATHO LOGY REPOR T . Commen t Mater ial submi tted: . shoul vinicio - LEFT SHOUL VINICIO RE-EX CISIO N. Modif iers: left Not Available [facility] ([facility]) [address] [facility], [place], [address], 06/08/2025 14:13:29 06/01/2006/08/2025 PATHO LOGY REPOR T . Commen t Clini ramiro histo ry: . PREVI OUS PATHO LOGY SHOWE D SEVER E ATYPI A WITH HALO PHENO ERIN ; ONE PERIP HERAL EDGE INVOL ALONSO Not Available [facility] ([facility]) [address] [facility], [place], [address], 06/08/2025 14:13:29 06/01/2006/08/2025 PATHO LOGY REPOR T . Commen t Diagn osis: WOUND OF OPERA TION. COMME NT: NO RESID UAL DYSPL ASTIC NEVUS IDENT IFIED . WOUND OF OPERA TION IS DIFFU SELY PRESE NT AT TISSU E EDGES . SMI 06/08 1241 Local Not Available [facility] ([facility]) [address] [facility], [place], [address], 06/08/2025 14:13:29 06/01/2006/08/2025 PATHO LOGY REPOR T . Commen t Elect nicolás patel d: . Rodney charles MD, K[place] topat holog ist Not Available [facility] ([facility]) [address] [facility], [place], [address], 06/08/2025 14:13:29 06/01/2006/08/2025 PATHO LOGY REPOR T [...] RT 06/06 0841 Local Not Available [facility] ([facility]) [address] [facility], [place], [address], 06/08/2025 14:13:29 06/01/20 25 06/08/2025 PATHO LOGY REPOR T . Commen t Patho logis t provi ded ICD-1 0: L90.5 Not Available [facility] ([facility]) [address] [facility], [place], [address], 06/08/2025 14:13:29 06/01/20 25 06/08/2025 PATHO LOGY REPOR T . Commen t CPT . 74272 1 Not Available [facility] ([facility]) [address] [facility], [place], [address], 06/08/2025 14:13:29 06/29/20 25 06/29/2025 rapid SARS CoV + SARS CoV 2 Ag, QL IA, respi rator y speci men SARS CoV antigen Negati ve Not Available [address], [address], 06/29/2025 10:37:31 06/12/20 25 06/12/2025 CT, venog tamar, head, w/wo contr ast No observ ation record ed. [facility] [address], [place], [address], 06/21/2025 08:51:05 06/12/2006/12/2025 CT, head + brain , w/o contr ast No observ ation record ed. [facility] [address], [place], [address], 06/21/2025 08:51:05 06/15/20 25 06/12/2025 elect rocar diogr am No observ ation record ed. [facility] [address], [place], [address], 06/21/2025 08:51:06 06/19/20 25 06/17/2025 elect rocar diogr am No observ ation record ed. [facility] [address], [place], [address], 06/21/2025 08:51:06 07/03/20 25 07/03/2025 XR, shoul vinicio, 2 or more view No observ ation record ed. [facility] [address], [place], [address], 07/03/2025 17:13:21 07/03/2007/03/2025 CT, cervi ramiro spine , w/o contr ast No observ ation record ed. [facility] [address], [place], [address], 07/03/2025 18:50:44 07/05/2007/04/2025 MRI, head, w/wo contr ast No observ ation record ed. [facility] [address], [place], [address], 07/05/2025 09:16:00 Result Notes None recorded. Problems Name Problem SNOMED Code Status Onset Date Resolution Date Notes Provider Name and Address Organization Details Recorded Time Anxiety 09222049 Active 023 Mahi Alcantaras null, [place] - [facility] 3 14:23:20 Depressive disorder 52579061 Active 023 Mahi Gary null, [place] - [facility] 3 14:23:26 Problem Notes None recorded. Procedures Surgical History Date Name Laterality Status Provider Name and Address Organization Details Recorded Time 07/23/20 25 Medication Reconcilliation completed Ramona Langston [place] - [facility] 07/23/2025 14:07:24 06/22/20 25 Medication Reconcilliation completed Mahi Gary [place] - [facility] 06/22/2025 15:48:52 06/01/20 25 Shave Biopsy trunk, arms, or legs completed aKrma Saxena APRN [address], [place], [address], [place] - [facility] 06/01/2025 10:21:16 05/16/20 25 Shave Biopsy trunk, arms, or legs completed Karma Saxena APRN [address], [place], [address], [place] - [facility] 05/16/2025 11:15:42 04/16/20 20 Date of Last Pap Smear completed Ramona Langston [place] - [facility] 08/14/2025 10:56:25 Imaging Results None [...] BY MOUTH ONCE DAILY AT [facility] AT 5PM active Not Available Not Available [...] Updated DateTime 5 154.94 cm 26.5 kg/m2 52893.9 3 g 88 /min 99 % 18 [...] Illicit Or Recreational Drugs Have You Used? [place] Information not available 05/16/2025 Have You Processed [...] Or The Highest Degree You Have Received? [id number] Information not available 04/23/2022 Have There Been Any Changes To Your Family Or Social Situation? No Information no t available 04/23/2022 What Is The Fluoride Status Of Your Home? Fluoridated Information not available 04/23/2022 Have You Recently Or Are You Planning To Travel To An Area With Zika Virus? No Information not available 04/23/2022 Do You Have A Medical Power Of Chemical Engineer? 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 YE0544-3 Information not available 04/23/2022 Do you have [...] colitis N Cerebrovascular Disease N Depression N Guillain-Omega N Sleep Apnea N Aneurysm N Bronchitis [...] 14:22:42 IPV 9 completed Mahi Stears null, [place] - [facility] 11/30/2022 14:22:42 IPV 3 completed Mahi Stears null, [place] - [facility] 11/30/2022 14:22:42 IPV 9 completed Mahi Stears null, [place] - [facility] 11/30/2022 14:22:42 MMR 0 completed Mahi Stears null, [place] - [facility] 11/30/2022 14:22:42 MMR 3 completed Mahi Stears null, [place] - [facility] 11/30/2022 14:22:42 Tdap 0 completed Mahi Stears null, [place] - [facility] 11/30/2022 14:22:42 varicella 0 completed Mahi Stears null[place] - [facility] 11/30/2022 14:22:42 Influenza, split virus, trivalent, PF 8 completed Mahi Stears null[place] - [facility] 11/30/2022 14:22:42 Hep B, adolescent or pediatric 9 completed Mahi Stears null, [place] - [facility] 11/30/2022 14:22:42 Hep A, ped/adol, 2 dose 7 completed Mahi Stears null, [place] - [facility] 11/30/2022 14:22:42 Hep A, ped/adol, 2 dose 6 completed Mahi Stears [place] - [facility] 11/30/2022 14:22:42 Hib (PRP-OMP) 9 completed Mahi Stears null, [place] - [facility] 11/30/2022 14:22:42 meningococcal MCV4P 6 completed Mahi Stears null, [place] - [facility] 11/30/2022 14:22:42 DTaP, unspecified formulation 0 completed Mahi Stears null[place] - [facility] 11/30/2022 14:22:42 DTaP, unspecified formulation 9 completed Mahi Stears [place] [facility] 11/30/2022 14:22:42 DTaP, unspecified formulation 3 completed Mahi Stears [place] [facility] 11/30/2022 14:22:42 DTaP, unspecified formulation 9 completed Mahi Stears null, [place] - [facility] 11/30/2022 14:22:42 DTaP, unspecified formulation 9 completed Mahi Stears [place] [facility] 11/30/2022 14:22:42 meningococcal MCV4, unspecified formulation 0 completed Mahi Stears null[place] - [facility] 11/30/2022 14:22:42 Influenza, split virus, quadrivalent, PF 0 completed Mahi Stears null, [place] - [facility] 11/30/2022 14:22:42 Past Encounters Encounter ID Performer Location Encounter Start Date Encounter Closed Date Diagnosis/Indication Diagnosis SNOMED-CT Code Diagnosis ICD10 Code Diagnosis IMO Codes Diagnosis Note [id number] Karma Saxena [facility] [address] [place] [address] 06/01/2025 09:47:50 06/01/2025 10:53:51 Dysplastic nevus of skin 585428107 D22.9 285890 Overweight in adulthood with body mass index of 25 or more but less than 30 960697121 Z68.27 [id number] Marilu Martinez [address] [address] 06/22/2025 15:37:57 06/22/2025 16:32:21 Frequent headache 449092443 R51.9 43446828 Neck pain 55443724 M54.2 [id number] Marilu Martinez [address] [address] 06/29/2025 10:10:57 06/29/2025 11:02:45 Viral upper respiratory tract infection 031613346 J06.9 [id number] no sign of a bacterial infection. likely [...] Member ID Guarantor Name 06/29/2025 1 [employer] [facility] (MEDICAID HMO) Nathaly Plaza [id number] Nathaly Plaza Notes Date Note Type Note Provider Name and Address Organization Details Recorded Time 06/29/2025 text/html COVID-19 Symptom(s)Reporte d by PatientROS as noted in the HPI 24 yr old female presents for possible covid. She states she lost her sense of taste and smell yesterday. She does not think she was exposed to covid. Marilu Martinez, PURCHASING ANALYST [address], [place], [address], [place] - [facility] 06/29/2025 11:10:52 OBGyn Episode No OBEpisode recorded.
--- OUTSIDE RECORDS SUMMARY | 2025-08-19 01:18 | XMS_ITS | Continuity of Care Document ---
Author Organization [facility] Address [address] [place] [address] Care Team Providers Care Job Service Consultant Name Role Phone KESHAWN AMBERBRIANBabs Primary Care Provider [phone] Assessment No assessment recorded. Plan of Treatment [...] Re-excisi on of left shoulder. 2024 025 [facility], [address], [address] [address], [place], [address], 06/08/2025 14:13:29 Referral None recorded. Procedures None recorded. Surgeries None recorded. Imaging None recorded. Medication Orders None recorded. Patient TargetsNo targets recorded. Patient Instructions Encounter Date Encounter Id Patient Instructions Last Modified By Organization Details Last Modified Time 06/01/2025 [id number] Continue to appl y Vaseline and band [...] SKIN. Modif iers: left Not Available [facility] ([facility]) [address] [facility], [place], [address], 05/21/2025 14:11:22 05/16/20 25 05/21/2025 PATHO LOGY REPOR T . Commen t Clini ramiro histo ry: . L98.9 Not Available [facility] ([facility]) [address] [facility], [place], [address], 05/21/2025 14:11:05/16/2005/21/2025 PATHO LOGY REPOR T . [...] ON. REVIE WED BY: RAF CHARLES M.D. [facility] 05/18 0657 Local Not Available [facility] ([facility]) [address] [facility], [place], [address], 05/21/2025 14:11:22 05/16/2005/21/2025 PATHO LOGY REPOR T . Commen t Elect nicolás horner jorge d: . Matt MD, [place] topat holog ist Not Available [facility] ([facility]) [address] [facility], [place], [address], 05/21/2025 14:11:22 05/16/20 25 05/21/2025 PATHO LOGY [...] YE 05/17 0524 Local Not Available [facility] ([facility]) [address] [facility], [place], [address], 05/21/2025 14:11:22 05/16/20 25 05/21/2025 PATHO LOGY REPOR T . Commen t Patho logis t provi ded ICD-1 0: D48.5 Not Available [facility] ([facility]) [address] [facility], [place], [address], 05/21/2025 14:11:22 05/16/20 25 05/21/2025 PATHO LOGY REPOR T . Commen t CPT . 49619 1 Not Available [facility] ([facility]) [address] [place], [address], 05/21/2025 14:11:22 06/01/20 25 06/08/2025 PATHO LOGY REPOR T . Commen t Mater ial submi tted: . shoul vinicio - LEFT SHOUL VINICIO RE-EX CISIO N. Modif iers: left Not Available [facility] ([facility]) [address] [facility], [place], [address], 06/08/2025 14:13:29 06/01/2006/08/2025 PATHO LOGY REPOR T . Commen t Clini ramiro histo ry: . PREVI OUS PATHO LOGY SHOWE D SEVER E ATYPI A WITH HALO PHENO ERIN ; ONE PERIP HERAL EDGE INVOL ALONSO Not Available [facility] ([facility]) [address] [facility], [place], [address], 06/08/2025 14:13:29 06/01/2006/08/2025 PATHO LOGY REPOR T . Commen t Diagn osis: WOUND OF OPERA TION. COMME NT: NO RESID UAL DYSPL ASTIC NEVUS IDENT IFIED . WOUND OF OPERA TION IS DIFFU SELY PRESE NT AT TISSU E EDGES . SMI 06/08 1241 Local Not Available [facility] ([facility]) [address] [facility], [place], [address], 06/08/2025 14:13:29 06/01/2006/08/2025 PATHO LOGY REPOR T . Commen t Elect nicolás patel d: . Raf charles MD, [place] topat holog ist Not Available [facility] ([facility]) [address] [facility], [place], [address], 06/08/2025 14:13:29 06/01/2006/08/2025 PATHO LOGY REPOR T [...] RT 06/06 0841 Local Not Available [facility] ([facility]) [address] [facility], [place], [address], 06/08/2025 14:13:29 06/01/2006/08/2025 PATHO LOGY REPOR T . Commen t Patho logis t provi ded ICD-1 0: L90.5 Not Available [facility] ([facility]) [address] [facility], [place], [address], 06/08/2025 14:13:29 06/01/20 25 06/08/2025 PATHO LOGY REPOR T . Commen t CPT . 52285 1 Not Available [facility] ([facility]) [address] [facility], [place], [address], 06/08/2025 14:13:29 06/12/20 25 06/12/2025 CT, venog tamar, head, w/wo contr ast No observ ation record ed. [facility] [address], [place], [address], 06/21/2025 08:51:05 06/12/20 25 06/12/2025 CT, head + brain , w/o contr ast No observ ation record ed. [facility] [address], [place], [address], 06/21/2025 08:51:05 06/15/20 25 06/12/2025 elect rocar diogr am No observ ation record ed. [facility] [address], [place], [address], 06/21/2025 08:51:06 06/19/20 25 06/17/2025 elect rocar diogr am No observ ation record ed. [facility] [address], [place], [address], 06/21/2025 08:51:06 07/03/20 25 07/03/2025 XR, shoul vinicio, 2 or more view No observ ation record ed. [place] [id number], [place], [address], 07/03/2025 17:13:21 07/03/20 25 07/03/2025 CT, cervi ramiro spine , w/o contr ast No observ ation record ed. [facility] [address], [place], [address], 07/03/2025 18:50:44 07/05/20 25 07/04/2025 MRI, head, w/wo contr ast No observ ation record ed. [facility] [address], [place], [address], 07/05/2025 09:16:00 Result Notes None recorded. Problems Name Problem SNOMED Code Status Onset Date Resolution Date Notes Provider Name and Address Organization Details Recorded Time Anxiety 75720922 Active 023 Mahi Stears null, [place] - [facility] 3 14:23:20 Depressive disorder 24373544 Active 023 Mahi Stears null, [place] - [facility] 3 14:23:26 Problem Notes None recorded. Procedures Surgical History Date Name Laterality Status Provider Name and Address Organization Details Recorded Time 07/23/20 25 Medication Reconcilliation completed Ramona Ivis [place] - [facility] 07/23/2025 14:07:24 06/22/20 25 Medication Reconcilliation completed Mahifransisco Gary [place] - [facility] 06/22/2025 15:48:52 06/01/20 25 Shave Biopsy trunk, arms, or legs completed Karma Saxena, CEMENT FINISHER APPRENTICE [address], [place], [address], [place] [facility] 06/01/2025 10:21:16 05/16/20 25 Shave Biopsy trunk, arms, or legs completed Karma Saxena APRN [address], [place], [address], [place] [facility] 05/16/2025 11:15:42 04/16/20 Date of Last Pap Smear completed Ramona Langston [place] - [facility] 08/14/2025 10:56:25 Imaging Results [...] 1 CAPSULE BY MOUTH ONCE DAILY AT [facility] AT 5PM active Not Available Not [...] Updated DateTime 5 154.94 cm 27 kg/m2 53483.7 1 g 97.4 [degF] 98 % 18 /min 0 83 /min 134/82 mm[Hg] Gerda Forde [place] - [facility] 5 09:53:46 Social History [...] Illicit Or Recreational Drugs Have You Used? [place] Information not available 05/16/2025 Have You Processed [...] Or The Highest Degree You Have Received? [id number] Information not available 04/23/2022 Have There Been Any Changes To Your Family Or Social Situation? No Information no t available 04/23/2022 What Is The Fluoride Status Of Your Home? Fluoridated Information not available 04/23/2022 Have You Recently Or Are You Planning To Travel To An Area With Zika Virus? No Information not available 04/23/2022 Do You Have A Medical Power Of Staff Pharmacist [facility]? 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 GD3334-2 Information not available 04/23/2022 Do you have [...] colitis N Cerebrovascular Disease N Depression N Guillain-Disney N Sleep Apnea N Aneurysm N Bronchitis [...] Hib-Hep B 0 completed Mahi Stears null, [place] - [facility] 11/30/2022 14:22:42 Hib-Hep B 9 completed Mahi Stears null, [place] - [facility] 11/30/2022 14:22:42 HPV9 7 completed Mahi Stears null, [facility] [place] [facility] 11/30/2022 14:22:42 HPV9 6 completed Mahi Stears null, [place] - [facility] 11/30/2022 14:22:42 HPV9 6 completed Mahi Stears [place] [facility] 11/30/2022 14:22:42 IPV 0 completed Mahi Stears [place] [facility] 11/30/2022 14:22:42 IPV 9 completed Mahi Stears [place] [facility] 11/30/2022 14:22:42 IPV 3 completed Mahi Stears [place] [facility] 11/30/2022 14:22:42 IPV 9 completed Mahi Ste[place] [facility] 11/30/2022 14:22:42 MMR 0 completed Mahi Stears [place] [facility] 11/30/2022 14:22:42 MMR 3 completed Mahi Ste[place] [facility] 11/30/2022 14:22:42 Tdap 0 completed Mahi Stears [place] [facility] 11/30/2022 14:22:42 varicella 0 completed Mahi Stears [place] [facility] 11/30/2022 14:22:42 Influenza, split virus, trivalent, PF 8 completed Mahi Ste[place] [facility] 11/30/2022 14:22:42 Hep B, adolescent or pediatric 9 completed Mahi Stears [place] [facility] 11/30/2022 14:22:42 Hep A, ped/adol, 2 dose 7 completed Mahi Stears [place] [facility] 11/30/2022 14:22:42 Hep A, ped/adol, 2 dose 6 completed Mahi Stears [place] [facility] 11/30/2022 14:22:42 Hib (PRP-OMP) 9 completed Mahi Stears [place] [facility] 11/30/2022 14:22:42 meningococcal MCV4P 6 completed Mahi Stears [place] [facility] 11/30/2022 14:22:42 DTaP, unspecified formulation 0 completed Mahi [place] [facility] 11/30/2022 14:22:42 DTaP, unspecified formulation 9 completed Mahi [place] [facility] 11/30/2022 14:22:42 DTaP, unspecified formulation 3 completed Mahi Stears [place] [facility] 11/30/2022 14:22:42 DTaP, unspecified formulation [...] ICD10 Code Diagnosis IMO Codes Diagnosis Note [id number] Karma Saxena CEMENT FINISHER APPRENTICE [facility] [address] [place] [address] 05/16/2025 10:48:03 05/16/2025 11:30:30 Skin lesion 91746519 L98.9 05745 Overweight in adulthood with body mass index of 25 or more but less than 30 980344174 Z68.26 7935010967 [id number] Trista Martinez CEMENT FINISHER APPRENTICE [address] [address] 05/28/2025 14:07:01 05/28/2025 15:11:43 Depressive disorder 66921704 F32.A Anxiety 78246235 F41.9 Autism suspected 2054411 06 R68.89 [id number] will send for testing- per pt request [id number] Krama Saxena CEMENT FINISHER APPRENTICE [facility] [address] [place] [address] 06/01/2025 09:47:50 06/01/2025 10:53:51 Dysplastic nevus of skin 347492825 D22.9 034596 Overweight in adulthood with body mass index of 25 or more but less than 30 760380984 Z68.27 07977280 Health Concerns Section Related Observation LastModified by Organization Detai ls LastModified Time None Recorded Concern Status LastModified by Organization Details LastModified Time None Recorded Payers Encounter Date Sequence Insurance Name Policy Number Policy Bolanos Covered Member ID Bolanos Member ID Guarantor Name 06/01/2025 1 [employer] [facility] (MEDICAID HMO) Nathaly Plaza [id number] Nathaly Bola Notes Date Note Type Note Provider Name and Address Organization Details Recorded Time 06/01/2025 text/html ROS as noted in the HPI Nathaly presents today for re-excision to her left shoulder. Was seen in office on 05/16/25 for a biopsy of a skin lesion to her left shoulder.Pathology report showed severe atypia with halo phenomenon and recommended re-excision. Karma Saxena, CEMENT FINISHER APPRENTICE [address], [place], [address], [place] - [facility] 06/01/2025 10:30:45 OBGyn Episode No OBEpisode recorded.
--- OUTSIDE RECORDS SUMMARY | 2025-08-19 01:18 | XMS_ITS | Continuity of Care Document ---
[facility] Address [address] [place] [address] Care Team Providers Care Garment Patternmaker Name Role Phone MARILU MARTINEZ Primary Care Provider Assessment No assessment recorded. Plan of Treatment Reminders Order Date Submit Date Provider Last Modified By Organization Details Last Modified Time Details Appointments [facility] 2025 11:00A M Jareth Bill LCSW Not available Not available Not available Initial 60 2025 01:00P M MARYANN Youngblood Not available Not available Not available Lab None recorded. Referral tobacco drummer referral 2024 025 CHARLOTTE Davis MD, [address] [place] [address], [address], 08/14/2025 11:27:02 Procedures None recorded. Surgeries None recorded. Imaging None recorded. Medication Orders dexametha sone sodium phosphate 4 mg/mL injection solution 2024 025 cbuckler Not available 08/14/2025 11:44:07 prednison e 20 mg tablet 2024 025 [facility] 5[facility], [address], [address], 08/14/2025 11:01:58 Patient TargetsNo targets recorded. Patient InstructionsNo instructions recorded. Reason for Referral Recording Clerk Referral for Aller gic reaction Referring Physician: Marilu Martinez, Family Medicine, Encounter Date: 08/14/2025 Results Created Date Observation Date Name Description Value Unit Range Abnormal Flag Note LastModifiedBy Organization Detail LastModifiedTime 07/23/2007/24/2025 CBC, PLATE LET, NO DIFFE RENTI AL WBC 8.2 x10e3 /uL 3.4-10 .8 normal Not Available [facility] ([facility]) [address] [place], [address], 08/04/2025 18:07:20 07/23/2007/24/2025 CBC, PLATE LET, NO DIFFE RENTI AL RBC 4.48 x10e6 /uL 3.77-5 .28 normal Not Available [facility] ([facility]) [address] [place], [address], 08/04/2025 18:07:20 07/23/2007/24/2025 CBC, PLATE LET, NO DIFFE RENTI AL hemoglobin 13.8 g/dL 11.1-1 5.9 normal Not Available [facility] ([facility]) [address] [place], [address], 08/04/2025 18:07:20 07/23/2007/24/2025 CBC, PLATE LET, NO DIFFE RENTI AL hematocrit 41.6 % 34.0-4 6.6 normal Not Available [facility] ([facility]) [address] [place], [address], 08/04/2025 18:07:20 07/23/2007/24/2025 CBC, PLATE LET, NO DIFFE RENTI AL MCV 93 fL 79-97 normal Not Available [facility] ([facility]) [address] [place], [address], 08/04/2025 18:07:20 07/23/2007/24/2025 CBC, PLATE LET, NO DIFFE RENTI AL MCH 30.8 pg 26.6-3 3.0 normal Not Available [facility] ([facility]) [address] [place], [address], 08/04/2025 18:07:20 07/23/2007/24/2025 CBC, PLATE LET, NO DIFFE RENTI AL MCHC 33.2 g/dL 31.5-3 5.7 normal Not Available [facility] ([facility]) [address] [place], [address], 08/04/2025 18:07:20 07/23/2007/24/2025 CBC, PLATE LET, NO DIFFE RENTI AL RDW 12.1 % 11.7-1 5.4 Not Available [facility] ([facility]) [address] [place], [address], 08/04/2025 18:07:20 07/23/2007/24/2025 CBC, PLATE LET, NO DIFFE RENTI AL platelets 294 x10e3 /uL 150-45 0 normal Not Available [facility] ([facility]) [address] [facility], [place], [address], 08/04/2025 18:07:20 07/23/2007/24/2025 CBC, PLATE LET, NO DIFFE RENTI AL NRBC PUBLIC HEALTH TECHNOLOGIST Not Available [facility] ([facility]) [address] [place], [address], 08/04/2025 18:07:20 07/23/20 25 07/28/2025 LUPUS DIAGN OSTIC PROFI LE anti-sm Ab (rdl) <20 units <20 Negat rick: <20 Weak Posit rick: 20-39 Moder ate Posit rick: 40-80 Stron g Posit rick: >80 Not Available [facility] [address] [facility], [place], [address], 08/04/2025 18:07:20 07/23/20 25 07/28/2025 LUPUS DIAGN OSTIC PROFI LE anti-U1 layout worker Ab (rdl) <20 units <20 Negat rick: <20 Weak Posit rikc: 20-39 Moder ate Posit rick: 40-80 Stron g Posit rick: >80 Not Available [facility] [address] [place], [address], 08/04/2025 18:07:20 07/23/20 25 07/28/2025 LUPUS DIAGN OSTIC PROFI LE anti-RO (ss-A) Ab (rdl) <20 units <20 Negat rick: <20 Weak Posit rick: 20-39 Moder ate Posit rick: 40-80 Stron g Posit rick: >80 Not Available [facility] [address] [place], [address], 08/04/2025 18:07:20 07/23/20 25 07/28/2025 LUPUS DIAGN OSTIC PROFI LE anti-la (ss-B) Ab (rdl) <20 units <20 Negat rick: <20 Weak Posit rick: 20-39 Moder ate Posit rick: 40-80 Stron g Posit rick: >80 Not Available [facility] [address] [place], [address], 08/04/2025 18:07:20 07/23/20 25 07/28/2025 LUPUS DIAGN OSTIC PROFI LE C3 complement (rdl) 206 mg/dL 90-180 above high normal Not Available [facility] [address] [place] [address], [address], 08/04/2025 18:07:20 07/23/2007/28/2025 LUPUS DIAGN OSTIC PROFI LE C4 complement (rdl) 19 mg/dL 10-40 Ple ase note refer ence inter alejandrina chalrie e Not Available [facility] [address] [place] [address], [address], 08/04/2025 18:07:20 07/23/20 25 07/31/2025 LUPUS DIAGN OSTIC PROFI LE anti-nuclear Ab by ifa (rdl) Positi ve negati ve abnormal Not Available [facility] [address] [place], [address], 08/04/2025 18:07:20 07/23/20 25 07/31/2025 LUPUS DIAGN OSTIC PROFI LE homogeneous pattern PUBLIC HEALTH TECHNOLOGIST Not Available [facility] [address] [place], [address], 08/04/2025 18:07:20 07/23/20 25 07/31/2025 LUPUS DIAGN OSTIC PROFI LE nucleolar pattern PUBLIC HEALTH TECHNOLOGIST Not Available [facility] [address] [place], [address], 08/04/2025 18:07:20 07/23/20 25 07/31/2025 LUPUS DIAGN OSTIC PROFI LE speckled pattern 1:40 <1:40 above high normal Not Available [facility] [address] [place], [address], 08/04/2025 18:07:20 07/23/20 25 07/31/2025 LUPUS DIAGN OSTIC PROFI LE centromere pattern PUBLIC HEALTH TECHNOLOGIST Not Available [facility] [address] [place], [address], 08/04/2025 18:07:20 07/23/20 25 07/31/2025 LUPUS DIAGN OSTIC PROFI LE spindle apparatus pattern PUBLIC HEALTH TECHNOLOGIST Not Available [facility] [address] [place], [address], 08/04/2025 18:07:20 07/23/20 25 07/31/2025 LUPUS DIAGN OSTIC PROFI LE nuclear membrane pattern PUBLIC HEALTH TECHNOLOGIST Not Available [facility] [address] [place], [address], 08/04/2025 18:07:20 07/23/20 25 07/31/2025 LUPUS DIAGN OSTIC PROFI LE midbody pattern PUBLIC HEALTH TECHNOLOGIST Not Available [facility] [address] [place], [address], 08/04/2025 18:07:20 07/23/20 25 07/31/2025 LUPUS DIAGN OSTIC PROFI LE nuclear dot pattern PUBLIC HEALTH TECHNOLOGIST Not Available [facility] [address] [place], [address], 08/04/2025 18:07:20 07/23/20 25 07/31/2025 LUPUS DIAGN OSTIC PROFI LE pcna pattern PUBLIC HEALTH TECHNOLOGIST Not Available [facility] [address] [place] [address], [address], 08/04/2025 18:07:20 07/23/2007/31/2025 LUPUS DIAGN OSTIC PROFI LE centriole pattern PUBLIC HEALTH TECHNOLOGIST Not Available [facility] [address] [place] [address], [address], 08/04/2025 18:07:20 07/23/2007/31/2025 LUPUS DIAGN OSTIC PROFI LE note: Commen t WILMA perfo rmed by Indir ect Fluor escen t Antib cj (IFA) Not Available [facility] [address] [place] [address], [address], 08/04/2025 18:07:20 07/23/20 25 08/04/2025 LUPUS DIAGN OSTIC PROFI LE anti-dsdna Ab by max(rdl) <8.0 IU/mL <8.0 Not Available [facility] [address] [place] [address], [address], 08/04/2025 18:07:20 07/23/20 25 08/04/2025 LUPUS DIAGN OSTIC PROFI LE anti-chromat in Ab, IgG (rdl) <20 units <20 Negat rick: <20 Moder ate Posit rick: 20 - 60 Stron g Posit rick: >60 Not Available [facility] [address] [place] [address], [address], 08/04/2025 18:07:20 07/23/20 07/24/2025 ALPHA -GAL IGE PANEL class description Commen [...] >100. 00 Very High Not Available [facility] ([facility]) [address] [place], [address], 08/04/2025 18:07:21 07/23/2007/29/2025 ALPHA -GAL IGE PANEL immunoglobul in E, total 9 IU/mL 6-495 Not Available [facility] ([facility]) [address] [place], [address], 08/04/2025 18:07:21 07/23/2007/29/2025 ALPHA -GAL IGE PANEL C890-RuO pork <0.10 kU/L class 0 Not Available [facility] ([facility]) [address] [place], [address], 08/04/2025 18:07:21 07/23/2007/29/2025 ALPHA -GAL IGE PANEL O807-IqP beef <0.10 kU/L class 0 Not Available [facility] ([facility]) [address] [place], [address], 08/04/2025 18:07:21 07/23/2007/29/2025 ALPHA -GAL IGE PANEL C069-GbP alfonso <0.10 kU/L class 0 Not Available [facility] ([facility]) [address] [place], [address], 08/04/2025 18:07:21 07/23/20 25 07/29/2025 ALPHA -GAL IGE PANEL R785-HnM alpha-gal <0.10 kU/L class 0 Not Available [facility] ([facility]) [address] [place], [address], 08/04/2025 18:07:21 07/23/20 25 07/24/2025 IRON AND TIBC iron bind.cap.(TI BC) 383 ug/dL 250-45 0 normal Not Available [facility] ([facility]) [address] [place], [address], 08/04/2025 18:07:21 07/23/2007/24/2025 IRON AND TIBC UIBC 282 ug/dL 131-42 5 normal Not Available [facility] ([facility]) [address] [place], [address], 08/04/2025 18:07:21 07/23/20 25 07/24/2025 IRON AND TIBC iron 101 ug/dL 27-159 normal Not Available [facility] ([facility]) [address] [place], [address], 08/04/2025 18:07:21 07/23/20 25 07/24/2025 IRON AND TIBC iron saturation 26 % 15-55 normal Not Available [facility] ([facility]) [address] [place], [address], 08/04/2025 18:07:21 07/23/20 25 07/24/2025 VITAM IN B12 AND FOLAT E vitamin B12 327 pg/mL 232-12 45 normal Not Available [facility] ([facility]) [address] [place], [address], 08/04/2025 18:07:21 07/23/20 25 07/24/2025 VITAM IN B12 AND FOLAT E folate (folic acid), serum >20.0 NG/mL >3.0 A serum folat e allan ntrat ion of less than 3.1 ng/mL is consi dered to repre sent clini ramiro defic iency . Not Available [facility] ([facility]) [address] [facility], [place], [address], 08/04/2025 18:07:21 07/23/2007/24/2025 WILMA+R F QN WILMA direct Negati ve negati ve Not Available [facility] ([facility]) [address] [facility], [place], [address], 08/04/2025 18:07:21 07/23/2007/24/2025 WILMA+R F QN rheumatoid factor (rf) <10.0 IU/mL <14.0 Not Available [facility] ([facility]) [address] [place], [address], 08/04/2025 18:07:21 07/23/2007/24/2025 VITAM IN D, 25-HY [...] 1. IOM (Inst itute of Medic ine). 2010. Dieta ry refer ence intak es for calci um and D. Beck russell [place]: The [facility] Press . 2. Ana hazel MF, Kristen cm [place], Suman off-F archana i SANCHEZ, et al. Evalu ation , treat ment, and preve ntion of vitam in D defic iency : an Endoc rine Socie ty clini ramiro pract ice guide line. JCEM. 2010; 96(7) :1911 -30. Not Available [facility] ([facility]) [address] [place], [address], 08/04/2025 18:07:22 07/23/20 25 07/24/2025 LYME DISEA [...] is recom jacob d. Not Available [facility] ([facility]) [address] [facility], [place], [address], 08/04/2025 18:07:22 07/23/20 25 07/24/2025 MAGNE SIUM magnesium 2.0 mg/dL 1.6-2. 3 normal Not Available [facility] ([facility]) [address] [facility], [place], [address], 08/04/2025 18:07:22 07/23/20 25 07/24/2025 C-KATE CTIVE PROTE IN, QUANT C-reactive protein, quant 7 mg/L 0-10 normal Not Available [facility] ([facility]) [address] [place], [address], 08/04/2025 18:07:23 Result Notes None recorded. Problems Name Problem SNOMED Code Status Onset Date Resolution Date Notes Provider Name and Address Organization Details Recorded Time Anxiety 94144406 Active 023 Mahi Stears null, [place] - [facility] 3 14:23:20 Depressive disorder 97944959 Active 023 Mahi Stears null, [place] - [facility] 14:23:26 Problem Notes None recorded. Procedures Surgical History Date Name Laterality Status Provider Name and Address Organization Details Recorded Time 07/23/20 25 Medication Reconcilliation completed Ramona Langston [place] - [facility] 07/23/2025 14:07:24 06/22/20 25 Medication Reconcilliation completed Mahifransisco Gary [place] - [facility] 06/22/2025 15:48:52 06/01/20 25 Shave Biopsy trunk, arms, or legs completed Karma Saxena APRN [address], [place], [address], [place] - [facility] 06/01/2025 10:21:16 05/16/20 25 Shave Biopsy trunk, arms, or legs completed Karma Saxena APRN [address], [place], [address], [place] - [facility] 05/16/2025 11:15:42 04/16/20 Date of Last Pap Smear completed Ramona Langston [place] - [facility] 08/14/2025 10:56:25 Imaging Results None [...] 1 CAPSULE BY MOUTH ONCE DAILY AT [facility] AT 5PM active Not Available Not [...] Updated DateTime 5 154.94 cm 27 kg/m2 52874.7 1 g 98.1 [degF] 89 /min 98 % 18 /min 0 110/76 mm[Hg] Ramona Langston [place] - [facility] 5 10:55:40 Social History Question [...] Illicit Or Recreational Drugs Have You Used? [place] Information not available 05/16/2025 Have You Processed [...] Or The Highest Degree You Have Received? [id number] Information not available 04/23/2022 Have There Been Any Changes To Your Family Or Social Situation? No Information no t available 04/23/2022 What Is The Fluoride Status Of Your Home? Fluoridated Information not available 04/23/2022 Have You Recently Or Are You Planning To Travel To An Area With Zika Virus? No Information not available 04/23/2022 Do You Have A Medical Power Of Pipe And Test Supervisor? 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 [id number] Information not available 04/23/2022 Do you have [...] colitis N Cerebrovascular Disease N Depression N Guillain-Stirum N Sleep Apnea N Aneurysm N Bronchitis [...] 14:22:42 IPV 9 completed Mahi Stears null, [place] - [facility] 11/30/2022 14:22:42 MMR 0 completed Mahi Stears [place], [place] - [facility] 11/30/2022 14:22:42 MMR 3 completed Mahi Stears null, [place] - [facility] 11/30/2022 14:22:42 Tdap 0 completed Mahi Stears [place], [place] - [facility] 11/30/2022 14:22:42 varicella 0 completed Maih Stears [place] [facility] 11/30/2022 14:22:42 Influenza, split virus, trivalent, PF 8 completed Mahi Stears [place] [facility] 11/30/2022 14:22:42 Hep B, adolescent or pediatric 9 completed Mahi Stears [place] [facility] 11/30/2022 14:22:42 Hep A, ped/adol, 2 dose 7 completed Mahi Ste[place] [facility] 11/30/2022 14:22:42 Hep A, ped/adol, 2 dose 6 completed Mahi Ste[place] [facility] 11/30/2022 14:22:42 Hib (PRP-OMP) 9 completed Mahi Ste[place] [facility] 11/30/2022 14:22:42 meningococcal MCV4P 6 completed Mahi Ste[place] [facility] 11/30/2022 14:22:42 DTaP, unspecified formulation 0 completed Mahi Ste[place] [facility] 11/30/2022 14:22:42 DTaP, unspecified formulation 9 completed Mahi Ste[place] [facility] 11/30/2022 14:22:42 DTaP, unspecified formulation 3 completed Amhi Stears null[place] [facility] 11/30/2022 14:22:42 DTaP, unspecified formulation [...] ICD10 Code Diagnosis IMO Codes Diagnosis Note [id number] Marilu Martinez [address] [address] 07/23/2025 13:52:50 07/23/2025 15:01:27 Numbness of limbs 740087267 R20.0 4425568 Tick bite 25156077 W57.X XXA 2047038272 Pain of mu ltiple joints 81190031 M25.50 610917 Muscle weakness 24802372 M62.81 13019 Pain of ri ght shoulder region 1621572254 M25.511 23802147 Neck pain 11399545 M54.2 [id number] Marilu Martinez [address] [address] 08/14/2025 10:34:22 08/14/2025 11:06:04 Allergic reaction 155496452 T78.40XA 3366315 benadryl as neededster oids-shot today start pills tomorrowif worsen or no improvemen t go to ed Health Concerns Section Related Observation LastModified by Organization Detai ls LastModified Time None Recorded Concern Status LastModified by Organization Details LastModified Time None Recorded Payers Encounter Date Sequence Insurance Name Policy Number Policy Bolanos Covered Member ID Bolanos Member ID Guarantor Name 08/14/2025 1 [employer] [facility] (MEDICAID HMO) Nathaly R Bola [id number] [address] Notes Date Note Type Note Provider Name and Address Organization Details Recorded Time 08/14/2025 text/html ROS as noted in the [...] of. pt states no difficulty breathing Marilu Martinez, EXPERIMENTAL TECHNICIAN [address], [place], [address], [place] - [facility] 08/14/2025 11:25:53 OBGyn Episode No OBEpisode recorded.
--- OUTSIDE RECORDS SUMMARY | 2025-08-19 01:18 | XMS_ITS | Clinical Summary ---
Author Organization Healthcare Address [address] [id number] Care Team Providers Care Molding Machine Operator Name Role Phone Trista Martinez ASSISTANT ART DIRECTOR Primary Care Provider [phone] Social History Tobacco Use Types Packs/Day Years [...] EST Plan of Treatment Not on file Insurance [employer] [facility] MEDICAID Care Teams Molding Machine Operator Relationship Specialty Start Date End Date Trista Martinez, ASSISTANT ART DIRECTOR [address] [place] [address] PCP - General 01/10/21
--- OUTSIDE RECORDS SUMMARY | 2025-08-19 01:18 | XMS_ITS | Clinical Summary ---
Author Organization [facility] Address [address] [place] [address] Care Team Providers Care Automobile Upholsterer Apprentice Name Role Phone None, Physician Primary Care [...] age to complete this topic Care Teams Automobile Upholsterer Apprentice Relationship Specialty Start Date End Date None, Physician PCP - General 08/26/13
[2025-08-19 01:19] VITALS: BP 143/98; PULSE 93; RESP 18; TEMP 36.7; O2SAT 99; BMI 26.4
[2025-08-19 01:25] VITALS: BP 143/98; PULSE 93; RESP 16; TEMP 36.7; O2SAT 100
[2025-08-19 01:28] VITALS: BP 134/98; PULSE 91; RESP 16; TEMP 36.7; O2SAT 100
[2025-08-19] MEDS: DEXAMETHASONE 4MG TABLET 10 MG PO (01:38)
== END 2025-08-19 01:41 | disposition home or self-care (01) ==
PROVIDERS: Emergency Provider Emergency Medicine; PCP Nurse Practitioner Family
DX: L50.1 Idiopathic urticaria (principal)
CPT/HCPCS: 99283; J8540

== ENCOUNTER 2025-08-28 03:49 | Emergency (ER) | payer OTHER, SELFPAY ==
--- OUTSIDE RECORDS SUMMARY | 2025-08-28 03:55 | XMS_ITS | Continuity of Care Document ---
[facility] Address [address] [place] [address] Care Team Providers Care Ep Specialist Name Role Phone MARILU MARTINEZ Primary Care Provider [phone] Assessment Encounter Date Assessment Date Assessment LastModified [...] MD, [address], [place], [address], 06/26/2025 19:12:40 Procedures None recorded. Surgeries None recorded. Imaging XR, cervical spine, 2 or 3 view 2024 025 [facility] (X-Ray), [address], [place], [place], [address], 08/08/2025 08:20:58 Medication Orders None recorded. Patient [...] iers: left Not Available [facility] ([facility]) [address], [place], [address], 06/08/2025 14:13:29 06/01/2006/08/2025 PATHO LOGY REPOR T . Commen t Clini ramiro histo ry: . PREVI OUS PATHO LOGY SHOWE D SEVER E ATYPI A WITH HALO PHENO ERIN ; ONE PERIP HERAL EDGE INVOL ALONSO Not Available [facility] ([facility]) [address], [place], [address], 06/08/2025 14:13:29 06/01/2006/08/2025 PATHO LOGY REPOR T . Commen t Diagn osis: WOUND OF OPERA TION. COMME NT: NO RESID UAL DYSPL ASTIC NEVUS IDENT IFIED . WOUND OF OPERA TION IS DIFFU SELY PRESE NT AT TISSU E EDGES . SMI 06/08 1241 Local Not Available [facility] ([facility]) [address], [place], [address], 06/08/2025 14:13:29 06/01/2006/08/2025 PATHO LOGY REPOR T . Commen t Elect nicolás patel d: . Rodney charles MD, Sholes topat holog ist Not Available [facility] ([facility]) [address], [place], [address], 06/08/2025 14:13:29 06/01/2006/08/2025 PATHO LOGY REPOR T [...] 0841 Local Not Available [facility] ([facility]) [address], [place], [address], 06/08/2025 14:13:29 06/01/2006/08/2025 PATHO LOGY REPOR T . Commen t Patho logis t provi ded ICD-1 0: L90.5 Not Available [facility] ([facility]) [address], [place], [address], 06/08/2025 14:13:29 06/01/2006/08/2025 PATHO LOGY REPOR T . Commen t CPT . 34072 1 Not Available [facility] ([facility]) [address], [place], [address], 06/08/2025 14:13:29 06/12/2006/12/2025 CT, venog tamar, head, w/wo contr ast No observ ation record ed. [facility] [address], [place], [address], 06/21/2025 08:51:05 06/12/20 25 06/12/2025 CT, head + brain , w/o contr ast No observ ation record ed. [facility] [address], [place], [address], 06/21/2025 08:51:05 06/15/2006/12/2025 elect rocar diogr am No observ ation record ed. [facility] [address], [place], [address], 06/21/2025 08:51:06 06/19/20 25 06/17/2025 elect rocar diogr am No observ ation record ed. [facility] [address], [place], [address], 06/21/2025 08:51:06 07/03/20 25 07/03/2025 XR, shoul vinicio, 2 or more view No observ ation record ed. [facility] [address], [place], [address], 07/03/2025 17:13:21 07/03/2007/03/2025 CT, cervi ramiro spine , w/o contr ast No observ ation record ed. [facility] [address], [place], [address], 07/03/2025 18:50:44 07/05/20 25 07/04/2025 MRI, head, w/wo contr ast No observ ation record ed. [facility] [address], [place], [address], 07/05/2025 09:16:00 Result Notes None recorded. Problems Name Problem SNOMED Code Status Onset Date Resolution Date Notes Provider Name and Address Organization Details Recorded Time Anxiety 22577006 Active 023 Mahi Alcantaras null, [place] - [facility] 3 14:23:20 Depressive disorder 32441769 Active 023 Mahi Quintons null, [place] - [facility] 3 14:23:26 Problem Notes None recorded. Procedures Surgical History Date Name Laterality Status Provider Name and Address Organization Details Recorded Time 07/23/20 25 Medication Reconcilliation completed Ramona Langston [place] - [facility] 07/23/2025 14:07:24 06/22/20 25 Medication Reconcilliation completed Mahi Gary [facility] 06/22/2025 15:48:52 06/01/20 25 Shave Biopsy trunk, arms, or legs completed Karma Saxena APRN [address], [place], [address], [facility] - [facility] 06/01/2025 10:21:16 05/16/20 25 Shave Biopsy trunk, arms, or legs completed Karma Saxena APRN [address], [place], [address], [facility] 05/16/2025 11:15:42 04/16/20 20 Date of Last Pap Smear completed Ramona Langston [facility] 08/14/2025 10:56:25 Imaging Results None recorded. [...] Not Available Not Available No t Available cetirizine 10 mg tablet TAKE 1 TABLET BY [...] completed Not Available Not Available Not Available Medrol (Lyn[place]) 4 mg tablets in a dose pack Take 1 dose pk by oral route as directed. 2024 active Not Available Not Available Not Avai lable Aplisol 5 tub. unit/0.1 mL intradermal injection solution Inject 0.1 mL by intraderm al route. 04/03 completed Not Available Not Available Not Available prednisone 20 mg tablet Take 1 tablet twice a day by oral route for 5 days. 08/26 completed Not Available Not Available Not Available propranolol ER 60 mg capsule,24 hr,extended release TAKE 1 CAPSULE BY MOUTH ONCE DAILY AT [facility] AT 5PM active Not Available Not [...] (vitamin D2) 1,250 mcg (50,000 unit) capsule TAKE 1 CAPSULE BY MOUTH ONCE A WEEK active Not Available Not Available No t Available dexamethaso ne sodium phosphate 4 mg/mL injection solution Inject 1 mL twice a day by intramusc ular route. 08/27 completed Not Available Not Available Not Available epinephrine 0.3 mg/0.3 mL injection, auto-inject or Take 1 auto as needed by injection route. 2024 active Not Available Not Available [...] DateTime 154.94 cm 18 /min 26.6 kg/m2 27003.5 2 g 98.1 [degF] 98 % 96 [...] Or The Highest Degree You Have Received? [id number] Information not available 04/23/2022 Have There Been Any Changes To Your Family Or Social Situation? No Information no t available 04/23/2022 What Is The Fluoride Status Of Your Home? Fluoridated Information not available 04/23/2022 Have You Recently Or Are You Planning To Travel To An Area With Zika Virus? No Information not available 04/23/2022 Do You Have A Medical Power Of Boiler Setter? 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 DD1140-1 Information not available 04/23/2022 Do you have [...] colitis N Cerebrovascular Disease N Depression N Guillain-[place] N Sleep Apnea N Aneurysm N Bronchitis [...] Recorded Time Hib-Hep B 0 completed Mahi Gary null, [place] - [facility] 11/30/2022 14:22:42 Hib-Hep B 9 completed Mahi Stears null[place] - [facility] 11/30/2022 14:22:42 HPV9 7 completed Mahi Stears [place] [facility] 11/30/2022 14:22:42 HPV9 6 completed Mahi Stears [place] [facility] 11/30/2022 14:22:42 HPV9 6 completed Mahi Stears [place] [facility] 11/30/2022 14:22:42 IPV 0 completed Mahi Stears [place] [facility] 11/30/2022 14:22:42 IPV 9 completed Mahi Stears null, [facility] 11/30/2022 14:22:42 IPV 3 completed Mahi Stears null, [facility] 11/30/2022 14:22:42 IPV 9 completed Mahi Stears [place] - [facility] 11/30/2022 14:22:42 MMR 0 completed Mahi Stears [place] [facility] 11/30/2022 14:22:42 MMR 3 completed Mahi Stears null, [facility] 11/30/2022 14:22:42 Tdap 0 completed Mahi Stears [place] - [facility] 11/30/2022 14:22:42 varicella 0 completed Mahi Stears [place] - [facility] 11/30/2022 14:22:42 Influenza, split virus, trivalent, PF 8 completed Mahi Stears [place] - [facility] 11/30/2022 14:22:42 Hep B, adolescent or pediatric 9 completed Mahi Stears null, [facility] 11/30/2022 14:22:42 Hep A, [...] ICD10 Code Diagnosis IMO Codes Diagnosis Note [id number] Marilu Martinez APRN [address] [address] 05/28/2025 14:07:01 05/28/2025 15:11:43 Depressive disorder 12117958 F32.A Anxiety 37311814 F41.9 Autism suspected 5049587 06 R68.89 [id number] will send for testing- per pt request [id number] Karma Saxena APRN [facility] [address] [place] [address] 06/01/2025 09:47:50 06/01/2025 10:53:51 Dysplastic nevus of skin 597765071 D22.9 911261 Overweight in adulthood with body mass index of 25 or more but less than 30 946690952 Z68.27 [id number] Marilu Martinez APRN [facility] [address] [place] [address] 06/22/2025 15:37:57 06/22/2025 16:32:21 Frequent headache 497026221 R51.9 [id number] Neck pain 98060112 M54.2 [id number] Health Concerns Section Related Observation LastModified by Organization Detai ls LastModified Time None Recorded Concern Status LastModified by Organization Details LastModified Time None Recorded Payers Encounter Date Sequence Insurance Name Policy Number Policy Bolanos Covered Member ID Bolanos Member ID Guarantor Name 06/22/2025 1 [facility] (MEDICAID HMO) Nathaly Plaza [id number] Nathaly Plaza Notes Date Note Type Note Provider Name and Address Organization Details Recorded Time 06/22/2025 text/html Emergency Depart ment Follow-Up RecordReported by PatientEmergency Room Follow-Up RecordFor discharge information, patient reportsname of hospital/urgent care patient was seen: ([facility]),patient presented to hospital for treatment of: [...] skull Marilu Martinez APRN [address], [place], [address], [place] - [facility] 06/22/2025 16:33:14 OBGyn Episode No OBEpisode recorded.
--- OUTSIDE RECORDS SUMMARY | 2025-08-28 03:56 | XMS_ITS | Clinical Summary ---
Author Organization Healthcare Address [address] 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 Name Role Phone Trista Martinez CIRCLE EDGER Primary Care Provider [phone] Social History Tobacco Use Types Packs/Day Years [...] 09/08/2018 11:31 AM EST Plan of Treatment Upcoming Encounters Date Type Department Care Team (Late st Contact Info) Description 09/18/2025 12:50 PM EST Consult [facility] [address] [place] [address] Rosio Carroll APRN [address] [place] [address] Health Maintenance Due Date Last Done Comments [facility]-Depression Screening 1998 [facility]-HIV Screening 1998 [facility]-Hepatitis C Screening 1998 [facility]-/Child/Adol SDOH Screenings 1998 [facility]-Varicella Vaccines (2 of 2 - 2-dose childhood series) 2002 11/28/1999 [facility]- SDOH Screenings 2016 [facility]-Adult SDOH Screenings 2016 [facility]-Pap Smear 11/04/2019 [facility]-DTaP,Tdap,and Td Vaccines (7 - Td or Tdap) 03/19/2020 03/19/2010, 03/19/2003, 02/26/2000, Additional history exists [id number] Vaccine (1 - 2024- season) 2025 [facility]-Influenza Vaccine (#1) 2025 07/23/2020, [facility]-Zoster Vaccines (1 of 2) 2048 11/28/1999 [facility]-HIB Vaccines Completed 11/28/1999, 08/1998, 02/26/1999 [facility]-Hepatitis B Vaccines Completed 000, 02/26/1999, 1998 [facility]-IPV Vaccines Completed 03/19/2003, , 04/30/1999, Additional history exists HPV Vaccines Completed 12/09/2016, 07/01, 04/24/2016 [facility]-Hepatitis A Vaccines Completed 12/09/2016, 03/31 [facility]-Pneumococcal Vaccine: Pediatrics (0 to 5 Years) and At-Risk Patients (6 to 49 Years) Aged Out No longer eligible based on patient's age to complete this topic [facility]-Rotavirus Vaccines Aged Out No lo nger eligible based on patient's age to complete this topic Insurance [employer] Care Teams Wood Strip Block Floor Installer Relationship Specialty Start Date End Date Trista Martinez APRN [address] [place] [id number] PCP - General 01/10/21
--- OUTSIDE RECORDS SUMMARY | 2025-08-28 03:56 | XMS_ITS | Continuity of Care Document ---
[facility] Address [address] [place] [address] Care Team Providers Care Hot Blast Worker Name Role Phone DAVID MARILU Primary Care Provider Assessment No assessment recorded. Plan of Treatment Reminders Order Date Submit Date Provider Last Modified By Organization Details Last Modified Time Details Appointments AUTISM INITIAL 2025 11:00A Peggy Bill LCSW Not available Not available Not available Initial 60 2025 01:00P MARYANN Dasilva Not available Not available Not available Lab rapid strep group A, throat 2024 025 [facility], [address] [place] [address], [phone], 08/27/2025 12:16:33 rapid SARS CoV + SARS CoV 2 Ag, QL IA, respirato ry specimen 2024 025 [facility], [address] [place] [address], [phone], 08/27/2025 15:22:00 rapid flu (A+B) 2024 025 [facility], [address] [place] [address], [phone], 08/27/2025 15:21:07 Referral miller wood flour referral 2024 025 shine Davis MD, [address] [place], [address], 08/27/2025 12:16:33 Procedures None recorded. Surgeries None recorded. Imaging None recorded. Medication Orders Medrol (Lyndon) 4 mg tablets in a dose pack 2024 [facility], [address], [address], 08/27/2025 12:16:39 epinephri ne 0.3 mg/0.3 mL injection , auto-inje ctor [address] [facility], [address], [address], 08/27/2025 12:16:38 Patient TargetsNo targets recorded. Patient InstructionsNo instructions recorded. Reason for Referral Emergency Room Technician Referral for Idiop athic urticaria Referring Physician: Marilu Martinez, Family Medicine, Encounter Date: 08/27/2025 Results Created Date Observation Date Name Description Value Unit Range Abnormal Flag Note LastModifiedBy Organization Detail LastModifiedTime 08/27/2008/27/2025 rapid SARS CoV + SARS CoV 2 Ag, QL IA, respi rator y speci men SARS CoV antigen Negati ve Not Available [address], [address], 08/27/2025 12:06:27 08/27/20 25 08/27/2025 rapid flu (A+B) Flu negati ve Not Available [address], [address], 08/27/2025 12:06:34 08/27/20 25 08/27/2025 rapid flu (A+B) Type Both A & B Not Available [address], [address], 08/27/2025 12:06:34 08/27/20 25 08/27/2025 rapid strep group A, throa t Strep negati ve Not Available [address], [address], 08/27/2025 12:06:13 08/27/20 25 08/27/2025 rapid strep group A, throa t Culture No Not Available [address], [address], 08/27/2025 12:06:13 Result Notes None recorded. Problems Name Problem SNOMED Code Status Onset Date Resolution Date Notes Provider Name and Address Organization Details Recorded Time Anxiety 56471216 Active 023 Mahi Stears null, [place] - [facility] 3 14:23:20 Depressive disorder 89191274 Active 023 Mahi Quintons null, [place] - [facility] 3 14:23:26 Problem Notes None recorded. Procedures Surgical History Date Name Laterality Status Provider Name and Address Organization Details Recorded Time 07/23/20 25 Medication Reconcilliation completed Ramona Langston [place] - [facility] 07/23/2025 14:07:24 06/22/20 25 Medication Reconcilliation completed Mahi Gary [place] - [facility] 06/22/2025 15:48:52 06/01/20 25 Shave Biopsy trunk, arms, or legs completed Karma Saxena APRN [address], [place], [address], [place] - [facility] 06/01/2025 10:21:16 05/16/20 25 Shave Biopsy trunk, arms, or legs completed Karma Saxena APRN [address], [place], [address], [place] - [facility] 05/16/2025 11:15:42 04/16/20 20 Date of Last Pap Smear completed Ramona Langston [place] - [facility] 08/14/2025 10:56:25 Imaging Results None [...] Updated DateTime 5 154.94 cm 27 kg/m2 04860.7 1 g 99.4 [degF] 111 /min 98 % 18 /min 0 118/62 mm[Hg] Ramona Langston [place] - [facility] 5 12:05:34 Social History Question Answer Notes LastModified by [...] Or The Highest Degree You Have Received? [id number] Information not available 04/23/2022 Have There Been Any Changes To Your Family Or Social Situation? No Information no t available 04/23/2022 What Is The Fluoride Status Of Your Home? Fluoridated Information not available 04/23/2022 Have You Recently Or Are You Planning To Travel To An Area With Zika Virus? No Information not available 04/23/2022 Do You Have A Medical Power Of Makeup Sales Advisor? 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 [id number] Information not available 04/23/2022 Do you have [...] colitis N Cerebrovascular Disease N Depression N Guillain-[place] N Sleep Apnea N Aneurysm N Bronchitis [...] Hib-Hep B 0 completed Mahi Stears null, [place] - [facility] 11/30/2022 14:22:42 Hib-Hep B 9 completed [facility] [place] [facility] 14:22:42 HPV9 7 completed [facility] [place] [facility] 11/[facility]22 14:22:42 HPV9 6 completed Mahi Stears null, [facility] 11/30/2022 14:22:42 HPV9 6 completed Mahi Stears null, [place] - [facility] 11/30/2022 14:22:42 IPV 0 completed [facility] [place] [facility] 11/30/2022 14:22:42 IPV 9 completed Mahi Stears null[place] - [facility] 11/30/2022 14:22:42 IPV 3 completed [facility] [place] [facility] 11/30/2022 14:22:42 IPV 9 completed Mahi Stears [place] - [facility] 11/30/2022 14:22:42 MMR 0 completed Mahi Stears [place] - [facility] 11/30/2022 14:22:42 MMR 3 completed Mahi Stears [place] - [facility] 11/30/2022 14:22:42 Tdap 0 completed Mahi Stears [place] - [facility] 11/30/2022 14:22:42 varicella 0 completed Mahi Stears null, [place] - [facility] 11/30/2022 14:22:42 Influenza, split virus, [...] ICD10 Code Diagnosis IMO Codes Diagnosis Note [id number] Marilu Martinez APRN [address] [address] 08/14/2025 10:34:22 08/14/2025 11:06:04 Allergic reaction 074037348 T78.40XA 8183212 benadryl as neededster oids-shot today start pills tomorrowif worsen or no improvemen t go to ed [id number] Marilu Martinez APRN [address] [address] 08/27/2025 11:35:02 08/27/2025 12:14:14 Viral upper respiratory tract infection 720744872 J06.9 5275304 no sign of a bacterial infection. likely [...] improvemen t over the next 48-72 hours Idiopathic urticaria 422 72190 L50.9 [id number] keep track of foods, drinks, washing soaps, spraysif worsen go to ed Health Concerns Section Related Observation LastModified by Organization Detai ls LastModified Time None Recorded Concern Status LastModified by Organization Details LastModified Time None Recorded Payers Encounter Date Sequence Insurance Name Policy Number Policy Bolanos Covered Member ID Bolanos Member ID Guarantor Name 08/27/2025 1 [employer] [facility] (MEDICAID HMO) Nathaly Plaza [id number] Nathaly [employer] Notes Date Note Type Note Provider Name and Address Organization Details Recorded Time 08/27/2025 text/html ROS as noted in the HPI 24 yr old female presents with hives, throat itching/feeling she has a burp that won't come out. Tongue felt tingling last night on and off for 2 weeks. pt states she has not took a benadryl today.She is also congested and feels like she has the flu. Marilu Martinez, CUE WORKER [address], [place], [address], [facility] - [facility] 08/27/2025 13:07:59 OBGyn Episode No OBEpisode recorded.
--- OUTSIDE RECORDS SUMMARY | 2025-08-28 03:56 | XMS_ITS | Continuity of Care Document ---
Author [facility] Address [address] [place] [address] Care Team Providers Care Hot Mill Supervisor Name Role Phone MARILU MARTINEZ Primary [...] Ag, QL IA, respirato ry specimen 2024 [facility], [address] [place] [address], [place], [address], 06/29/2025 11:07:12 Referral None recorded. Procedures None recorded. Surgeries None recorded. Imaging None recorded. Medication Orders prednison e 10 mg tablet 2024 025 [facility], [address] [place], [address], 07/11/2025 05:02:05 Patient TargetsNo targets recorded. Patient InstructionsNo instructions recorded. Reason for Referral None Reported. Results Created Date Observation Date Name Description Value Unit Range Abnormal Flag Note LastModifiedBy Organization Detail LastModifiedTime 06/01/20 25 06/08/2025 PATHO LOGY REPOR T . Commen t Mater ial submi tted: . shoul vinicio - LEFT SHOUL VINICIO RE-EX CISIO N. Modif iers: left Not Available [facility] ([facility]) [address] [facility], [place], [address], 06/08/2025 14:13:29 06/01/2006/08/2025 PATHO LOGY REPOR T . Commen t Clini ramiro histo ry: . PREVI OUS PATHO LOGY SHOWE D SEVER E ATYPI A WITH HALO PHENO ERIN ; ONE PERIP HERAL EDGE INVOL ALONSO Not Available [facility] ([facility]) [address] [facility], [place], [address], 06/08/2025 14:13:29 06/01/2006/08/2025 PATHO LOGY REPOR T . Commen t Diagn osis: WOUND OF OPERA TION. COMME NT: NO RESID UAL DYSPL ASTIC NEVUS IDENT IFIED . WOUND OF OPERA TION IS DIFFU SELY PRESE NT AT TISSU E EDGES . SMI 06/08 1241 Local Not Available [facility] ([facility]) [address] [facility], [place], [address], 06/08/2025 14:13:29 06/01/2006/08/2025 PATHO LOGY REPOR T . Commen t Elect nicolás patel d: . Rodney charles MD, Avis topat holog ist Not Available [facility] ([facility]) [address] [facility], [place], [address], 06/08/2025 14:13:29 06/01/2006/08/2025 PATHO LOGY REPOR T [...] RT 06/06 0841 Local Not Available [facility] ([facility]) [address] [facility], [place], [address], 06/08/2025 14:13:29 06/01/20 25 06/08/2025 PATHO LOGY REPOR T . Commen t Patho logis t provi ded ICD-1 0: L90.5 Not Available [facility] ([facility]) [address] [facility], [place], [address], 06/08/2025 14:13:29 06/01/20 25 06/08/2025 PATHO LOGY REPOR T . Commen t CPT . 66464 1 Not Available [facility] ([facility]) [address] [facility], [place], [address], 06/08/2025 14:13:29 06/29/20 25 06/29/2025 rapid SARS CoV + SARS CoV 2 Ag, QL IA, respi rator y speci men SARS CoV antigen Negati ve Not Available [address], [address], 06/29/2025 10:37:31 06/12/20 25 06/12/2025 CT, venog tamar, head, w/wo contr ast No observ ation record ed. [facility] [address], [place], [address], 06/21/2025 08:51:05 06/12/2006/12/2025 CT, head + brain , w/o contr ast No observ ation record ed. [facility] [address], [place], [address], 06/21/2025 08:51:05 06/15/20 25 06/12/2025 elect rocar diogr am No observ ation record ed. [facility] [address], [place], [address], 06/21/2025 08:51:06 06/19/20 25 06/17/2025 elect rocar diogr am No observ ation record ed. [facility] [address], [place], [address], 06/21/2025 08:51:06 07/03/20 25 07/03/2025 XR, shoul vinicio, 2 or more view No observ ation record ed. [facility] [address], [place], [address], 07/03/2025 17:13:21 07/03/2007/03/2025 CT, cervi ramiro spine , w/o contr ast No observ ation record ed. [facility] [address], [place], [address], 07/03/2025 18:50:44 07/05/2007/04/2025 MRI, head, w/wo contr ast No observ ation record ed. [facility] [address], [place], [address], 07/05/2025 09:16:00 Result Notes None recorded. Problems Name Problem SNOMED Code Status Onset Date Resolution Date Notes Provider Name and Address Organization Details Recorded Time Anxiety 21611949 Active 023 Mahi Alcantaras null, [place] - [facility] 3 14:23:20 Depressive disorder 79083508 Active 023 Mahi Gary null, [place] - [...] completed Karma Saxena APRN [address], [place], [address], [place] - [facility] 06/01/2025 10:21:16 05/16/20 25 Shave Biopsy trunk, arms, or legs completed Karma Saxena APRN [address], [place], [address], [place] - [facility] 05/16/2025 11:15:42 04/16/20 20 Date of Last Pap Smear completed Ramona Langston [place] - [facility] 08/14/2025 10:56:25 Imaging Results None [...] 1 CAPSULE BY MOUTH ONCE DAILY AT [facility] AT 5PM active Not Available Not [...] Updated DateTime 5 154.94 cm 26.5 kg/m2 67066.9 3 g 88 /min 99 % 18 [...] Illicit Or Recreational Drugs Have You Used? [place] Information not available 05/16/2025 Have You Processed [...] Or The Highest Degree You Have Received? MO17020-3 Information not available 04/23/2022 Have There Been Any Changes To Your Family Or Social Situation? No Information no t available 04/23/2022 What Is The Fluoride Status Of Your Home? Fluoridated Information not available 04/23/2022 Have You Recently Or Are You Planning To Travel To An Area With Zika Virus? No Information not available 04/23/2022 Do You Have A Medical Power Of Partner Integration Planner? 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 [id number] Information not available 04/23/2022 Do you have [...] N Skin Problems N Eating Disorder N Arpp's Esophagus N Hypertriglyceridemia N MRSA exposure N [...] colitis N Cerebrovascular Disease N Depression N Guillain-[place] N Sleep Apnea N Aneurysm N Heart [...] 14:22:42 HPV9 7 completed Mahi Stears null, [place] - [facility] 11/30/2022 14:22:42 HPV9 6 completed Mahi Stears null, [place] - [facility] 11/30/2022 14:22:42 HPV9 6 completed Mahi Stears null, [facility] 11/30/2022 14:22:42 IPV 0 completed Mahi Stears null, [place] - [facility] 11/30/2022 14:22:42 IPV 9 completed Mahi Stears null, [facility] 11/30/2022 14:22:42 IPV 3 completed Mahi Stears null, [facility] 11/30/2022 14:22:42 IPV 9 completed Mahi Stears null, [facility] 11/30/2022 14:22:42 MMR 0 completed Mahi Stears null, [facility] 11/30/2022 14:22:42 MMR 3 completed Mahi Stears null, [facility] 11/30/2022 14:22:42 Tdap 0 completed Mahi Stears null, [facility] 11/30/2022 14:22:42 varicella 0 completed Mahi Stears null, [facility] 11/30/2022 14:22:42 Influenza, split virus, trivalent, PF 8 completed Mahi Stears null, [facility] 11/30/2022 14:22:42 Hep B, adolescent or pediatric 9 completed Mahi Stears null, [facility] 11/30/2022 14:22:42 Hep A, ped/adol, 2 dose 7 completed Mahi Stears null, [facility] 11/30/2022 14:22:42 Hep A, ped/adol, 2 dose 6 completed Mahi Stears null, [facility] 11/30/2022 14:22:42 Hib (PRP-OMP) 9 completed [...] quadrivalent, PF 0 completed Mahi Stears null, [place] - [facility] 11/30/2022 14:22:42 Past Encounters Encounter ID Performer Location Encounter Start Date Encounter Closed Date Diagnosis/Indication Diagnosis SNOMED-CT Code Diagnosis ICD10 Code Diagnosis IMO Codes Diagnosis Note [id number] Karma Saxena APRN [facility] [address] [place] [address] 06/01/2025 09:47:50 06/01/2025 10:53:51 Dysplastic nevus of skin 418477934 D22.9 216522 Overweight in adulthood with body mass index of 25 or more but less than 30 122256234 Z68.27 [id number] Marilu Martinez APRN [address] [address] 06/22/2025 15:37:57 06/22/2025 16:32:21 Frequent headache 297128115 R51.9 94874082 Neck pain 80191299 M54.2 [id number] Marilu Martinez APRN [address] [address] 06/29/2025 10:10:57 06/29/2025 11:02:45 Viral upper respiratory tract infection 618473346 J06.9 [id number] no sign of a bacterial infection. likely [...] Member ID Guarantor Name 06/29/2025 1 [employer] [facility] (MEDICAID HMO) Nathaly Plaza [id number] N[employer]aly [employer] Notes Date Note Type Note Provider Name and Address Organization Details Recorded Time 06/29/2025 text/html COVID-19 Symptom(s)Reporte d by PatientROS as noted in the HPI 24 yr old female presents for possible covid. She states she lost her sense of taste and smell yesterday. She does not think she was exposed to covid. Marilu Martinez APRN [address], [place], [address], [place] - [facility] 06/29/2025 11:10:52 OBGyn Episode No OBEpisode recorded.
--- OUTSIDE RECORDS SUMMARY | 2025-08-28 03:56 | XMS_ITS | Clinical Summary ---
Author Organization [facility] Address [address] [place] [address] Care Team Providers Care Drainage Engineer Name Role Phone None, Physician Primary [...] age to complete this topic Care Teams Drainage Engineer Relationship Specialty Start Date End Date None, Physician PCP - General 08/26/13
--- OUTSIDE RECORDS SUMMARY | 2025-08-28 03:56 | XMS_ITS | Continuity of Care Document ---
Author Organization [facility] Address [address] [place] [address] Care Team Providers Care Principal Programmer Name Role Phone MARILU LIAO Primary Care [...] [address], [address], [place], [address], 08/04/2025 18:07:21 vitamin D, 25-hydrox y, total, serum 2024 025 BAKARI [facility], [address], [address] [address], [place], [address], 08/04/2025 18:07:22 CBC 2024 025 BAKARI [facility], [address], [address] [address], [place], [address], 08/04/2025 18:07:20 iron + total iron-bind ing capacity (TIBC), serum 2024 BAKARI [facility], [address], [address] [address], [place], [address], 08/04/2025 18:07:21 magnesium , serum or plasma 2024 BAKARI [facility], [address], [address] [address], [place], [address], 08/04/2025 18:07:22 vitamin B12, serum 2024 025 [email or web address], [address], [place] [address], [place], [address], 08/08/2025 08:20:25 WILMA + rf (antinucl ear antibodie s + rheumatoi d factor), quantitat rick, serum 2024 025 [facility], [address] [place], [address], 08/04/2025 18:07:22 C reactive protein, QN, serum or plasma 2024 025 [facility], [address] [place], [address], 08/04/2025 18:07:23 systemic lupus Ab panel, serum or plasma 2024 025 BAKARI [facility], [address], [address] [address], [place], [address], 08/04/2025 18:07:20 WILMA (antinucl ear antibodie s) screen, serum 2024 025 [email or web address], [address], [address] [address], [place], [address], 08/08/2025 08:20:26 borrelia burgdorfe ri IgG + IgM + total panel, IA, serum 2024 025 ZEARING [facility], [address], [address] [address], [place], [address], 08/04/2025 18:07:22 galactose -alpha-1, 3-galacto se panel, serum or plasma 2024 025 ZE[facility], [address], [address] [address], [place], [address], 08/04/2025 18:07:21 Referral physical therapist referral - shoulder and neck pain 2024 025 [facility], [address], [place], [address], 08/20/2025 13:48:29 Procedures None recorded. Surgeries None recorded. Imaging [...] SARS CoV antigen Negati ve Not Available [address], [address], 06/29/2025 10:37:31 07/23/2007/24/2025 CBC, PLATE LET, NO DIFFE RENTI AL WBC 8.2 x10e3 /uL 3.4-10 .8 normal Not Available [facility] ([facility]) [address], [place], [address], 08/04/2025 18:07:20 07/23/20 25 07/24/2025 CBC, PLATE LET, NO DIFFE RENTI AL RBC 4.48 x10e6 /uL 3.77-5 .28 normal Not Available [facility] ([facility]) [address], [place], [address], 08/04/2025 18:07:20 07/23/2007/24/2025 CBC, PLATE LET, NO DIFFE RENTI AL hemoglobin 13.8 g/dL 11.1-1 5.9 normal Not Available [facility] ([facility]) [address], [place], [address], 08/04/2025 18:07:20 07/23/2007/24/2025 CBC, PLATE LET, NO DIFFE RENTI AL hematocrit 41.6 % 34.0-4 6.6 normal Not Available [facility] ([facility]) [address], [place], [address], 08/04/2025 18:07:20 07/23/2007/24/2025 CBC, PLATE LET, NO DIFFE RENTI AL MCV 93 fL 79-97 normal Not Available [facility] ([facility]) [address], [place], [address], 08/04/2025 18:07:20 07/23/2007/24/2025 CBC, PLATE LET, NO DIFFE RENTI AL MCH 30.8 pg 26.6-3 3.0 normal Not Available [facility] ([facility]) [address], [place], [address], 08/04/2025 18:07:20 07/23/2007/24/2025 CBC, PLATE LET, NO DIFFE RENTI AL MCHC 33.2 g/dL 31.5-3 5.7 normal Not Available [facility] ([facility]) [address], [place], [address], 08/04/2025 18:07:20 07/23/20 25 07/24/2025 CBC, PLATE LET, NO DIFFE RENTI AL RDW 12.1 % 11.7-1 5.4 Not Available [facility] ([facility]) [address], [place], [address], 08/04/2025 18:07:20 07/23/2007/24/2025 CBC, PLATE LET, NO DIFFE RENTI AL platelets 294 x10e3 /uL 150-45 0 normal Not Available [facility] ([facility]) [address], [place], [address], 08/04/2025 18:07:20 07/23/2007/24/2025 CBC, PLATE LET, NO DIFFE RENTI AL NRBC PALAEONTOLOGIST Not Available [facility] ([facility]) [address], [place], [address], 08/04/2025 18:07:20 07/23/20 25 07/28/2025 LUPUS DIAGN OSTIC PROFI LE anti-sm Ab (rdl) <20 units <20 Negat rick: <20 Weak Posit rick: 20-39 Moder ate Posit rick: 40-80 Stron g Posit rick: >80 Not Available [facility] [address] [place] [address], [address], 08/04/2025 18:07:20 07/23/20 25 07/28/2025 LUPUS DIAGN OSTIC PROFI LE anti-U1 plant guide Ab (rdl) <20 units <20 Negat rick: <20 Weak Posit rick: 20-39 Moder ate Posit rick: 40-80 Stron g Posit rikc: >80 Not Available [facility] [address] [place], [address], 08/04/2025 18:07:20 07/23/20 25 07/28/2025 LUPUS DIAGN OSTIC PROFI LE anti-RO (ss-A) Ab (rdl) <20 units <20 Negat rick: <20 Weak Posit rick: 20-39 Moder ate Posit rick: 40-80 Stron g Posit rick: >80 Not Available [facility] [address] [place], [address], 08/04/2025 18:07:20 07/23/20 25 07/28/2025 LUPUS DIAGN OSTIC PROFI LE anti-la (ss-B) Ab (rdl) <20 units <20 Negat rick: <20 Weak Posit rick: 20-39 Moder ate Posit rick: 40-80 Stron g Posit rick: >80 Not Available [facility] [address] [place], [address], 08/04/2025 18:07:20 07/23/20 25 07/28/2025 LUPUS DIAGN OSTIC PROFI LE C3 complement (rdl) 206 mg/dL 90-180 above high normal Not Available [facility] [address] [place] [address], [address], 08/04/2025 18:07:20 07/23/20 25 07/28/2025 LUPUS DIAGN OSTIC PROFI LE C4 complement (rdl) 19 mg/dL 10-40 Ple ase note refer ence inter alejandrina charlie e Not Available [facility] [address] [place] [address], [address], 08/04/2025 18:07:20 07/23/20 25 07/31/2025 LUPUS DIAGN OSTIC PROFI LE anti-nuclear Ab by ifa (rdl) Positi ve negati ve abnormal Not Available [facility] [address] [place], [address], 08/04/2025 18:07:20 07/23/20 25 07/31/2025 LUPUS DIAGN OSTIC PROFI LE homogeneous pattern PALAEONTOLOGIST Not Available [facility] [address] [place] [address], [address], 08/04/2025 18:07:20 07/23/20 25 07/31/2025 LUPUS DIAGN OSTIC PROFI LE nucleolar pattern PALAEONTOLOGIST Not Available [facility] [address] [place], [address], 08/04/2025 18:07:20 07/23/20 25 07/31/2025 LUPUS DIAGN OSTIC PROFI LE speckled pattern 1:40 <1:40 above high normal Not Available [facility] [address] [place], [address], 08/04/2025 18:07:20 07/23/20 25 07/31/2025 LUPUS DIAGN OSTIC PROFI LE centromere pattern PALAEONTOLOGIST Not Available [facility] [address] [place], [address], 08/04/2025 18:07:20 07/23/20 25 07/31/2025 LUPUS DIAGN OSTIC PROFI LE spindle apparatus pattern PALAEONTOLOGIST Not Available [facility] [address] [place], [address], 08/04/2025 18:07:20 07/23/20 25 07/31/2025 LUPUS DIAGN OSTIC PROFI LE nuclear membrane pattern PALAEONTOLOGIST Not Available [facility] [address] [place], [address], 08/04/2025 18:07:20 07/23/20 25 07/31/2025 LUPUS DIAGN OSTIC PROFI LE midbody pattern PALAEONTOLOGIST Not Available [facility] [address] [place], [address], 08/04/2025 18:07:20 07/23/20 25 07/31/2025 LUPUS DIAGN OSTIC PROFI LE nuclear dot pattern PALAEONTOLOGIST Not Available [facility] [address] [place], [address], 08/04/2025 18:07:20 07/23/20 25 07/31/2025 LUPUS DIAGN OSTIC PROFI LE pcna pattern PALAEONTOLOGIST Not Available [facility] [address] [place], [address], 08/04/2025 18:07:20 07/23/20 25 07/31/2025 LUPUS DIAGN OSTIC PROFI LE centriole pattern PALAEONTOLOGIST Not Available [facility] [address] [place] [address], [address], 08/04/2025 18:07:20 07/23/20 25 07/31/2025 LUPUS DIAGN OSTIC PROFI LE note: Commen t WILMA perfo rmed by Indir ect Fluor escen t Antib cj (IFA) Not Available [facility] [address] [place] [address], [address], 08/04/2025 18:07:20 07/23/20 25 08/04/2025 LUPUS DIAGN OSTIC PROFI LE anti-dsdna Ab by max(rdl) <8.0 IU/mL <8.0 Not Available [facility] [address] [place] [address], [address], 08/04/2025 18:07:20 07/23/20 25 08/04/2025 LUPUS DIAGN OSTIC PROFI LE anti-chromat in Ab, IgG (rdl) <20 units <20 Negat rick: <20 Moder ate Posit rick: 20 - 60 Stron g Posit rick: >60 Not Available [facility] [address] [place] [address], [address], 08/04/2025 18:07:20 07/23/20 25 07/24/2025 ALPHA -GAL [...] >100. 00 Very High Not Available [facility] ([facility]) [address] [place], [address], 08/04/2025 18:07:21 07/23/20 25 07/29/2025 ALPHA -GAL IGE PANEL immunoglobul in E, total 9 IU/mL 6-495 Not Available [facility] ([facility]) [address] [place], [address], 08/04/2025 18:07:21 07/23/2007/29/2025 ALPHA -GAL IGE PANEL D461-NoJ pork <0.10 kU/L class 0 Not Available [facility] ([facility]) [address] [place], [address], 08/04/2025 18:07:21 07/23/2007/29/2025 ALPHA -GAL IGE PANEL P773-RzX beef <0.10 kU/L class 0 Not Available [facility] ([facility]) [address] [place], [address], 08/04/2025 18:07:21 07/23/2007/29/2025 ALPHA -GAL IGE PANEL V167-HeI alfonso <0.10 kU/L class 0 Not Available [facility] ([facility]) [address] [place], [address], 08/04/2025 18:07:21 07/23/20 25 07/29/2025 ALPHA -GAL IGE PANEL W258-YpC alpha-gal <0.10 kU/L class 0 Not Available [facility] ([facility]) [address] [place], [address], 08/04/2025 18:07:21 07/23/20 25 07/24/2025 IRON AND TIBC iron bind.cap.(TI BC) 383 ug/dL 250-45 0 normal Not Available [facility] ([facility]) [address], [place], [address], 08/04/2025 18:07:21 07/23/2007/24/2025 IRON AND TIBC UIBC 282 ug/dL 131-42 5 normal Not Available [facility] ([facility]) [address], [place], [address], 08/04/2025 18:07:21 07/23/2007/24/2025 IRON AND TIBC iron 101 ug/dL 27-159 normal Not Available [facility] ([facility]) [address], [address], 08/04/2025 18:07:21 07/23/2007/24/2025 IRON AND TIBC iron saturation 26 % 15-55 normal Not Available [facility] ([facility]) [address], [place], [address], 08/04/2025 18:07:21 07/23/20 25 07/24/2025 VITAM IN B12 AND FOLAT E vitamin B12 327 pg/mL 232-12 45 normal Not Available [facility] ([facility]) [address] [place], [address], 08/04/2025 18:07:21 07/23/2007/24/2025 VITAM IN B12 AND FOLAT E folate (folic acid), serum >20.0 NG/mL >3.0 A serum folat e allan ntrat ion of less than 3.1 ng/mL is consi dered to repre sent clini ramiro defic iency . Not Available [facility] ([facility]) [address] [place], [address], 08/04/2025 18:07:21 07/23/20 25 07/24/2025 WILMA+R F QN WILMA direct Negati ve negati ve Not Available [facility] ([facility]) [address] [place], [address], 08/04/2025 18:07:21 07/23/20 25 07/24/2025 WILMA+R F QN rheumatoid factor (rf) <10.0 IU/mL <14.0 Not Available [facility] ([facility]) [address], [place], [address], 08/04/2025 18:07:21 07/23/20 25 07/24/2025 VITAM IN D, 25-HY DROXY vitamin D, 25-hydroxy 21.5 NG/mL 30.0-1 00.0 below low normal Vitam in D defic iency has been defin ed by the [facility] ine and an Endoc rine Socie ty [...] um and D. Beck russell [place]: [facility] . 2. Ana hazel MF, Kristen cm [place], Suman off-F errar i SANCHEZ, et al. Evalu ation , treat ment, and preve ntion of vitam in D defic iency : an Endoc rine Socie ty clini ramiro pract ice guide line. JCEM. 2010; 96(7) :1911 -30. Not Available [facility] ([facility]) [address], [place], [address], 08/04/2025 18:07:22 07/23/20 25 07/24/2025 LYME DISEA [...] is recom jacob d. Not Available [facility] ([facility]) [address], [place], [address], 08/04/2025 18:07:22 07/23/20 25 07/24/2025 MAGNE SIUM magnesium 2.0 mg/dL 1.6-2. 3 normal Not Available [facility] ([facility]) [address], [place], [address], 08/04/2025 18:07:22 07/23/20 25 07/24/2025 C-KATE CTIVE PROTE IN, QUANT C-reactive protein, quant 7 mg/L 0-10 normal Not Available [facility] ([facility]) [address], [place], [address], 08/04/2025 18:07:23 07/03/2007/03/2025 XR, shoul vinicio, 2 or more view No observ ation record ed. [facility] [address], [place], [address], 07/03/2025 17:13:21 07/03/2007/03/2025 CT, cervi ramiro spine , w/o contr ast No observ ation record ed. [facility] [address], [place], [address], 07/03/2025 18:50:44 07/05/2007/04/2025 MRI, head, w/wo contr ast No observ ation record ed. [facility] [address], [place], [address], 07/05/2025 09:16:00 Result Notes None recorded. Problems Name Problem SNOMED Code Status Onset Date Resolution Date Notes Provider Name and Address Organization Details Recorded Time Anxiety 95392079 Active 023 Mahi Stears null, [place] - [facility] 3 14:23:20 Depressive disorder 85453610 Active 023 Mahi Stears null, [place] - [...] completed Karma Saxena APRN [address], [place], [address], [place] - [facility] 06/01/2025 10:21:16 05/16/20 25 Shave Biopsy trunk, arms, or legs completed Karma Saxena APRN [address], [place], [address], [place] - [facility] 05/16/2025 11:15:42 04/16/20 20 Date of Last Pap Smear completed Ramona Langston [place] - [facility] 08/14/2025 10:56:25 Imaging Results None [...] 1 CAPSULE BY MOUTH ONCE DAILY AT [facility] AT 5PM active Not Available Not [...] Updated DateTime 5 154.94 cm 27 kg/m2 48813.7 1 g 87 /min 98.1 [degF] 98 % 18 /min 2 122/74 mm[Hg] Ramona Langston [place] - [facility] 5 14:11:00 Social History Question Answer Notes LastModified [...] Or The Highest Degree You Have Received? [id number] Information not available 04/23/2022 Have There Been Any Changes To Your Family Or Social Situation? No Information no t available 04/23/2022 What Is The Fluoride Status Of Your Home? Fluoridated Information not available 04/23/2022 Have You Recently Or Are You Planning To Travel To An Area With Zika Virus? No Information not available 04/23/2022 Do You Have A Medical Power Of Instructional Support Assistant? 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 AA3087-2 Information not available 04/23/2022 Do you have [...] colitis N Cerebrovascular Disease N Depression N Guillain-Ullin N Sleep Apnea N Aneurysm N Bronchitis [...] null, [place] - [facility] 11/30/2022 14:22:42 HPV9 7 completed Mahi Stears null, [place] - [facility] 11/30/2022 14:22:42 HPV9 6 completed Mahi Stears null, [place] - [facility] 11/30/2022 14:22:42 HPV9 6 completed Mahi Stears null, [place] - [facility] 11/30/2022 14:22:42 IPV 0 completed Mahi Stears null, [place] - [facility] 11/30/2022 14:22:42 IPV 9 completed Mahi Stears null, [facility] 11/30/2022 14:22:42 IPV 3 completed Mahi Stears null, [place] - [facility] 11/30/2022 14:22:42 IPV 9 completed Mahi Stears null, [facility] 11/30/2022 14:22:42 MMR 0 completed Mahi Stears null, [place] - [facility] 11/30/2022 14:22:42 MMR 3 completed Mahi Stears null, [facility] 11/30/2022 14:22:42 Tdap 0 completed Mahi Stears null, [place] - [facility] 11/30/2022 14:22:42 varicella 0 completed Mahi Stears null, [place] - [facility] 11/30/2022 14:22:42 Influenza, split virus, trivalent, PF [...] ICD10 Code Diagnosis IMO Codes Diagnosis Note [id number] Marilu Liao [employer] [address] [address] 06/22/2025 15:37:57 06/22/2025 16:32:21 Frequent headache 100665098 R51.9 [id number] Neck pain 70846427 M54.2 0438122 [id number] Marilu Liao [address] [address] 06/29/2025 10:10:57 06/29/2025 11:02:45 Viral upper respiratory tract infection 877230193 J06.9 [id number] no sign of a bacterial infection. likely [...] improvemen t over the next 48-72 hours [id number] Marilu Liao APRN [address] [address] 07/23/2025 13:52:50 07/23/2025 15:01:27 Numbness of limbs 167270822 R20.0 9364032 Tick bite 87016058 W57.X XXA [id number] Pain of mu ltiple joints 43336381 M25.50 206438 Muscle weakness 22684492 M62.81 55739 Pain of ri ght shoulder region 2914245845 M25.511 52771784 Neck pain 64448953 M54.2 [id number] Health Concerns Section Related Observation LastModified by Organization Detai ls LastModified Time None Recorded Concern Status LastModified by Organization Details LastModified Time None Recorded Payers Encounter Date Sequence Insurance Name Policy Number Policy Bolanos Covered Member ID Bolanos Member ID Guarantor Name 07/23/2025 1 [facility] (MEDICAID HMO) Nathaly Plaza [id number] Nathaly [employer] Notes Date Note Type Note Provider Name and Address Organization Details Recorded Time 07/23/2025 text/html Emergency Depart ment Follow-Up RecordReported by PatientEmergency Room Follow-Up RecordFor discharge information, patient reportsname of hospital/urgent care patient [facility]: [facility]patient presented to hospital/urgent care on or around: actual date 07-03-25,patient presented to hospital for treatment of: (headache/shoulder and neck pain),treatment received by hospital/urgent care: (x rays, scans, mri brain),patient's condition has: improved, andhospital records available at the time of this visit: yes.ROS as noted in the HPI 24 yr old female presents to follow up on er visit. She was seen at [facility] ER on 07/03/25for neck/shoulder and head pain. pt states she is having numbness to hands and finger,intolerant to cold. pt states muscle weakness and tightness., seen neurology and placed on propanolol and emergency med but has not started propanolol.also had her therapy appointment cancelled and would like it sent to someone else Marilu Liao, [employer] [address], [place], [address], [place] - [facility] 07/23/2025 14:55:12 OBGyn Episode No OBEpisode recorded.
--- OUTSIDE RECORDS SUMMARY | 2025-08-28 03:56 | XMS_ITS | Data Portability ---
Author Organization [facility] Address [address] [place] [address] Care Team Providers Care Cycle Liaison Name Role Phone MARILU LIAO Primary Care [...] available Lab rapid strep group A, throat 08/27/ 025 [facility], [address] [place] [address], [place], [address], 08/27/2025 12:16:33 rapid SARS CoV + SARS CoV 2 Ag, QL IA, respirato ry specimen 2024 [facility], [address] [place] [address], [address], 08/27/2025 15:22:00 rapid flu (A+B) 2024 025 [facility], [address] [place] [address], [address], 08/27/2025 15:21:07 cobalamin and folate panel, serum 2024 025 [facility], [address], [address], [place], [address], 08/04/2025 18:07:21 vitamin D, 25-hydrox y, total, serum 2024 025 [facility]I [facility], [address], [place] [address], [place], [address], 08/04/2025 18:07:22 CBC 2024 025 [facility]AKARI [facility], [address], [place] [address], [place], [address], 08/04/2025 18:07:20 iron + total iron-bind ing capacity (TIBC), serum 2024 025 [facility]AKARI [facility], [address], [place] [address], [place], [address], 08/04/2025 18:07:21 magnesium , serum or plasma 2024 025 [facility]I [facility], [address], [place] [address], [place], [address], 08/04/2025 18:07:22 vitamin B12, serum 2024 025 lakia [facility], [address], [place] [address], [place], [address], 08/08/2025 08:20:25 WILMA + rf (antinucl ear antibodie s + rheumatoi d factor), quantitat rick, serum 2024 [facility], [address] [place] [address], [address], 08/04/2025 18:07:22 C reactive protein, QN, serum or plasma 2024 025 [facility], [address] [place], [address], 08/04/2025 18:07:23 systemic lupus Ab panel, serum or plasma 2024 025 BAK[facility]I [facility], [address], [place] [address], [place], [address], 08/04/2025 18:07:20 WILMA (antinucl ear antibodie s) screen, serum 2024 025 [facility], [address], [place] [address], [place], [address], 08/08/2025 08:20:26 borrelia burgdorfe ri IgG + IgM + total panel, IA, serum 2024 025 BAKARI [facility], [address], [address] [address], [place], [address], 08/04/2025 18:07:22 galactose -alpha-1, 3-galacto se panel, serum or plasma 2024 025 BAKARI [facility], [address], [place] [address], [place], [address], 08/04/2025 18:07:21 rapid SARS CoV + SARS CoV 2 Ag, QL IA, respirato ry specimen 2024 [facility], [address] [place], [address], 06/29/2025 11:07:12 Referral residential real estate assistant referral 2024 shine Davis MD, [address] [place] [address], [address], 08/27/2025 12:16:33 residential real estate assistant referral 2024 025 CHARLOTTE Davis MD, [address] [place] [address], [address], 08/14/2025 11:27:02 physical therapist referral - shoulder and neck pain 2024 [facility], [address] [place] [address] [address], [place], [address], 08/20/2025 13:48:[address] referral 2024 BAKARI Palacio MD, [address], [place], [address], 06/26/2025 19:12:40 Procedures None recorded. Surgeries None recorded. Imaging XR, cervical spine, 2 or 3 view 2024 [facility] ([facility]), [address] [place], [place] [address]y [address], [place], [address], 08/08/2025 08:20:58 Medication Orders Medrol (Lyndon) 4 mg tablets in a dose pack 2024 [facility], [address], [address], 08/27/2025 12:16:39 epinephri ne 0.3 mg/0.3 mL injection , auto-inje ctor 2024 [facility], [address] [place], [address], 08/27/2025 12:16:38 dexametha sone sodium phosphate 4 mg/mL injection solution 2024 lakia Not available 08/27/2025 11:45:30 prednison e 20 mg tablet [address] [facility], [address], [address], 08/26/2025 05:01:40 prednison e 10 mg tablet [address] [facility], [address] [place], [address], 07/11/2025 05:02:05 Patient TargetsNo targets recorded. Patient InstructionsNo instructions recorded. Reason for Referral Neurologist Referral for Toni quent headache Referring Physician: Marilu Liao [facility], Encounter Date: 06/22/2025 Physical Therapist Referral for Neck pain shoulder and neck pain Referring Physician: Marilu Liao [facility], Encounter Date: 07/23/2025 County Nurse Referral for Aller gic reaction Referring Physician: Marilu Liao [facility], Encounter Date: 08/14/2025 County Nurse Referral for Idiop athic urticaria Referring Physician: Marilu Liao [facility], Encounter Date: 08/27/2025 Results Created Date Observation Date Name Description Value Unit Range Abnormal Flag Note LastModifiedBy Organization Detail LastModifiedTime 06/01/2006/08/2025 PATHO LOGY REPOR T . Commen t Mater ial submi tted: . shoul vinicio - LEFT SHOUL VINICIO RE-EX CISIO N. Modif iers: left Not Available [facility] ([facility]) [address] [facility], [place], [address], 06/08/2025 14:13:29 06/01/2006/08/2025 PATHO LOGY REPOR T . Commen t Clini ramiro histo ry: . PREVI OUS PATHO LOGY SHOWE D SEVER E ATYPI A WITH HALO PHENO ERIN ; ONE PERIP HERAL EDGE INVOL ALONSO Not Available [facility] ([facility]) [address] [facility], [place], [address], 06/08/2025 14:13:29 06/01/20 25 06/08/2025 PATHO LOGY REPOR T . Commen t Diagn osis: WOUND OF OPERA TION. COMME NT: NO RESID UAL DYSPL ASTIC NEVUS IDENT IFIED . WOUND OF OPERA TION IS DIFFU SELY PRESE NT AT TISSU E EDGES . SMI 06/08 1241 Local Not Available [facility] ([facility]) [address] [facility], [place], [address], 06/08/2025 14:13:29 06/01/20 25 06/08/2025 PATHO LOGY REPOR T . Commen t Minh patel d: . Rodney charles MD, [place] topat holog ist Not Available [facility] ([facility]) [address] [facility], [place], [address], 06/08/2025 14:13:29 06/01/2006/08/2025 PATHO LOGY REPOR T [...] RT 06/06 0841 Local Not Available [facility] ([facility]) [address] [facility], [place], [address], 06/08/2025 14:13:29 06/01/2006/08/2025 PATHO LOGY REPOR T . Commen t Patho logis t provi ded ICD-1 0: L90.5 Not Available [facility] ([facility]) [address] [facility], [place], [address], 06/08/2025 14:13:29 06/01/2006/08/2025 PATHO LOGY REPOR T . Commen t CPT . 02298 1 Not Available [facility] ([facility]) [address] [facility], [place], [address], 06/08/2025 14:13:29 06/29/2006/29/2025 rapid SARS CoV + SARS CoV 2 Ag, QL IA, respi rator y speci men SARS CoV antigen Negati ve Not Available [address], [address], 06/29/2025 10:37:31 07/23/20 25 07/24/2025 CBC, PLATE LET, NO DIFFE RENTI AL WBC 8.2 x10e3 /uL 3.4-10 .8 normal Not Available [facility] ([facility]) [address] [facility], [place], [address], 08/04/2025 18:07:20 07/23/20 25 07/24/2025 CBC, PLATE LET, NO DIFFE RENTI AL RBC 4.48 x10e6 /uL 3.77-5 .28 normal Not Available [facility] ([facility]) [address] [facility], [place], [address], 08/04/2025 18:07:20 07/23/2007/24/2025 CBC, PLATE LET, NO DIFFE RENTI AL hemoglobin 13.8 g/dL 11.1-1 5.9 normal Not Available [facility] ([facility]) [address] [place], [address], 08/04/2025 18:07:20 07/23/2007/24/2025 CBC, PLATE LET, NO DIFFE RENTI AL hematocrit 41.6 % 34.0-4 6.6 normal Not Available [facility] ([facility]) [address] [place], [address], 08/04/2025 18:07:20 07/23/2007/24/2025 CBC, PLATE LET, NO DIFFE RENTI AL MCV 93 fL 79-97 normal Not Available [facility] ([facility]) [address] [place], [address], 08/04/2025 18:07:20 07/23/2007/24/2025 CBC, PLATE LET, NO DIFFE RENTI AL MCH 30.8 pg 26.6-3 3.0 normal Not Available [facility] ([facility]) [address] [place], [address], 08/04/2025 18:07:20 07/23/2007/24/2025 CBC, PLATE LET, NO DIFFE RENTI AL MCHC 33.2 g/dL 31.5-3 5.7 normal Not Available [facility] ([facility]) [address] [place], [address], 08/04/2025 18:07:20 07/23/2007/24/2025 CBC, PLATE LET, NO DIFFE RENTI AL RDW 12.1 % 11.7-1 5.4 Not Available [facility] ([facility]) [address] [place], [address], 08/04/2025 18:07:20 07/23/2007/24/2025 CBC, PLATE LET, NO DIFFE RENTI AL platelets 294 x10e3 /uL 150-45 0 normal Not Available [facility] ([facility]) [address] [facility], [place], [address], 08/04/2025 18:07:20 07/23/2007/24/2025 CBC, PLATE LET, NO DIFFE RENTI AL NRBC STORE STOCK ASSOCIATE Not Available [facility] ([facility]) [address] [facility], [place], [address], 08/04/2025 18:07:20 07/23/20 25 07/28/2025 LUPUS DIAGN OSTIC PROFI LE anti-sm Ab (rdl) <20 units <20 Negat rick: <20 Weak Posit rick: 20-39 Moder ate Posit rick: 40-80 Stron g Posit rick: >80 Not Available [facility] [address] [place] [address], [address], 08/04/2025 18:07:20 07/23/20 25 07/28/2025 LUPUS DIAGN OSTIC PROFI LE anti-U1 exhibit builder Ab (rdl) <20 units <20 Negat rick: <20 Weak Posit rick: 20-39 Moder ate Posit rick: 40-80 Stron g Posit rick: >80 Not Available [facility] [address] [place] [address], [address], 08/04/2025 18:07:20 07/23/20 25 07/28/2025 LUPUS DIAGN OSTIC PROFI LE anti-RO (ss-A) Ab (rdl) <20 units <20 Negat rick: <20 Weak Posit rick: 20-39 Moder ate Posit rick: 40-80 Stron g Posit rick: >80 Not Available [facility] [address] [place] [address], [address], 08/04/2025 18:07:20 07/23/20 25 07/28/2025 LUPUS DIAGN OSTIC PROFI LE anti-la (ss-B) Ab (rdl) <20 units <20 Negat rick: <20 Weak Posit rick: 20-39 Moder ate Posit rick: 40-80 Stron g Posit rick: >80 Not Available [facility] [address] [place], [address], 08/04/2025 18:07:20 07/23/20 25 07/28/2025 LUPUS DIAGN OSTIC PROFI LE C3 complement (rdl) 206 mg/dL 90-180 above high normal Not Available [facility] [address] [place] [address], [address], 08/04/2025 18:07:20 07/23/20 25 07/28/2025 LUPUS DIAGN OSTIC PROFI LE C4 complement (rdl) 19 mg/dL 10-40 Ple ase note refer ence inter alejandrina guerra e Not Available [facility] [address] [place] [address], [address], 08/04/2025 18:07:20 07/23/20 25 07/31/2025 LUPUS DIAGN OSTIC PROFI LE anti-nuclear Ab by ifa (rdl) Positi ve negati ve abnormal Not Available [facility] [address] [place], [address], 08/04/2025 18:07:20 07/23/20 25 07/31/2025 LUPUS DIAGN OSTIC PROFI LE homogeneous pattern STORE STOCK ASSOCIATE Not Available [facility] [address] [place], [address], 08/04/2025 18:07:20 07/23/20 25 07/31/2025 LUPUS DIAGN OSTIC PROFI LE nucleolar pattern STORE STOCK ASSOCIATE Not Available [facility] [address] [place], [address], 08/04/2025 18:07:20 07/23/20 25 07/31/2025 LUPUS DIAGN OSTIC PROFI LE speckled pattern 1:40 <1:40 above high normal Not Available [facility] [address] [place], [address], 08/04/2025 18:07:20 07/23/20 25 07/31/2025 LUPUS DIAGN OSTIC PROFI LE centromere pattern STORE STOCK ASSOCIATE Not Available [facility] [address] [place], [address], 08/04/2025 18:07:20 07/23/20 25 07/31/2025 LUPUS DIAGN OSTIC PROFI LE spindle apparatus pattern STORE STOCK ASSOCIATE Not Available [facility] [address] [place], [address], 08/04/2025 18:07:20 07/23/20 25 07/31/2025 LUPUS DIAGN OSTIC PROFI LE nuclear membrane pattern STORE STOCK ASSOCIATE Not Available [facility] [address] [place], [address], 08/04/2025 18:07:20 07/23/20 25 07/31/2025 LUPUS DIAGN OSTIC PROFI LE midbody pattern STORE STOCK ASSOCIATE Not Available [facility] [address] [place], [address], 08/04/2025 18:07:20 07/23/20 25 07/31/2025 LUPUS DIAGN OSTIC PROFI LE nuclear dot pattern STORE STOCK ASSOCIATE Not Available [facility] [address] [place], [address], 08/04/2025 18:07:20 07/23/20 25 07/31/2025 LUPUS DIAGN OSTIC PROFI LE pcna pattern STORE STOCK ASSOCIATE Not Available [facility] [address] [place], [address], 08/04/2025 18:07:20 07/23/20 25 07/31/2025 LUPUS DIAGN OSTIC PROFI LE centriole pattern STORE STOCK ASSOCIATE Not Available [facility] [address] [place], [address], 08/04/2025 18:07:20 07/23/2007/31/2025 LUPUS DIAGN OSTIC PROFI LE note: Commen t WILMA perfo rmed by Indir ect Fluor escen t Antib cj (IFA) Not Available [facility] [address] [place], [address], 08/04/2025 18:07:20 07/23/2008/04/2025 LUPUS DIAGN OSTIC PROFI LE anti-dsdna Ab by max(rdl) <8.0 IU/mL <8.0 Not Available [facility] [address] [place], [address], 08/04/2025 18:07:20 07/23/2008/04/2025 LUPUS DIAGN OSTIC PROFI LE anti-chromat in Ab, IgG (rdl) <20 units <20 Negat rick: <20 Moder ate Posit rick: 20 - 60 Stron g Posit rick: >60 Not Available [facility] [address] [place] [address], [address], 08/04/2025 18:07:20 07/23/2007/24/2025 ALPHA -GAL IGE PANEL [...] >100. 00 Very High Not Available [facility] ([facility]) [address] [place], [address], 08/04/2025 18:07:21 07/23/2007/29/2025 ALPHA -GAL IGE PANEL immunoglobul in E, total 9 IU/mL 6-495 Not Available [facility]) [address] [place], [address], 08/04/2025 18:07:21 07/23/2007/29/2025 ALPHA -GAL IGE PANEL Z605-JdL pork <0.10 kU/L class 0 Not Available [facility] ([facility]) [address] [place], [address], 08/04/2025 18:07:21 07/23/2007/29/2025 ALPHA -GAL IGE PANEL V698-KlP beef <0.10 kU/L class 0 Not Available [facility] ([facility]) [address] [place], [address], 08/04/2025 18:07:21 07/23/2007/29/2025 ALPHA -GAL IGE PANEL O628-HoP alfonso <0.10 kU/L class 0 Not Available [facility] ([facility]) [address] [place], [address], 08/04/2025 18:07:21 07/23/20 25 07/29/2025 ALPHA -GAL IGE PANEL H484-CwT alpha-gal <0.10 kU/L class 0 Not Available [facility] ([facility]) [address] [place], [address], 08/04/2025 18:07:21 07/23/20 25 07/24/2025 IRON AND TIBC iron bind.cap.(TI BC) 383 ug/dL 250-45 0 normal Not Available [facility] ([facility]) [address] [place], [address], 08/04/2025 18:07:21 07/23/2007/24/2025 IRON AND TIBC UIBC 282 ug/dL 131-42 5 normal Not Available [facility] ([facility]) [address] [facility], [place], [address], 08/04/2025 18:07:21 07/23/2007/24/2025 IRON AND TIBC iron 101 ug/dL 27-159 normal Not Available [facility] ([facility]) [address] [facility], [place], [address], 08/04/2025 18:07:21 07/23/2007/24/2025 IRON AND TIBC iron saturation 26 % 15-55 normal Not Available [facility] ([facility]) [address] [facility], [place], [address], 08/04/2025 18:07:21 07/23/2007/24/2025 VITAM IN B12 AND FOLAT E vitamin B12 327 pg/mL 232-12 45 normal Not Available [facility] ([facility]) [address] [facility], [place], [address], 08/04/2025 18:07:21 07/23/2007/24/2025 VITAM IN B12 AND FOLAT E folate (folic acid), serum >20.0 NG/mL >3.0 A serum folat e allan ntrat ion of less than 3.1 ng/mL is consi dered to repre sent clini ramiro defic iency . Not Available [facility] ([facility]) [address] [facility], [place], [address], 08/04/2025 18:07:21 07/23/2007/24/2025 WILMA+R F QN WILMA direct Negati ve negati ve Not Available [facility] ([facility]) [address] [facility], [place], [address], 08/04/2025 18:07:21 07/23/20 25 07/24/2025 WILMA+R F QN rheumatoid factor (rf) <10.0 IU/mL <14.0 Not Available [facility] ([facility]) [address] [facility], [place], [address], 08/04/2025 18:07:21 07/23/20 25 07/24/2025 VITAM IN [...] IOM (Inst itute of Medic ine). 2009. Ann-Marie ry refer ence intak es for calci um and D. Beck russell [place]: The Natio nal [facility] Press . 2. Ana hazel MF, Kristen cm [place], Suman off-F errar i SANCHEZ, et al. Evalu ation , treat ment, and preve ntion of vitam in D defic iency : an Endoc rine Socie ty clini ramiro pract ice guide line. JCEM. 2010; 96(7) :1911 -30. Not Available [facility] ([facility]) [address] [facility], [place], [address], 08/04/2025 18:07:22 07/23/20 25 07/24/2025 LYME DISEA [...] is recom jacob d. Not Available [facility] ([facility]) [address] [facility], [place], [address], 08/04/2025 18:07:22 07/23/20 25 07/24/2025 MAGNE SIUM magnesium 2.0 mg/dL 1.6-2. 3 normal Not Available [facility] ([facility]) [address] [facility], [place], [address], 08/04/2025 18:07:22 07/23/20 25 07/24/2025 C-KATE CTIVE PROTE IN, QUANT C-reactive protein, quant 7 mg/L 0-10 normal Not Available [facility] ([facility]) [address] [facility], [place], [address], 08/04/2025 18:07:23 08/27/20 25 08/27/2025 rapid SARS CoV + SARS CoV 2 Ag, QL IA, respi rator y speci men SARS CoV antigen Negati ve Not Available [address], [address], 08/27/2025 12:06:27 08/27/20 25 08/27/2025 rapid flu (A+B) Flu negati ve Not Available [address], [address], 08/27/2025 12:06:34 08/27/20 25 08/27/2025 rapid flu (A+B) Type Both A & B Not Available [address], [address], 08/27/2025 12:06:34 08/27/20 25 08/27/2025 rapid strep group A, throa t Strep negati ve Not Available [address], [place], [address], 08/27/2025 12:06:13 08/27/20 25 08/27/2025 rapid strep group A, throa t Culture No Not Available [address], [place], [address], 08/27/2025 12:06:13 06/12/2006/12/2025 CT, venog tamar, head, w/wo contr ast No observ ation record ed. [place] [id number], [place], [address], 06/21/2025 08:51:05 06/12/20 25 06/12/2025 CT, head + brain , w/o contr ast No observ ation record ed. [place] [id number], [place], [address], 06/21/2025 08:51:05 06/15/20 25 06/12/2025 elect rocar diogr am No observ ation record ed. [facility] [address], [place], [address], 06/21/2025 08:51:06 06/19/20 25 06/17/2025 elect rocar diogr am No observ ation record ed. [place] [id number], [place], [address], 06/21/2025 08:51:06 07/03/2007/03/2025 XR, jeffyul vinicio, 2 or more view No observ ation record ed. [place] [id number], [place], [address], 07/03/2025 17:13:21 07/03/20 25 07/03/2025 CT, cervi ramiro spine , w/o contr ast No observ [facility]ion [facility] ed. [facility] [address], [place], [address], 07/03/2025 18:50:44 07/05/20 25 07/04/2025 MRI, head, w/wo contr ast No observ ation record ed. [facility] [address], [place], [address], 07/05/2025 09:16:00 Result Notes None recorded. Problems Name Problem SNOMED Code Status Onset Date Resolution Date Notes Provider Name and Address Organization Details Recorded Time Anxiety 13224116 Active 023 Mahi Stears null, [place] - [facility] 3 14:23:20 Depressive disorder 71991430 Active 023 Mahi Quintons null, [place] - [facility] 3 14:23:26 Problem Notes None recorded. Procedures Surgical History Date Name Laterality Status Provider Name and Address Organization Details Recorded Time 07/23/20 25 Medication Reconcilliation completed Ramona [place] - [facility] 07/23/2025 14:07:24 06/22/20 25 Medication Reconcilliation completed Mahi [place] - [facility] 06/22/2025 15:48:52 06/01/20 25 Shave Biopsy trunk, arms, or legs completed Karma Saxena APRN [address], [place], [address], [place] - [facility] 06/01/2025 10:21:16 05/16/20 25 Shave Biopsy trunk, arms, or legs completed Karma Saxena APRN [address], [place], [address], [place] - [facility] 05/16/2025 11:15:42 04/16/20 20 Date of Last Pap Smear completed Ramona [place] - [facility] 08/14/2025 10:56:25 Imaging Results None [...] 5 154.94 cm 18 /min 26.6 kg/m2 54185.5 2 g 98.1 [degF] 98 % 96 /min 124/76 mm[Hg] Mahi Quintons [place] - [facility] 5 15:47:33 Date Recorded Body height Body mass index (BMI) Body weight Heart rate Oxygen saturation Respiratory rate Pain severity - 0-10 verbal numeric rating [Score] - Reported Body temperature Systolic And Diastolic Provider Name and Address Organization Details Last Updated DateTime 5 154.94 cm 26.5 kg/m2 80896.9 3 g 88 /min 99 % 18 /min 0 97.9 [degF] 124/82 mm[Hg] Ramona [place] - [facility] 5 10:32:19 Date Recorded Body height Body mass index (BMI) Body weight Heart rate Body temperature Oxygen saturation Respiratory rate Pain severity - 0-10 verbal numeric rating [Score] - Reported Systolic And Diastolic Provider Name and Address Organization Details Last Updated DateTime 5 154.94 cm 27 kg/m2 00745.7 1 g 87 /min 98.1 [degF] 98 % 18 /min 2 122/74 mm[Hg] Ramona [place] - [facility] 5 14:11:00 Date Recorded Body height Body mass index (BMI) Body weight Body temperature Heart rate Oxygen saturation Respiratory rate Pain severity - 0-10 verbal numeric rating [Score] - Reported Systolic And Diastolic Provider Name and Address Organization Details Last Updated DateTime 5 154.94 cm 27 kg/m2 79043.7 1 g 98.1 [degF] 89 /min 98 % 18 /min 0 110/76 mm[Hg] Ramona [place] - [facility] 5 10:55:40 Date Recorded Body height Body mass index (BMI) Body weight Body temperature Heart rate Oxygen saturation Respiratory rate Pain severity - 0-10 verbal numeric rating [Score] - Reported Systolic And Diastolic Provider Name and Address Organization Details Last Updated DateTime 5 154.94 cm 27 kg/m2 82294.7 1 g 99.4 [degF] 111 /min 98 [...] Or The Highest Degree You Have Received? [id number] Information not available 04/23/2022 Have There Been Any Changes To Your Family Or Social Situation? No Information no t available 04/23/2022 What Is The Fluoride Status Of Your Home? Fluoridated Information not available 04/23/2022 Have You Recently Or Are You Planning To Travel To An Area With Zika Virus? No Information not available 04/23/2022 Do You Have A Medical Power Of Cutting And Boning Supervisor? 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 [id number] Information not available 04/23/2022 Do you have [...] colitis N Cerebrovascular Disease N Depression N Guillain-[place] N Sleep Apnea N Aneurysm N Heart [...] Hib-Hep B 0 completed Mahi Stears null, [place] - [facility] 11/30/2022 14:22:42 Hib-Hep B 9 completed Mahi Ste[place] - [facility] 11/30/2022 14:22:42 HPV9 7 completed Mahi Ste[place] null[place] - [facility] 11/30/2022 14:22:42 HPV9 6 completed [place] [facility] 11/30/2022 14:22:42 HPV9 6 completed Mahi Ste[place] [facility] 11/30/2022 14:22:42 IPV 0 completed Mahi Stears null, [facility] 11/30/2022 14:22:42 IPV 9 completed Mahi Stears null, [facility] 11/30/2022 14:22:42 IPV 3 completed Mahi Stears null, [facility] 11/30/2022 14:22:42 IPV 9 completed Mahi Stears null, [place] - [facility] 11/30/2022 14:22:42 MMR 0 completed Mahi Stears null, [facility] 11/30/2022 14:22:42 MMR 3 completed Mahi Stears null, [facility] 11/30/2022 14:22:42 Tdap 0 completed Mahi Stears null[place] - [facility] 11/30/2022 14:22:42 varicella 0 completed Mahi Ste[place] - [facility] 11/30/2022 14:22:42 Influenza, split virus, trivalent, PF 8 completed Mahi Stears null, [facility] 11/30/2022 14:22:42 Hep B, adolescent or pediatric 9 completed Mahi Stears null, [place] - [facility] 11/30/2022 14:22:42 Hep A, ped/adol, [...] ICD10 Code Diagnosis IMO Codes Diagnosis Note [id number] Marilu Liao APRN [address] [address] 04/23/2022 13:46:31 04/23/2022 15:43:23 Venereal disease screening [id number] Z11.[id number]man[address] [address] 11/30/2022 14:10:18 11/30/2022 15:12:04 Acute bronchitis 45142366 J20.9 [id number] Marilu Liao[address] [address] 12/10/2022 13:15:42 12/10/2022 14:23:59 Acute bronchitis 38469137 J20.9 Allergic rhinitis 379024 04 J30.9 [id number] [facility] [address] 09/20/2023 13:30:04 09/20/2023 14:00:55 Tuberculosis screening [id number] Z11.1 [id number] [facility] [address] 10/07/2023 13:35:28 10/07/2023 14:38:25 Tuberculosis screening [id number] Z11.1 [id number] [facility] [address] 04/03/2024 15:36:36 04/03/2024 16:07:26 Abdominal pain 73691560 R10.9 if symptoms worsen go to ed for eval Acute urin krupa tract infection 665565707 N39.0 Patient presents with symptoms of UTI. Results of dipstick were positive for UTI. Advised to drink clear fluids, reduce sexual activity, Tylenol for pain and take prescribed medication s as instructed . wear cotton under wear urinate after intercours e Patient encouraged to follow up within 1 week if not improving. [id number] Marilu Liao[address] [address] 02/13/2025 18:14:12 02/13/2025 18:34:46 Acute urinary tract infection [id number] N39.0 930148 Patient presents with symptoms of UTI. Results of dipstick were positive for UTI. Advised to drink clear fluids, reduce sexual activity, Tylenol for pain and take prescribed medication s as instructed . wear cotton under wear urinate after intercours e Patient encouraged to follow up within 1 week if not improving. [id number] Marilu Liao [address] [address] 02/23/2025 13:36:29 02/23/2025 14:26:18 Acute urinary tract infection 738191140 N39.0 285774 Patient presents with symptoms of UTI.increa se fluidscran mijares juicewipe front to backvoid after intercours [place] not hold urineantib iotics as orderedcot ton underwearP atient encouraged to follow up within 1 week if not improving. Pigmented skin lesion 20 1265395 D22.9 118293 derm referral Acute bronchitis 3399257 2 J20.9 31909627 antibiotic s and inhaler as needed [id number] Marilu Liao [address] [address] 03/13/2025 14:52:48 03/13/2025 15:45:12 Dyspnea 197219519 R06.[address] to r/o pe- takes control pills, recent illness,pa lpitations advised to go to edif pt does not go to ed needs ct stat Palpitations 24389452 R0 0.2 41619 heart monitor orderedif any symptoms go to ed for eval [id number] Karma Saxena [facility] [address] [place] [address] 05/16/2025 10:48:03 05/16/2025 11:30:30 Skin lesion 19569243 L98.9 50281 Overweight in adulthood with body mass index of 25 or more but less than 30 597757680 Z68.26 [id number] Marilu Liao [address] [address] 05/28/2025 14:07:01 05/28/2025 15:11:43 Depressive disorder 46228098 F32.A Anxiety 13342657 F41.9 Autism suspected 9306915 06 R68.89 [id number] will send for testing- per pt request [id number] Karma Saxena [facility] [address] [place] [address] 06/01/2025 09:47:50 06/01/2025 10:53:51 Dysplastic nevus of skin 539368985 D22.9 053507 Overweight in adulthood with body mass index of 25 or more but less than 30 636719406 Z68.27 93264732 [id number] Marilu Liao [employer] [address] [address] 06/22/2025 15:37:57 06/22/2025 16:32:21 Frequent headache 744525943 R51.9 50426891 Neck pain 90514748 M54.2 4015884 [id number] [facility] [address] [address] 06/29/2025 10:10:57 06/29/2025 11:02:45 Viral upper respiratory tract infection 968341185 J06.9 1997704 no sign of a bacterial infection. likely [...] improvemen t over the next 48-72 hours [id number] Marilu Liao [employer] [address] [address] 07/23/2025 13:52:50 07/23/2025 15:01:27 Numbness of limbs 744593616 R20.0 7926874 Tick bite 49768799 W57.X XXA 6609930092 Pain of mu ltiple joints 47611163 M25.50 415655 Muscle weakness 28214387 M62.81 92120 Pain of ri ght shoulder region 9528475076 M25.511 02268679 Neck pain 28809976 M54.2 6019494 [id number] Marilu Liao [address] [address] 08/14/2025 10:34:22 08/14/2025 11:06:04 Allergic reaction 704965165 T78.40XA 7682522 benadryl as neededster oids-shot today start pills tomorrowif worsen or no improvemen t go to ed [id number] [facility] [address] [address] 08/27/2025 11:35:02 08/27/2025 12:14:14 Viral upper respiratory tract infection 091638953 J06.9 8192896 no sign of a bacterial infection. 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 L50.9 20298625 keep track of foods, drinks, washing soaps, [...] - [facility] (MEDICAID) [facility] [id number] [facility] 08/27/2025 1 [facility] (MEDICAID [facility]) [facility] [id number] [facility] Notes Date Note Type Note Provider Name and Address Organization Details Recorded Time 06/22/2025 text/html Emergency Depart ment Follow-Up RecordReported by PatientEmergency Room Follow-Up RecordFor discharge information, patient reportsname of hospital/urgent care patient was seen: ([facility]),patient presented to hospital for treatment of: (throbbing headache, discomfort in head, neck and earsmetal taste),treatment received by hospital/urgent care: (ct w/contrast, ekg, migraine cocktail, prescribed nausea medication),patient's condition has: improved, andhospital records available at the time of this visit: yes.ROS as noted in the [facility] 24 year old female who presents to the office today for ahospital follow up states headache is not as bad, but still has a lot of discomfort in head, neck and earsstates has a crackling sound at base of skull Shanthimaryjose Ayalaandrei, [employer] [address], [place], [address], [place] - [facility] 06/22/2025 16:33:14 06/29/2025 text/html COVID-19 Symptom(s)Reported by PatientROS as noted in the [facility] 24 yr old female presents for possible covid. She states she lost her sense of taste and smell yesterday. She does not think she was exposed to covid. Shanthimaryjose Ayalaandrei, ALEJANDRINA [address], [place], [address], [place] - [facility] 06/29/2025 11:10:52 07/23/2025 text/html Emergency Depart ment Follow-Up RecordReported by [facility]Emer[facility] Room Follow-Up RecordFor discharge information, patient reportsname of hospital/urgent care patient was seen: ([facility]),patient presented to hospital/urgent care on or around: actual date 07-03-25,patient presented to hospital for treatment of: (headache/shoulder and neck pain),treatment received by hospital/urgent care: (x rays, scans, mri brain),patient's condition has: improved, andhospital records available at the time of this visit: yes.ROS as noted in the [facility] 24 yr old female presents to follow up on er visit. She was seen at [facility] ER on 07/03/25for neck/shoulder and head pain. pt states she is having numbness to hands and finger,intolerant to cold. pt states muscle weakness and tightness., seen neurology and placed on propanolol and emergency med but has not started propanolol.also had her therapy appointment cancelled and would like it sent to someone else Marilu CalzadaALEJANDRINA blount [address], [place], [address], [place] - [facility] 07/23/2025 14:55:12 08/14/2025 text/html ROS [...] of. pt states no difficulty breathing Marilu CalzadaALEJANDRINA blount [address], [place], [address], [place] [facility] 08/14/2025 11:25:53 08/27/2025 text/html ROS as noted in the HPI 24 yr old female presents with hives, throat itching/feeling she has a burp that won't come out. Tongue felt tingling last night on and off for 2 weeks. pt states she has not took a benadryl today.She is also congested and feels like she has the flu. Marilu AyalaALEJANDRINA forbes [address], [place], [address], [place] - [facility] 08/27/2025 13:07:59 OBGyn Episode No OBEpisode recorded.
--- OUTSIDE RECORDS SUMMARY | 2025-08-28 03:56 | XMS_ITS | Continuity of Care Document ---
[facility] Address [address] [place] [address] Care Team Providers Care Vault Service Mechanic Name Role Phone MARILU MARTINEZ Primary Care Provider Assessment No assessment recorded. Plan of Treatment Reminders Order Date Submit Date Provider Last Modified By Organization Details Last Modified Time Details Appointments [facility] INITIAL 2025 11:00A M Jareth Bill LCSW Not available Not available Not available Initial 60 2025 01:00P M MARYANN Youngblood Not available Not available Not available Lab None recorded. 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 Surgeries None recorded. Imaging None recorded. Medication Orders dexametha sone sodium phosphate 4 mg/mL injection solution 2024 025 cbuckler Not available 08/27/2025 11:45:30 prednison e 20 mg tablet [address]24 [address] [facility], [address], [address], 08/26/2025 05:01:40 Patient TargetsNo targets recorded. Patient InstructionsNo instructions recorded. Reason for Referral Network Security Analyst Referral for Aller gic reaction Referring Physician: Marilu Martinez, Family Medicine, Encounter Date: 08/14/2025 Results Created Date Observation Date Name Description Value Unit Range Abnormal Flag Note LastModifiedBy Organization Detail LastModifiedTime 07/23/2007/24/2025 CBC, PLATE LET, NO DIFFE RENTI AL WBC 8.2 x10e3 /uL 3.4-10 .8 normal Not Available [facility] ([facility]) [address] [place], [address], 08/04/2025 18:07:20 07/23/2007/24/2025 CBC, PLATE LET, NO DIFFE RENTI AL RBC 4.48 x10e6 /uL 3.77-5 .28 normal Not Available [facility] ([facility]) [address] [place], [address], 08/04/2025 18:07:20 07/23/2007/24/2025 CBC, PLATE LET, NO DIFFE RENTI AL hemoglobin 13.8 g/dL 11.1-1 5.9 normal Not Available [facility] ([facility]) [address] [place], [address], 08/04/2025 18:07:20 07/23/2007/24/2025 CBC, PLATE LET, NO DIFFE RENTI AL hematocrit 41.6 % 34.0-4 6.6 normal Not Available [facility] ([facility]) [address] [place], [address], 08/04/2025 18:07:20 07/23/2007/24/2025 CBC, PLATE LET, NO DIFFE RENTI AL MCV 93 fL 79-97 normal Not Available [facility] ([facility]) [address] [place], [address], 08/04/2025 18:07:20 07/23/2007/24/2025 CBC, PLATE LET, NO DIFFE RENTI AL MCH 30.8 pg 26.6-3 3.0 normal Not Available [facility] ([facility]) [address] [place], [address], 08/04/2025 18:07:20 07/23/2007/24/2025 CBC, PLATE LET, NO DIFFE RENTI AL MCHC 33.2 g/dL 31.5-3 5.7 normal Not Available [facility] ([facility]) [address] [place], [address], 08/04/2025 18:07:20 07/23/2007/24/2025 CBC, PLATE LET, NO DIFFE RENTI AL RDW 12.1 % 11.7-1 5.4 Not Available [facility] ([facility]) [address] [place], [address], 08/04/2025 18:07:20 07/23/2007/24/2025 CBC, PLATE LET, NO DIFFE RENTI AL platelets 294 x10e3 /uL 150-45 0 normal Not Available [facility] ([facility]) [address] [facility], [place], [address], 08/04/2025 18:07:20 07/23/2007/24/2025 CBC, PLATE LET, NO DIFFE RENTI AL NRBC SENIOR SALES ENGINEER Not Available [facility] ([facility]) [address] [place], [address], 08/04/2025 18:07:20 07/23/20 25 07/28/2025 LUPUS DIAGN OSTIC PROFI LE anti-sm Ab (rdl) <20 units <20 Negat rick: <20 Weak Posit rick: 20-39 Moder ate Posit rick: 40-80 Stron g Posit rick: >80 Not Available [facility] [address] [facility], [place], [address], 08/04/2025 18:07:20 07/23/20 25 07/28/2025 LUPUS DIAGN OSTIC PROFI LE anti-U1 fish farmer Ab (rdl) <20 units <20 Negat rick: <20 Weak Posit rick: 20-39 Moder ate Posit rick: 40-80 Stron g Posit rick: >80 Not Available [facility] [address] [place], [address], 08/04/2025 18:07:20 07/23/20 25 07/28/2025 LUPUS DIAGN OSTIC PROFI LE anti-RO (ss-A) Ab (rdl) <20 units <20 Negat rick: <20 Weak Posit rick: 20-39 Moder ate Posit rick: 40-80 Stron g Posit rick: >80 Not Available [facility] [address] [place], [address], 08/04/2025 18:07:20 07/23/20 25 07/28/2025 LUPUS DIAGN OSTIC PROFI LE anti-la (ss-B) Ab (rdl) <20 units <20 Negat rick: <20 Weak Posit rick: 20-39 Moder ate Posit rick: 40-80 Stron g Posit rick: >80 Not Available [facility] [address] [place], [address], 08/04/2025 18:07:20 07/23/20 25 07/28/2025 LUPUS DIAGN OSTIC PROFI LE C3 complement (rdl) 206 mg/dL 90-180 above high normal Not Available [facility] [address] [place] [address], [address], 08/04/2025 18:07:20 07/23/2007/28/2025 LUPUS DIAGN OSTIC PROFI LE C4 complement (rdl) 19 mg/dL 10-40 Ple ase note refer ence inter alejandrina charlie e Not Available [facility] [address] [place] [address], [address], 08/04/2025 18:07:20 07/23/20 25 07/31/2025 LUPUS DIAGN OSTIC PROFI LE anti-nuclear Ab by ifa (rdl) Positi ve negati ve abnormal Not Available [facility] [address] [place], [address], 08/04/2025 18:07:20 07/23/20 25 07/31/2025 LUPUS DIAGN OSTIC PROFI LE homogeneous pattern SENIOR SALES ENGINEER Not Available [facility] [address] [place], [address], 08/04/2025 18:07:20 07/23/20 25 07/31/2025 LUPUS DIAGN OSTIC PROFI LE nucleolar pattern SENIOR SALES ENGINEER Not Available [facility] [address] [place], [address], 08/04/2025 18:07:20 07/23/20 25 07/31/2025 LUPUS DIAGN OSTIC PROFI LE speckled pattern 1:40 <1:40 above high normal Not Available [facility] [address] [place], [address], 08/04/2025 18:07:20 07/23/20 25 07/31/2025 LUPUS DIAGN OSTIC PROFI LE centromere pattern SENIOR SALES ENGINEER Not Available [facility] [address] [place], [address], 08/04/2025 18:07:20 07/23/20 25 07/31/2025 LUPUS DIAGN OSTIC PROFI LE spindle apparatus pattern SENIOR SALES ENGINEER Not Available [facility] [address] [place], [address], 08/04/2025 18:07:20 07/23/20 25 07/31/2025 LUPUS DIAGN OSTIC PROFI LE nuclear membrane pattern SENIOR SALES ENGINEER Not Available [facility] [address] [place], [address], 08/04/2025 18:07:20 07/23/20 25 07/31/2025 LUPUS DIAGN OSTIC PROFI LE midbody pattern SENIOR SALES ENGINEER Not Available [facility] [address] [place], [address], 08/04/2025 18:07:20 07/23/20 25 07/31/2025 LUPUS DIAGN OSTIC PROFI LE nuclear dot pattern SENIOR SALES ENGINEER Not Available [facility] [address] [place], [address], 08/04/2025 18:07:20 07/23/20 25 07/31/2025 LUPUS DIAGN OSTIC PROFI LE pcna pattern SENIOR SALES ENGINEER Not Available [facility] [address] [place] [address], [address], 08/04/2025 18:07:20 07/23/2007/31/2025 LUPUS DIAGN OSTIC PROFI LE centriole pattern SENIOR SALES ENGINEER Not Available [facility] [address] [place] [address], [address], 08/04/2025 18:07:20 07/23/2007/31/2025 LUPUS DIAGN OSTIC PROFI LE note: Commen t WILMA perfo rmed by Indir ect Fluor escen t Antib cj (IFA) Not Available [facility] [address] [place] [address], [address], 08/04/2025 18:07:20 07/23/20 25 08/04/2025 LUPUS DIAGN OSTIC PROFI LE anti-dsdna Ab by max(rdl) <8.0 IU/mL <8.0 Not Available [facility] [address] [place] [address], [address], 08/04/2025 18:07:20 07/23/20 25 08/04/2025 LUPUS DIAGN OSTIC PROFI LE anti-chromat in Ab, IgG (rdl) <20 units <20 Negat rick: <20 Moder ate Posit rick: 20 - 60 Stron g Posit rick: >60 Not Available [facility] [address] [place] [address], [address], 08/04/2025 18:07:20 07/23/20 07/24/2025 ALPHA -GAL IGE [...] >100. 00 Very High Not Available [facility] ([facility]) [address] [place], [address], 08/04/2025 18:07:21 07/23/2007/29/2025 ALPHA -GAL IGE PANEL immunoglobul in E, total 9 IU/mL 6-495 Not Available [facility] ([facility]) [address] [place], [address], 08/04/2025 18:07:21 07/23/2007/29/2025 ALPHA -GAL IGE PANEL C136-EzV pork <0.10 kU/L class 0 Not Available [facility] ([facility]) [address] [place], [address], 08/04/2025 18:07:21 07/23/2007/29/2025 ALPHA -GAL IGE PANEL N350-BuC beef <0.10 kU/L class 0 Not Available [facility] ([facility]) [address] [place], [address], 08/04/2025 18:07:21 07/23/2007/29/2025 ALPHA -GAL IGE PANEL U307-KhM alfonso <0.10 kU/L class 0 Not Available [facility] ([facility]) [address] [place], [address], 08/04/2025 18:07:21 07/23/20 25 07/29/2025 ALPHA -GAL IGE PANEL Y656-NaN alpha-gal <0.10 kU/L class 0 Not Available [facility] ([facility]) [address] [place], [address], 08/04/2025 18:07:21 07/23/20 25 07/24/2025 IRON AND TIBC iron bind.cap.(TI BC) 383 ug/dL 250-45 0 normal Not Available [facility] ([facility]) [address] [place], [address], 08/04/2025 18:07:21 07/23/2007/24/2025 IRON AND TIBC UIBC 282 ug/dL 131-42 5 normal Not Available [facility] ([facility]) [address] [place], [address], 08/04/2025 18:07:21 07/23/20 25 07/24/2025 IRON AND TIBC iron 101 ug/dL 27-159 normal Not Available [facility] ([facility]) [address] [place], [address], 08/04/2025 18:07:21 07/23/20 25 07/24/2025 IRON AND TIBC iron saturation 26 % 15-55 normal Not Available [facility] ([facility]) [address] [place], [address], 08/04/2025 18:07:21 07/23/20 25 07/24/2025 VITAM IN B12 AND FOLAT E vitamin B12 327 pg/mL 232-12 45 normal Not Available [facility] ([facility]) [address] [place], [address], 08/04/2025 18:07:21 07/23/20 25 07/24/2025 VITAM IN B12 AND FOLAT E folate (folic acid), serum >20.0 NG/mL >3.0 A serum folat e allan ntrat ion of less than 3.1 ng/mL is consi dered to repre sent clini ramiro defic iency . Not Available [facility] ([facility]) [address] [facility], [place], [address], 08/04/2025 18:07:21 07/23/2007/24/2025 WILMA+R F QN WILMA direct Negati ve negati ve Not Available [facility] ([facility]) [address] [facility], [place], [address], 08/04/2025 18:07:21 07/23/2007/24/2025 WILMA+R F QN rheumatoid factor (rf) <10.0 IU/mL <14.0 Not Available [facility] ([facility]) [address] [place], [address], 08/04/2025 18:07:21 07/23/2007/24/2025 VITAM IN D, 25-HY [...] and D. Beck russell [place]: The [facility] Press . 2. Ana hazel MF, Kristen cm [place], Suman off-F archana i SANCHEZ, et al. Evalu ation , treat ment, and preve ntion of vitam in D defic iency : an Endoc rine Socie ty clini ramiro pract ice guide line. JCEM. 2010; 96(7) :1911 -30. Not Available [facility] ([facility]) [address] [place], [address], 08/04/2025 18:07:22 07/23/20 25 07/24/2025 LYME DISEA [...] is recom jacob d. Not Available [facility] ([facility]) [address] [facility], [place], [address], 08/04/2025 18:07:22 07/23/20 25 07/24/2025 MAGNE SIUM magnesium 2.0 mg/dL 1.6-2. 3 normal Not Available [facility] ([facility]) [address] [facility], [place], [address], 08/04/2025 18:07:22 07/23/20 25 07/24/2025 C-KATE CTIVE PROTE IN, QUANT C-reactive protein, quant 7 mg/L 0-10 normal Not Available [facility] ([facility]) [address] [place], [address], 08/04/2025 18:07:23 Result Notes None recorded. Problems Name Problem SNOMED Code Status Onset Date Resolution Date Notes Provider Name and Address Organization Details Recorded Time Anxiety 08023784 Active 023 Mahi Stears null, [place] - [facility] 3 14:23:20 Depressive disorder 34239872 Active 023 Mahi Stears null, [place] - [...] completed Karma Saxena APRN [address], [place], [address], [place] - [facility] 06/01/2025 10:21:16 05/16/20 25 Shave Biopsy trunk, arms, or legs completed Karma Saxena APRN [address], [place], [address], [facility] - [facility] 05/16/2025 11:15:42 04/16/20 20 Date of Last Pap Smear completed Ramona Langston [place] - [facility] 08/14/2025 10:56:25 Imaging Results None [...] Updated DateTime 5 154.94 cm 27 kg/m2 81524.7 1 g 98.1 [degF] 89 /min 98 % 18 /min 0 110/76 mm[Hg] Ramona Langston [place] - [facility] 5 10:55:40 Social History Question Answer Notes LastModified by Organizat ion Details LastModified Time Tobacco Smoking Status Never Smoker Ramona gonzalez, [place] - [facility] 04/23/2022 14:08:19 Do You Have An Advance Directive? No lakia Information not available 04/23/2022 Are You Blind [...] Illicit Or Recreational Drugs Have You Used? [place] Information not available 05/16/2025 Have You Processed [...] Or The Highest Degree You Have Received? [id number] Information not available 04/23/2022 Have There Been Any Changes To Your Family Or Social Situation? No Information no t available 04/23/2022 What Is The Fluoride Status Of Your Home? Fluoridated Information not available 04/23/2022 Have You Recently Or Are You Planning To Travel To An Area With Zika Virus? No Information not available 04/23/2022 Do You Have A Medical Power Of Windows Consultant? 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 [id number] Information not available 04/23/2022 Do you have [...] colitis N Cerebrovascular Disease N Depression N Guillain-Gomer N Sleep Apnea N Aneurysm N Bronchitis [...] 14:22:42 IPV 0 completed Mahi Stears null, [place] [facility] 11/30/2022 14:22:42 IPV 9 completed Mahi Ste[place] [facility] 11/30/2022 14:22:42 IPV 3 completed Mahi Ste[place] [facility] 11/30/2022 14:22:42 IPV 9 completed Mahi Ste[place] [facility] 11/30/2022 14:22:42 MMR 0 completed Mahi Ste[place] [facility] 11/30/2022 14:22:42 MMR 3 completed Mahi Stears [place] [facility] 11/30/2022 14:22:42 Tdap 0 completed Mahi Ste[place] [facility] 11/30/2022 14:22:42 varicella 0 completed Mahi Ste[place] [facility] 11/30/2022 14:22:42 Influenza, split virus, trivalent, PF 8 completed Mahi Ste[place] [facility] 11/30/2022 14:22:42 Hep B, adolescent or pediatric 9 completed Mahi Ste[place] [facility] 11/30/2022 14:22:42 Hep A, ped/adol, 2 dose 7 completed Mahi [place] [facility] 11/30/2022 14:22:42 Hep A, ped/adol, 2 dose 6 completed Mahi Ste[place] [facility] 11/30/2022 14:22:42 Hib (PRP-OMP) 9 completed Mahi Ste[place] [facility] 11/30/2022 14:22:42 meningococcal MCV4P 6 completed Mahi Ste[place] [facility] 11/30/2022 14:22:42 DTaP, unspecified formulation [...] unspecified formulation 9 completed Mahi Ste[place] [facility] 11/30/2022 14:22:42 meningococcal MCV4, unspecified formulation 0 completed Mahi Ste[place] [facility] 11/30/2022 14:22:42 Influenza, split virus, quadrivalent, PF 0 completed Mahi Stears [place] [facility] 11/30/2022 14:22:42 Past Encounters Encounter ID Performer Location Encounter Start Date Encounter Closed Date Diagnosis/Indication Diagnosis SNOMED-CT Code Diagnosis ICD10 Code Diagnosis IMO Codes Diagnosis Note [id number] Marilu Martinez [address] [address] 07/23/2025 13:52:50 07/23/2025 15:01:27 Numbness of limbs 598131287 R20.0 2350915 Tick bite 30556238 W57.X XXA 7533614541 Pain of mu ltiple joints 28690347 M25.50 393825 Muscle weakness 08738413 M62.81 52850 Pain of ri ght shoulder region 6659836648 M25.511 61189052 Neck pain 73133173 M54.2 4008124 [id number] Marilu Martinez [address] [address] 08/14/2025 10:34:22 08/14/2025 11:06:04 Allergic reaction 798023202 T78.40XA 1546001 benadryl as neededster oids-shot today start pills tomorrowif worsen or no improvemen t go to ed Health Concerns Section Related Observation LastModified by Organization Detai ls LastModified Time None Recorded Concern Status LastModified by Organization Details LastModified Time None Recorded Payers Encounter Date Sequence Insurance Name Policy Number Policy Bolanos Covered Member ID Bolanos Member ID Guarantor Name 08/14/2025 1 [employer] [facility] (MEDICAID HMO) Nathaly Plaza [id number] Nathaly Plaza Notes Date Note Type Note [...] pt states no difficulty breathing Marilu Martinez, CRUSHER TENDER [address], [place], [address], [place] - [facility] 08/14/2025 11:25:53 OBGyn Episode No OBEpisode recorded.
[2025-08-28 04:00] VITALS: BP 143/97; PULSE 90; O2SAT 99
[2025-08-28 04:02] VITALS: BP 134/78; PULSE 74; RESP 18; TEMP 36.6; O2SAT 98; BMI 26.4
[2025-08-28] MEDS: METHYLPREDNISOLONE SOD SUCC 40MG VIAL 80 MG IV (04:25)
[2025-08-28] MEDS: FAMOTIDINE 20MG TABLET 20 MG PO (04:26)
[2025-08-28 04:27] LABS: Hematocrit 37.6 % (37.0-47.0); Hemoglobin 13.0 g/dL (12.2-16.2); Immature Granulocytes % 0.4 %; Mean Corpuscular HGB Conc 34.6 g/dL (31.8-35.4); Mean Corpuscular Hemoglobin 30.9 pg (27.0-31.2); Mean Corpuscular Volume 89.3 fl (81-99); Nucleated Red Blood Cells % 0 %; Platelet Count 305 K/mm3 (142-424); Red Blood Count 4.21 M/mm3 (4.20-5.40); Red Cell Distribution Width-SD 40.4 fL; White Blood Count 11.2 K/mm3 (4.8-10.8)
[2025-08-28] MEDS: LORATADINE 10MG TABLET 20 MG PO (04:27)
[2025-08-28 04:30] VITALS: BP 126/93; PULSE 91; O2SAT 100
[2025-08-28 04:39] LABS: Albumin Level 4.2 g/dl (3.5-5.0); Potassium 3.5 mmoL/L (3.5-5.1); Sodium 139 mmol/L (136-145)
[2025-08-28 04:41] LABS: Blood Urea Nitrogen 10 mg/dl (7-17); Creatinine Clearance Estimated 107 mL/min (50-200); Creatinine,Serum 0.80 mg/dl (0.52-1.04); Estimated Glomerular Filt Rate 87 ml/min (>60); GFR (African American) 105 ML/MIN (>60)
[2025-08-28 04:42] LABS: Alanine Aminotransferase 19 U/L (12-78); Albumin/Globulin Ratio 1.6 (1.1-1.8); Alkaline Phosphatase 69 U/L (38-126); Aspartate Amino Transferase 27 U/L (14-36); Bilirubin,Total 0.5 mg/dl (0.2-1.3); Calcium 9.9 mg/dl (8.4-10.2); Carbon Dioxide 23 mmol/L (22.0-30.0); Globulin 2.7 g/dL (1.3-3.2); Glucose 101 mg/dl (74-100); Total Protein,Serum 6.9 g/dl (6.3-8.2)
[2025-08-28 04:49] LABS: C-Reactive Protein 101.1 mg/L (0-4)
[2025-08-28 04:51] LABS: Anion Gap 13.5 mEq/L (5-15); Chloride 106 mmol/L (98-107)
[2025-08-28 04:52] LABS: HCG Qualitative, Serum Negative (Negative); Magnesium 2.0 mg/dl (1.6-2.3)
[2025-08-28 05:00] VITALS: BP 126/87; PULSE 68; O2SAT 99
[2025-08-28 05:01] LABS: T4 (Thyroxine) 10.8 ug/dl (5.53-11.0)
--- NOTE | 2025-08-28 05:06 | [facility].EDGENADL ---
Discharge Plan Disposition Patient Disposition: Home, Self-Care Prescriptions Prescriptions: New famotidine 20 mg tablet 20 mg PO BID 42 Days Qty: 84 0RF No Action Lo Loestrin Fe 1 mg-10 mcg (24)/10 mcg (2) tablet 1 tab PO DAILY Qty: 84 4RF amitriptyline 25 mg tablet 25 mg PO DAILY Qty: 30 2RF cetirizine [Zyrtec] 10 mg tablet 10 mg PO DAILY Qty: 30 2RF buspirone 10 mg tablet 20 mg PO BID 90 Days Qty: 360 0RF propranolol 60 mg capsule,extended release 24 hr 60 mg PO DAILY Qty: 30 2RF Rx Instructions: Take at approximately 5 pm. rizatriptan 5 mg tablet,disintegrating See Rx Instructions PO .COMPLEX Qty: 10 3RF Rx Instructions: take 1 tablet at onset of headache; if no relief, may repeat 1 tablet after at least 2 hrs PO desvenlafaxine succinate 100 mg tablet extended release 24 hr 100 mg PO DAILY Qty: 30 2RF ondansetron 4 mg tablet,disintegrating 4 mg PO Q6H PRN (Reason: nausea and vomiting) Qty: 14 0RF Referrals Follow up/Referrals: Trista Martinez APRN [Primary Care Provider, Medical] - See instructions Activity Restrictions/Add. Instructions Additional Instructions/Restrictions: Recommend taking increased doses of cetirizine, I have also sent famotidine. Please follow-up with your primary care provider. Please return to the emergency department if you develop any new or worsening symptoms or become concerned for your health. Clinical Impressions Clinical Impression: Recurrent urticaria Print Language Print Language: Urdu Discharge ED Provider: Spencer Jane Adult HPI General Chief complaint: Allergic Reaction Stated complaint: allergic reaction Time Seen by Provider: 08/28/25 03:50 Mode of Arrival: Ambulatory Source of Information: Patient Description of Symptoms (Recalled from ER Triage Doc. by RN): Patient states she has been having on ongoing issues with hives all over. States her first flare up was on the . States she takes bendryl in the morning and night. States she has an appointment with an allergy clinic on the Aug. States she gets these flare ups on and off. Patient has hives all over her arms, belly, and legs. States they are itchy. History of Present Illness HPI narrative: 24-year-old female with recurrent urticaria presents with worsening symptoms. She has been having symptoms for the last several weeks. Today she went to PCP and got 20 mg of prednisone. She has been taking increasing doses of antihistamines. Tonight the symptoms are much worse and that is why she presents. She reports she feels like something is in her throat, but has felt that way for weeks. No new. She denies any significant shortness of breath. No chest pain. No abdominal pain. No urinary symptoms. No recent viral syndrome. Related Data Previous Rx's ?Medication ?Instructions ?Recorded norethindrone 1 mg-ethinyl 1 tab PO DAILY #84 tabs 04/27/25 estradiol 10 mcg (24)-iron 10 mcg(2) tablet (Lo Loestrin Fe) desvenlafaxine succinate 100 mg 100 mg PO DAILY #30 tabs 06/11/25 tablet,extended release 24 hr buspirone 10 mg tablet 20 mg (2 x 10 mg) PO BID Anxiety 06/14/25 90 days #360 tabs ondansetron 4 mg disintegrating 4 mg PO Q6H PRN nausea and 06/17/25 tablet vomiting #14 tabs propranolol 60 mg capsule,24 60 mg PO DAILY #30 caps 06/26/25 hr,extended release rizatriptan 5 mg disintegrating See Rx Instructions PO .COMPLEX 06/26/25 tablet #10 tabs amitriptyline 25 mg tablet 25 mg PO DAILY #30 tabs 07/04/25 cetirizine 10 mg tablet (Zyrtec) 10 mg PO DAILY #30 tabs 08/11/25 famotidine 20 mg tablet 20 mg PO BID 6 weeks #84 tabs 08/28/25 Allergies Allergy/AdvReac Type Severity Reaction Status Date / Time No Known Allergies Allergy Verified 08/11/25 12:00 [facility] Disclaimer: The information contained in this section may have been updated after the patient was seen, as this information can be updated by other users. Medical History Neck pain Depression Anxiety Migraine headache Headache Muscular tension dysphonia Dysphonia Nightmares associated with chronic post-traumatic stress disorder Hemoperitoneum LGSIL on Pap smear of cervix Generalized anxiety disorder Insomnia Bipolar II disorder Fatigue Tingling in extremities Surgical History Hx of removal of cyst History of tonsillectomy History of colposcopy Family History Other Hypertension Social History Smoking Status: Never smoker second hand exposure: Yes alcohol intake: never substance use type: marijuana current occupational status: employed Travel in the last 8 weeks?: None household members: family housing: house lives independently: No marital status: single number of children: 0 education level: college service: No residential: No current occupation: [employer] current occupational exposures/hazards: No Have you lived/traveled outside [place] in past 30 days?: No Contact w/someone who lives/traveled outside [place] past 30 days?: No Exposure to someone with infectious disease in past 14 days?: No Do you have a fever (greater than 100.4 F or 38 C)?: No Have you tested positive for COVID-19?: No Exposed to someone with COVID-19 in past 14 days?: No Do you have a sore throat?: No Do you have a cough?: No Do you have any weakness?: No Do you have any diarrhea?: No Are you experiencing any unusual bleeding?: No Do you have any muscle aches/pain?: No Do you have any abdominal pain?: No Are you experiencing loss of taste or smell?: No Other Medical History Have you received the Flu Vaccine for this season: No Have you received the Pneumonia Vaccine: No ROS Obtained: Yes All systems reviewed & no additional complaints except as documented Physical Exam General General appearance: alert and in no apparent distress Head Head exam: atraumatic and normocephalic Eye Eye exam: Present normal appearance, PERRL and EOMI ENT ENT exam: Present normal oropharynx, normal external ear exam and other (Lips erythematous mildly swollen, no tongue swelling, no posterior swelling) Neck Neck exam: Present normal inspection and full ROM; Absent tenderness, lymphadenopathy or thyromegaly Chest Chest inspection: Present normal inspection and symmetric chest wall rise; Absent tenderness Respiratory Respiratory exam: Present normal lung sounds bilaterally; Absent respiratory distress Cardiovascular Cardiovascular exam: Present regular rate and normal rhythm Abdominal Exam Abdominal exam: Present soft; Absent distention, tenderness or guarding Extremities Exam Extremities exam: Present normal inspection; Absent edema or joint swelling Back Exam Back exam: Present normal inspection; Absent tenderness Neurological Exam Neurological exam: Present alert and oriented X3; Absent motor sensory deficit Psychiatric Psychiatric exam: Present normal affect and normal mood Skin Skin exam: Present warm, dry, normal color and rash (Diffuse blanching urticarial rash) Lymphatic Lymphatic Findings: no adenopathy Medical Decision Making Medical Records Medical records reviewed: Yes I reviewed the patient's medical records. Screening: Per USPSTF and CDC recommendations, given the prevalence of disease in our region, it is our hospital?s policy to screen for HIV and viral Hepatitis for all patients aged 18 and over and those with ongoing risk factors. Deejay Inquiry Pt receiving controlled substance: No Deejay was queried for this patient: No Vital Signs: 08/28/25 04:00 08/28/25 04:02 08/28/25 04:30 Temperature 97.9 F Temperature Source Oral Pulse Rate 90 91 H Pulse Rate [Left] 74 Respiratory Rate 18 Blood Pressure 143/97 H 126/93 H Blood Pressure [Right Arm] 134/78 Blood Pressure Mean 108 98 Blood Pressure Mean [Right Arm] 96 02 Sat by Pulse Oximetry 99 98 100 Oxygen Delivery Method Room Air 08/28/25 05:00 08/28/25 05:11 Temperature 98 F Temperature Source Oral Pulse Rate 68 75 Pulse Rate [Left] Respiratory Rate 18 Blood Pressure 126/87 119/76 Blood Pressure [Right Arm] Blood Pressure Mean 93 Blood Pressure Mean [Right Arm] 02 Sat by Pulse Oximetry 99 Oxygen Delivery Method Room Air Lab Data Lab results reviewed: Yes I reviewed the patient's lab results. Lab Results 08/28/25 04:20: WBC 11.2 H, RBC 4.21, Hgb 13.0, Hct 37.6, MCV 89.3, MCH 30.9, MCHC 34.6, RDW 12.5, Plt Count 305, MPV 8.8, Neut % (Auto) 68.9, Lymph % (Auto) 25.3, [place] % (Auto) 5.3, Eos % (Auto) 0.0 L, Baso % (Auto) 0.1, Neut # (Auto) 7.7, Lymph # (Auto) 2.8, [place] # (Auto) 0.6, Eos # (Auto) 0.0, Baso # (Auto) 0.0, ESR 15, Sodium 139, Potassium 3.5, Chloride 106, Carbon Dioxide 23, Anion Gap 13.5, BUN 10, Creatinine 0.80, Estimated Creat Clear 107, Estimated GFR 87, Est GFR ( Amer) 105, Glucose 101 H, Calcium 9.9, Magnesium 2.0, Total Bilirubin 0.5, AST 27, ALT 19, Alkaline Phosphatase 69, C-Reactive Protein 101.1 H, Total Protein 6.9, Albumin 4.2, Globulin 2.7, Albumin/Globulin Ratio 1.6, Thyroxine (T4) 10.8, Serum HCG, Qual Negative 08/28/25 04:20 08/28/25 04:20 Orders (Tests/Meds): ED MEDICATIONS Discontinued Medications Generic Name Dose Route Start Last Admin Trade Name Freq PRN Reason Stop Dose Admin Famotidine 20 mg 08/28/25 04:13 08/28/25 04:26 Famotidine 20mg Tablet PO 08/28/25 04:14 20 mg ONCE ONE Administration Loratadine 20 mg 08/28/25 04:15 08/28/25 04:27 Loratadine 10mg Tablet PO 08/28/25 04:16 20 mg ONCE ONE Administration Methylprednisolone Sodium Succinate 80 mg 08/28/25 04:13 08/28/25 04:25 Methylprednisolone Sod Succ 40mg Vial IV 08/28/25 04:14 80 mg ONCE ONE Administration ORDERS Category Date Time Status CBC w/Auto Diff [Complete Blood Count Auto Diff] Stat Lab 08/28/25 04:20 Completed CMP [Comprehensive Metabolic Panel] Stat Lab 08/28/25 04:20 Results CRP [C-Reactive Protein] Stat Lab 08/28/25 04:20 Results ESR [Erythrocyte Sedimentation Rate] Stat Lab 08/28/25 04:20 Completed HCG Qualitative, Serum Stat Lab 08/28/25 04:20 Completed Magnesium Stat Lab 08/28/25 04:20 Completed T4 (Thyroxine) Stat Lab 08/28/25 04:20 Results TSH [Thyroid Stimulating Hormone] Stat Lab 08/28/25 04:20 Results Medical Decision Narrative: 24-year-old female with recurrent hives presents for worsening symptoms tonight.. History was obtained via interactive discussion with patient. On arrival, patient is [afebrile, hemodynamically stable, satting appropriately, alert, oriented x4, GCS 15], moving all extremities spontaneously. Full physical exam performed and significant for diffuse urticarial rash, mild erythema and swelling of the lips, no posterior oropharyngeal or tongue swelling, normal lung sounds bilaterally,. Differential includes but is not limited to chronic spontaneous urticaria, vasculitis, angioedema, Cuellar-Bishop syndrome, autoimmune condition. Patient was given 80 of IV Solu-Medrol, 20 of cetirizine, 20 of Pepcid for symptomatic management and correction of underlying abnormalities. Workup initiated including basic labs and inflammatory markers. On re-evaluation, patient reports some symptomatic improvement Laboratory workup independently interpreted by me and significant for markedly elevated CRP, otherwise unremarkable labs. Given patient history, exam and workup, patient's presentation most likely represents chronic spontaneous urticaria. Patient has follow-up scheduled with rheumatology/allergy and is seeing her PCP regularly. She is starting a course of prednisone prescribed by the PCP. I recommended she also significantly increase her cetirizine dosing and start Pepcid which I have prescribed. Patient is agreeable to plan and was discharged in stable condition. Procedures Risk/Benefits of Procedure(s) Were Explained: Yes Critical Care Critical Care Time Critical Care Time: No
[2025-08-28 05:11] VITALS: BP 119/76; PULSE 75; RESP 18; TEMP 36.6; O2SAT 98
[2025-08-28 05:15] LABS: Thyroid Stimulating Hormone 1.11 uIU/mL (0.465-4.68)
== END 2025-08-28 05:23 | disposition home or self-care (01) ==
PROVIDERS: Emergency Provider Emergency Medicine; PCP Nurse Practitioner Family
DX: L50.8 Other urticaria (principal); R79.82 Elevated C-reactive protein (CRP)
CPT/HCPCS: 80053; 83735; 84436; 84443; 84703; 85025; 85651; 86140; 96374; 99284; J2919